=== PATIENT | male | born 1960 | race Caucasian/White ===

== ENCOUNTER 2018-04-03 03:30 | Inpatient (IN) | payer MEDICARE, OTHER ==
[2018-04-03 04:05] LABS: #Eosinphils 0.3 thou/uL (0.0-0.7); #Lymphocytes 1.1 thou/uL (1.20-3.40); #Monocytes 0.5 thou/uL (0.11-0.59); %Basophils 0.4 % (0.0-1.0); %Eosinophils 4.8 % (0.0-10.0); %Monocytes 6.9 % (0.0-10.0); Mean Corpuscular HGB CONC 32.6 g/dL (32.0-36.0); Mean Corpuscular Hemoglobin 30.7 pg (27.0-31.0); Mean Corpuscular Volume 94.4 fl (80.0-94.0); Mean Platelet Volume 7.7 fL (7.4-10.4); Platelet Count 132 thou/uL (130-400); RBC Distribution Width 17.1 % (11.5-14.5); Red Blood Cell (RBC) Count 3.57 mill/uL (4.70-6.10)
[2018-04-03] MEDS ORDERED: Morphine 10 MG/ML VIAL ONE (04:18)
[2018-04-03 04:21] LABS: Bilirubin Negative (Negative); Blood, Urine Large (Negative); Clarity TURBID (Clear); Glucose, Urine (Dipstick) Negative (Negative); Leukocyte Large (Negative); Nitrite Negative (Negative); Protein, Urine (Dipstick) 300 mg/dL (Neg-Trace); Specific Gravity, Urine 1.016 (1.002-1.036)
[2018-04-03 04:23] LABS: ALT (SGPT) 9 U/L (8-55); AST (SGOT) 13 U/L (5-34); Albumin 3.7 g/dL (3.5-5.0); Alkaline Phosphatase 74 U/L (40-150); Anion Gap 15 mmol/L (10-20); BUN (Urea Nitrogen) 40 mg/dL (8.4-25.7); Bilirubin, Total 0.4 mg/dL (0.2-1.2); Calc. Creatinine Clearance 0 mL/min (70-130); Calcium 9.5 mg/dL (7.8-10.44); Carbon Dioxide 27 mmol/L (22-29); Chloride 99 mmol/L (98-107); Estimated GFR-MDRD 14; Globulin 3.7 g/dL (2.4-3.5); Glucose 150 mg/dL (70-105); Potassium 4.3 mmol/L (3.5-5.1); Protein, Total 7.4 g/dL (6.0-8.3); Sodium 137 mmol/L (136-145)
[2018-04-03 04:24] LABS: Bacteria/HPF 4+ HPF (None Seen); Squamous Epithelial 0-3 HPF (0-3)
[2018-04-03 04:37] LABS: Pathc Cast-AUWi Flag 3.55 (0-2.49); Yeast-AUWi Flag 229.6 (0-25.0)
[2018-04-03 04:51] LABS: Amphetamine Not Detected (NotDetected); Barbiturates Screen Not Detected (NotDetected); Benzodiazepine Screen Not Detected (NotDetected); Cocaine Metabolite Screen Not Detected (NotDetected); Medtox Control Line Valid? VALID (VALID); Medtox Reader # READER 1; Methadone Not Detected (NotDetected); Methamphetamine Not Detected (NotDetected); Opiate Screen Not Detected (NotDetected); Oxycodone Screen Not Detected (NotDetected); Phencyclidine (PCP) Not Detected (NotDetected); THC/Cannabinoid Screen Not Detected (NotDetected); Tricyclic Screen Not Detected (NotDetected)
[2018-04-03 04:57] LABS: Hyaline Casts/LPF 0-3 HYALINE CAST LPF (0-3 Hyaline)
[2018-04-03 04:58] LABS: Renal Epithelial None Seen HPF (0-3); Transitional Epithelial NONE SEEN HPF (0-3); Yeast-All Forms None Seen HPF (None Seen)
[2018-04-03] MEDS ORDERED: Lorazepam 2 MG/ML VIAL ONE (05:00)
[2018-04-03 05:23] LABS: INR-International Normal Ratio 1.2; PTT 34.2 SEC (22.9-36.1); Prothrombin Time 15.1 SEC (12.0-14.7)
[2018-04-03] MEDS ORDERED: Diazepam 10 MG/2 ML SYRINGE IVP SCH (07:30)
--- NOTE | 2018-04-03 07:51 | CT ---
PRELIMINARY REPORT/[facility]/EMERGENCY AFTER HOURS PROCEDURE: EXAM: CT Cervical Spine Without Intravenous Contrast CLINICAL HISTORY: 58 years old, male; Injury or trauma; Fall; Initial encounter; Abrasion; Patient HX: level 2 trauma m58 presents to ed for fall. Pt reports fall from standing while in the bathroom and reports hitti ng his head. Pt reports pain in bilateral arms that goes down into his hands. TECHNIQUE: Axial computed tomography images of the cervical spine without intravenous contrast. Coronal and sagi ttal reformatted images were created and reviewed. COMPARISON: No relevant prior studies available. FINDINGS: Vertebrae: Moderate C5-C7 spondylosis with multilevel disc osteophyte complexes. No acute fracture. Discs/spinal canal/neural foramina: No acute findings. Soft tissues: Straightening of the spine may be positional or due to muscle spasm. Lung apices: Unremarkable. IMPRESSION: No acute findings. Thank you for allowing us to participate in the care of your patient. Dictated and Authenticated by: Alan Jacob MD 04/03/2018 4:05 AM Central Time ([place] & [place]) FINAL REPORT CERVICAL SPINE CT SCAN WITHOUT IV CONTRAST: EMERGENCY AFTER HOURS EXAM TIME: 3:50 a.m. DATE: 04/03/18. FINDINGS: Cervical spondylosis, particularly at C5-C6 and c6-C7. No evidence for acute fracture or facet dislo cation. Stable from 06/06/14. POS: OFF
--- NOTE | 2018-04-03 07:53 | CT ---
PRELIMINARY REPORT/[facility]/EMERGENCY AFTER HOURS PROCEDURE: EXAM: CT Head Without Intravenous Contrast CLINICAL HISTORY: 58 years old, male; Injury or trauma; Fall; Initial encounter; Blunt trauma (contusions or hematomas) ; Consciousness not specified; Patient HX: level 2 trauma m58 presents to ed for fall. Pt reports fall from standing while in the bathroom and reports hitting his head. Pt reports pain in bilateral arms that goes down into his hands. TECHNIQUE: Axial computed tomography images of the head/brain without intravenous contrast. Coronal and sagittal reformatted images were created and reviewed. COMPARISON: No relevant prior studies available. FINDINGS: Brain: Mild atrophy and white matter hypodensities compatible with chronic microvascular ischemic diallo nge. Old right thalamic and left caudate body lacunar infarcts. No hemorrhage. Ventricles: Unremarkable. Bones/joints: Unremarkable. No acute fracture. Soft tissues: Unremarkable. Sinuses: Left sphenoid sinus and posterior ethmoid air cell opacification with mild wall thickening. Mastoid air cells: Unremarkable. No mastoid effusion. IMPRESSION: No acute findings. Thank you for allowing us to participate in the care of your patient. Dictated and Authenticated by: Alan Jacob MD 04/03/2018 4:00 AM Central Time ([place] & [place]) FINAL REPORT BRAIN CT WIHTOUT IV CONTRAST: EMERGENCY AFTER HOURS EXAM TIME: 3:48 a.m. DATE: 04/03/18. FINDINGS: Atrophy and chronic white matter ischemic change. Left posterior ethmoid and left sphenoid sinus muc osal disease with essentially complete opacification of the left sphenoid sinus. Small old right luis antonio lamus and left caudate lacunar infarcts. These have developed since 06/06/14 study. IMPRESSION: No mass or bleed or other significant acute process. Extensive left sphenoid and posterior left ethm oid sinus mucosal disease. POS: OFF
--- NOTE | 2018-04-03 08:08 | CT ---
PRELIMINARY REPORT/[facility]/EMERGENCY AFTER HOURS PROCEDURE: EXAM: CT Chest With Intravenous Contrast CLINICAL HISTORY: 58 years old, male; Injury or trauma; Fall; Initial encounter; Abrasion; Patient HX: level 2 trauma m58 presents to ed for fall. Pt reports fall from standing while in the bathroom and reports hitti ng his head. Pt reports pain in bilateral arms that goes down into his hands. TECHNIQUE: Axial computed tomography images of the chest with intravenous contrast. Coronal and sagittal reformatted images were created and reviewed. COMPARISON: No relevant prior studies available. FINDINGS: Lungs: Right greater than left bibasilar linear and dependent densities mostly suggestive of scarring with mild component of atelectasis. No mass or acute airspace disease. Pleural space: Mild bibasilar pleural thickening. Trace left pleural effusion. Heart: Mildly enlarged. Coronary calcifications. Aortic valvular prosthesis. Mediastinum: Small hiatal hernia. Air within the esophagus. Bones/joints: Unremarkable. No acute fracture. Soft tissues: Unremarkable. Vasculature: Unremarkable. Lymph nodes: Unremarkable. No enlarged lymph nodes. IMPRESSION: No acute findings. Thank you for allowing us to participate in the care of your patient. Dictated and Authenticated by: Alan Jacob MD 04/03/2018 4:20 AM Central Time ([place] & [place]) FINAL REPORT EMERGENCY AFTER HOURS STUDY CHEST AND ABDOMEN AND PELVIS CT SCAN WITH IV CONTRAST THORACIC SPINE CT SCAN WITH IV CONTRAST LIMITED LUMBAR SPINE CT SCAN WITH IV CONTRAST LIMITED: Date: 04/03/18 FINDINGS: CHEST, ABDOMEN, AND PELVIC CT SCAN WITH IV CONTRAST: IMPRESSION: No significant acute post-traumatic process in the chest, abdomen, or pelvis. Other nontraumatic find ings include some borderline size right supraclavicular lymph nodes up to 1.2 cm in short axis, as we ll as some borderline size mediastinal lymph nodes. Extensive three vessel coronary artery calcific d isease with postop midline sternotomy. Heterogenous bilateral pleural thickening and pleural based pa renchymal changes bilaterally, having more of a chronic appearance. Small hiatal hernia. Minimal inc reased density in the dependent portion of the gallbladder, possibly artifactual, although this could represent small gallstones, but no evidence for gallbladder wall thickening or pericholecystic fat s tranding. Suprapubic urinary catheter is noted in the bladder. Very prominent vascular calcifications within the abdomen and pelvis. THORACIC SPINE CT SCAN WITH IV CONTRAST LIMITED: IMPRESSION: Multilevel spondylosis without acute fracture or dislocation. LUMBAR SPINE CT SCAN WITH IV CONTRAST LIMITED: IMPRESSION: Generalized spondylosis. Multilevel up to moderate lumbar spinal canal stenosis. No evidence for acut e fracture or dislocation. Report in agreement with preliminary report given on-call by [facility]. POS: OFF
--- NOTE | 2018-04-03 08:09 | HP ---
REQUESTING PHYSICIAN: Dr. Carnes ATTENDING SURGEON: Dr. Calixto CONSULTATIONS: Neurosurgery, Dr. Castellano HISTORY OF PRESENT ILLNESS: The patient is a 58-year-old man who presents to the Emergency [facility] by ground EMS after having a ground level fall at his home who reports hitting something in the bat hroom with his head when he fell. He had immediate numbness and tingling to his entire body. The lo wer extremities recovered almost immediately, but had continued numbness and tingling and weakness to both upper extremities with significant pain shooting down from his neck to both upper extremities. He was able [place] and again was brought to the Emergency Department, e valuated and examined and noted to have this upper extremity weakness consistent with a cord contusio n. After consultations with Dr. Castellano, it was recommended the patient get an emergent MRI in [facility] he did this morning. Currently, the patient's chief complaint is shooting pains from his neck thaddeus n into both thumbs and continued weakness. The patient currently has no new lower extremity complain ts. He has a history of diabetic peripheral neuropathy in both lower extremities. The patient denie d loss of consciousness. ALLERGIES: DEMEROL. CURRENT MEDICATIONS: Calcium, iron, fluticasone, pravastatin and sertraline. PAST MEDICAL HISTORY: Hyperlipidemia, coronary artery disease, cardiomyopathy, congestive heart fail ure, type 2 diabetes, hypertension, end-stage renal disease, CVA, depression. PAST SURGICAL HISTORY: Suprapubic catheter placement x2, cataract surgery, right subclavian dialysis catheter placement, left brachial fistula, CABG x1 and a valve replacement. SOCIAL HISTORY: The patient denies drug, tobacco or alcohol use and lives at home with family. FAMILY MEDICAL HISTORY: Coronary artery disease. REVIEW OF SYSTEMS: Ten-point review of systems negative, unless otherwise stated. PHYSICAL EXAMINATION: GENERAL: The patient is resting in the emergency room bed. He still appears in some discomfort prim arily, according to him it is his neck with the shooting pains into both upper extremities, but he is awake, alert, and his Tiffanie coma scale is 15. HEENT: Head is normocephalic, atraumatic. Eyes: Extraocular motion intact. PERRLA bilaterally. E ars are atraumatic without discharge. Nose is atraumatic without discharge. Oropharynx is clear. NECK: Immobilized in a cervical collar. Trachea is midline. No JVD. CHEST: Clear to auscultation bilaterally with good inspiratory and expiratory effort. HEART: Regular rate and rhythm. ABDOMEN: Soft, flat, nontender with hypoactive bowel sounds. Pelvis is stable. EXTREMITIES: Lower extremities show diffuse hyperpigmentation. Capillary refill is approximately 3- 4 seconds. Pulses are 1-2+ in the lower extremities. The patient is able to move and has 4/5 streng th. Upper extremities; the patient is able to shrug his shoulders, has minimal adduction and very we ak adduction. He is unable to give a thumbs up, but is able to move his other 4 fingers. He has got pins and needle sensations bilaterally. His pulses are 2+ and his capillary refill is less than 3 s econds. BACK: Atraumatic and nontender. LABORATORY DATA: White blood cell count 7.0, hemoglobin 11.0, hematocrit 33.7, platelets 132. Sodiu m 137, potassium 4.3, chloride 99, CO2 27, BUN 40, creatinine 4.36, glucose 150. LFTs are unremarkab le. Urinalysis shows large leukocyte esterase, 300+ protein, trace ketones, 7-10 RBCs, greater than 50 to TNTC white blood cells and 4+ bacteria. Urine drug screen is negative. PTT 34, PT 15, INR 1.2 . IMAGING: Radiographs; CT of the brain without contrast shows no acute findings. CT of the C-spine w ithout contrast shows no acute findings. CT of the chest, abdomen and pelvis with IV contrast shows no acute findings. The patient's cervical spine MRI is pending, but has been completed. ASSESSMENT AND PLAN: 1. Status post ground level fall. 2. Probable cord contusion. 3. History of hypertension. 4. History of coronary artery disease. 5. History of end-stage renal disease. 6. History of depression. 7. Urinary tract infection. PLAN: The plan will be to admit the patient to the surgical floor, await MRI results and final input by Dr. Castellano. The patient will be given Rocephin IV for his urinary tract infection, pain manag ement, pulmonary toilet, gastritis and mechanical thrombosis prophylaxis. The evaluation, examination, laboratory and radiographic findings will be discussed with Dr. Durga baker ter this dictation.
--- NOTE | 2018-04-03 08:13 | MRI ---
PRELIMINARY REPORT/[facility]/EMERGENCY AFTER HOURS PROCEDURE: EXAM: MR Cervical Spine Without Intravenous Contrast CLINICAL HISTORY: 58 years old, male; Injury or trauma; Fall; Initial encounter; Rupture of the cervical disc, traumati c; Injury date: 04/03/2018; Injury details: level 2 trauma m58 presents to ed for fall. Pt report s fall from standing while in the bathroom and reports hitting his head. Pt reports pain in bilateral arms t hat goes down into his hands TECHNIQUE: Magnetic resonance images of the cervical spine without intravenous contrast in multiple planes. COMPARISON: CT Cervical Spine WO Con 2018-04-03 03:49 FINDINGS: Image quality is degraded by motion. Vertebrae: There is mild reversal of the normal cervical lordosis. There is no fracture or listhesis. Normal vertebral body alignment and heights are preserved. Spinal cord: The patient has a congenitally narrowed spinal canal. Cervicomedullary junction and cerv ical cord appear grossly normal, allowing for motion artifact. Soft tissues: Unremarkable. DISCS/SPINAL CANAL/NEURAL FORAMINA: C2-C3: There is a shallow disc osteophyte complex. There is mild facet hypertrophy. There is moderate right and mild left neural foraminal narrowing. C3-C4: There is a broad-based disc osteophyte complex. There is mild facet hypertrophy. There is mild right and moderate left neural foraminal narrowing. There is moderate canal stenosis. C4-C5: There is a broad-based disc osteophyte complex. There is moderate facet hypertrophy. There is moderate right and bdclrocl-ci-hbmsiz left neural foraminal narrowing. There is moderate can al stenosis. C5-C6: There is a broad-based disc osteophyte complex. There is moderate facet hypertrophy. There is severe bilateral neural foraminal narrowing. There is moderate canal stenosis. C6-C7: There is a broad-based disc osteophyte complex. There is moderate facet hypertrophy. There is severe bilateral neural foraminal narrowing. There is mild canal stenosis. C7-T1: There is a shallow disc osteophyte complex there is mild facet hypertrophy. There is moderate bilateral neural foraminal narrowing. IMPRESSION: Examination limited by motion. No evidence of acute traumatic injury. Degenerative disc disease and s pondylosis in a patient with a congenitally narrowed spinal canal contribute to multilevel moderate c anal stenosis and multilevel moderate to severe neural foraminal narrowing. Thank you for allowing us to participate in the care of your patient. Dictated and Authenticated by: Genet Mattson MD 04/03/2018 7:46 AM Central Time ([place] & [place]) FINAL REPORT MRI CERVICAL SPINE WITHOUT CONTRAST; Date: 04/03/18 HISTORY: Level II trauma. Patient fell from standing. Post-traumatic pain. COMPARISON: None. TECHNIQUE: Cervical spine MRI is performed without intravenous Gadolinium administration. Multisequential, multi planar imaging is performed. FINDINGS: This report is in agreement with the preliminary report by Jeanine. Image quality is degraded by motion. There is no evidence of spondylolisthesis or fracture. The overall AP diameter of the central canal may be slightly narrowed due to congenital variants. There are degenerative changes of the cervical s pine as described in the preliminary report. C3-C4: Moderate central canal stenosis. There does appear to be foraminal narrowing. Evaluation is limited d ue to motion. C4-C5: Moderate central canal stenosis. Degenerative changes result in bilateral foraminal narrowing, diffic ult to evaluate due to motion. C5-C6: Severe central canal stenosis. There is bilateral foraminal narrowing. Additional areas of significant foraminal narrowing as noted as have been described in the preliminar y report by Jeanine. POS: [facility]
[2018-04-03] MEDS ORDERED: Thrombin 5000 UNITS/5 ML VIAL ONE (08:24)
[2018-04-03] MEDS ORDERED: Sodium Chloride 0.9% 10 ML ONE (08:24)
[2018-04-03] MEDS ORDERED: Morphine 4 MG/ML VIAL ONE (08:42)
[2018-04-03] MEDS ORDERED: CEFAZOLIN/Water 2 GM/20 ML SYRINGE ONE (08:48)
[2018-04-03] MEDS ORDERED: Midazolam HCl 2 mg/2 ml Vial ONE ×2 (08:49→09:04)
[2018-04-03] MEDS ORDERED: Fentanyl 250 MCG/5 ML VIAL ONE (09:04)
[2018-04-03] MEDS ORDERED: Fentanyl 100 MCG/2 ML VIAL ONE (09:04)
[2018-04-03] MEDS ORDERED: Morphine Sulfate 2 MG/ML SYRINGE SLOW IVP PRN (13:29)
[2018-04-03] MEDS ORDERED: Promethazine HCl 25 MG/ML VIAL SLOW IVP PRN (13:29)
[2018-04-03] MEDS ORDERED: diphenhydrAMINE 25 MG CAP PO PRN (13:49)
[2018-04-03] MEDS ORDERED: Promethazine HCl 25 MG/ML VIAL IM PRN ×3 (13:49→17:36)
[2018-04-03] MEDS ORDERED: Morphine 4 MG/ML VIAL SLOW IVP PRN ×2 (13:49→17:36)
[2018-04-03] MEDS ORDERED: diphenhydrAMINE 50 MG/ML VIAL IVP PRN (13:49)
[2018-04-03] MEDS ORDERED: Ondansetron HCl/PF 4 MG/2 ML Vial IVP PRN ×2 (13:49→17:36)
[2018-04-03] MEDS ORDERED: Promethazine 25 MG TAB PO PRN (13:49)
[2018-04-03] MEDS ORDERED: Promethazine HCl 12.5 MG SUPP PR PRN (13:49)
[2018-04-03] MEDS ORDERED: Acetaminophen/Codeine 30-300mg Tablet PO PRN ×2 (13:49)
[2018-04-03] MEDS ORDERED: tiZANidine HCl 4 MG TAB PO PRN (13:49)
[2018-04-03] MEDS ORDERED: Bisacodyl 10 MG SUPP PR PRN (13:49)
[2018-04-03] MEDS ORDERED: Dexamethasone 20 MG/5 ML VIAL ONE (14:01)
[2018-04-03] MEDS ORDERED: Ondansetron HCl/PF 4 MG/2 ML Vial ONE (14:01)
[2018-04-03] MEDS ORDERED: Glycopyrrolate 0.2 MG/ML 5 ML SYRINGE ONE (14:01)
[2018-04-03] MEDS ORDERED: PHENYLEPHRINE-NS 100 MCG/ML 10 ML SYRINGE ONE (14:01)
[2018-04-03] MEDS ORDERED: PROPOFOL 200 MG/20 ML VIAL ONE (14:01)
[2018-04-03] MEDS ORDERED: Lidocaine 1% PF 5 ML VIAL ONE (14:01)
--- NOTE | 2018-04-03 14:27 | OP ---
DATE OF PROCEDURE: 04/03/2018 SURGEON: Vicente Castellano M.D. JUMPBASTING ARMHOLE BASTER: Xiang Smith PA-C PREOPERATIVE INDICATION: Prevent further neurological deterioration. 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 OPERATIVE PROCEDURE: Anterior cervical diskectomy, intervertebral arthrodesis, placement of interver tebral biomechanical device C3-C4, C4-C5, C5-C6, anterior cervical plating C3-C6, local morselized au tograft, morselized Allograft, and operating microscope. PREOPERATIVE MEDICATION: Ancef 2 grams IV. DRAIN NUMBER: #1. DRAIN TYPE: 10 [place] Walter. OPERATIVE DICTATION: The patient was brought to the operating room. General endotracheal anesthesia was induced. Patient was carefully positioned with his head supported by a donut shaped head rest. A lateral fluoro radiograph was used to plan our incision. The rest of the neck was sterilely prepp ed and draped and we opened with a 10-blade knife. We controlled bleeding with bipolar cautery. We dissected sharply to the platysma and cut this muscle in line with our incision. We continued our di ssection medial to the sternocleidomastoid, lateral to the trachea and esophagus until we arrived at the prevertebral space. We placed a marker at C3-C4 and took a lateral fluoro radiograph to confirm the levels upon which we were operating. We then elevated the longus colli muscles off the anterior surface of C3, C4, C5, and C6. We placed a self-retaining retractor at C4. Distraction pins were pl aced at C3 and C5 and we distracted across both of the intervening interspaces. We incised the inter space with a 15-blade knife and removed disk contents using curettes and rongeurs at C3-C4 and C4-C5. The operative microscope was brought into the field. Under microscopic magnification using microsurgical techniques, we removed the remainder of the inter vertebral disk. We accessed the ventral epidural space with a micro curette and using Kerrison ronge urs, we removed posterior osteophytes all the remaining disk and the posterior longitudinal ligament across the interspace from one nerve root all the way to the other at C3-C4 and C4-C5 until the dura was well decompressed. We then prepared the endplates for grafting. We brought a bone rasp into the field and measured the height of the interspace to 8 mm each. Two separate 8 mm PEEK intervertebral grafts were brought into the field. These were loaded with demineralized bone matrix and morselized autograft. The autograft was obtained from our osteophytectomies and these osteophytes were cleaned off soft tissue attachments, morselized into the demineralized bone matrix and this substance was us ed as our fusion substrate. We then advanced the PEEK interbody graft into the respective interspace s under radiographic guidance to the appropriate depth. We removed our distraction pin from C4 and m solo it to C6. We moved our lateral retractor to C5-C6 and we distracted across this interspace. We incised the interspace with a 15-blade knife and removed disk contents using curettes and rongeurs. As we approached the posterior longitudinal ligament, a micro curette was used to access the ventral epidural space. Using Kerrison rongeurs, we removed posterior osteophytes. The remainder of the di sk and posterior longitudinal ligament across the entire interspace from one nerve root all the way t o the other. There was no further compression of the dura. We prepared the endplates for grafting w ith a curette and measured the height of the interspace to 7 mm. A 7 mm PEEK intervertebral graft wa s brought into the field, loaded with our demineralized bone matrix and morselized autograft and adva nced into the interspace under radiographic guidance to the appropriate depth. We then removed our d istraction pins. We irrigated with bacitracin irrigation. We removed anterior osteophytes from each of the vertebral bodies and brought a 54-mm anterior cervical plate into the field. We drilled matthew t holes through the plate into C3, C4, C5, and C6. We affixed the plate using 14 mm screws. Fixed a ngle screws were used at C6 and variable angle screws used at C3, C4, and C5. We engaged the locking mechanism over each of the 8 screws. AP and lateral fluoro radiographs confirmed adequate positioni ng of our instrumentation. We inspected the entire wound for any bleeding. We controlled bleeding w ith gentle bipolar cautery. We irrigated copiously with bacitracin irrigation. We tunneled the drai n under the platysma through a separate stab incision. We closed the wound in anatomic layers over t he drain. We applied a sterile dressing. This was a clean case and no contamination.
[2018-04-03] MEDS ORDERED: Gabapentin 300 MG CAP PO SCH ×2 (15:00→17:45)
[2018-04-03] MEDS ORDERED: Dextrose 50% Abboject 50 ML SYRINGE SLOW IVP PRN ×2 (17:36→18:11)
[2018-04-03] MEDS ORDERED: Ondansetron ODT 4 MG TAB PO PRN (17:36)
[2018-04-03] MEDS ORDERED: hydrALAZINE 20 MG/ML VIAL SLOW IVP PRN (17:36)
[2018-04-03] MEDS ORDERED: Sodium Chloride 0.9% 1,000 ML IV SCH (17:36)
[2018-04-03] MEDS ORDERED: Dextrose 5% in Water 1,000 ML IV PRN ×2 (17:36→18:11)
[2018-04-03] MEDS ORDERED: Cyclobenzaprine 10 MG TAB PO PRN (17:36)
[2018-04-03] MEDS ORDERED: ISOVUE-370 76%-LOCM 1 ML ONE (18:07)
[2018-04-03] MEDS: Dexamethasone 4 MG TAB PO SCH ×2 (18:11→23:40)
[2018-04-03] MEDS: CEFAZOLIN/Water 2 GM/20 ML SYRINGE SLOW IVP SCH (18:11)
[2018-04-03] MEDS ORDERED: HumaLOG 300 UNITS/3 ML VIAL SC PRN (18:11)
[2018-04-03] MEDS: Acetaminophen 1,000 MG in Premix Bag 1 BAG IVPB SCH ×2 (18:11→23:40)
[2018-04-03 18:37] VITALS: BMI 34.0
[2018-04-03] MEDS: cefTRIAXone\\ROCEPHIN 1 GM in Sodium Chloride 0.9% 100 ML IVPB SCH (18:56)
--- NOTE | 2018-04-03 18:57 | HP ---
NEUROSURGERY ADMISSION HISTORY AND PHYSICAL REASON FOR ADMISSION: Fall with spinal cord injury. HISTORY OF PRESENT ILLNESS: Mr. Abdulkadir Fontana is a 58-year-old gentleman with hypertension, diabete s, end-stage renal disease on dialysis who has had recurrent falls recently. He used to be losing hi s balance progressively overtime and he has noticed some hand weakness in the past. It is with this history that he got up in the early hours of the morning, fell down and hit his face on the bathroom floor. He had immediate onset burning in both arms, especially the hands and loss of control of the fingers. His legs work. He was brought to the emergency department where CT examination was negativ e for fracture or dislocation, but an MRI scan showed multilevel disk disease, T2 signal change in th e cord and compression in the cervical spinal canal. I am seeing him in the preoperative area and hi s arms are still burning from the fall. Light touch also causes dysesthetic pain in both arms. He t ells me his bowel and bladder are working okay and that the legs continue to have normal function. PAST MEDICAL HISTORY: Hypertension, type 2 diabetes, end-stage renal disease, coronary artery diseas e, aortic valve replacement, dyslipidemia, history of depression, history of constipation, and recent falls. PAST SURGICAL HISTORY: Vitrectomy in 2012, coronary artery bypass graft, aortic valve replacement, h emodialysis catheter placement, and suprapubic catheter. MEDICATIONS: Include nifedipine, tramadol, pravastatin, calcium, sertraline, midodrine, Flonase, opal devorah sulfate, aspirin (not taking aspirin), Colace, trazodone, nitroglycerin, lactulose, bisacodyl (d iscontinued), occasional Augmentin, Emetrol, Pravachol, acetaminophen, Glucotrol. ALLERGIES: DEMEROL. FAMILY HISTORY: Father has diabetes as well. Mother is and had a knee replacement and hear t disease. SOCIAL HISTORY: Mr. Fontana lives with his . He is a nonsmoker. Denies alcohol and drug use. REVIEW OF SYSTEMS: Otherwise negative. PHYSICAL EXAMINATION: Mr. Fontana is seen in the preoperative holding area. He is lying on a gurney with a collar in place. He is complaining of burning dysesthesias in the hands. He is awake. He an swers questions appropriately and he has been given some pain medicine and he drifts off to sleep, bu t he does answer in sentence form and he has good receptive and expressive language function. His co gnitive function seems normal for his age. His cranial nerves are intact. He might have some decrea sed vision, decreased hearing, but otherwise there is no focal cranial neuropathy. There is no funct ion in the hands that I can appreciate. The deltoids are working. The biceps and triceps are a claudine le bit weaker. The wrist extensors, finger extensors, and interossei are all quite weak. There is b urning dysesthetic numbness in the hands, climbing up the forearms. In the legs, there is good antig ravity strength and strength against resistance in the iliopsoas, quadriceps, hamstrings, anterior ti chano, EHL, gastroc. His joint position sense is diminished, but he has good touch sensation. Reflexe s are brisk. IMAGING FINDINGS AND TEST RESULTS: We reviewed MR imaging of the cervical spine, there is disk disea se at C3-4, C4-5, and C5-6, all of which cause cord compression. There is T2 signal change at the C5 -6 level within the substance of the cord at C6-7, there is disk disease, but no cord compression. IMPRESSION: 1. Longstanding cervical spondylitic myelopathy. 2. Fall with extension injury and central cord injury. PLAN: I have recommended emergent decompression. I have offered him an ACDF. INFORMED CONSENT: I discussed the indications, risks, benefits, and alternatives to surgery. The ri sks I discussed included, but were not limited to bleeding, infection, CSF leak, damage to the caroti d artery, jugular vein, damage to the trachea, esophagus, damage to the vocal cords, dysphagia or spi nal cord injury including wheelchair dependence, ventilator dependence, cardiopulmonary complications of anesthesia and . He understands all the risks and wants to proceed. We will make arrangements for this to happen soon. We will consult the medicine team to help with re nal dosing of his medications. We will use gabapentin, if it is possible on dialysis to help control the dysesthetic pain in the upper extremities. We make arrangements for his surgery to happen urgently. Operating room staff will decide how soon t hat he can get this on for us.
[2018-04-03] MEDS ORDERED: Famotidine/PF 20 mg/2ml Vial SLOW IVP SCH (21:00)
[2018-04-03] MEDS: Famotidine 20 MG TAB PO SCH (21:07)
[2018-04-04] MEDS: CEFAZOLIN/Water 2 GM/20 ML SYRINGE SLOW IVP SCH ×2 (01:32→13:01)
[2018-04-04] MEDS: Acetaminophen 1,000 MG in Premix Bag 1 BAG IVPB SCH (05:24)
[2018-04-04] MEDS: Dexamethasone 4 MG TAB PO SCH ×3 (05:24→17:33)
[2018-04-04] MEDS ORDERED: traMADol HCl 50 MG TAB PO PRN (07:52)
[2018-04-04] MEDS ORDERED: Acetaminophen 500 MG TAB PO SCH (08:00)
[2018-04-04] MEDS ORDERED: traMADol HCl 50 MG TAB PO SCH (08:00)
[2018-04-04 08:11] LABS: #Lymphocytes 0.5 thou/uL (1.20-3.40); #Monocytes 0.3 thou/uL (0.11-0.59); #Neutrophils 5.4 thou/uL (1.40-6.50); %Eosinophils 0.1 % (0.0-10.0); %Lymphocytes 7.5 % (21.0-51.0); %Monocytes 4.8 % (0.0-10.0); %Neutrophils 87.6 % (42.0-75.0); Mean Corpuscular HGB CONC 31.7 g/dL (32.0-36.0); Mean Corpuscular Hemoglobin 30.2 pg (27.0-31.0); Mean Corpuscular Volume 95.4 fl (80.0-94.0); Platelet Count 127 thou/uL (130-400); RBC Distribution Width 17.5 % (11.5-14.5); Red Blood Cell (RBC) Count 3.32 mill/uL (4.70-6.10); White Blood Cell (WBC) Count 6.1 thou/uL (4.8-10.8)
[2018-04-04 08:23] LABS: Anion Gap 18 mmol/L (10-20); BUN (Urea Nitrogen) 59 mg/dL (8.4-25.7); Calc. Creatinine Clearance 19 mL/min (70-130); Calcium 8.5 mg/dL (7.8-10.44); Carbon Dioxide 24 mmol/L (22-29); Chloride 99 mmol/L (98-107); Estimated GFR-MDRD 9; Glucose 201 mg/dL (70-105); Potassium 5.5 mmol/L (3.5-5.1); Sodium 135 mmol/L (136-145)
[2018-04-04] MEDS ORDERED: Acetaminophen/Codeine 30-300mg Tablet PO PRN ×2 (10:00)
[2018-04-04] MEDS ORDERED: Epoetin (NON-ESRD) 10,000 UNITS/ML VIAL SC SCH ×2 (11:00→16:00)
--- NOTE | 2018-04-04 12:31 | PRG ---
DATE OF SERVICE: 04/04/2018 SUBJECTIVE: This is a 58-year-old male, hospital day 2, status post ground level fall. Postop day # 1 status post cervical spine decompression with Neurosurgery. The patient was seen and evaluated in dialysis this a.m. There were no acute overnight events. Upon my evaluation this morning, he vocali zed a chief complaint of bilateral right greater than left upper extremity discomfort which he states has improved from yesterday. OBJECTIVE: VITAL SIGNS: Temperature 97.2, pulse 84, respiration 18, O2 sat 100% on 3 liters nasal cannula, bloo d pressure 146/83. GENERAL: Resting in bed in no acute distress. HEENT: C-collar is in place. NECK: Supple. Surgical site dressing clean, dry, and intact. CHEST: Normal work of breathing. Symmetric rise. CARDIOVASCULAR: Regular rate and rhythm. GASTROINTESTINAL: Soft, nontender, nondistended. MUSCULOSKELETAL: 3/5 left upper extremity strength, 2-3/5 right upper extremity strength, 5/5 in erika ateral lower extremities strength. Obvious hyperesthesia to the right upper extremity. NEUROLOGIC: GCS of 15. LABORATORY DATA: WBC 6.1, hemoglobin 10.0, hematocrit 31.7, and platelet count 127. Sodium 135, pot assium 5.5, chloride 99, carbon dioxide 24, BUN 15, creatinine 6.13, and glucose 201. ASSESSMENT: 1. Status post ground level fall. 2. Central cord syndrome. 3. Postoperative day #1 status post cervical spine decompression. 4. History of end-stage renal disease, on hemodialysis Friday, , Friday. 5. History of hypertension. 6. History of coronary artery disease. 7. History of diabetes. 8. History of depression. 9. Urinary tract infection, present on admission. 10. History of suprapubic catheter. PLAN: Discontinue IV pain medications and encourage p.o. analgesics. HD per Nephrology. Continue a ntibiotics for presumptive urinary tract infection. Await microbiology. Patient uses 3 liters nasal cannula at home. Therefore, respiratory status appears to be at baseline. Continue to encourage pu lmonary toileting. PT and OT have been ordered as well as inpatient rehabilitation screen. The carlos ent was discussed with trauma attending.
[2018-04-04] MEDS: Acetaminophen 500 MG TAB PO SCH ×2 (13:00→17:33)
[2018-04-04] MEDS: Sevelamer Carbonate 800 MG TAB PO SCH ×2 (13:00→17:33)
[2018-04-04] MEDS: traMADol HCl 50 MG TAB PO SCH ×2 (13:00→17:33)
[2018-04-04] MEDS: Gabapentin 300 MG CAP PO SCH ×2 (13:01→21:03)
--- NOTE | 2018-04-04 15:26 | CON ---
DATE OF CONSULTATION: 04/04/2018 HISTORY OF PRESENT ILLNESS: Mr. Fontana is a 58-year-old white male with ESRD from diabetic nephropat hy, currently on maintenance hemodialysis. He was admitted for a fall. No fracture was noted. Mikala prasad, during the initial evaluation, he was found to have some degree of cervical spondylitic myelopat hy. He underwent an anterior cervical diskectomy, intervertebral arthrodesis with placement of interverte bral biomechanical device at C3 to C6. This morning, he is feeling better. He is currently undergoing dialysis without any heparin. I am a t the bedside supervising the dialysis. REVIEW OF SYSTEMS: Positive for a fall. No chest pain. Positive for weakness of the upper extremit y. No nausea, no vomiting, no chest pain or shortness of breath, no syncopal episode, no headache, n o productive cough, no fever or chills, no abdominal pain, no dysuria, no renal frequency, no hematoc hezia, no melena, no hematemesis. MEDICATIONS: DuoNeb q.4. p.r.n., ceftriaxone 1 gram q.24 hours, Flexeril 10 mg tab t.i.d. p.r.n., De cadron 4 mg p.o. q.6 hours, Pepcid 20 mg IV daily, Neurontin 300 mg p.o. b.i.d., Humalog sliding scal e, hydralazine 10 mg IV q.4 hours, tizanidine 4 mg at bedtime. PAST MEDICAL HISTORY: 1. ESRD from diabetic nephropathy. 2. Coronary artery disease. 3. Type 2 diabetes mellitus. 4. Peripheral vascular disease. 5. Status post right basal ganglia CVA. 6. History of urinary retention secondary to urethral stricture. 7. History of coronary artery disease. 8. History of gout. 9. Hypertension. PAST SURGICAL HISTORY: 1. Status post cystostomy. 2. Status post cuffed hemodialysis catheter placement. 3. Status post cystoscopy. 4. Status post suprapubic catheter placement. 5. Status post cardiac catheterization with coronary artery stent placement. 6. Status post coronary artery bypass graft. ALLERGIES: DEMEROL. TRAUMA: None. IMMUNIZATIONS: Up to date. HOSPITALIZATIONS: Please see past medical history. SOCIAL HISTORY: The patient lives in [place]. 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 He is . He has several children. Denies any alcohol intake, sedentary lifestyle. Education: Master's degr ee. No history of smoking, no alcohol, drug abuse. FAMILY HISTORY: No family history of ESRD. PHYSICAL EXAMINATION: VITAL SIGNS: Blood pressure is 146/83, heart rate 84, respiratory rate 18, temperature 97.2, pulse o x 100%. GENERAL: Noted to be awake, supine, comfortable, not in distress. SKIN: Adequate turgor. HEENT: He has slightly pale conjunctivae, anicteric sclerae. NECK: No neck mass, no carotid bruits. No JVD. He has a cervical collar. LUNGS: Clear breath sounds, no wheezing, no crackles. HEART: Normal sinus rhythm. Grade 2/6 systolic murmur, no gallops, no rubs. ABDOMEN: Globular, soft, nontender. He does have a suprapubic Cervantes catheter. EXTREMITIES: No edema, no deformities. NEUROLOGIC: Awake, oriented to 3 spheres. Decreased motor upper extremity. LABORATORY: On 04/04/2018: White count 6.1, hemoglobin 10. Sodium 135, potassium 5.5, chloride 99, carbon dioxide 24, BUN 59, creatinine 6.13, glucose 201, calcium 8.5. ASSESSMENT AND PLAN: 1. Borderline anemia -- start Epogen 10,000 units subcu every week. 2. End-stage renal disease, stable. Continuing Friday, , and Friday hemodialysis regimen . Fluid removal as tolerated. No heparin use due to the recent surgery. 3. Hyperphosphatemia -- history -- start Renvela 800 mg 1 tab t.i.d. with meals. 4. Status post fall -- cervical cord contusion. The patient is status post cervical cord surgery. Doing better. Neuro Surgery is following.
--- NOTE | 2018-04-04 15:31 | PRG ---
DATE OF SERVICE: 04/04/2018 SUBJECTIVE: I am seeing Mr. Fontana in follow up. He has just completed dialysis. His pain is under reasonable control. He felt significant deficit in his arms. He has been wearing a cervical brace. We will plan to remove his KATE tomorrow if his output allows and I anticipate he will be ready for inp atient rehabilitation from a neurosurgical perspective, early next week. No other specific recommend ations at this time. Discussed with patient and .
[2018-04-04] MEDS: cefTRIAXone\\ROCEPHIN 1 GM in Sodium Chloride 0.9% 100 ML IVPB SCH (18:33)
[2018-04-04] MEDS: Famotidine 20 MG TAB PO SCH (21:02)
[2018-04-04] MEDS: Senokot S 8.6-50 MG TAB PO SCH (21:03)
[2018-04-04] MEDS: HumaLOG 300 UNITS/3 ML VIAL SC PRN (21:05)
[2018-04-05] MEDS: traMADol HCl 50 MG TAB PO SCH ×3 (00:36→17:31)
[2018-04-05] MEDS: Acetaminophen 500 MG TAB PO SCH ×5 (00:36→23:20)
[2018-04-05] MEDS: Dexamethasone 4 MG TAB PO SCH ×5 (00:37→23:21)
[2018-04-05 04:53] LABS: Anion Gap 19 mmol/L (10-20); BUN (Urea Nitrogen) 52 mg/dL (8.4-25.7); Calc. Creatinine Clearance 23 mL/min (70-130); Calcium 8.2 mg/dL (7.8-10.44); Carbon Dioxide 22 mmol/L (22-29); Chloride 96 mmol/L (98-107); Estimated GFR-MDRD 11; Glucose 215 mg/dL (70-105); Sodium 132 mmol/L (136-145)
[2018-04-05 04:59] LABS: #Lymphocytes 0.5 thou/uL (1.20-3.40); #Monocytes 0.2 thou/uL (0.11-0.59); #Neutrophils 6.1 thou/uL (1.40-6.50); %Basophils 0.3 % (0.0-1.0); %Eosinophils 0.4 % (0.0-10.0); %Lymphocytes 6.8 % (21.0-51.0); %Monocytes 3.6 % (0.0-10.0); Hemoglobin 10.3 g/dL (14.0-18.0); Mean Corpuscular HGB CONC 31.4 g/dL (32.0-36.0); Mean Corpuscular Hemoglobin 30.5 pg (27.0-31.0); Mean Corpuscular Volume 97.2 fl (80.0-94.0); Mean Platelet Volume 8.8 fL (7.4-10.4); Platelet Count 118 thou/uL (130-400); RBC Distribution Width 17.9 % (11.5-14.5); Red Blood Cell (RBC) Count 3.38 mill/uL (4.70-6.10); White Blood Cell (WBC) Count 6.8 thou/uL (4.8-10.8)
[2018-04-05] MEDS: HumaLOG 300 UNITS/3 ML VIAL SC PRN ×4 (06:39→22:18)
[2018-04-05] MEDS: Sevelamer Carbonate 800 MG TAB PO SCH ×3 (09:37→17:30)
[2018-04-05] MEDS: Gabapentin 300 MG CAP PO SCH ×2 (09:37→22:02)
[2018-04-05] MEDS: Polyethylene Glycol 3350 17 GM Packet PO SCH (09:37)
[2018-04-05] MEDS: Senokot S 8.6-50 MG TAB PO SCH ×2 (09:37→22:01)
--- NOTE | 2018-04-05 10:55 | PRG ---
DATE OF SERVICE: 04/05/2018 SUBJECTIVE: Mr. Fontana is a 58-year-old white male with ESRD - maintenance hemodialysis and status p ost cervical neck surgery. He underwent dialysis yesterday without any complaints. He is feeling be tter this morning. We are currently, using heparin-free dialysis due to the recent cervical neck surgery. No complaints of chest pain or shortness of breath. PHYSICAL EXAMINATION: VITAL SIGNS: Blood pressure is 134/80, heart rate 73, respiratory rate 16, temperature 97.5, pulse o x 99%. GENERAL EXAM: Noted to be awake, alert, comfortable, sitting, not in distress. SKIN: Adequate turgor. HEENT: Pinkish conjunctivae. Anicteric sclerae. NECK: No neck mass, no carotid bruits, no JVD. CHEST: No deformities. LUNGS: Clear breath sounds. No wheezing, no crackles. HEART: Normal sinus rhythm. No murmur, no gallops, no rubs. ABDOMEN: Globular, soft, nontender, no masses. EXTREMITIES: No edema, no deformities. He does have a suprapubic tube. He also has a cervical neck collar. Medications of 04/05/2018 was reviewed. LABORATORY DATA: Laboratories of 04/05/2018, white count 6.8, hemoglobin 10.3. Sodium 132, potassiu m 5, chloride 96, carbon dioxide 22, BUN 52, creatinine 5.2, glucose 215, calcium 8.2. ASSESSMENT AND PLAN: 1. End-stage renal disease, stable. We will continue current maintenance hemodialysis of Friday, , and Friday. Using no heparin due to the fact that the patient had a recent surgery. 2. Cervical spondylitic myelopathy - the patient is status post conducive cervical diskectomy. Papa moses. Surgery is following. Overall, agree with current management. Recheck basic metabolic panel and CBC in a.m.
[2018-04-05] MEDS ORDERED: traMADol HCl 50 MG TAB PO SCH ×4 (11:15→21:00)
[2018-04-05] MEDS ORDERED: Dextrose 50% Abboject 50 ML SYRINGE SLOW IVP PRN (12:46)
[2018-04-05] MEDS ORDERED: Dextrose 5% in Water 1,000 ML IV PRN (12:46)
--- NOTE | 2018-04-05 13:08 | PRG ---
DATE OF SERVICE: 04/05/2018 SUBJECTIVE: This is a 58-year-old male with a complex medical history, status post ground level fall and cervical spine decompression with Neurosurgery, postop day #2. There were no acute overnight events. The patient states that pain and strength are improving, and he vocalized no complaint. OBJECTIVE: VITAL SIGNS: Temperature 97.5, pulse 73, respirations 16, O2 sat 99% on 3 liters nasal cannula, blood pressure 134/80. GENERAL: Sitting in a chair, out of bed. HEENT: C-collar is in place. KATE drain with serosanguineous drainage. NECK: Supple. Surgical site dressing clean, dry, and intact. PULMONARY: Normal work of breathing. Symmetric rise and incentive spirometry at bedside and practiced. CARDIOVASCULAR: Regular rate and rhythm. GASTROINTESTINAL: Abdomen is soft, nontender, nondistended. NEUROLOGIC: GCS 15. LABORATORY DATA: WBC 6.8, hemoglobin 10.3, hematocrit 32.9, platelet count 118. Sodium 132, potassium 5.0, chloride 96, carbon dioxide 22, BUN 52, creatinine 5.20, glucose 215. ASSESSMENT: 1. Status post ground level fall. 2. Central cord syndrome. 3. Postop day #2 status post cervical spine decompression. 4. End-stage renal disease on hemodialysis Friday, , and Friday. 5. History of hypertension. 6. History of coronary artery disease. 7. History of diabetes, with hyperglycemia. 8. History of depression. 9. Urinary tract infection, present on admission. 10. History of suprapubic catheter. PLAN: Continue pain medications as ordered with adjustment for renal function. The patient's was concerned that he was somewhat sleepy yesterday, but appears more awake and interactive today. PT and OT. The patient has been screened by inpatient rehabilitation. He and his are deciding as they would like to [facility] a [facility] to [facility] Discussion with Neurosurgery, drain to be removed today. We will discuss length of steroid use given patient's hyperglycemia and initiation of a chemical deep thrombosis prophylaxis. Increase SSI and start long acting insulin, 10U HS. The patient and family updated on plan of care at bedside. All questions were answered at the time of this dictation. The patient was discussed with trauma attending. AMAIRANI
[2018-04-05] MEDS ORDERED: Insulin Regular 300 UNITS/3 ML VIAL IVP SCH (16:45)
[2018-04-05] MEDS: cefTRIAXone\\ROCEPHIN 1 GM in Sodium Chloride 0.9% 100 ML IVPB SCH (18:09)
[2018-04-05] MEDS: Atorvastatin Calcium 10 MG TAB PO SCH (22:02)
[2018-04-05] MEDS: Famotidine 20 MG TAB PO SCH (22:02)
[2018-04-05] MEDS: Insulin Glargine 10 UNITS in Pre-Filled Syringe 1 EACH SC SCH (22:17)
[2018-04-06 05:55] LABS: #Lymphocytes 0.5 thou/uL (1.20-3.40); #Monocytes 0.3 thou/uL (0.11-0.59); #Neutrophils 6.1 thou/uL (1.40-6.50); %Eosinophils 0.2 % (0.0-10.0); %Lymphocytes 6.8 % (21.0-51.0); %Monocytes 3.8 % (0.0-10.0); %Neutrophils 89.3 % (42.0-75.0); Hemoglobin 10.3 g/dL (14.0-18.0); Mean Corpuscular HGB CONC 32.9 g/dL (32.0-36.0); Mean Corpuscular Hemoglobin 31.2 pg (27.0-31.0); Mean Platelet Volume 8.1 fL (7.4-10.4); Platelet Count 107 thou/uL (130-400); RBC Distribution Width 17.7 % (11.5-14.5); White Blood Cell (WBC) Count 6.8 thou/uL (4.8-10.8)
[2018-04-06 06:00] LABS: Anion Gap 20 mmol/L (10-20); BUN (Urea Nitrogen) 81 mg/dL (8.4-25.7); Calc. Creatinine Clearance 19 mL/min (70-130); Carbon Dioxide 22 mmol/L (22-29); Chloride 92 mmol/L (98-107); Estimated GFR-MDRD 9; Glucose 184 mg/dL (70-105); Potassium 5.4 mmol/L (3.5-5.1); Sodium 129 mmol/L (136-145)
[2018-04-06] MEDS: Dexamethasone 4 MG TAB PO SCH ×3 (06:44→17:58)
[2018-04-06] MEDS: traMADol HCl 50 MG TAB PO SCH ×2 (06:44→17:58)
[2018-04-06] MEDS: Acetaminophen 500 MG TAB PO SCH ×3 (06:44→17:58)
[2018-04-06] MEDS: HumaLOG 300 UNITS/3 ML VIAL SC PRN ×4 (06:45→21:55)
--- NOTE | 2018-04-06 07:59 | PRG ---
DATE OF SERVICE: 04/06/2018 Mr. Fontana had a relatively good weekend. The burning pain in his arms he had before surgery is bett er, not completely gone and there is some residual especially in the right hand, but it is markedly b vannessa than it was before surgery. His motor function in the fingers and hands are starting to return nicely. I do not see any fevers recorded in the last 24 hours. Other vitals are stable. On examin ation, Mr. Fontana has his collar and dressing in place. 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 I am pleased with his progress. We will make arrangements for Mr. Fontana to have physical therapy. H is would like him to be transferred to the facility in which she works where he can get his phys ical therapy and he can be transferred for dialysis when he needs it. Mr. Fontana will keep his colla r on for the first 2 weeks after surgery. Thereafter, he can have it off at night. He does not need a dressing anymore. He can have his collar off for showers. Once our colleagues in Trauma Service and medical teams caring him feel he is safe for transfer, it w ould be perfectly acceptable.
[2018-04-06] MEDS ORDERED: Calcium Carbonate 500 MG ChewTAB PO PRN (09:00)
[2018-04-06] MEDS: Polyethylene Glycol 3350 17 GM Packet PO SCH (09:36)
[2018-04-06] MEDS: Senokot S 8.6-50 MG TAB PO SCH ×2 (09:37→21:41)
[2018-04-06] MEDS: Sevelamer Carbonate 800 MG TAB PO SCH ×3 (09:37→17:58)
[2018-04-06] MEDS: Gabapentin 300 MG CAP PO SCH ×2 (09:37→21:41)
--- NOTE | 2018-04-06 10:32 | PQF ---
DATE: 04-06-18 ATTN: ERICKSON BROWN Please exercise your independent, professional judgment in responding to the clarification form. Clinical indicators are provided on the bottom of this form for your review Please check appropriate box(s): [X ] UTI please specify if due to or related to (as applicable): [X ] Suprapubic catheter [ ] Unable to determine etiology [ ] Contaminated urine specimen without UTI [ ] Other diagnosis [ ] Unable to determine In addition, please specify: Present on Admission (POA): [ X ] Yes [ ] No [ ] Unable to determine For continuity of documentation, please document condition throughout progress notes and discharge summary. Thank You. CLINICAL INDICATORS - SIGNS / SYMPTOMS / LABS PN ERICKSON COLLIER 04-04-18: UTI, PRESENT ON ADMISSION ER: URINE COLLECTION MALE: URINE COLLECTED FROM SUPRAPUBIC CATHETER RISK FACTORS: ER: URINE COLLECTION MALE: URINE COLLECTED FROM SUPRAPUBIC CATHETER TREATMENT: (MAR) ROCEPHICristina (This form is maintained as a part of the permanent medical record) 2014 [employer] All Rights Reserved SAILAJA [email or web address] Office: [phone] [facility] SYSTEMAime
--- NOTE | 2018-04-06 11:40 | PRG-2 ---
DATE OF SERVICE: 04/06/2018 SUBJECTIVE: This is a 58-year-old male with a complex medical history including end-stage renal disease, CHF, requiring oxygen, status post ground level fall and cervical spine decompression with Neurosurgery postop day #3. There were no acute events overnight. The patient states pain and strength are improving. Vocalizes no other complaint this morning. He does note that he is not in any pain when he is sitting down, but does note some increase in pain when he is ambulating. PHYSICAL EXAMINATION: VITAL SIGNS: Temperature 97.5, pulse 70, respirations 16, oxygen sats was 100% on 2 liters nasal cannula, BP was 148/81. GENERAL: Sitting in chair out of bed. HEAD/NECK: C collar is in place. Neck is supple. Surgical site dressing clean , dry, and intact. PULMONARY: Normal work of breathing. Symmetric rise and incentive spirometry at bedside. NEUROLOGIC: GCS 15. LABORATORY DATA: No new lab values for this morning. Sodium 129, potassium 5.4 , chloride 92, creatinine 6.32, BUN 81, GFR 9. White blood cell count of 6.8, hemoglobin of 10.3, hematocrit 31.4. ASSESSMENT: 1. Status post ground level fall. 2. Central cord syndrome. 3. Postoperative day #3, status post cervical spine decompression. 4. End-stage renal disease on hemodialysis Friday, , and Friday. 5. History of hypertension. 6. History of coronary artery disease. 7. History of diabetes. 8. History of depression. 9. History of suprapubic catheter. PLAN: Continue pain medications adjusted for renal function. The patient has been undergoing PT and OT, recommended inpatient rehab facility for further rehabilitation. Between him and his , they decided that they would like to go to a assisted facility that she works at for further care. Discussed at length with the options and that we would recommend he go to an inpatient rehab facility for further and closer observation. The patient was updated on our plan of care. No family was present during this time. All questions were answered at the time of this dictation. The patient was discussed with trauma attending, Dr. Calixto. AMAIRANI
[2018-04-06] MEDS: Atorvastatin Calcium 10 MG TAB PO SCH (21:41)
[2018-04-06] MEDS: Famotidine 20 MG TAB PO SCH (21:41)
[2018-04-06] MEDS: Insulin Glargine 10 UNITS in Pre-Filled Syringe 1 EACH SC SCH (21:53)
[2018-04-07] MEDS: Dexamethasone 4 MG TAB PO SCH (01:00)
[2018-04-07] MEDS: Acetaminophen 500 MG TAB PO SCH ×4 (01:00→17:24)
[2018-04-07] MEDS: traMADol HCl 50 MG TAB PO SCH ×2 (06:18→17:25)
[2018-04-07] MEDS: Dexamethasone 1 MG TAB PO SCH ×4 (06:18→17:25)
[2018-04-07] MEDS: HumaLOG 300 UNITS/3 ML VIAL SC PRN ×3 (06:19→22:00)
--- NOTE | 2018-04-07 07:04 | PRG ---
DATE OF SERVICE: 04/07/2018 Mr. Fontana is 4 days out from 3-level ACDF for cervical spondylitic myelopathy and central cord injur y. Mr. Fontana is encouraged by his improvement. He still has some pain in the right upper extremity . Recorded vital signs did not reveal any fevers. Blood pressures have been in the 120s-150s. On exam ination Mr. Fontana essentially had useless hands before surgery and now there is a markedly improving net c developer strength and interosseous strength and extensor strength, wrist extensor strength. His incisio n is healing well. The padding on his cervical orthosis is beginning to become soiled. ASSESSMENT: Mr. Fontana had a central spinal cord injury on top of longstanding cervical spondylosis with stenosis. PLAN: Mr. Fontana is going to be transferred to a facility where he can get inpatient physical and oc cupational therapy at any time. Our Neurosurgery Service will make followup arrangements in the [facility] for x-rays and examination. The collar can stay on for the next 10 days or so and then thereafter can be removed for sleeping. If he prefers to have it off for eating even now and showering that wo uld be acceptable. Decadron can be tapered off. I would not use chemical DVT prophylaxis (i.e., blood thinners) until 04/17/2018.
[2018-04-07] MEDS: Sevelamer Carbonate 800 MG TAB PO SCH ×3 (07:56→17:24)
--- NOTE | 2018-04-07 09:00 | PRG ---
DATE OF SERVICE: 04/07/2018 SUBJECTIVE: Mr. Fontana is a 58-year-old white male being followed up for his maintenance hemodialysi s. He is currently dialyzing without heparin. I am at the bedside supervising his dialysis. Please note this patient was admitted due to a central spinal cord injury on top of a longstanding cervical spondylosis with stenosis. He underwent operative procedure for this. He is improving. He is able to move his hands without any difficulty. He denies any chest pain, shortness of breath. OBJECTIVE: VITAL SIGNS: Blood pressure 131/73, heart rate 76, respiratory rate 20, temperature 97.3, pulse ox 9 9%. GENERAL: Noted to be awake, alert, comfortable, not in distress. SKIN: Adequate turgor. HEENT: He has pinkish conjunctivae, anicteric sclerae. NECK: No neck mass, no carotid bruits, no JVD. CHEST: No deformities. LUNGS: Clear breath sounds. No wheezing, no crackles. HEART: Normal sinus rhythm. No murmur, no gallops or rubs. ABDOMEN: Globular, soft, nontender. EXTREMITIES: No edema, no deformities. MEDICATIONS: 04/07/2018 - Reviewed. LABORATORY: 04/06/2018 - White count 6.8, hemoglobin 10.3. Sodium 129, potassium 5.4, chloride 92, carbon dioxide 22, BUN 81, creatinine 6.32, glucose 184, calcium 8.0. ASSESSMENT AND PLAN: 1. End-stage renal disease, stable. Continue current maintenance hemodialysis on Friday, , and Friday using no heparin due to the recent surgery. 2. Acute spinal cord injury on top of his chronic spondylitic myelopathy. Doing well. Neurosurgery is following. 3. Anemia, on weekly Epogen.
[2018-04-07] MEDS: Senokot S 8.6-50 MG TAB PO SCH ×2 (12:53→20:55)
[2018-04-07] MEDS: Polyethylene Glycol 3350 17 GM Packet PO SCH (12:53)
[2018-04-07] MEDS: Gabapentin 300 MG CAP PO SCH ×2 (15:28→20:55)
--- NOTE | 2018-04-07 19:21 | PRG ---
DATE OF SERVICE: 04/07/2018 ATTENDING PHYSICIAN: Dr. Calixto. SUBJECTIVE: Mr. Fontana is a 58-year-old male with a medical history including ESRD, CHF, status post CABG, and currently on hemodialysis. He had a ground level fall with preexisting cervical spondylitic myelopathy and subsequent central cord injury. He underwent a 3-level ACDF. He is also being followed by Dr. Hargrove of Nephrology for management of his dialysis. His pain is well controlled. He reports that his mobility is improving. OBJECTIVE: VITAL SIGNS: Temperature 97.3, pulse 76, respirations 20, O2 sat 99% on room air, blood pressure 131/73. GENERAL: 58-year-old male lying on bed, currently receiving hemodialysis. No acute distress. HEENT: Cervical collar in place. Surgical incision to the anterior neck with Steri-Strips in place. PULMONARY: Bilateral breath sounds clear. No respiratory distress. Symmetrical movement of chest. CARDIOVASCULAR: Regular rate and rhythm. Heart sounds normal. ABDOMEN: Soft, nontender, nondistended. EXTREMITIES: Moves all extremities. Bilateral upper extremity weakness noted. Fine motor weakness. NEUROLOGIC: GCS 15. Alert and oriented x3. LABORATORY DATA: None for today. ASSESSMENT: 1. Status post ground-level fall. 2. Central cord syndrome with preexisting cervical spondylosis. 3. Postoperative day #4, status post cervical spine decompression. 4. History of end-stage renal disease, currently on hemodialysis. 5. History of hypertension, present on admission. 6. History of coronary artery disease. 7. History of diabetes, present on admission. 8. History of depression. 9. History of urethral blockage requiring suprapubic catheter placement. PLAN: 1. Continue dialysis as ordered by Nephrology. 2. Increase long-acting insulin. 3. Continue Decadron taper. 4. Pain, well controlled. 5. Continue PT and OT. 6. Anticipate discharge to detention or rehab facility tomorrow if cleared by all other services. 7. Pepcid for gastritis prophylaxis. 8. Monitor serial labs. The patient was reviewed with Dr. Calixto who agrees with plan. [facility]
[2018-04-07] MEDS: Famotidine 20 MG TAB PO SCH (20:55)
[2018-04-07] MEDS: Atorvastatin Calcium 10 MG TAB PO SCH (20:55)
[2018-04-07] MEDS ORDERED: Insulin Glargine 12 UNITS in Pre-Filled Syringe 1 EACH SC SCH (21:00)
[2018-04-08] MEDS: Acetaminophen 500 MG TAB PO SCH ×3 (01:00→13:20)
[2018-04-08 05:23] VITALS: TEMP 97.5
[2018-04-08] MEDS: Dexamethasone 1 MG TAB PO SCH ×3 (05:44→14:40)
[2018-04-08] MEDS: traMADol HCl 50 MG TAB PO SCH (05:44)
[2018-04-08] MEDS: HumaLOG 300 UNITS/3 ML VIAL SC PRN ×2 (05:46→13:16)
[2018-04-08 05:49] LABS: #Lymphocytes 0.3 thou/uL (1.20-3.40); #Monocytes 0.3 thou/uL (0.11-0.59); #Neutrophils 4.8 thou/uL (1.40-6.50); %Eosinophils 0.3 % (0.0-10.0); %Monocytes 5.5 % (0.0-10.0); %Neutrophils 89.2 % (42.0-75.0); Anion Gap 19 mmol/L (10-20); BUN (Urea Nitrogen) 67 mg/dL (8.4-25.7); Calc. Creatinine Clearance 24 mL/min (70-130); Calcium 7.9 mg/dL (7.8-10.44); Carbon Dioxide 22 mmol/L (22-29); Chloride 95 mmol/L (98-107); Estimated GFR-MDRD 12; Glucose 289 mg/dL (70-105); Hemoglobin 10.2 g/dL (14.0-18.0); Mean Corpuscular HGB CONC 33.2 g/dL (32.0-36.0); Mean Corpuscular Hemoglobin 31.2 pg (27.0-31.0); Mean Corpuscular Volume 93.9 fl (80.0-94.0); Mean Platelet Volume 8.3 fL (7.4-10.4); Platelet Count 98 thou/uL (130-400); Potassium 4.4 mmol/L (3.5-5.1); RBC Distribution Width 18.2 % (11.5-14.5); Red Blood Cell (RBC) Count 3.27 mill/uL (4.70-6.10); Sodium 132 mmol/L (136-145); White Blood Cell (WBC) Count 5.4 thou/uL (4.8-10.8)
[2018-04-08] MEDS ORDERED: Bisacodyl 10 MG SUPP PR SCH (08:15)
[2018-04-08] MEDS: Sevelamer Carbonate 800 MG TAB PO SCH ×2 (08:54→13:20)
[2018-04-08] MEDS: Gabapentin 300 MG CAP PO SCH (08:55)
[2018-04-08] MEDS: Polyethylene Glycol 3350 17 GM Packet PO SCH (08:55)
[2018-04-08] MEDS: Senokot S 8.6-50 MG TAB PO SCH (08:55)
[2018-04-08 12:11] VITALS: BP 157/77
== END 2018-04-08 15:45 | DRG 28 ==
LOC: ERS 03:30 → EEVIPCON 03:30 → ERS 08:55 → SJJU 16:39 → OBSVTOIN 16:39
PROVIDERS: ADMIT Specialist; ATTEND Specialist
PROC: 0RG20A0 Fusion of 2 or more Cervical Vertebral Joints with Interbody Fusion Device, Anterior Approach, Anterior Column, Open Approach (ICD-10-PCS; principal; 2018-04-03)
DX: S14.129A Central cord syndrome at unspecified level of cervical spinal cord, initial encounter (principal); N18.6 End stage renal disease; N39.0 Urinary tract infection, site not specified; T83.518A Infection and inflammatory reaction due to other urinary catheter, initial encounter; I12.0 Hypertensive chronic kidney disease with stage 5 chronic kidney disease or end stage renal disease; M47.12 Other spondylosis with myelopathy, cervical region; I42.9 Cardiomyopathy, unspecified; Z99.2 Dependence on renal dialysis; I25.10 Atherosclerotic heart disease of native coronary artery without angina pectoris; E11.22 Type 2 diabetes mellitus with diabetic chronic kidney disease; F32.9 Major depressive disorder, single episode, unspecified; Z79.4 Long term (current) use of insulin; D64.9 Anemia, unspecified; W19.XXXA Unspecified fall, initial encounter; E11.65 Type 2 diabetes mellitus with hyperglycemia; E11.21 Type 2 diabetes mellitus with diabetic nephropathy; I73.9 Peripheral vascular disease, unspecified; Z86.73 Personal history of transient ischemic attack (TIA), and cerebral infarction without residual deficits; M10.9 Gout, unspecified; Z95.5 Presence of coronary angioplasty implant and graft; Z95.1 Presence of aortocoronary bypass graft; E83.39 Other disorders of phosphorus metabolism; Z95.2 Presence of prosthetic heart valve
CPT/HCPCS: 36415; 36416; 70450; 71260; 72125; 72141; 74177; 76001; 80048; 80053; 80306; 81003; 81015; 85025; 85610; 85730; 90935; 93005; 94640; 96374; 96375; A4216; C1713; C1776; G0257; G0390; G8978-GP-CJ; G8979-GP-CJ; G8987-GO-CL; G8988-GO-CK; G8996-GN-CI; G8997-GN-CH; J0131; J0696; J0885; J1100; J1815; J2001; J2060; J2250; J2270; J2405; J2704; J3010; J3360; J3490; J7050; J7620; J8540

== ENCOUNTER 2018-04-20 12:33 | Emergency (ER) | payer MEDICARE ==
--- NOTE | 2018-04-20 14:31 | CT ---
NONCONTRAST ENHANCED CT IMAGES OF THE LUMBAR SPINE: HISTORY: Abdominal pain. Recent history of fall. FINDINGS: Axial images are obtained with coronal and sagittal reconstructions. CT images lumbar spine demonstrate atherosclerotic calcifications of the abdominal aorta. No evidence of acute lumbar spine fracture is seen. L1-2: Unremarkable. L2-3: There is some mild facet hypertrophy. The central canal and neural foramen are patent. L3-4: There is a broad-based disk bulge with bilateral facet hypertrophy. This results in mild to m oderate central and lateral recess stenosis. L4-5: There is a broad-based disk bulge with bilateral facet hypertrophy. No significant degree of central stenosis is seen. Mild lateral recess stenosis is seen. The neural foramen are patent. L5-S1: There is bilateral facet hypertrophy seen. No significant degree of central or neural forami nal narrowing is seen. IMPRESSION: No significant evidence of acute lumbar spine fractures or lesions seen. POS: [facility]
== END 2018-04-20 15:11 | disposition home or self-care (01) ==
LOC: ERS 12:33
DX: M54.5 Low back pain (principal); K21.9 Gastro-esophageal reflux disease without esophagitis; G47.30 Sleep apnea, unspecified; E78.5 Hyperlipidemia, unspecified; E11.9 Type 2 diabetes mellitus without complications; I13.2 Hypertensive heart and chronic kidney disease with heart failure and with stage 5 chronic kidney disease, or end stage renal disease; N18.6 End stage renal disease; I50.9 Heart failure, unspecified; Z99.2 Dependence on renal dialysis; Z86.73 Personal history of transient ischemic attack (TIA), and cerebral infarction without residual deficits; F32.9 Major depressive disorder, single episode, unspecified; Z79.899 Other long term (current) drug therapy; W19.XXXA Unspecified fall, initial encounter
CPT/HCPCS: 72131; 96374; J2270

== ENCOUNTER 2018-04-24 18:33 | Observation (INO) | payer MEDICARE ==
[2018-04-24 19:09] LABS: Bilirubin Small (Negative); Blood, Urine Large (Negative); Clarity TURBID (Clear); Glucose, Urine (Dipstick) Negative (Negative); Leukocyte Large (Negative); Nitrite Negative (Negative); Protein, Urine (Dipstick) 300 mg/dL (Neg-Trace); Specific Gravity, Urine 1.018 (1.002-1.036); Urobilinogen 0.2 mg/dL (0.2-1.0); pH, Urine 6.5 (5.0-9.0)
[2018-04-24 19:13] LABS: Bacteria/HPF 4+ HPF (None Seen)
[2018-04-24 19:16] LABS: #Eosinphils 0.1 thou/uL (0.0-0.7); #Lymphocytes 0.5 thou/uL (1.20-3.40); #Monocytes 0.4 thou/uL (0.11-0.59); #Neutrophils 7.6 thou/uL (1.40-6.50); %Eosinophils 1.1 % (0.0-10.0); %Lymphocytes 6.1 % (21.0-51.0); %Neutrophils 88.8 % (42.0-75.0); Hemoglobin 11.6 g/dL (14.0-18.0); Mean Corpuscular HGB CONC 31.5 g/dL (32.0-36.0); Mean Corpuscular Hemoglobin 30.8 pg (27.0-31.0); Mean Corpuscular Volume 97.7 fL (78.0-98.0); Mean Platelet Volume 9.1 fL (7.4-10.4); Platelet Count 77 thou/uL (130-400); RBC Distribution Width 16.6 % (11.5-14.5); Red Blood Cell (RBC) Count 3.77 mill/uL (4.70-6.10); White Blood Cell (WBC) Count 8.5 thou/uL (4.8-10.8)
[2018-04-24 19:23] LABS: Pathc Cast-AUWi Flag 9.77 (0-2.49)
[2018-04-24 19:32] LABS: Crystals/HPF None Seen HPF (Negative); Hyaline Casts/LPF 0-3 HYALINE CAST LPF (0-3 Hyaline); Yeast-All Forms 3+ HPF (None Seen)
[2018-04-24 19:39] LABS: ALT (SGPT) 13 U/L (8-55); AST (SGOT) 21 U/L (5-34); Albumin 3.3 g/dL (3.5-5.0); Alkaline Phosphatase 106 U/L (40-150); Anion Gap 22 mmol/L (10-20); BUN (Urea Nitrogen) 75 mg/dL (8.4-25.7); Bilirubin, Total 0.5 mg/dL (0.2-1.2); Calc. Creatinine Clearance 0 mL/min (70-130); Calcium 9.4 mg/dL (7.8-10.44); Carbon Dioxide 22 mmol/L (22-29); Chloride 94 mmol/L (98-107); Estimated GFR-MDRD 10; Globulin 3.8 g/dL (2.4-3.5); Glucose 168 mg/dL (70-105); Potassium 6.2 mmol/L (3.5-5.1); Protein, Total 7.1 g/dL (6.0-8.3); Sodium 132 mmol/L (136-145)
--- NOTE | 2018-04-24 20:27 | RAD ---
RADIOGRAPH CHEST 1 VIEW RADIOGRAPH ABDOMEN 2 VIEWS: Date: 04/24/18 Time: 7:31 p.m. HISTORY: 58-year-old male with generalized abdominal pain. FINDINGS: Cardiomegaly. Sternotomy wires. Prominent interstitial markings, including chronic scarring in the ri ght upper lobe. No definite acute consolidation. Bilateral pleural thickening at the bases. According to the x-ray technologist, this was an upright image, and there is no apical pneumothorax. However, there is a wide region of lucency in the right upper quadrant of the abdomen, which resemble s a deep sulcus sign of a right sided pneumothorax, seen on supine images. However, because this image where it appears is reportedly a left lateral decubitus view rather than a supine view, it is thought that this is not a pneumothorax. There is no evidence of free intraperit viera air. There is a moderate to large volume of colonic stool. Gas is present in nondilated loops o f colon and small intestine, as well as moderately distended stomach. No evidence of organomegaly. Beltre prapubic catheter present. IMPRESSION: 1. Moderate to large volume of stool suggestive of constipation. 2. Region of hyperlucency over right upper quadrant of the abdomen which resembles a deep sulcus sign. Exact etiology for this is uncertain. 3. Cardiomegaly. 4. Chronic pulmonary changes including scarring in the right upper lobe. ARPITA [] POS: VANESSA
[2018-04-24] MEDS ORDERED: Calcium Gluc 4.6 MEQ/10 ML (100 MG/ML) ONE (20:41)
[2018-04-24] MEDS ORDERED: Sodium Bicarb 50 MEQ/50 ML Abboject 8.4% SYRINGE ONE (20:41)
[2018-04-24] MEDS ORDERED: Insulin Regular 300 UNITS/3 ML VIAL ONE (20:41)
[2018-04-24] MEDS ORDERED: Dextrose 50% Abboject 50 ML SYRINGE ONE (20:41)
[2018-04-24] MEDS ORDERED: tiZANidine HCl 4 MG TAB PO PRN (23:05)
[2018-04-24] MEDS ORDERED: Dextrose 5% in Water 1,000 ML IV PRN (23:11)
[2018-04-24] MEDS ORDERED: HumaLOG 300 UNITS/3 ML VIAL SC PRN (23:11)
[2018-04-24] MEDS ORDERED: Dextrose 50% Abboject 50 ML SYRINGE SLOW IVP PRN (23:11)
[2018-04-25] MEDS: Baclofen 10 MG TAB PO SCH ×2 (01:50→04:44)
[2018-04-25 04:53] VITALS: BMI 32.1
[2018-04-25] MEDS ORDERED: Dexamethasone 1 MG TAB PO SCH (06:00)
[2018-04-25] MEDS ORDERED: traMADol HCl 50 MG TAB PO SCH (06:00)
[2018-04-25] MEDS ORDERED: Calcium Acetate 667 MG CAP PO SCH (08:00)
[2018-04-25] MEDS ORDERED: Senokot S 8.6-50 MG TAB PO SCH (09:00)
[2018-04-25] MEDS ORDERED: Gabapentin 300 MG CAP PO SCH (09:00)
[2018-04-25] MEDS ORDERED: Senokot 8.6 MG TAB PO PRN (09:15)
[2018-04-25] MEDS ORDERED: Bisacodyl 10 MG SUPP PR PRN (09:15)
[2018-04-25] MEDS ORDERED: Acetaminophen 500 MG TAB PO PRN (09:15)
[2018-04-25] MEDS ORDERED: Calcium Carbonate 500 MG ChewTAB PO PRN (09:15)
--- NOTE | 2018-04-25 11:11 | PRG ---
DATE OF SERVICE: 04/25/2018 SERVICE: Renal Medicine. SUBJECTIVE: Mr. Fontana is a 58-year-old white male with known history of ESRD, admitted for generali zed malaise and back pain. The patient has had a fall recently. He is currently at a skilled nursin g facility in [place]. We are being consulted for his maintenance hemodialysis. He is currently und ergoing dialysis. I am at the bedside supervising his dialysis. He is tolerating the said treatment . He was also noted to be hyperkalemic with a potassium of 6.2. OBJECTIVE: VITAL SIGNS: Blood pressure is noted at 121/61, heart rate 79, respiratory rate 16, temperature 97.4 , pulse ox 97%. GENERAL: Awake, alert, comfortable, not in overt distress. SKIN: Adequate turgor. HEENT: He has pinkish conjunctivae, anicteric sclerae. NECK: No neck mass, no carotid bruits, no JVD. CHEST: No deformities. LUNGS: Clear breath sounds, no wheezing, no crackles. HEART: Normal sinus rhythm. No murmur, no gallops or rubs. ABDOMEN: Globular, soft, nontender. No masses. EXTREMITIES: No edema. NEUROLOGIC: Positive for neck brace. MEDICATIONS: Of 04/25/2018 was reviewed. LABORATORY DATA AND IMAGING: Of 04/24/2018, sodium 132, potassium 6.2, chloride 94, carbon dioxide 2 2, BUN 75, creatinine 5.69, glucose 160, calcium 9.4, AST 21, ALT 13, albumin 3.3. White count 8.5, hemoglobin 11.6. X-ray of the abdomen, moderate to large volume stool suggestive of constipation. O n 04/20/2018, CT scan of the lumbar spine, no evidence of acute lumbar spine fracture. ASSESSMENT AND PLAN: 1. Back pain - recent CT scan showed no evidence of fracture. Continue supportive care, pain manage ment. 2. End-stage renal disease, stable. We will continue current hemodialysis regimen. He is undergoin g dialysis today and is tolerating said treatment. Due to the hyperkalemia, we are using a 2-0 potas sium bath with this patient. Continue supportive care. We will recheck base met and CBC in a.m.
--- NOTE | 2018-04-25 11:35 | HP ---
PRIMARY CARE PROVIDER: Fili Renee D.O. CHIEF COMPLAINT: Hand spasms. HISTORY OF PRESENT ILLNESS: Mr. Fontana is a pleasant 58-year-old gentleman who was seen at [facility] on 04/25/2018. 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 He underwent anterior cer vical diskectomy, intervertebral arthrodesis, placement of intervertebral biomechanical device C3-C4, C4-C5, C5-C6, anterior cervical plating C3-C6, local morselized autograft and morselized allograft. He had a noncontrast CT scan of the lumbar spine on 04/20/2018, which did not show any significant ev idence of acute lumbar spine fractures or lesions. He reports that he had spasms from prior to surgery. He reports that they are mainly in the left ramos d. The spasms worsen this morning, which is why he came to the emergency room. He also complained o f abdominal pain to the emergency room physician, although he says he does not have any pain at this time. He complains of diarrhea over the last couple of days. He also reports of pain in the back th at radiates to the front. He reports that he had tingling and numbness in his fingers, which has now resolved. REVIEW OF SYSTEMS: All other systems reviewed and found to be negative. PAST MEDICAL HISTORY: End-stage renal disease on hemodialysis, Enterococcus bacteremia secondary to dialysis catheter in 03/2015, hypertension, dyslipidemia, coronary artery disease, gout, peripheral v ascular disease, right basal ganglia cerebrovascular accident, cardiac catheterization with stent ferny cement. PAST SURGICAL HISTORY: Dialysis catheter, suprapubic catheter placement due to urinary retention sec ondary to urethral stricture and C-spine surgery. ALLERGIES: DEMEROL. SOCIAL HISTORY: Patient denies tobacco use, alcohol use or recreational drug use. FAMILY HISTORY: Multiple family members with diabetes mellitus type 2 and coronary artery disease. CURRENT MEDICATIONS: Tylenol p.r.n., Tylenol #3 p.r.n., Lipitor 10 mg at bedtime, Dulcolax p.r.n., P hosLo 2668 mg 3 times a day, Tums 500 mg daily, Plavix 75 mg daily, Pepcid 20 mg in the evening, cathi pentin 300 mg 2 times a day, Humalog by sliding scale, Lantus insulin 15 units at bedtime, polyethyle ne glycol 17 grams daily, Senna 2 tablets daily, Zoloft 50 mg daily, Zanaflex 4 mg every 6 hours as n eeded and tramadol p.r.n. PHYSICAL EXAMINATION: GENERAL: On examination, Mr. Fontana is awake and alert, not in acute distress. VITAL SIGNS: Blood pressure is 121/61, pulse is 79, he is breathing at rate of 16, and saturating 97 % on room air. He is afebrile. EYES: No scleral icterus. No conjunctival pallor. ENT: Moist mucosal membranes, no oropharyngeal erythema or exudates. NECK: Supple, nontender, normal range of movement. Trachea is midline. RESPIRATORY: Accessory muscles of breathing are not active. Chest wall movements are symmetric bila terally. LUNGS: Clear to auscultation without wheeze, rhonchi or crepitations. CARDIOVASCULAR: S1 and S2 are heard, regular. Peripheral pulses palpable. No carotid bruit, no per icardial rub. ABDOMEN: Soft, nontender, bowel sounds heard, no hepatomegaly, no splenomegaly. The patient has a s uprapubic catheter. NEUROLOGIC: Cranial nerves II-XII intact. No focal motor or sensory deficits. Deep tendon reflexes are 2+. Plantar reflexes downgoing bilaterally. MUSCULOSKELETAL: Power is 5/5 in all 4 extremities. LYMPHATIC: No cervical lymphadenopathy. PSYCHIATRIC: Normal mood, normal affect. The patient is oriented to person, place, and time. SKIN: No evidence of infection at surgical site. Patient also has a stage II sacral pressure ulcer and a hematoma over the right inner thigh. IMAGING DATA AND LABORATORY DATA: Mr. Fontana's labs and investigations were reviewed. I reviewed hi s electrocardiogram, which shows normal sinus rhythm, no ST changes to suggest an acute coronary synd justice. I also reviewed his chest x-ray, which does not show any pulmonary infiltrates. He also had a cute abdomen series done, which showed moderate to large volume of stool suggestive of constipation, according to radiologist. He also had region of hyperlucency over right upper quadrant of the abdome n, which resembles a deep sulcus sign, radiologist reports that the exact etiology is uncertain. He has cardiomegaly and chronic pulmonary changes including scarring in the right upper lobe. He has no rmal white count, normocytic anemia with hemoglobin 11.6, thrombocytopenia with platelet count of 77, 000, last known platelet count 98,000 on 04/08/2018, decreased sodium of 132, elevated potassium of 6 .2, elevated blood urea nitrogen of 75, elevated creatinine of 5.69, elevated anion gap of 22, normal carbon dioxide of 22, decreased albumin of 3.3, otherwise unremarkable liver profile and urinalysis that is positive for protein, ketones, bilirubin and large amount of leukocyte esterase. ASSESSMENT AND PLAN: Mr. Fontana is a pleasant 58-year-old gentleman who was seen at [facility] on 04/25/2018. His problem list includes: 1. Hyperkalemia: Mr. Fontana has received Humulin insulin, sodium bicarbonate, calcium gluconate and D50 water in the emergency room. Nephrology Service has been consulted for hemodialysis. We will r echeck his potassium after dialysis. 2. End-stage renal disease on dialysis. Maintenance dialysis per Nephrology Service. 3. Diabetes mellitus type 2: Start Accu-Cheks, insulin sliding scale. 4. Muscle spasms: These have resolved. He is neurologically intact at this time. He will be advis ed to follow up with his surgeon and primary care provider as outpatient. 5. Diarrhea: I will check stool studies to rule out Clostridium difficile infection as well as othe r infections. 6. Coronary artery disease: Appears to be stable. 7. Dyslipidemia: Continue statin. 8. Mr. Fontana's urinalysis is suggestive of an infection. However, this is from chronic indwelling suprapubic catheter, most likely represents colonization. He does not have leukocytosis or fevers. We will not start him on antibiotics at this time. Many thanks for allowing me to participate in your patient's care. Please feel free to contact me wi th any questions or concerns. LEVEL OF RISK: High. LEVEL OF COMPLEXITY: High.
[2018-04-25] MEDS ORDERED: ISOVUE-370 76%-LOCM 1 ML ONE (12:14)
[2018-04-25] MEDS: Acetaminophen/Codeine 30-300mg Tablet PO PRN ×2 (12:49→20:14)
[2018-04-25] MEDS: Sevelamer Carbonate 800 MG TAB PO SCH ×2 (12:51→17:18)
--- NOTE | 2018-04-25 16:57 | PDOC.EVN ---
Event Note - Event Note Event Note: Pt c/o flank pain last two days. Will check CT with contrast, nephrology service aware, will dialyze him again tomorrow. Case management being consulted because pt will need preauth from [employer] before he can go back.
[2018-04-25] MEDS: Polyethylene Glycol 3350 17 GM Packet PO PRN (17:18)
[2018-04-25] MEDS: tiZANidine HCl 4 MG TAB PO PRN (17:19)
[2018-04-25] MEDS: traMADol HCl 50 MG TAB PO SCH (17:19)
[2018-04-25] MEDS: Calcium Acetate 667 MG CAP PO SCH (19:10)
[2018-04-25] MEDS: Famotidine 20 MG TAB PO SCH (20:08)
[2018-04-25] MEDS: Atorvastatin Calcium 10 MG TAB PO SCH (20:08)
[2018-04-25] MEDS: Insulin Glargine 15 UNITS in Pre-Filled Syringe 1 EACH SC SCH (20:11)
[2018-04-25] MEDS ORDERED: Famotidine 20 MG TAB PO SCH (21:00)
[2018-04-25] MEDS ORDERED: Atorvastatin Calcium 10 MG TAB PO SCH ×2 (21:00)
[2018-04-25] MEDS ORDERED: Insulin Glargine 12 UNITS in Pre-Filled Syringe 1 EACH SC SCH (21:00)
--- NOTE | 2018-04-25 21:09 | CT ---
CT ABDOMEN AND PELVIS WITH CONTRAST 04/25/18 COMPARISON: 04/03/18. HISTORY: Back pain on the right radiating to the front for the past few days. TECHNIQUE: Multiple contiguous axial images were obtained in a CT of the abdomen and pelvis with contrast. PO co ntrast was administered. Coronal reformats were performed. FINDINGS: There is a suprapubic catheter in the urinary bladder. Moderate stool is seen throughout the colon. T he small bowel is normal in caliber without significant distention. The appendix is not definitely se en. No free air, free fluid or stranding changes are seen in the abdomen or pelvis. The liver, gallbladder, kidneys, adrenal glands, spleen, and pancreas are unremarkable. No abdominal or pelvic lymphadenopathy are seen. Degenerative changes are seen in the spine. Atherosclerotic calcifications are seen in the aorta. The re is bibasilar dependent atelectasis. The abdominal wall soft tissues are unremarkable. IMPRESSION: 1. No evidence of acute intra-abdominal/pelvic abnormality. 2. Moderate stool retention in the colon. POS: [facility]
[2018-04-26] MEDS: traMADol HCl 50 MG TAB PO SCH ×2 (05:15→17:33)
[2018-04-26 06:45] LABS: Anion Gap 16 mmol/L (10-20); BUN (Urea Nitrogen) 53 mg/dL (8.4-25.7); Calc. Creatinine Clearance 24 mL/min (70-130); Calcium 8.6 mg/dL (7.8-10.44); Carbon Dioxide 27 mmol/L (22-29); Chloride 93 mmol/L (98-107); Estimated GFR-MDRD 13; Glucose 116 mg/dL (70-105); Potassium 5.2 mmol/L (3.5-5.1); Sodium 131 mmol/L (136-145)
[2018-04-26 07:11] LABS: #Eosinphils 0.2 thou/uL (0.0-0.7); #Lymphocytes 0.8 thou/uL (1.20-3.40); #Monocytes 0.6 thou/uL (0.11-0.59); #Neutrophils 5.4 thou/uL (1.40-6.50); %Basophils 0.4 % (0.0-1.0); %Eosinophils 2.5 % (0.0-10.0); %Lymphocytes 10.9 % (21.0-51.0); %Monocytes 8.3 % (0.0-10.0); %Neutrophils 77.9 % (42.0-75.0); Hemoglobin 10.7 g/dL (14.0-18.0); Mean Corpuscular HGB CONC 31.5 g/dL (32.0-36.0); Mean Corpuscular Hemoglobin 30.8 pg (27.0-31.0); Mean Corpuscular Volume 97.7 fL (78.0-98.0); Platelet Count 83 thou/uL (130-400); RBC Distribution Width 16.3 % (11.5-14.5); Red Blood Cell (RBC) Count 3.48 mill/uL (4.70-6.10); White Blood Cell (WBC) Count 6.9 thou/uL (4.8-10.8)
[2018-04-26] MEDS ORDERED: Clopidogrel Bisulfate 75 MG TAB PO SCH (09:00)
[2018-04-26] MEDS ORDERED: Bisacodyl 10 MG SUPP PR SCH (09:00)
[2018-04-26] MEDS: Calcium Acetate 667 MG CAP PO SCH ×3 (09:02→18:26)
[2018-04-26] MEDS: cefTRIAXone\\ROCEPHIN 1 GM in Sodium Chloride 0.9% 100 ML IVPB SCH (09:03)
[2018-04-26] MEDS: Sevelamer Carbonate 800 MG TAB PO SCH ×3 (09:03→18:26)
[2018-04-26] MEDS: tiZANidine HCl 4 MG TAB PO PRN ×2 (09:04→17:33)
[2018-04-26] MEDS: Polyethylene Glycol 3350 17 GM Packet PO SCH ×2 (09:04→20:45)
[2018-04-26] MEDS: Senokot S 8.6-50 MG TAB PO SCH ×2 (09:04→20:46)
--- NOTE | 2018-04-26 12:01 | PRG ---
DATE OF SERVICE: 04/26/2018 SERVICE: Renal Medicine. SUBJECTIVE: Mr. Fontana is a 58-year-old white male followed up for his maintenance hemodialysis. He had some abdominal pain yesterday. A CAT scan was done with and without contrast and showed no acut e intra-abdominal pathology, but showed significant constipation. He did tell me he had a bowel move ment last night. No other complaints today. Denies any chest pain or shortness of breath. He is re ceiving extra dialysis due to the contrast load received yesterday. OBJECTIVE: VITAL SIGNS: Blood pressure is 133/46, heart rate 80, respiratory rate 18, temperature 97.9, pulse o x 93%. GENERAL: Awake, supine, comfortable, not in distress. SKIN: Adequate turgor. HEENT: He has pinkish conjunctivae, anicteric sclerae. NECK: No neck mass, no carotid bruits, no JVD. CHEST: No deformities. LUNGS: Clear breath sounds. No wheezing, no crackles. HEART: Normal sinus rhythm. No murmur, no gallops or rubs. ABDOMEN: Globular, soft, nontender, no masses. EXTREMITIES: No edema. Please note he has a suprapubic catheter. In addition, he has a neck brace. MEDICATIONS: Of 04/26/2018 reviewed. LABORATORY DATA: Of 04/26/2018, white count 6.9, hemoglobin 10.7, hematocrit 34. Sodium 131, potass ium 5.2, chloride 93, carbon dioxide 27, BUN 53, creatinine 4.51, glucose 116, calcium 8.6. ASSESSMENT AND PLAN: 1. End-stage renal disease -- extra hemodialysis due to the contrast load yesterday. He will underg o a 2-hour hemodialysis. Fluid removal will be done only as tolerated by the patient. 2. Abdominal pain, resolved. CT scan showed no acute intra-abdominal abnormality. He does have sig nificant constipation. Overall, agree with current management.
[2018-04-26] MEDS: Acetaminophen/Codeine 30-300mg Tablet PO PRN (14:24)
[2018-04-26] MEDS ORDERED: Heparin 1,000 UNITS/ML VIAL ONE (18:31)
[2018-04-26] MEDS: Famotidine 20 MG TAB PO SCH (20:46)
[2018-04-26] MEDS: Atorvastatin Calcium 10 MG TAB PO SCH (20:47)
[2018-04-26] MEDS: Insulin Glargine 15 UNITS in Pre-Filled Syringe 1 EACH SC SCH (20:47)
--- NOTE | 2018-04-26 20:59 | DIS ---
DATE OF DISCHARGE: 04/26/2018 DISCHARGE DISPOSITION: The patient will go back to the half-way facility. INPATIENT DISEASE AND INSECT CONTROL BOSS: Nephrology, Dr. Hargrove. The patient was seen on the day of discharge. Denies any new complaints. No chest pain, shortness of breath, palpitations. The spasms in the hand has significantly improved. DISCHARGE MEDICATIONS: Same as admission medications with addition of ciprofloxacin 250 mg daily for the next 3 days for urinary tract infection. BRIEF HOSPITAL COURSE: The patient is a 58-year-old male with end- stage renal disease on hemodialysis, hypertension, coronary artery disease, and CVA in the past, presented to the hospital with hand spasm. Please note that patient was recently admitted at this facility for a fall and underwent cervical surgery. Please refer to the discharge summaries for further details. The patient was admitted to this facility with a diagnosis of hyperkalemia. His potassium on admission was 6.2. He underwent hemodialysis per Nephrology. He also received insulin with dextrose, sodium bicarbonate, and calcium. His potassium level is improved to 5.2. The patient has been cleared by Nephrology for discharge back to the facility. He will resume dialysis Friday, and Friday. He was also found to have stool retention on CT that resolved with laxatives FINAL DIAGNOSES: 1. Hyperkalemia, resolved. 2. Hand spasms, probably secondary to electrolyte imbalance versus recent neck surgery, improved. 3. End-stage renal disease, on hemodialysis. 4. Coronary artery disease. 5. Chronic anemia. 6. Chronic thrombocytopenia. 7. Obesity with a BMI of 31.9. 8. Hyponatremia. 9. Mild protein calorie malnutrition. 10. Stool retention. 11. Diarrhea on admission, resolved. 12. Dyslipidemia. 13. Coronary artery disease. 14. Chronic indwelling suprapubic catheter. 15. Diabetes mellitus type 2. Plan of care was discussed with the patient in detail. He stated understanding. AMAIRANI
[2018-04-27] MEDS: traMADol HCl 50 MG TAB PO SCH ×2 (05:31→19:07)
[2018-04-27] MEDS: Polyethylene Glycol 3350 17 GM Packet PO PRN (05:32)
--- NOTE | 2018-04-27 09:22 | PRG ---
DATE OF SERVICE: 04/27/2018 SUBJECTIVE: Mr. Fontana is a 58-year-old white male followed up by the Renal Service for his [facility] hemodialysis. He was initially admitted for nonspecific complaints of diffuse myalgia and has sp asms. Since that time it has been resolved. However, the patient is unable to move his bowels. For that reason, they are waiting for him to get a good bowel movement. No other complaints today, no c hest pain or shortness of breath. No indication for any acute dialytic intervention. PHYSICAL EXAMINATION: VITAL SIGNS: Blood pressure 140/73, heart rate 83, respiratory rate 18, temperature 97.9, pulse oxim etry 95%. GENERAL: Noted to be awake, sitting comfortable, not in overt distress. SKIN: Adequate turgor. HEENT: He has pinkish conjunctivae, anicteric sclerae. NECK: No neck mass, no carotid bruits, no JVD. CHEST: No deformities. LUNGS: Clear breath sounds. No wheezing, no crackles. HEART: Normal sinus rhythm. No murmur, no gallops, no rubs. ABDOMEN: Globular, soft, nontender, no masses. EXTREMITIES: No edema, no deformities. MEDICATIONS: 04/27/2018 - Reviewed. LABORATORY DATA: 04/26/2018 - Sodium 131, potassium 5.2, chloride 93, carbon dioxide 27, BUN 53, cre atinine 4.51, calcium 8.6. 04/27/2018 - Glucose is 117. 04/26/2018 - Hemoglobin 10.7. ASSESSMENT AND PLAN: 1. End-stage renal disease, stable. No acute indication for any dialytic intervention today. Lisa gonzalez note he received dialysis yesterday due to a contrast load given previously for a CAT scan of the a bdomen 2. Mild hyperkalemia - the patient is status post dialysis yesterday. Continue supportive care. 3. Constipation - the on patient several laxatives. 4. End-stage renal disease. The patient is doing well. We will be continuing on his Friday, , and Friday hemodialysis. If the patient is here tomorrow, we will schedule him for his regula r dialysis. Overall I agree with current management.
[2018-04-27] MEDS: Sevelamer Carbonate 800 MG TAB PO SCH ×3 (09:39→19:07)
[2018-04-27] MEDS: Calcium Acetate 667 MG CAP PO SCH ×3 (09:39→19:07)
[2018-04-27] MEDS: Senokot S 8.6-50 MG TAB PO SCH ×2 (09:39→21:27)
[2018-04-27] MEDS: Polyethylene Glycol 3350 17 GM Packet PO SCH ×2 (09:39→21:26)
[2018-04-27] MEDS: Acetaminophen/Codeine 30-300mg Tablet PO PRN (09:40)
[2018-04-27] MEDS: cefTRIAXone\\ROCEPHIN 1 GM in Sodium Chloride 0.9% 100 ML IVPB SCH ×2 (09:42→20:06)
[2018-04-27] MEDS ORDERED: Bisacodyl 10 MG SUPP PR SCH (16:30)
--- NOTE | 2018-04-27 18:39 | RAD ---
KUB: 04/27/2018 HISTORY: Nausea, vomiting, and abdominal pain. COMPARISON: None. FINDINGS: Supine imaging is provided, limiting assessment for free intraperitoneal air and small bowel obstruct ion. A suprapubic catheter is noted. There is residual oral contrast media within the colon. There is vascular calcification within the pelvis, in the upper abdomen. No evidence for bowel obstructio n appreciated. IMPRESSION: No evidence for bowel obstruction. POS: [facility]
--- NOTE | 2018-04-27 18:52 | CT ---
CT LUMBAR SPINE WITHOUT CONTRAST: 04/27/2018 HISTORY: Recent fall with left leg numbness. COMPARISON: None. TECHNIQUE: Serial axial CT imaging is obtained at 2.5 mm intervals, through the lumbar spine, without contrast. Coronal and sagittal reformatted imaging is obtained. FINDINGS: Partially imaged abdomen demonstrates diffuse atherosclerotic calcification of the abdominal aorta an d its imaged branches. Evaluation for central canal and/or neural foraminal stenosis is limited on CT examination. There is no anterolisthesis or retrolisthesis noted within the lumbar spine. There is mild superior and inferior endplate irregularity involving T11 through L3. No vertebral body height loss is noted. T11-T12: Disk space narrowing with no osseous cause of significant central canal or neural foraminal stenosis. T12-L1: Disk space narrowing and anterior osteophyte formation with no osseous cause of significant central canal or neural foraminal stenosis. L1-L2: Mild bilateral facet hypertrophy. Disk space narrowing and anterior osteophyte formation. N o osseous cause of significant central canal or neural foraminal stenosis. L2-L3: Mild bilateral facet hypertrophy and hypertrophy of the ligamentum flavum. No osseous cause of significant central canal or neural foraminal stenosis. L3-L4: There is mild bilateral facet hypertrophy and hypertrophy of the ligamentum flavum. There is mild disk bulge with at least mild central canal stenosis. At least mild bilateral neural foraminal stenosis is suspected. L4-L5: There is mild disk bulge. There is moderate bilateral facet hypertrophy. There is mild/mode rate central canal stenosis and mild to moderate bilateral neural foraminal stenosis. L5-S1: Mild bilateral facet hypertrophy with no significant central canal or neural foraminal stenos is. There is no worrisome lytic or blastic bone lesion. There is no displaced fracture or evidence of di slocation apparent. IMPRESSION: Multilevel lumbar spine degenerative change with no acute fracture or dislocation. If there is clini jia concern for significant underlying central canal and/or neural foraminal stenosis, follow-up lumb ar spine MRI is suggested. POS: [facility]
[2018-04-27] MEDS: Famotidine 20 MG TAB PO SCH (21:26)
[2018-04-27] MEDS: Ondansetron ODT 4 MG TAB PO PRN (21:27)
[2018-04-27] MEDS: Atorvastatin Calcium 10 MG TAB PO SCH (21:27)
--- NOTE | 2018-04-27 22:18 | PDOC.PN ---
- Subjective Encounter Start Date: 04/27/18 Encounter Start Time: 15:00 Patient seen and examined for Hyperkalemia. Nausea with intermittent vomiting/ Abd discomfort. Left LE numbness. No overnight events - Objective MAR Reviewed: Yes Vital Signs & Weight: Vital Signs (12 hours) Temp Pulse Resp BP Pulse Ox 04/27/18 19:24 97.0 F L 82 16 119/45 L 92 L 04/27/18 16:00 97.2 F L 72 16 124/61 99 04/27/18 11:46 97.6 F 78 14 127/59 L 96 Weight Weight 217 lb I&O: 04/26/18 04/27/18 04/28/18 06:59 06:59 06:59 Intake Total 660 2530 600 Output Total 300 50 Balance 360 2480 600 Result Diagrams: 04/26/18 05:49 04/26/18 05:49 Additional Labs: Accuchecks 04/27/18 04/27/18 04/27/18 10:21 05:31 02:37 POC Glucose 158 H 117 H 84 04/26/18 04/26/18 20:45 16:59 POC Glucose 159 H 179 H EKG Reviewed by me: Yes (Tele SR) Phys Exam - Physical Examination Constitutional: NAD Respiratory: no wheezing, no rhonchi Cardiovascular: RRR, no rub Gastrointestinal: soft, non-tender, positive bowel sounds Musculoskeletal: no edema Neurological: non-focal, moves all 4 limbs Psychiatric: A&O x 3 Dx/Plan (1) Hyperkalemia Code(s): E87.5 - HYPERKALEMIA Status: Acute (2) Leg numbness Code(s): R20.0 - ANESTHESIA OF SKIN Status: Acute Comment: with h/o recent fall (3) ESRD (end stage renal disease) on dialysis Code(s): N18.6 - END STAGE RENAL DISEASE; Z99.2 - DEPENDENCE ON RENAL DIALYSIS Status: Chronic (4) CAD (coronary artery disease) Code(s): I25.10 - ATHSCL HEART DISEASE OF [place] CORONARY ARTERY W/O ANG PCTRS Status: Chronic - Plan plan discussed w/ family, PT/OT, DVT proph w/SCDs CT Lumbar spine - per NSG recom -: KUB to r/o stool retention or SBO -: Cont current meds as below -: Dialysis per Nephro -: Awaiting insurance approval to return to Rehab, AM labs Review of Systems - Review of Systems Respiratory: negative: Cough, Dry, Shortness of Breath, Hemoptysis, SOB with Excertion, Pleuritic Pain, Sputum, Wheezing Cardiovascular: negative: chest pain, palpitations, orthopnea, paroxysmal nocturnal dyspnea, edema, light headedness, other - Medications/Allergies Allergies/Adverse Reactions: Allergies Allergy/AdvReac Type Severity Reaction Status Date / Time meperidine HCl [From Demerol] Allergy Verified 04/25/18 01:04 Medications: Current Medications Acetaminophen (Tylenol) 1,000 mg PO Q8H PRN PRN Reason: Pain Acetaminophen/Codeine Phosphate (Tylenol #3) 1 tab PO Q4H PRN PRN Reason: Pain Last Admin: 04/27/18 09:40 Dose: 1 tab Atorvastatin Calcium (Lipitor) 10 mg PO [facility] Last Admin: 04/27/18 21:27 Dose: 10 mg Bisacodyl (Dulcolax) 10 mg [place] Q12H PRN PRN Reason: Constipation Bisacodyl (Dulcolax) 10 mg GA DAILY [facility] Calcium Acetate (Phoslo) 667 mg PO TID-[facility] Last Admin: 04/27/18 19:07 Dose: Not Given Calcium Carbonate (Tums) 500 mg PO DAILYPRN PRN PRN Reason: INDIGESTION Dextrose/Water (Dextrose 50%) 25 gm SLOW IVP PRN PRN PRN Reason: Hypoglycemia Famotidine (Pepcid) 20 mg PO QPM [facility] Last Admin: 04/27/18 21:26 Dose: 20 mg Glucagon (Glucagon) 1 mg IM PRN PRN PRN Reason: Hypoglycemia Dextrose/Water (D5w) 1,000 mls @ 0 mls/hr IV .Q0M PRN; As Directed PRN Reason: Hypoglycemia Insulin Glargine 15 units/ (Miscellaneous Medication) 0.15 mls @ 0 mls/hr SC [facility] Last Admin: 04/26/18 20:47 Dose: 0.15 mls Insulin Human Lispro (Humalog) 0 units SC .MILD SLIDING SCALE PRN PRN Reason: Mild Correctional Scale Ondansetron HCl (Zofran Odt) 4 mg PO Q6H PRN PRN Reason: Nausea/Vomiting Last Admin: 04/27/18 21:27 Dose: 4 mg Polyethylene Glycol (Miralax) 17 gm PO DAILYPRN PRN PRN Reason: Constipation Last Admin: 04/27/18 05:32 Dose: 17 gm Polyethylene Glycol (Miralax) 17 gm PO BID [facility] Last Admin: 04/27/18 21:26 Dose: 17 gm Senna (Senokot) 2 tab PO DAILYPRN PRN PRN Reason: Constipation Last Admin: 04/25/18 17:19 Dose: 2 tab Senna/Docusate Sodium (Senokot S) 2 tab PO BID [facility] Last Admin: 04/27/18 21:27 Dose: 2 tab Sertraline HCl (Zoloft) 50 mg PO DAILY [facility] Last Admin: 04/27/18 09:39 Dose: 50 mg Sevelamer Carbonate (Renvela) 800 mg PO TID-[facility] Last Admin: 04/27/18 19:07 Dose: Not Given Tizanidine HCl (Zanaflex) 4 mg PO Q6H PRN PRN Reason: Muscle Spasm Last Admin: 04/26/18 17:33 Dose: 4 mg Tramadol HCl (Ultram) 50 mg PO 0600,1800 [facility] Last Admin: 04/27/18 19:07 Dose: 50 mg
[2018-04-28] MEDS ORDERED: Cipro 250 MG TAB PO SCH (06:00)
[2018-04-28] MEDS: traMADol HCl 50 MG TAB PO SCH (06:43)
[2018-04-28] MEDS ORDERED: Bisacodyl 10 MG SUPP PR SCH (09:00)
[2018-04-28] MEDS: Insulin Glargine 15 UNITS in Pre-Filled Syringe 1 EACH SC SCH (09:00)
[2018-04-28] MEDS: Acetaminophen/Codeine 30-300mg Tablet PO PRN (13:43)
[2018-04-28] MEDS: Sevelamer Carbonate 800 MG TAB PO SCH ×3 (14:56→16:52)
[2018-04-28] MEDS: Calcium Acetate 667 MG CAP PO SCH ×3 (14:56→16:52)
[2018-04-28] MEDS: Senokot S 8.6-50 MG TAB PO SCH (14:56)
[2018-04-28] MEDS: Polyethylene Glycol 3350 17 GM Packet PO SCH (14:57)
[2018-04-28] MEDS: Ondansetron ODT 4 MG TAB PO PRN (14:57)
--- NOTE | 2018-04-28 14:59 | PDOC.PN ---
- Subjective Encounter Start Date: 04/28/18 Encounter Start Time: 14:57 Mr. Fontana was seen today in follow-up of constipation and right side pain. He does not have any new complaints. - Objective MAR Reviewed: Yes Vital Signs & Weight: Vital Signs (12 hours) Temp Pulse Pulse Pulse Resp BP BP 04/28/18 08:25 78 84 125/56 L 132/62 04/28/18 08:00 98 F 83 16 04/28/18 03:33 97.9 F 83 16 BP Pulse Ox 04/28/18 08:25 04/28/18 08:00 121/60 90 L 04/28/18 03:33 120/56 L 94 L Weight Weight 218 lb 1.6 oz I&O: 04/27/18 04/28/18 04/29/18 06:59 06:59 06:59 Intake Total 2530 600 Output Total 50 150 Balance 2480 450 Result Diagrams: 04/26/18 05:49 04/26/18 05:49 Additional Labs: Accuchecks 04/28/18 04/27/18 04/27/18 06:13 21:03 18:11 POC Glucose 106 119 H 102 Phys Exam - Physical Examination HEENT: PERRLA Respiratory: no wheezing, no rales, no rhonchi, clear to auscultation bilateral Cardiovascular: RRR, no significant murmur, no rub Gastrointestinal: soft, non-tender, positive bowel sounds Musculoskeletal: edema present trace pedal edema Neurological: non-focal, moves all 4 limbs Dx/Plan (1) Constipation Code(s): K59.00 - CONSTIPATION, UNSPECIFIED Status: Acute (2) CAD (coronary artery disease) Code(s): I25.10 - ATHSCL HEART DISEASE OF [place] CORONARY ARTERY W/O ANG PCTRS Status: Chronic (3) ESRD (end stage renal disease) on dialysis Code(s): N18.6 - END STAGE RENAL DISEASE; Z99.2 - DEPENDENCE ON RENAL DIALYSIS Status: Chronic - Plan * Constipation- continue medications as needed * ESRD- stable Lumbar DJD- stable- symptomatic relief * Stable for discharge home..
--- NOTE | 2018-04-28 15:00 | PRG ---
DATE OF SERVICE: 04/28/2018 SUBJECTIVE: Mr. Fontana is a 58-year-old white male with history of ESRD. He underwent a CT scan of the lumbar spine on 12/28/2017. There were multiple lumbar spine degenerative changes with no acute dislocation or fracture. However, this back pain is with this patient. He is currently undergoing hemodialysis. I am at the bedside supervising his dialysis. He has no ot her complaints. We are awaiting [facility] facility placement for this patient. PHYSICAL EXAMINATION: VITAL SIGNS: Blood pressure 132/62, heart rate 83, respiratory rate 16, temperature 98, pulse ox 98% on room air. GENERAL: Awake, alert, comfortable, not in overt distress. SKIN: Adequate turgor. HEENT: He has pinkish conjunctivae, anicteric sclerae. NECK: No neck mass, no carotid bruits, no JVD. CHEST: No deformities. LUNGS: Decreased breath sounds. No wheezing or crackles. HEART: Normal sinus rhythm. No murmur, no gallops, no rubs. ABDOMEN: Globular, soft, nontender. No masses. EXTREMITIES: No edema. Please note he has a suprapubic cath/Cervantes catheter. MEDICATIONS: 04/28/2018 - Reviewed. LABORATORY DATA: 04/26/2018 - White count 6.9, hemoglobin 10.7, , glucose 106. 04/26/2018 - BUN 53, creatinine 4.51, potassium 5.2. ASSESSMENT AND PLAN: 1. End-stage renal disease, stable. Continue current Friday, , and Friday hemodialysis r egimen. We will max out fluid removal as tolerated by the patient. 2. Back pain secondary to degenerative joint disease. Continue supportive care. We are awaiting outpatient placement at a [facility] facility versus rehab with this patient. F or the moment, continue supportive care. We will be rechecking a base met and CBC in a.m.
[2018-04-28 15:47] VITALS: BP 103/65; TEMP 98.8
--- NOTE | 2018-05-02 12:50 | EKG ---
Test Reason : Blood Pressure : / mmHG Vent. Rate : 085 BPM Atrial Rate : 085 BPM P-R Int : 144 ms QRS Dur : 110 ms QT Int : 396 ms P-R-T Axes : 053 -46 133 degrees QTc Int : 471 ms Normal sinus rhythm Left anterior fascicular block Cannot rule out Inferior infarct (masked by fascicular block?) , age undetermined Abnormal ECG Confirmed by PRIYANK NELSON ([id number]), food editor CONRAD HARRIS ([id number]) on 05/02/2018 12:50:15 PM Referred By: Confirmed By:PRIYANK NELSON
== END 2018-04-28 18:54 ==
LOC: ERS 18:33 → 2SE 21:07
PROVIDERS: ADMIT Family Medicine; ATTEND Family Medicine
DX: E87.5 Hyperkalemia (principal); M62.838 Other muscle spasm; E11.22 Type 2 diabetes mellitus with diabetic chronic kidney disease; E11.51 Type 2 diabetes mellitus with diabetic peripheral angiopathy without gangrene; I12.0 Hypertensive chronic kidney disease with stage 5 chronic kidney disease or end stage renal disease; N18.6 End stage renal disease; I25.10 Atherosclerotic heart disease of native coronary artery without angina pectoris; D69.6 Thrombocytopenia, unspecified; E66.9 Obesity, unspecified; E87.1 Hypo-osmolality and hyponatremia; E44.1 Mild protein-calorie malnutrition; E78.5 Hyperlipidemia, unspecified; R20.0 Anesthesia of skin; Z68.31 Body mass index [BMI] 31.0-31.9, adult; Z88.8 Allergy status to other drugs, medicaments and biological substances; Z99.2 Dependence on renal dialysis; Z79.02 Long term (current) use of antithrombotics/antiplatelets; Z79.4 Long term (current) use of insulin; Z79.899 Other long term (current) drug therapy
CPT/HCPCS: 72131; 74018; 74022; 74177; 80048; 80053; 82962 ×4; 85025 ×2; 93005; 96365; 96375; 97116; 97139; 99285; G0378 ×2; G8978; G8979; 36415; 36416; 81003; 81015; 90935; 96374; G0257; J0696; J1644; J1815; J7050; J8540; Q0162

== ENCOUNTER 2018-05-28 13:21 | Outpatient (CLI) | payer MEDICARE ==
--- NOTE | 2018-05-28 15:32 | RAD ---
CERVICAL SPINE AP AND LATERAL STANDARD 05/28/18 HISTORY: S14.109A - unspecified injury, unspecified level. COMPARISON: Cervical spine CT 04/03/18. FINDINGS: There is ACDF hardware from C3-C6 with discectomy changes. No evidence of hardware failure. Cervical collar is in place. Open mouth odontoid views normal. IMPRESSION: Satisfactory postoperative appearance. POS: [facility]
== END 2018-05-28 13:22 | disposition home or self-care (01) ==
LOC: TBSIIMAG 13:21
PROVIDERS: ATTEND Neurological Surgery
DX: S14.109A Unspecified injury at unspecified level of cervical spinal cord, initial encounter (principal); Z98.1 Arthrodesis status
CPT/HCPCS: 72040

== ENCOUNTER 2018-06-16 14:29 | Emergency (ER) | payer MEDICARE ==
[2018-06-16 15:27] LABS: #Eosinphils 0.2 thou/uL (0.0-0.7); #Lymphocytes 0.7 thou/uL (1.20-3.40); #Monocytes 0.4 thou/uL (0.11-0.59); #Neutrophils 6.2 thou/uL (1.40-6.50); %Basophils 0.3 % (0.0-1.0); %Eosinophils 2.4 % (0.0-10.0); %Lymphocytes 8.7 % (21.0-51.0); %Monocytes 5.9 % (0.0-10.0); %Neutrophils 82.8 % (42.0-75.0); Hemoglobin 12.5 g/dL (14.0-18.0); Mean Corpuscular HGB CONC 32.7 g/dL (32.0-36.0); Mean Corpuscular Hemoglobin 31.3 pg (27.0-31.0); Mean Corpuscular Volume 95.9 fL (78.0-98.0); Mean Platelet Volume 9.2 fL (7.4-10.4); Platelet Count 104 thou/uL (130-400); RBC Distribution Width 16.4 % (11.5-14.5); Red Blood Cell (RBC) Count 3.98 mill/uL (4.70-6.10); White Blood Cell (WBC) Count 7.5 thou/uL (4.8-10.8)
[2018-06-16 15:42] LABS: ALT (SGPT) 24 U/L (8-55); AST (SGOT) 17 U/L (5-34); Albumin 3.5 g/dL (3.5-5.0); Alkaline Phosphatase 124 U/L (40-150); Anion Gap 17 mmol/L (10-20); BUN (Urea Nitrogen) 36 mg/dL (8.4-25.7); Calc. Creatinine Clearance 0 mL/min (70-130); Calcium 8.7 mg/dL (7.8-10.44); Carbon Dioxide 27 mmol/L (22-29); Chloride 96 mmol/L (98-107); Estimated GFR-MDRD 14; Globulin 3.4 g/dL (2.4-3.5); Glucose 209 mg/dL (70-105); Protein, Total 6.9 g/dL (6.0-8.3); Sodium 136 mmol/L (136-145)
--- NOTE | 2018-06-16 16:54 | CT ---
CT HEAD NONCONTRAST: HISTORY: Fall. Head injury. COMPARISON: 04/03/2018 FINDINGS: There is no evidence of acute intracranial hemorrhage or infarct. Diffuse cortical atrophy, chronic ischemic small vessel disease, and old lacunar infarct is again demonstrates. No mass effect or shif t of midline structures. Partial opacification of the ethmoid air cells and sphenoid sinus is stable . There is calcification in the arterial structures. IMPRESSION: 1. No acute traumatic injury is demonstrated. 2. Atherosclerosis. Chronic type findings appear stable. POS: [facility]
--- NOTE | 2018-06-16 16:58 | CT ---
CT CERVICAL SPINE NONCONTRAST: HISTORY: Fall. Neck injury. COMPARISON: 04/03/2018 FINDINGS: Anterior operative fixation at the C3-C6 levels is again demonstrated, without perihardware lucency. Scattered osteophytosis and disk space narrowing. No acute fracture or dislocation. Vertebral body height and alignment are maintained. Within the partially visualized upper mediastinum, reactive ri ght paratracheal adenopathy is similar to the CT chest from 04/03/2018. IMPRESSION: Postoperative and degenerative changes, cervical spine. No acute osseous abnormalities are demonstra sánchez. POS: [facility]
--- NOTE | 2018-06-20 10:59 | EKG ---
Test Reason : Blood Pressure : / mmHG Vent. Rate : 095 BPM Atrial Rate : 095 BPM P-R Int : 150 ms QRS Dur : 120 ms QT Int : 426 ms P-R-T Axes : 052 -43 123 degrees QTc Int : 535 ms Normal sinus rhythm with sinus arrhythmia Possible Left atrial enlargement Left axis deviation Incomplete left bundle branch block Nonspecific ST and T wave abnormality Abnormal ECG Confirmed by CEDRIC MENDOZA DO ([id number]), photographic editor CONRAD HARRIS ([id number]) on 06/20/2018 10:58:30 AM Referred By: Confirmed By:CEDRIC MENDOZA DO
== END 2018-06-16 16:47 | disposition home or self-care (01) ==
LOC: ERS 14:29
DX: Z04.3 Encounter for examination and observation following other accident (principal); E78.5 Hyperlipidemia, unspecified; I13.2 Hypertensive heart and chronic kidney disease with heart failure and with stage 5 chronic kidney disease, or end stage renal disease; I50.9 Heart failure, unspecified; N18.6 End stage renal disease; E11.22 Type 2 diabetes mellitus with diabetic chronic kidney disease; Z79.4 Long term (current) use of insulin; Z79.899 Other long term (current) drug therapy
CPT/HCPCS: 70450; 72125; 80053; 85025; 93005

== ENCOUNTER 2018-07-27 10:22 | Day surgery (SDC) | payer MEDICARE ==
[2018-07-27 17:47] VITALS: BP 122/65; TEMP 96.8
== END 2018-07-27 19:54 | disposition home or self-care (01) ==
LOC: SDC/OP 10:22 → 2SW 10:26 → SDC/OP 19:54
PROVIDERS: ATTEND Internal Medicine Nephrology
PROC: 30233N1 Transfusion of Nonautologous Red Blood Cells into Peripheral Vein, Percutaneous Approach (ICD-10-PCS; principal; 2018-07-27)
DX: I12.0 Hypertensive chronic kidney disease with stage 5 chronic kidney disease or end stage renal disease (principal); E11.22 Type 2 diabetes mellitus with diabetic chronic kidney disease; N18.6 End stage renal disease; D63.1 Anemia in chronic kidney disease; Z79.4 Long term (current) use of insulin; Z79.899 Other long term (current) drug therapy; Z88.5 Allergy status to narcotic agent; Z99.2 Dependence on renal dialysis
CPT/HCPCS: 36430; 86850; 86900; 86901; 86920; P9016; 36415

== ENCOUNTER 2018-08-07 15:34 | Inpatient (IN) | payer MEDICARE ==
[2018-08-07 16:28] LABS: #Eosinphils 0.1 thou/uL (0.0-0.7); #Monocytes 0.6 thou/uL (0.11-0.59); #Neutrophils 8.6 thou/uL (1.40-6.50); %Basophils 0.2 % (0.0-1.0); %Eosinophils 1.2 % (0.0-10.0); %Lymphocytes 9.5 % (21.0-51.0); %Monocytes 5.6 % (0.0-10.0); %Neutrophils 83.6 % (42.0-75.0); Hemoglobin 13.6 g/dL (14.0-18.0); Mean Corpuscular HGB CONC 30.2 g/dL (32.0-36.0); Mean Corpuscular Hemoglobin 30.1 pg (27.0-31.0); Mean Corpuscular Volume 99.6 fL (78.0-98.0); Mean Platelet Volume 9.4 fL (7.4-10.4); Platelet Count 84 thou/uL (130-400); RBC Distribution Width 16.4 % (11.5-14.5); Red Blood Cell (RBC) Count 4.51 mill/uL (4.70-6.10); White Blood Cell (WBC) Count 10.3 thou/uL (4.8-10.8)
[2018-08-07 16:40] LABS: ALT (SGPT) 590 U/L (8-55); AST (SGOT) 737 U/L (5-34); Albumin 3.5 g/dL (3.5-5.0); Alkaline Phosphatase 172 U/L (40-150); Anion Gap 26 mmol/L (10-20); BUN (Urea Nitrogen) 72 mg/dL (8.4-25.7); Calc. Creatinine Clearance 0 mL/min (70-130); Calcium 9.2 mg/dL (7.8-10.44); Carbon Dioxide 17 mmol/L (22-29); Chloride 94 mmol/L (98-107); Estimated GFR-MDRD 6; Globulin 3.8 g/dL (2.4-3.5); Glucose 104 mg/dL (70-105); Potassium 5.3 mmol/L (3.5-5.1); Protein, Total 7.3 g/dL (6.0-8.3); Sodium 132 mmol/L (136-145)
[2018-08-07 16:42] LABS: PLT Morphology Comment Appears Decreased; RBC Morphology Normal
--- NOTE | 2018-08-07 16:44 | RAD ---
PA AND LATERAL VIEWS OF CHEST: Date: 08/07/18 HISTORY: Syncope. Patient is on dialysis. FINDINGS: Comparison made with exam dated 04/24/18. Changes of median sternotomy and cardiac valve replacement surgery are again seen. The heart size is enlarged. No lobar consolidation, pneumothoraces, keesha pulmonary edema, or pleural effusions are audelia ntified. Bilateral pleural thickening is again noted. Postop changes in the lower cervical spine are redemonstrated. IMPRESSION: No acute process. POS: [facility]
[2018-08-07 16:45] LABS: CKMB 4.3 ng/mL (0-6.6); Troponin I 0.042 ng/mL (< 0.028)
[2018-08-07 17:48] LABS: Magnesium 2.2 mg/dL (1.6-2.6)
[2018-08-07 17:59] LABS: Phosphorus 11.6 mg/dL (2.3-4.7)
--- NOTE | 2018-08-07 18:55 | CT ---
HEAD CT WITHOUT CONTRAST: 08/07/18 COMPARISON: 06/16/18, 04/03/18. HISTORY: Syncopal episode. Altered mental status. TECHNIQUE: Serial axial CT imaging at 5 mm intervals from vertex through skull base without contrast. FINDINGS: There is opacification of the posterior ethmoid air cells and the sphenoid sinus on the left which is grossly unchanged when compared to studies dating back to 04/03/18. Recommend nonemergent brain MRI for further assessment given the atypical pattern of this paranasal s inus opacification. There is no displaced calvarial fracture. There is atherosclerotic calcification of the cavernous carotid arteries and the distal vertebral arteries. There is a remote stable lacunar infarction within the thalamus on the right. No intracranial hemorrh age, midline shift, mass effect or ventricular enlargement. IMPRESSION: Stable head CT as detailed above. No acute findings are seen. Nonemergent followup brain MRI advised to further assess above described paranasal sinus disease. Code T POS: [facility]
[2018-08-07] MEDS ORDERED: methylPREDNISolone Sod Succ/PF 125 MG/2 ML VIAL ONE (20:16)
[2018-08-07] MEDS ORDERED: Diabetic Tussin 200 MG/10 ML UDCUP PO PRN (20:41)
[2018-08-07] MEDS ORDERED: Acetaminophen 325 MG TAB PO PRN (20:41)
[2018-08-07] MEDS ORDERED: Lorazepam 2 MG/ML VIAL SLOW IVP PRN (20:41)
[2018-08-07] MEDS ORDERED: Bisacodyl 10 MG SUPP PR PRN (20:49)
[2018-08-07] MEDS ORDERED: Dextrose 5% in Water 1,000 ML IV PRN (20:51)
[2018-08-07] MEDS ORDERED: Dextrose 50% Abboject 50 ML SYRINGE SLOW IVP PRN (20:51)
--- NOTE | 2018-08-07 21:56 | HP ---
CHIEF COMPLAINT: Possible seizures. HISTORY OF PRESENT ILLNESS: This is a 58-year-old male with past medical history of diabetes mellitu s type 2, GERD, sleep apnea, coronary artery disease, hyperlipidemia, status post stents x3, cardiomy opathy, CHF, end-stage renal disease on hemodialysis Friday, , and Friday, history of stro ke, hypertension presenting with shaking, eye rolling. Per the patient's , patient had an episod e of shaking with patient being very stiff and fixed and the patient's eyes rolled back into the back of his head. Patient's states that this happened to the patient on Friday prior to the days o f admission, so per the patient on Friday08/04/2018, patient was supposed to get dialysis and while the patient was at the dialysis center, patient became confused, became very stiff and went into res piratory failure. Patient became unresponsive and per the dialysis staff, patient seemed to have bee n having seizure activity. Patient was then sent to [facility] monitored. At [facility], they stated that the patient had respiratory failure due to bronchospasms. Patient was then se nt home on some DuoNeb treatments and Tylenol. Per the , patient was supposed to get dialysis on , but patient's fistula was not working, so patient had to go and see Dr. Salvador who the n fixed patient's fistula and then fistula is working, but patient was not able to receive dialysis t maycol because patient experienced the same episode that he experienced on Friday, which was patient b ecame fixed, stiff and left-sided shakiness and patient's eyes rolled back into the back of the head and per the , there was no tongue biting, foaming of the mouth, urinary or bowel incontinence. O f note, says that the patient had a history of fall in April and since then, patient has been hav ing some tremors bilaterally at the upper extremities. REVIEW OF SYSTEMS: Positive for bilateral leg edema. Brief change in mental status, some shortness of breath, cough, otherwise as documented in the HPI. All other systems were reviewed and are negati ve. FAMILY HISTORY: Reviewed and noncontributory to this visit. PAST MEDICAL HISTORY: Patient has GERD, sleep apnea, angina, coronary artery disease, status post st ents in 2014, cardiomyopathy, congestive heart failure, diabetes mellitus type 2, hypertension, end-s tage renal disease on hemodialysis on Tuesdays, , and Saturdays, CVAs in the past (hemorrhag ic). PAST SURGICAL HISTORY: Patient had neck surgery, cervical surgery. Patient has suprapubic catheter. Patient had eye surgery x3. Patient had a fistula in the left arm. Patient had CABG x1, aortic va lve replacement. PSYCHIATRIC HISTORY: Patient has history of depression. SOCIAL HISTORY: Patient denies smoking history. Denies any illicit drug use and denies alcohol use. Patient lives at home with . ALLERGIES: DEMEROL, MEPERIDINE. CURRENT MEDICATIONS: Patient is on atorvastatin 10 mg, Humalog, sertraline 50 mg, tramadol 50 mg, ga bapentin 300 mg, calcium acetate 667 mg, benzonatate 100 mg, clopidogrel 75 mg. PHYSICAL EXAMINATION: VITAL SIGNS: Blood pressure is 130/70, pulse of 86, respiratory rate of 18, temperature of 97.4, O2 sat of 92% on room air. GENERAL: Patient is awake, oriented x3, not in acute distress. Patient is able to speak in full sen tences. HEENT: Patient has itching around the head region. Normocephalic, atraumatic. Pupils are equal, ro und, and react to light. Extraocular movements are intact. No scleral icterus. NECK: Patient does have a cervical collar on. Limited range of motion. LUNGS: Patient has expiratory wheeze, no rhonchi is noted. CARDIOVASCULAR: Positive S1, S2, regular rate and rhythm. No murmurs, no gallops or rubs appreciate d. ABDOMEN: Obese. Abdomen is soft, nontender, nondistended, positive bowel sounds in all quadrants. No pulsatile masses. No peritoneal signs. EXTREMITIES: Patient has a fistula with palpable thrill and bruits at the left upper extremity. Low er extremity, patient has 2+ bilateral pitting edema and venous stasis. NEUROLOGIC: Cranial nerves II-XII grossly intact. No neurologic deficits noted. SKIN: Refer to the description of the lower extremities and upper extremities. PSYCHIATRIC: Alert, oriented x3, not in acute distress. Normal affect. EKG: Patient had a sinus rhythm at 86 incomplete left bundle-branch block, possible LAE. LABORATORY DATA: WBC is 10.3, hemoglobin is 13.6, hematocrit is 44.9, platelet count is 84. Sodium is 132, potassium is 5.3, chloride is 94, carbon dioxide of 17, anion gap of 26, BUN 72, creatinine i s 8.69, phosphorus is 11.6. AST is 737, ALT is 590, alkaline phosphatase 172. Troponins x1 is 0.042 . ASSESSMENT AND PLAN: This is a 58-year-old male with multiple comorbidities being admitted for possi ble seizures. Per , patient had left-sided shaking and rolling of the eyes into the back of the head, so at this point, we will give the patient Keppra and we will get Neurology consult. We will d o neuro and seizure precautions. Ativan p.r.n. for seizures in the future. We will get EEG and we w ill also plan for dialysis tomorrow since the patient's symptoms can also be due to metabolic encepha lopathy. 1. End-stage renal disease on hemodialysis. Patient has not been able to receive dialysis in a coup le of days and this can be contributing to patient's symptoms of itchiness, shaking and episodic alte rations of awareness. At this point, patient is alert, oriented x3. We will start patient on his ho id medications and we will plan for dialysis tomorrow. Nephrology has been consulted. 2. History of chronic cough and wheezing. Patient is currently having episode of cough with expirat ory wheeze bilaterally. At this point, I have ordered Solu-Medrol 125 mg to be given stat and we kaylee l do maintenance of 40 every 6 hours and will do DuoNeb treatments. We will monitor the patient clos vinay. 3. History of coronary artery disease status post stents with the patient on his home medications. We will monitor the patient. 4. Hyperlipidemia. We will continue patient on home medications. 5. History of hypertension. We will monitor patient's blood pressure closely. We will rule out for hypertension since patient is going to get dialysis tomorrow. Therefore, we will not give any medic ation that will reduce the patient's blood pressure below 140. 6. Deep venous thrombosis and gastrointestinal prophylaxis. We will do heparin for DVT prophylaxis and we will do Pepcid for GI prophylaxis. [facility]
[2018-08-08] MEDS: Atorvastatin Calcium 10 MG TAB PO SCH ×2 (03:19→21:37)
[2018-08-08] MEDS: Heparin 5,000 UNITS/ML VIAL SC SCH ×3 (03:20→22:07)
[2018-08-08] MEDS: Polyethylene Glycol 3350 17 GM Packet PO SCH ×3 (03:20→21:37)
[2018-08-08 06:00] LABS: ALT (SGPT) 442 U/L (8-55); AST (SGOT) 419 U/L (5-34); Albumin 3.3 g/dL (3.5-5.0); Alkaline Phosphatase 148 U/L (40-150); Anion Gap 28 mmol/L (10-20); BUN (Urea Nitrogen) 86 mg/dL (8.4-25.7); Calc. Creatinine Clearance 13 mL/min (70-130); Calcium 8.9 mg/dL (7.8-10.44); Carbon Dioxide 17 mmol/L (22-29); Chloride 93 mmol/L (98-107); Estimated GFR-MDRD 6; Globulin 3.5 g/dL (2.4-3.5); Glucose 201 mg/dL (70-105); Potassium 5.6 mmol/L (3.5-5.1); Protein, Total 6.8 g/dL (6.0-8.3); Sodium 132 mmol/L (136-145)
[2018-08-08 06:25] LABS: #Lymphocytes 0.4 thou/uL (1.20-3.40); #Monocytes 0.1 thou/uL (0.11-0.59); %Eosinophils 0.4 % (0.0-10.0); %Lymphocytes 4.7 % (21.0-51.0); %Monocytes 1.3 % (0.0-10.0); %Neutrophils 93.7 % (42.0-75.0); Mean Corpuscular HGB CONC 31.5 g/dL (32.0-36.0); Mean Corpuscular Hemoglobin 31.4 pg (27.0-31.0); Mean Corpuscular Volume 99.4 fL (78.0-98.0); Mean Platelet Volume 9.4 fL (7.4-10.4); Platelet Count 63 thou/uL (130-400); RBC Distribution Width 16.3 % (11.5-14.5); Red Blood Cell (RBC) Count 4.14 mill/uL (4.70-6.10); White Blood Cell (WBC) Count 7.4 thou/uL (4.8-10.8)
[2018-08-08] MEDS: Calcium Acetate 667 MG CAP PO SCH ×3 (08:57→16:34)
[2018-08-08] MEDS ORDERED: Famotidine/PF 20 mg/2ml Vial SLOW IVP SCH (09:00)
[2018-08-08] MEDS ORDERED: Heparin 1,000 UNITS/ML VIAL ONE (11:11)
--- NOTE | 2018-08-08 11:25 | PDOC.PN ---
- Subjective Encounter Start Date: 08/08/18 Encounter Start Time: 10:00 Subjective: getting HD now -: says he is weak on left UE, is moving left LE -: no trouble swallowing or chest pain or palp - Objective Resuscitation Status: Resuscitation Status FULL:Full Resuscitation MAR Reviewed: Yes Vital Signs & Weight: Vital Signs (12 hours) Temp Pulse Resp BP Pulse Ox 08/08/18 08:54 93 L 08/08/18 07:47 86 16 115/64 93 L 08/08/18 04:00 97.6 F 87 20 126/73 98 08/08/18 01:30 98.0 F 86 20 112/68 98 08/08/18 01:19 98 Weight Weight 224 lb 14.4 oz Result Diagrams: 08/08/18 05:20 08/08/18 05:20 Additional Labs: Accuchecks 08/08/18 05:53 POC Glucose 190 H Phys Exam - Physical Examination HEENT: PERRLA, moist MMs Neck: no JVD, supple Respiratory: no wheezing, no rales Cardiovascular: RRR, no significant murmur Gastrointestinal: soft, non-tender, positive bowel sounds Musculoskeletal: no edema, pulses present Neurological: non-focal is getting dialyzed with fistula in Left UE, will recheck later Psychiatric: normal affect, A&O x 3 Dx/Plan (1) Seizure Code(s): R56.9 - UNSPECIFIED CONVULSIONS Status: Suspected (2) HTN (hypertension) Code(s): I10 - ESSENTIAL (PRIMARY) HYPERTENSION Status: Chronic Qualifiers: Hypertension type: essential hypertension Qualified Code(s): I10 - Essential (primary) hypertension (3) Dyslipidemia Code(s): E78.5 - HYPERLIPIDEMIA, UNSPECIFIED Status: Chronic (4) Volume overload Code(s): E87.70 - FLUID OVERLOAD, UNSPECIFIED Status: Acute Comment: resolving with HD now (5) CAD (coronary artery disease) Code(s): I25.10 - ATHSCL HEART DISEASE OF [place] CORONARY ARTERY W/O ANG PCTRS Status: Chronic Qualifiers: Coronary Disease-Associated Artery/Lesion type: [place] artery [place] vs. transplanted heart: [place] heart Associated angina: without angina Qualified Code(s): I25.10 - Atherosclerotic heart disease of [place] coronary artery without angina pectoris (6) ESRD (end stage renal disease) on dialysis Code(s): N18.6 - END STAGE RENAL DISEASE; Z99.2 - DEPENDENCE ON RENAL DIALYSIS Status: Chronic - Plan eeg, neuro consult -: has has issues with his left side before as well, unclear if its seizure -: on asp, lipitor, gabapentin, lantus -: PT/OT eval -: further imaging per neurology advice * . Review of Systems - Medications/Allergies Allergies/Adverse Reactions: Allergies Allergy/AdvReac Type Severity Reaction Status Date / Time meperidine HCl [From Demerol] Allergy Verified 04/25/18 01:04 Medications: Current Medications Acetaminophen (Tylenol) 650 mg PO Q4H PRN PRN Reason: Headache/Fever/Mild Pain (1-3) Acetaminophen/Codeine Phosphate (Tylenol #3) 1 tab PO Q4H PRN PRN Reason: Pain Albuterol/Ipratropium (Duoneb) 3 ml NEB Q4H PRN PRN Reason: SOB &/or Wheezing Atorvastatin Calcium (Lipitor) 10 mg PO [facility] Last Admin: 08/08/18 03:19 Dose: Not Given Bisacodyl (Dulcolax) 10 mg [place] Q12H PRN PRN Reason: Constipation Calcium Acetate (Phoslo) 2,001 mg PO TID-[facility] Last Admin: 08/08/18 08:57 Dose: Not Given Calcium Carbonate (Tums) 500 mg PO DAILYPRN PRN PRN Reason: INDIGESTION Dextrose/Water (Dextrose 50%) 25 gm SLOW IVP PRN PRN PRN Reason: Hypoglycemia Famotidine (Pepcid) 20 mg SLOW IVP DAILY [facility] Last Admin: 08/08/18 08:57 Dose: Not Given Glucagon (Glucagon) 1 mg IM PRN PRN PRN Reason: Hypoglycemia Guaifenesin (Robitussin Sf) 15 mg PO Q4H PRN PRN Reason: Cough Heparin Sodium (Porcine) (Heparin) 5,000 units SC BID [facility] Last Admin: 08/08/18 03:20 Dose: Not Given Dextrose/Water (D5w) 1,000 mls @ 0 mls/hr IV .Q0M PRN PRN Reason: Hypoglycemia Insulin Glargine 15 units/ (Miscellaneous Medication) 0.15 mls @ 0 mls/hr [facility] Insulin Human Regular (Humulin R) 0 units SC .MILD SLIDING SCALE PRN PRN Reason: Mild Correctional Scale Lorazepam (Ativan) 2 mg SLOW IVP Q15MIN PRN PRN Reason: Seizures Methylprednisolone Sodium Succinate (Solu-Medrol) 40 mg IVP Q6HR [facility] Last Admin: 08/08/18 06:07 Dose: 40 mg Polyethylene Glycol (Miralax) 17 gm PO BID [facility] Last Admin: 08/08/18 08:57 Dose: Not Given Sertraline HCl (Zoloft) 50 mg PO DAILY [facility] Sodium Chloride (Flush - Normal Saline) 10 ml IVF Q12H PRN PRN Reason: Saline Flush Sodium Chloride (Flush - Normal Saline) 10 ml IVF PRN PRN PRN Reason: Saline Flush
--- NOTE | 2018-08-08 11:41 | PRG ---
DATE OF SERVICE: 08/08/2018 SUBJECTIVE: Mr. Fontana is a 58-year-old white male with ESRD - maintenance hemodialysis, type 2 diab etes mellitus, CHF/cardiomyopathy, chronic renal infection, admitted for new onset seizure. We are being consulted for his maintenance hemodialysis. We are currently supervising his dialysis. There was some difficulty accessing the AV fistula, but it is now working. My initial blood flow is 250 mL per minute. We will increase as needed. No other complaints. The patient is mentating [facility] er. No complaints of chest pain or shortness of breath. OBJECTIVE: VITAL SIGNS: Blood pressure is 115/64, heart rate 86, respiratory rate 16, pulse ox 93%, temperature 97.6. GENERAL EXAM: Awake, alert, comfortable, not in distress. SKIN: Adequate turgor. HEENT: He has pinkish conjunctivae, anicteric sclerae. NECK: No neck mass, no carotid bruits, no JVD. CHEST: No deformities. LUNGS: Clear breath sounds. No wheezing, no crackles. HEART: Normal sinus rhythm. No murmur, no gallops, no rubs. ABDOMEN: Globular, soft, nontender, no masses. Positive for a suprapubic Cervantes catheter. EXTREMITIES: No edema, no deformities. Medications of 08/08/2018 were reviewed. LABORATORY DATA: Laboratories of 08/08/2018, white count 7.4, hemoglobin 13, sodium 132, potassium 5 .6, chloride 93, carbon dioxide 17, BUN 86, creatinine 8.88, glucose 201, AST 419, ALT 442. Please note, initial CT scan of the brain on 08/07/2018 showed stable findings with no acute intracra nial abnormality. ASSESSMENT AND PLAN: 1. End-stage renal disease - stable. We will continue current 3 times a week hemodialysis. My plan is to do a 4-hour hemodialysis with this patient. We will be using heparin. There was some difficu lty accessing the AV fistula, but currently an adequate blood flow is noted. 2. New onset seizure - observe. CT scan of the brain showed no acute intracranial abnormality. Con public speaking coach Neurology consult if needed. Agree with current management. Recheck basic metabolic panel and CBC in a.m.
[2018-08-08] MEDS: Acetaminophen/Codeine 30-300mg Tablet PO PRN (12:37)
[2018-08-08] MEDS: traMADol HCl 50 MG TAB PO SCH (16:41)
[2018-08-08] MEDS ORDERED: Nitroglycerin 2% Ointment 1 INCH/1 GM Packet TOP SCH (19:15)
[2018-08-08] MEDS ORDERED: Mag-Al 1200 mg/1200 mg/30 ML UDCUP PO SCH (19:15)
[2018-08-08] MEDS ORDERED: Pantoprazole 40 MG VIAL IVP SCH (19:15)
[2018-08-08 19:39] LABS: CKMB 6.5 ng/mL (0-6.6); Troponin I 0.038 ng/mL (< 0.028)
[2018-08-08] MEDS: Gabapentin 300 MG CAP PO SCH (21:36)
[2018-08-08] MEDS: Famotidine 20 MG TAB PO SCH (21:37)
--- NOTE | 2018-08-08 22:02 | CON ---
DATE OF CONSULTATION: 08/08/2018 CHIEF COMPLAINT: Acute new-onset seizure. HISTORY OF PRESENT ILLNESS: Patient is unable to give any medical history of the event, I reviewed the medical chart and history was obtained from the chart. Patient has history of diabetes and end-stage renal disease and is on hemodialysis. He reports his dialysis nurses did say he has had some seizure- like events in the past. Per 's description, patient had an episode with his eyes rolling back of his head while she was driving and patient had episode of shaking and stiffness and he was supposed to get dialysis on Tuesdays and to even at the dialysis center, he was confused, became stiff and went into respiratory failure became unresponsive per dialysis staff and has seizure- like activity. He was taken to [facility] and they thought he was having bronchospasm and he was given DuoNeb treatments and Tylenol. He had come here for further evaluation. Even during the episode, there was no tongue biting or foaming, or urinary or bowel incontinence. There is a prior history of fall in April, he has had intermittent bilateral upper extremity tremor as well in the history and according to the ER physician's note, patient has had this episode while driving in the car and he was unable to recognize people at the dialysis center, which is unusual for him. He is wearing a C-collar from a prior injury and he seems to be more comfortable with the collar. PAST MEDICAL HISTORY: Gastroesophageal reflux disease, sleep apnea, angina, hyperlipidemia, cardiac problems, stent placement, cardiomyopathy, congestive heart failure, diabetes and hypertension and renal disease with end-stage renal disease, stroke and intracerebral hemorrhage and being on dialysis for the last 3 years. PAST SURGICAL HISTORY: Neck surgery, suprapubic catheter placement, eye surgery , right subclavian dialysis catheter, suprapubic catheter since 2013, cataract surgery 2015, left brachial fistula 2014, coronary artery bypass graft, and cardiac stent placement. PSYCHIATRIC HISTORY: Positive depression. SOCIAL HISTORY: He lives with his and no drug, alcohol use, or smoking. ALLERGIES: He is allergic to DEMEROL and MEPERIDINE. CURRENT MEDICATIONS: At home include atorvastatin, Humalog, sertraline, tramadol, gabapentin, calcium acetate, benzonatate, clopidogrel, Zyvox. His MRI is pending. LABORATORY RESULTS: White count 7.4, hemoglobin 13, hematocrit 41.2, platelets 63 Chemistries: Sodium 132, potassium 5.6, chloride 93, BUN 86, creatinine 8.88 , and prolactin 28.65. TSH 1.1. CT of the head performed on 08/07/2018 shows no acute findings. Nonemergent follow up MRI is advised to assess paranasal sinus disease. REVIEW OF SYSTEMS: Pulmonary: Negative for shortness of breath or cough. Cardiac: No chest pain or palpitations. Gastrointestinal: No history of diarrhea, abdominal pain, or vomiting. Neurological: Positive for seizures. Dermatologic: Positive for some skin bruises. Hematologic: Negative for bleeding diatheses. Endocrine: Positive for diabetes. Genitourinary: Positive for presence of suprapubic catheter and renal dysfunction. Psychiatric : Positive for depression. PHYSICAL EXAMINATION: VITAL SIGNS: Blood pressure 126/63, temperature 97.5, pulse 98, respiratory rate 16. GENERAL APPEARANCE: Well-built, well-nourished gentleman who has a flat affect and he has suprapubic catheter. CHEST: Clear vesicular breathing. CARDIOVASCULAR: S1, S2 heard, no murmurs. Carotids not examined. He has a C- collar on. ABDOMEN: Soft, no organomegaly noted. NEUROLOGIC: Higher intellectual functions, normal orientation to time, place, and person. Follows all commands. Cranial nerves II-XII normal. Extraocular movements normal. No facial asymmetry was noted and normal sensation of face bilaterally. Pupils bilaterally equal, reactive to light and accommodation. MOTOR: Bulk normal, tone normal, strength 5/5 in upper and lower extremities bilaterally in iliopsoas, hamstrings, quadriceps, ankle dorsiflexion, plantar flexion, deltoid, biceps, triceps, wrist extension, and flexion bilaterally. SENSORY: Normal touch, pinprick, proprioception, vibration, and temperature. Deep tendon reflexes were absent. CEREBELLAR: Normal [id number], heel to galarza. IMPRESSION: Patient is a 58-year-old young patient with history of multiple medical issues including prior history of stroke. He has a suprapubic catheter. He is on dialysis. He has been noted to have a few events, which are described as seizure-like events with alteration in mental status. This is likely possible seizures and his examination does not show any specific neurological deficits other than decrease in vibration distally in lower extremities consistent with possible neuropathy due to his medical issues. RECOMMENDATIONS: I would suggest starting him on Keppra. I will also order an MRI of the brain without gadolinium to see whether there is any specific lesions we need to be concerned about. I will follow up patient in the morning , please obtain an EEG as well. AMAIRANI
[2018-08-08] MEDS: Insulin Glargine 15 UNITS in Pre-Filled Syringe 1 EACH SC SCH (22:06)
[2018-08-08] MEDS: Insulin Regular 300 UNITS/3 ML VIAL SC PRN (22:15)
[2018-08-09 04:58] LABS: #Basophils 0.1 thou/uL (0.0-0.2); #Lymphocytes 0.4 thou/uL (1.20-3.40); #Monocytes 0.4 thou/uL (0.11-0.59); #Neutrophils 6.5 thou/uL (1.40-6.50); %Basophils 1.8 % (0.0-1.0); %Eosinophils 0.1 % (0.0-10.0); %Lymphocytes 5.1 % (21.0-51.0); %Monocytes 5.2 % (0.0-10.0); %Neutrophils 87.7 % (42.0-75.0); Hemoglobin 13.3 g/dL (14.0-18.0); Mean Corpuscular HGB CONC 31.1 g/dL (32.0-36.0); Mean Corpuscular Hemoglobin 30.8 pg (27.0-31.0); Mean Platelet Volume 9.2 fL (7.4-10.4); Platelet Count 82 thou/uL (130-400); RBC Distribution Width 16.6 % (11.5-14.5); White Blood Cell (WBC) Count 7.4 thou/uL (4.8-10.8)
[2018-08-09 05:09] LABS: Anion Gap 20 mmol/L (10-20); BUN (Urea Nitrogen) 55 mg/dL (8.4-25.7); Calc. Creatinine Clearance 17 mL/min (70-130); Calcium 9.1 mg/dL (7.8-10.44); Carbon Dioxide 23 mmol/L (22-29); Chloride 92 mmol/L (98-107); Estimated GFR-MDRD 9; Glucose 314 mg/dL (70-105); Potassium 4.3 mmol/L (3.5-5.1); Sodium 131 mmol/L (136-145)
[2018-08-09] MEDS: traMADol HCl 50 MG TAB PO SCH ×2 (05:41→17:12)
[2018-08-09] MEDS: Insulin Regular 300 UNITS/3 ML VIAL SC PRN ×3 (06:24→17:39)
[2018-08-09] MEDS: Calcium Acetate 667 MG CAP PO SCH ×3 (08:45→17:12)
[2018-08-09] MEDS: levETIRAcetam 500 mg/5 ml Oral Solution PO SCH ×2 (08:45→20:40)
[2018-08-09] MEDS: Gabapentin 300 MG CAP PO SCH ×2 (08:46→20:39)
[2018-08-09] MEDS: Heparin 5,000 UNITS/ML VIAL SC SCH (08:47)
[2018-08-09] MEDS: Polyethylene Glycol 3350 17 GM Packet PO SCH ×2 (08:48→20:41)
--- NOTE | 2018-08-09 10:16 | PDOC.PN ---
- Subjective Encounter Start Date: 08/09/18 Encounter Start Time: 09:00 Subjective: no further seizure like episodes in hospital -: oriented and moving all extremities -: at bedside - Objective Resuscitation Status: Resuscitation Status FULL:Full Resuscitation MAR Reviewed: Yes Vital Signs & Weight: Vital Signs (12 hours) Temp Pulse Resp BP Pulse Ox 08/09/18 08:00 97.8 F 79 20 107/72 92 L 08/09/18 04:00 97.5 F L 80 20 103/57 L 80 L 08/09/18 00:58 97.5 F L 88 20 102/59 L 95 Weight Weight 224 lb 14.4 oz Result Diagrams: 08/09/18 04:33 08/09/18 04:33 Additional Labs: Accuchecks 08/09/18 08/08/18 05:40 22:03 POC Glucose 285 H 333 H Phys Exam - Physical Examination HEENT: PERRLA, moist MMs Neck: no JVD, supple Respiratory: no wheezing, no rales Cardiovascular: RRR, no significant murmur Gastrointestinal: soft, non-tender, positive bowel sounds Musculoskeletal: no edema, pulses present Neurological: non-focal, moves all 4 limbs Psychiatric: normal affect, A&O x 3 Dx/Plan (1) Seizure Code(s): R56.9 - UNSPECIFIED CONVULSIONS Status: Suspected (2) HTN (hypertension) Code(s): I10 - ESSENTIAL (PRIMARY) HYPERTENSION Status: Chronic Qualifiers: Hypertension type: essential hypertension Qualified Code(s): I10 - Essential (primary) hypertension (3) Dyslipidemia Code(s): E78.5 - HYPERLIPIDEMIA, UNSPECIFIED Status: Chronic (4) Volume overload Code(s): E87.70 - FLUID OVERLOAD, UNSPECIFIED Status: Acute (5) CAD (coronary artery disease) Code(s): I25.10 - ATHSCL HEART DISEASE OF [place] CORONARY ARTERY W/O ANG PCTRS Status: Chronic Qualifiers: Coronary Disease-Associated Artery/Lesion type: [place] artery [place] vs. 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 on asp, lipitor. PT/OT to ambulate as tolerated. Review of Systems - Medications/Allergies Allergies/Adverse Reactions: Allergies Allergy/AdvReac Type Severity Reaction Status Date / Time meperidine HCl [From Demerol] Allergy Verified 04/25/18 01:04 Medications: Current Medications Acetaminophen (Tylenol) 650 mg PO Q4H PRN PRN Reason: Headache/Fever/Mild Pain (1-3) Acetaminophen/Codeine Phosphate (Tylenol #3) 1 tab PO Q4H PRN PRN Reason: Pain Last Admin: 08/08/18 12:37 Dose: 1 tab Albuterol/Ipratropium (Duoneb) 3 ml NEB Q4H PRN PRN Reason: SOB &/or Wheezing Aspirin (Aspirin Chewable) 81 mg PO DAILY [facility] Last Admin: 08/09/18 08:46 Dose: 81 mg Atorvastatin Calcium (Lipitor) 10 mg PO HS [facility] Last Admin: 08/08/18 21:37 Dose: 10 mg Bisacodyl (Dulcolax) 10 mg [place] Q12H PRN PRN Reason: Constipation Calcium Acetate (Phoslo) 2,001 mg PO TID-WM [facility] Last Admin: 08/09/18 08:45 Dose: 2,001 mg Calcium Carbonate (Tums) 500 mg PO DAILYPRN PRN PRN Reason: INDIGESTION Dextrose/Water (Dextrose 50%) 25 gm SLOW IVP PRN PRN PRN Reason: Hypoglycemia Famotidine (Pepcid) 20 mg PO QPM [facility] Last Admin: 08/08/18 21:37 Dose: 20 mg Gabapentin (Neurontin) 300 mg PO BID [facility] Last Admin: 08/09/18 08:46 Dose: 300 mg Glucagon (Glucagon) 1 mg IM PRN PRN PRN Reason: Hypoglycemia Guaifenesin (Robitussin Sf) 15 mg PO Q4H PRN PRN Reason: Cough Heparin Sodium (Porcine) (Heparin) 5,000 units SC BID [facility] Last Admin: 08/09/18 08:47 Dose: 5,000 units Dextrose/Water (D5w) 1,000 mls @ 0 mls/hr IV .Q0M PRN PRN Reason: Hypoglycemia Insulin Glargine 15 units/ (Miscellaneous Medication) 0.15 mls @ 0 mls/hr [facility] Last Admin: 08/08/18 22:06 Dose: 0.15 mls Insulin Human Regular (Humulin R) 0 units SC .MILD SLIDING SCALE PRN PRN Reason: Mild Correctional Scale Last Admin: 08/09/18 06:24 Dose: 4 unit Levetiracetam (Keppra Oral Solution) 250 mg PO BID [facility] Last Admin: 08/09/18 08:45 Dose: 250 mg Lorazepam (Ativan) 2 mg SLOW IVP Q15MIN PRN PRN Reason: Seizures Polyethylene Glycol (Miralax) 17 gm PO BID [facility] Last Admin: 08/09/18 08:48 Dose: 17 gm Sertraline HCl (Zoloft) 50 mg PO DAILY [facility] Last Admin: 08/09/18 08:46 Dose: 50 mg Sodium Chloride (Flush - Normal Saline) 10 ml IVF Q12H PRN PRN Reason: Saline Flush Sodium Chloride (Flush - Normal Saline) 10 ml IVF PRN PRN PRN Reason: Saline Flush Tramadol HCl (Ultram) 50 mg PO 0600,1800 [facility] Last Admin: 08/09/18 05:41 Dose: 50 mg
--- NOTE | 2018-08-09 11:18 | PRG ---
DATE OF SERVICE: 08/09/2018 SERVICE: Renal Medicine. SUBJECTIVE: Mr. Fontana is a 58-year-old white male with end-stage renal disease - currently on maint enance hemodialysis and admitted for new onset seizure. Neurology has evaluated this patient and rec ommendation to starting Keppra and to schedule for an EEG. This morning, he is feeling better. He h as had no recurrence of the said seizure disorder. No complaints of chest pain or shortness of breath. Please note, he underwent dialysis without any d ifficulty yesterday. OBJECTIVE: VITAL SIGNS: Blood pressure is 107/72, heart rate 79, respiratory rate 20, temperature 97.8, pulse o x 92%. GENERAL: Noted to be awake, alert, comfortable, not in distress. SKIN: Adequate turgor. HEENT: He has pinkish conjunctivae, anicteric sclerae. NECK: No neck mass, no carotid bruits. No JVD. He has a cervical collar on. LUNGS: Clear breath sounds. No wheezing, no crackles. HEART: Normal sinus rhythm. No murmur, no gallops or rubs. ABDOMEN: Globular, soft, nontender, no masses. EXTREMITIES: No edema, no deformities. MEDICATIONS: Of 08/09/2018 was reviewed. LABORATORY DATA: Of 08/09/2018, white count 7.4, hemoglobin 13.3, sodium 131, potassium 4.3, chlorid e 92, carbon dioxide 23, BUN is 55, creatinine 6.58, glucose 314, calcium 9.1. Troponin I 0.038. ASSESSMENT AND PLAN: 1. New onset seizure. Currently on oral Keppra and Neurology is following. 2. End-stage renal disease, stable. Tolerating hemodialysis regimen. There is no indication for an y dialytic intervention. He underwent hemodialysis yesterday without any difficulty. Fluid removal was said to have been tolerated. 3. Hyperphosphatemia - continuing PhosLo with meals. Overall, agree with current management. We will be rechecking a base met and CBC in a.m.
--- NOTE | 2018-08-09 13:46 | PRG ---
DATE OF SERVICE: 08/09/2018 CHIEF COMPLAINT: Seizures. INTERVAL HISTORY: No further seizures are reported at this time and patient has had his MRI of the b rain and we are waiting for the reports. He reports he does not feel well and tired and somewhat kelsey seous. LABORATORY RESULTS: White count 7.4, hemoglobin 13.3, hematocrit 42.6, platelets 82. Chemistry: So dium 131, potassium 4.3, chloride 92, bicarbonate 23, BUN 55, creatinine 6.58, glucose 314, and MRI r eport is pending. PHYSICAL EXAMINATION: VITAL SIGNS: His blood pressure is 93/66, temperature 97.8, pulse 80, respiratory rate 20, and O2 sa ts 95. GENERAL APPEARANCE: He looks tired, somewhat unwell and higher intellectual functions are normal. CRANIAL NERVES: Normal extraocular movements. No facial asymmetry. Motor exam: Bulk normal, tone normal, strength is 5/5 in upper and lower extremities. IMPRESSION: The patient is a 58-year-old man with end-stage renal disease and diabetes and multiple medical issues. He had a few witnessed, one witnessed seizure by his and also episodes of confu brenna and possible seizures. Even in dialysis yesterday, I saw him and started him on IV Keppra. MRI scan was completed, his MRI report is pending. I also think he has medical issues that are causing him to have hypotension, hyponatremia, and generally he remains unwell, although no seizures are note d since last night. RECOMMENDATIONS: Please continue Keppra. Please obtain EEG and request Dr. Méndez for any addition al recommendations since I will be off from tomorrow.
--- NOTE | 2018-08-09 15:57 | MRI ---
BRAIN MRI WITHOUT CONTRAST: DATE: 08/09/2018. COMPARISON: 06/08/2014. HISTORY: Evaluate sphenoid sinus disease seen on recent head CT, syncopal episode, and altered mental status. TECHNIQUE: Multiplanar multisequence MR imaging of the brain obtained without contrast. FINDINGS: The axial diffusion weighted imaging demonstrates no evidence for acute infarction. Motion artifact limits axial T2 and FLAIR imaging. Arterial flow voids at axial level of skull base appear grossly unremarkable on T2 weighted imaging. Regional bone marrow signal intensity unremarka ble. Scattered areas of periventricular deep white matter T2 and FLAIR hyperintensities suggests mild smal l-vessel disease. Coronal T1 weighted imaging is grossly unremarkable but limited secondary to motion. There is opacification of the sphenoid sinus on the left with increased T2 and FLAIR signal and decre ased T1 signal. This sinus disease is incompletely assessed without contrast. IMPRESSION: 1. Small-vessel disease with no evidence for acute infarction. 2. Isolated sphenoid sinus disease on the left. Postcontrast imaging is advised as this could repre sent mucosal disease or an underlying mass lesion. CODE T POS: VANESSA
[2018-08-09] MEDS: Atorvastatin Calcium 10 MG TAB PO SCH (20:39)
[2018-08-09] MEDS: Famotidine 20 MG TAB PO SCH (20:39)
[2018-08-09] MEDS: Insulin Glargine 15 UNITS in Pre-Filled Syringe 1 EACH SC SCH (20:41)
[2018-08-10 05:28] LABS: #Lymphocytes 0.6 thou/uL (1.20-3.40); #Monocytes 0.5 thou/uL (0.11-0.59); %Eosinophils 0.2 % (0.0-10.0); %Lymphocytes 5.7 % (21.0-51.0); %Monocytes 4.6 % (0.0-10.0); %Neutrophils 89.6 % (42.0-75.0); Hemoglobin 12.8 g/dL (14.0-18.0); Mean Corpuscular HGB CONC 31.2 g/dL (32.0-36.0); Mean Corpuscular Hemoglobin 31.1 pg (27.0-31.0); Mean Corpuscular Volume 99.8 fL (78.0-98.0); Mean Platelet Volume 9.8 fL (7.4-10.4); Platelet Count 64 thou/uL (130-400); RBC Distribution Width 16.7 % (11.5-14.5); Red Blood Cell (RBC) Count 4.11 mill/uL (4.70-6.10); White Blood Cell (WBC) Count 10.1 thou/uL (4.8-10.8)
[2018-08-10 05:31] LABS: Anion Gap 24 mmol/L (10-20); BUN (Urea Nitrogen) 75 mg/dL (8.4-25.7); Calc. Creatinine Clearance 15 mL/min (70-130); Carbon Dioxide 20 mmol/L (22-29); Chloride 93 mmol/L (98-107); Estimated GFR-MDRD 7; Glucose 189 mg/dL (70-105); Potassium 5.6 mmol/L (3.5-5.1); Sodium 131 mmol/L (136-145)
[2018-08-10 05:52] LABS: HBSAg Index 0.17 S/CO (0-0.99); Hep B Surf Ag Non-Reactive S/CO (NonReactive)
[2018-08-10] MEDS: traMADol HCl 50 MG TAB PO SCH ×2 (06:42→19:36)
[2018-08-10] MEDS: Heparin 5,000 UNITS/ML VIAL SC SCH ×3 (06:43→22:58)
[2018-08-10] MEDS: Insulin Regular 300 UNITS/3 ML VIAL SC PRN ×3 (07:36→19:37)
--- NOTE | 2018-08-10 09:10 | PRG ---
DATE OF SERVICE: 08/10/2018 SUBJECTIVE: Mr. Fontana is a 58-year-old white male with ESRD, who was admitted for new onset seizure . He has been evaluated by Neurology. He is currently undergoing an EEG. He voices no new complain ts today. Denies any chest pain, shortness of breath. OBJECTIVE: VITAL SIGNS: Blood pressure is 99/72, heart rate 83, respiratory rate 18, temperature 97.8, pulse ox 97%. GENERAL: Awake, alert, comfortable, not in distress. SKIN: Adequate turgor. HEENT: He has pinkish conjunctivae, anicteric sclerae. NECK: No neck mass, no carotid bruits, no JVD. CHEST: No deformities. LUNGS: Clear breath sounds. No wheezing, no crackles. HEART: Normal sinus rhythm. No murmur, no gallops, no rubs. ABDOMEN: Globular, soft, nontender, no masses. EXTREMITIES: No edema, no deformities. MEDICATIONS: Medications of 08/10/2018 reviewed. LABORATORY DATA: Laboratories of 08/10/2018, white count 10.1, hemoglobin 12.8. Sodium 131, potass[place] um 5.6, chloride 93, carbon dioxide 20, BUN 75, creatinine 7.82, glucose 189, calcium 9. Cortisol le angi 3.0. ASSESSMENT AND PLAN: 1. New onset seizure - Neurology following, currently on oral Keppra. No recurrence of seizure. Aw aiting EEG results 2. End-stage renal disease, stable. There is no indication for any emergent hemodialysis, continue supportive care. Agree with current management.
[2018-08-10] MEDS: Gabapentin 300 MG CAP PO SCH ×2 (09:30→22:58)
[2018-08-10] MEDS: Calcium Acetate 667 MG CAP PO SCH ×3 (09:32→19:36)
[2018-08-10] MEDS: levETIRAcetam 500 mg/5 ml Oral Solution PO SCH ×2 (09:32→22:59)
[2018-08-10] MEDS: Polyethylene Glycol 3350 17 GM Packet PO SCH ×2 (09:33→22:59)
--- NOTE | 2018-08-10 11:39 | PDOC.PN ---
- Subjective Encounter Start Date: 08/10/18 Encounter Start Time: 10:00 Subjective: feels better, no further seizures -: has not ambulated yet - Objective Resuscitation Status: Resuscitation Status FULL:Full Resuscitation MAR Reviewed: Yes Vital Signs & Weight: Vital Signs (12 hours) Temp Pulse Resp BP Pulse Ox 08/10/18 07:46 97.8 F 83 18 99/72 97 08/10/18 04:00 98.2 F 85 16 100/66 94 L 08/10/18 00:00 98 F 89 16 107/64 93 L Weight Weight 224 lb 14.4 oz I&O: 08/09/18 08/10/18 08/11/18 06:59 06:59 06:59 Intake Total 1080 240 Balance 1080 240 Result Diagrams: 08/10/18 04:31 08/10/18 04:31 Additional Labs: Accuchecks 08/10/18 08/10/18 08/09/18 10:44 06:34 20:37 POC Glucose 192 H 193 H 226 H 08/09/18 08/09/18 16:56 11:44 POC Glucose 243 H 251 H Phys Exam - Physical Examination HEENT: PERRLA, moist MMs Neck: no JVD, supple Respiratory: no wheezing, no rales Cardiovascular: RRR, no significant murmur Gastrointestinal: soft, non-tender, positive bowel sounds Musculoskeletal: no edema, pulses present Neurological: non-focal, moves all 4 limbs Psychiatric: A&O x 3 Dx/Plan (1) Seizure Code(s): R56.9 - UNSPECIFIED CONVULSIONS Status: Acute (2) HTN (hypertension) Code(s): I10 - ESSENTIAL (PRIMARY) HYPERTENSION Status: Chronic Qualifiers: Hypertension type: essential hypertension Qualified Code(s): I10 - Essential (primary) hypertension (3) Dyslipidemia Code(s): E78.5 - HYPERLIPIDEMIA, UNSPECIFIED Status: Chronic (4) Volume overload Code(s): E87.70 - FLUID OVERLOAD, UNSPECIFIED Status: Acute (5) CAD (coronary artery disease) Code(s): I25.10 - ATHSCL HEART DISEASE OF [place] CORONARY ARTERY W/O ANG PCTRS Status: Chronic Qualifiers: Coronary Disease-Associated Artery/Lesion type: [place] artery [place] vs. transplanted heart: [place] heart Associated angina: without angina Qualified Code(s): I25.10 - Atherosclerotic heart disease of [place] coronary artery without angina pectoris (6) ESRD (end stage renal disease) on dialysis Code(s): N18.6 - END STAGE RENAL DISEASE; Z99.2 - DEPENDENCE ON RENAL DIALYSIS Status: Chronic - Plan on keppra and stable -: PT/OT eval -: may dc home if he amb well if not will need placement -: is stable for discharge -: mri results noted, no ac infarct/mass in brain * . Review of Systems - Medications/Allergies Allergies/Adverse Reactions: Allergies Allergy/AdvReac Type Severity Reaction Status Date / Time meperidine HCl [From Demerol] Allergy Verified 04/25/18 01:04 Medications: Current Medications Acetaminophen (Tylenol) 650 mg PO Q4H PRN PRN Reason: Headache/Fever/Mild Pain (1-3) Acetaminophen/Codeine Phosphate (Tylenol #3) 1 tab PO Q4H PRN PRN Reason: Pain Last Admin: 08/08/18 12:37 Dose: 1 tab Albuterol/Ipratropium (Duoneb) 3 ml NEB Q4H PRN PRN Reason: SOB &/or Wheezing Aspirin (Aspirin Chewable) 81 mg PO DAILY [facility] Last Admin: 08/10/18 09:30 Dose: 81 mg Atorvastatin Calcium (Lipitor) 10 mg PO HS [facility] Last Admin: 08/09/18 20:39 Dose: 10 mg Bisacodyl (Dulcolax) 10 mg IN Q12H PRN PRN Reason: Constipation Calcium Acetate (Phoslo) 2,001 mg PO TID-WM [facility] Last Admin: 08/10/18 09:32 Dose: 2,001 mg Calcium Carbonate (Tums) 500 mg PO DAILYPRN PRN PRN Reason: INDIGESTION Dextrose/Water (Dextrose 50%) 25 gm SLOW IVP PRN PRN PRN Reason: Hypoglycemia Famotidine (Pepcid) 20 mg PO QPM [facility] Last Admin: 08/09/18 20:39 Dose: 20 mg Gabapentin (Neurontin) 300 mg PO BID [facility] Last Admin: 08/10/18 09:30 Dose: 300 mg Glucagon (Glucagon) 1 mg IM PRN PRN PRN Reason: Hypoglycemia Guaifenesin (Robitussin Sf) 15 mg PO Q4H PRN PRN Reason: Cough Heparin Sodium (Porcine) (Heparin) 5,000 units SC BID [facility] Last Admin: 08/10/18 09:35 Dose: 5,000 units Dextrose/Water (D5w) 1,000 mls @ 0 mls/hr IV .Q0M PRN PRN Reason: Hypoglycemia Insulin Glargine 15 units/ (Miscellaneous Medication) 0.15 mls @ 0 mls/hr SC HS [facility] Last Admin: 08/09/18 20:41 Dose: 0.15 mls Insulin Human Regular (Humulin R) 0 units SC .MILD SLIDING SCALE PRN PRN Reason: Mild Correctional Scale Last Admin: 08/10/18 07:36 Dose: 2 unit Levetiracetam (Keppra Oral Solution) 250 mg PO BID [facility] Last Admin: 08/10/18 09:32 Dose: 250 mg Lorazepam (Ativan) 2 mg SLOW IVP Q15MIN PRN PRN Reason: Seizures Polyethylene Glycol (Miralax) 17 gm PO BID [facility] Last Admin: 08/10/18 09:33 Dose: 17 gm Sertraline HCl (Zoloft) 50 mg PO DAILY [facility] Last Admin: 08/10/18 09:31 Dose: 50 mg Sodium Chloride (Flush - Normal Saline) 10 ml IVF Q12H PRN PRN Reason: Saline Flush Last Admin: 08/09/18 20:43 Dose: 10 ml Sodium Chloride (Flush - Normal Saline) 10 ml IVF PRN PRN PRN Reason: Saline Flush Tramadol HCl (Ultram) 50 mg PO 0600,1800 [facility] Last Admin: 08/10/18 06:42 Dose: 50 mg
[2018-08-10] MEDS: Insulin Glargine 15 UNITS in Pre-Filled Syringe 1 EACH SC SCH (22:58)
[2018-08-10] MEDS: Atorvastatin Calcium 10 MG TAB PO SCH (22:58)
[2018-08-10] MEDS: Famotidine 20 MG TAB PO SCH (22:58)
[2018-08-11] MEDS: traMADol HCl 50 MG TAB PO SCH ×2 (06:12→17:06)
[2018-08-11] MEDS: Ondansetron HCl/PF 4 MG/2 ML Vial SLOW IVP SCH ×4 (06:14→17:05)
[2018-08-11] MEDS: Polyethylene Glycol 3350 17 GM Packet PO SCH ×2 (08:17→20:35)
[2018-08-11] MEDS: Heparin 5,000 UNITS/ML VIAL SC SCH (08:17)
[2018-08-11] MEDS: Gabapentin 300 MG CAP PO SCH ×2 (08:17→20:33)
[2018-08-11] MEDS: Calcium Acetate 667 MG CAP PO SCH ×3 (08:17→17:05)
[2018-08-11] MEDS: levETIRAcetam 500 mg/5 ml Oral Solution PO SCH ×2 (08:52→20:32)
--- NOTE | 2018-08-11 09:21 | EEG ---
Referring Physician: Rajan BRADLEY EEG # [id number] TEST TYPE: ROUTINE PORTABLE INPATIENT REPORT: AN EEG USING THE [employer]NATIONAL TEN-TWENTY SYSTEM OF ELECTRODE PLACEMENT WAS PERFORMED. The waking background is an 8-9 hertz alpha frequency, The patient became drowsy. Photic stimulation was unremarkable. No epileptiform features were seen. IMPRESSION: NORMAL AWAKE AND DROWSY EEG. Speech And Language Tutor: NORMA Air Crew Officer: EEG.CALISTA BALES
--- NOTE | 2018-08-11 09:26 | PRG ---
DATE OF SERVICE: 08/11/2018 SUBJECTIVE: Mr. Fontana is a 58-year-old white male with known history of ESRD, admitted for new onse t seizure. We are following this patient for his maintenance hemodialysis. I have scheduled him for his regular dialysis today. He voices no new complaints. He denies any chest pain or shortness of breath. Please note, he has had no recurrence of his seizure disorder, of a seizure episode. OBJECTIVE: VITAL SIGNS: Blood pressure is 116/59, heart rate 88, respiratory rate 20, temperature 97.5, pulse o x 96%. GENERAL: Awake, alert, supine, comfortable, not in distress SKIN: Adequate turgor. HEENT: Pinkish conjunctivae, anicteric sclerae. NECK: No neck mass, no carotid bruits, no JVD. CHEST: No deformities. LUNGS: Clear breath sounds. No wheezing, no crackles. HEART: Normal sinus rhythm. No murmur, no gallops, no rubs. ABDOMEN: Globular, soft, nontender. EXTREMITIES: No edema. Positive for suprapubic tube. MEDICATIONS: Medications of 08/11/2018 was reviewed. LABORATORY DATA: Laboratories of 08/10/2018, white count 10.1, hemoglobin 12.8. On 08/11/2018, gluc ose 129. On 08/10/2018, potassium 5.6. ASSESSMENT AND PLAN: 1. End-stage renal disease, stable. Continuing Friday, , and Friday hemodialysis. I hav e scheduled this patient for a 4-hour hemodialysis treatment with fluid removal only as tolerated. 2. Mild hyperkalemia - dialysis today. 3. New onset seizure - on Keppra 250 mg p.o. b.i.d. Recheck base met and CBC in a.m.
--- NOTE | 2018-08-11 14:04 | PDOC.PN ---
- Subjective Encounter Start Date: 08/11/18 Encounter Start Time: 14:03 Subjective: seen In HD. feels Ok but somnolent. -: deneis any Cp/SOB. no N/V/D. no abd pain - Objective Resuscitation Status: Resuscitation Status FULL:Full Resuscitation MAR Reviewed: Yes Vital Signs & Weight: Vital Signs (12 hours) Temp Pulse Resp BP Pulse Ox 08/11/18 07:42 97.5 F L 88 20 116/59 L 96 08/11/18 04:00 98.2 F 91 18 104/55 L 95 Weight Admit Weight 224 lb 14.4 oz Weight 224 lb 14.4 oz I&O: 08/10/18 08/11/18 08/12/18 06:59 06:59 06:59 Intake Total 1080 1500 Output Total 25 Balance 1080 1475 Result Diagrams: 08/10/18 04:31 08/10/18 04:31 Additional Labs: Accuchecks 08/11/18 08/10/18 08/10/18 05:37 21:17 16:57 POC Glucose 129 H 158 H 172 H Laboratory Tests 04/04/18 04/05/18 04/24/18 08:04 04:02 19:08 Plt Count 127 L 118 L 77 L 08/09/18 08/10/18 04:33 04:31 Plt Count 82 L 64 L Phys Exam - Physical Examination Constitutional: NAD somnolent HEENT: PERRLA, moist MMs, sclera anicteric, oral pharynx no lesions Neck: no nodes, no JVD, supple, full ROM Respiratory: no wheezing, no rales, no rhonchi Cardiovascular: RRR, no significant murmur Gastrointestinal: soft, non-tender, no distention, positive bowel sounds Musculoskeletal: no edema, pulses present Neurological: non-focal, normal sensation, moves all 4 limbs Psychiatric: normal affect, A&O x 3 Skin: no rash Dx/Plan (1) Seizure Code(s): R56.9 - UNSPECIFIED CONVULSIONS Status: Acute (2) Volume overload Code(s): E87.70 - FLUID OVERLOAD, UNSPECIFIED Status: Acute (3) Thrombocytopenia Code(s): D69.6 - THROMBOCYTOPENIA, UNSPECIFIED Status: Acute (4) Dyslipidemia Code(s): E78.5 - HYPERLIPIDEMIA, UNSPECIFIED Status: Chronic (5) HTN (hypertension) Code(s): I10 - ESSENTIAL (PRIMARY) HYPERTENSION Status: Chronic Qualifiers: Hypertension type: essential hypertension Qualified Code(s): I10 - Essential (primary) hypertension (6) CAD (coronary artery disease) Code(s): I25.10 - ATHSCL HEART DISEASE OF [place] CORONARY ARTERY W/O ANG PCTRS Status: Chronic Qualifiers: Coronary Disease-Associated Artery/Lesion type: [place] artery [place] vs. transplanted heart: [place] heart Associated angina: without angina Qualified Code(s): I25.10 - Atherosclerotic heart disease of [place] coronary artery without angina pectoris (7) ESRD (end stage renal disease) on dialysis Code(s): N18.6 - END STAGE RENAL DISEASE; Z99.2 - DEPENDENCE ON RENAL DIALYSIS Status: Chronic - Plan incentive spirometry, out of bed/ambulate, DVT proph w/SCDs Hd stable. cont hemodialysis .nephrology following. -: am labs -: seizure stable on keppra.EEG negative -: likley DC to [facility] tomorrow if more awake and alert -: Platelet count low. Stop heparin and recheck.no overt bleeding * . Review of Systems - Review of Systems Constitutional: weakness, malaise. negative: fever, chills, sweats, other ENT: negative: Ear Pain, Ear Discharge, Nose Pain, Nose Discharge, Nose Congestion, Mouth Pain, Mouth Swelling, Throat Pain, Throat Swelling, Other Respiratory: negative: Cough, Dry, Shortness of Breath, Hemoptysis, SOB with Excertion, Pleuritic Pain, Sputum, Wheezing Cardiovascular: negative: chest pain, palpitations, orthopnea, paroxysmal nocturnal dyspnea, edema, light headedness, other Gastrointestinal: negative: Nausea, Vomiting, Abdominal Pain, Diarrhea, Constipation, Melena, Hematochezia, Other Genitourinary: negative: Dysuria, Frequency, Incontinence, Hematuria, Retention , Other Musculoskeletal: negative: Neck Pain, Shoulder Pain, Arm Pain, Back Pain, Hand Pain, Leg Pain, Foot Pain, Other Neurological: negative: Weakness, Numbness, Incoordination, Change in Speech, Confusion, Seizures, Other - Medications/Allergies Allergies/Adverse Reactions: Allergies Allergy/AdvReac Type Severity Reaction Status Date / Time meperidine HCl [From Demerol] Allergy Verified 04/25/18 01:04 Medications: Current Medications Acetaminophen (Tylenol) 650 mg PO Q4H PRN PRN Reason: Headache/Fever/Mild Pain (1-3) Acetaminophen/Codeine Phosphate (Tylenol #3) 1 tab PO Q4H PRN PRN Reason: Pain Last Admin: 08/08/18 12:37 Dose: 1 tab Albuterol/Ipratropium (Duoneb) 3 ml NEB Q4H PRN PRN Reason: SOB &/or Wheezing Aspirin (Aspirin Chewable) 81 mg PO DAILY [facility] Last Admin: 08/11/18 08:18 Dose: 81 mg Atorvastatin Calcium (Lipitor) 10 mg PO [facility] Last Admin: 08/10/18 22:58 Dose: 10 mg Bisacodyl (Dulcolax) 10 mg MO Q12H PRN PRN Reason: Constipation Calcium Acetate (Phoslo) 2,001 mg PO TID[facility] Last Admin: 08/11/18 11:02 Dose: Not Given Calcium Carbonate (Tums) 500 mg PO DAILYPRN PRN PRN Reason: INDIGESTION Dextrose/Water (Dextrose 50%) 25 gm SLOW IVP PRN PRN PRN Reason: Hypoglycemia Famotidine (Pepcid) 20 mg PO QPM [facility] Last Admin: 08/10/18 22:58 Dose: 20 mg Gabapentin (Neurontin) 300 mg PO BID [facility] Last Admin: 08/11/18 08:17 Dose: 300 mg Glucagon (Glucagon) 1 mg IM PRN PRN PRN Reason: Hypoglycemia Guaifenesin (Robitussin Sf) 15 mg PO Q4H PRN PRN Reason: Cough Dextrose/Water (D5w) 1,000 mls @ 0 mls/hr IV .Q0M PRN PRN Reason: Hypoglycemia Insulin Glargine 15 units/ (Miscellaneous Medication) 0.15 mls @ 0 mls/hr SC [facility] Last Admin: 08/10/18 22:58 Dose: 0.15 mls Insulin Human Regular (Humulin R) 0 units SC .MILD SLIDING SCALE PRN PRN Reason: Mild Correctional Scale Last Admin: 08/10/18 19:37 Dose: 2 unit Levetiracetam (Keppra Oral Solution) 250 mg PO BID [facility] Last Admin: 08/11/18 08:52 Dose: 250 mg Lorazepam (Ativan) 2 mg SLOW IVP Q15MIN PRN PRN Reason: Seizures Ondansetron HCl (Zofran) 4 mg SLOW IVP Q6HR [facility] Last Admin: 08/11/18 11:02 Dose: Not Given Polyethylene Glycol (Miralax) 17 gm PO BID [facility] Last Admin: 08/11/18 08:17 Dose: 17 gm Sertraline HCl (Zoloft) 50 mg PO DAILY [facility] Last Admin: 08/11/18 08:17 Dose: 50 mg Sodium Chloride (Flush - Normal Saline) 10 ml IVF Q12H PRN PRN Reason: Saline Flush Last Admin: 08/09/18 20:43 Dose: 10 ml Sodium Chloride (Flush - Normal Saline) 10 ml IVF PRN PRN PRN Reason: Saline Flush Tramadol HCl (Ultram) 50 mg PO 0600,1800 [facility] Last Admin: 08/11/18 06:12 Dose: 50 mg
[2018-08-11] MEDS: Acetaminophen/Codeine 30-300mg Tablet PO PRN (14:07)
--- NOTE | 2018-08-11 17:13 | SPC ---
LEFT UPPER EXTREMITY FISTULOGRAM: 08/11/18 HISTORY: Patient with high venous pressures involving the left upper extremity arterial venous dialysis fistul a. No thrill or bruit was detected within the main venous outflow. FLUOROSCOPY: Total fluoroscopy time 3.4 minutes. Total dose: 1855 mGy*cm2. TECHNIQUE: After informed consent was obtained, the patient was placed on the angiography table in the supine po sition. Left upper extremity was meticulously prepped and draped in the usual sterile fashion. The fi stula was accessed at the level of the distal arm and utilizing micropuncture technique, a 5 Wolof i ntroducer sheath was placed. A venogram was obtained which demonstrated flow only within a venous col lateral and there was thrombus inclusion of the main venous outflow and there is evidence of a coil w hich appeared to be within the region of the venous outflow of the left upper extremity arterial veno us dialysis fistula. As the result, limited ultrasound examination was performed. Ultrasound demonstr ated a coil originating in a collateral vein near the skin surface and extending into the venous outf low of the left upper extremity arterial venous dialysis fistula with resultant thrombus surrounding the coil. Patient was unable to tolerate lying flat due to severe back pain. As the result, procedure was terminated at this point. The catheter was removed, hemostasis was achieved with direct pressure . Patient tolerated the procedure well without complication. IMPRESSION: A coil is identified within a collateral vein in the left upper extremity at the level of the distal arm with the coil extending from this collateral vein and into the main venous outflow of the left up per extremity arterial venous dialysis fistula with thrombus and subsequent occlusion of the fistula at the level of the embolization coil. Findings were discussed with Dr. Hargrove at this time. IMPRESSION: Occlusion left upper extremity arterial venous dialysis fistula secondary to a coil which has migrate d into the fistula. The above findings discussed with Dr. Hargrove at this time. There is collateral flow within collateral vein within the left upper extremity. POS: [facility]
[2018-08-11] MEDS: Famotidine 20 MG TAB PO SCH (20:34)
[2018-08-11] MEDS: Atorvastatin Calcium 10 MG TAB PO SCH (20:35)
[2018-08-12] MEDS: Insulin Glargine 15 UNITS in Pre-Filled Syringe 1 EACH SC SCH ×2 (01:58→21:33)
[2018-08-12 04:42] LABS: #Eosinphils 0.1 thou/uL (0.0-0.7); #Lymphocytes 0.9 thou/uL (1.20-3.40); #Monocytes 0.6 thou/uL (0.11-0.59); #Neutrophils 9.8 thou/uL (1.40-6.50); %Basophils 0.1 % (0.0-1.0); %Eosinophils 0.5 % (0.0-10.0); %Lymphocytes 7.6 % (21.0-51.0); %Monocytes 5.6 % (0.0-10.0); %Neutrophils 86.3 % (42.0-75.0); Hemoglobin 14.4 g/dL (14.0-18.0); Mean Corpuscular HGB CONC 31.1 g/dL (32.0-36.0); Mean Corpuscular Hemoglobin 31.2 pg (27.0-31.0); Mean Platelet Volume 10.5 fL (7.4-10.4); Platelet Count 51 thou/uL (130-400); RBC Distribution Width 17.5 % (11.5-14.5); White Blood Cell (WBC) Count 11.4 thou/uL (4.8-10.8)
[2018-08-12 04:51] LABS: Anion Gap 23 mmol/L (10-20); BUN (Urea Nitrogen) 99 mg/dL (8.4-25.7); Calc. Creatinine Clearance 13 mL/min (70-130); Calcium 8.9 mg/dL (7.8-10.44); Carbon Dioxide 19 mmol/L (22-29); Chloride 96 mmol/L (98-107); Estimated GFR-MDRD 6; Glucose 91 mg/dL (70-105); Sodium 132 mmol/L (136-145)
[2018-08-12] MEDS: traMADol HCl 50 MG TAB PO SCH ×2 (05:49→18:50)
[2018-08-12] MEDS: Ondansetron HCl/PF 4 MG/2 ML Vial SLOW IVP SCH ×3 (07:26→19:45)
[2018-08-12] MEDS: Calcium Acetate 667 MG CAP PO SCH ×3 (08:55→18:51)
[2018-08-12] MEDS: Polyethylene Glycol 3350 17 GM Packet PO SCH ×2 (08:57→21:34)
[2018-08-12] MEDS: Gabapentin 300 MG CAP PO SCH ×2 (08:57→21:31)
[2018-08-12] MEDS: levETIRAcetam 500 mg/5 ml Oral Solution PO SCH ×2 (08:57→21:32)
--- NOTE | 2018-08-12 09:11 | PRG ---
DATE OF SERVICE: 08/12/2018. SUBJECTIVE: Mr. Fontana is a 58-year-old white male with end-stage renal disease - on maintenance hem odialysis. Yesterday, we had difficulty on dialyzing the patient due to a nonfunctioning AV fistula. AV fistulogram was done, but this was not successful and the thrombose was not successfully removed . This morning, he was noted to be mildly hyperkalemic. Our plan is to consult Surgery for possible surgical thrombectomy, plus or minus placement of a dialysis catheter. No other complaints today. Please note that this patient was initially admitted for new onset seizure. EEG was said to be negat ethel. He voices no complaints of chest pain or shortness of breath. PHYSICAL EXAMINATION: VITAL SIGNS: Blood pressure is 122/62, heart rate 87, respiratory rate 20, temperature 97.8, pulse o x 92%. GENERAL: Noted to be awake, alert, comfortable, not in overt distress. SKIN: Adequate turgor. HEENT: He has pinkish conjunctivae, anicteric sclerae. NECK: No neck mass, no carotid bruits, no JVD. CHEST: No deformities. LUNGS: Clear breath sounds. No wheezing, no crackles. HEART: Normal sinus rhythm. No murmur, no gallops, no rubs. ABDOMEN: Globular, soft, nontender, no masses. EXTREMITIES: No edema, no deformities. MEDICATIONS: Of 08/12/2018 was reviewed. LABORATORY DATA: Of 08/12/2018, white count 11.4, hemoglobin 14.4, sodium 132, potassium 6, chloride 96, carbon dioxide 19, BUN 99, creatinine 8.58, glucose 91, calcium 8.9. ASSESSMENT AND PLAN: 1. End-stage renal disease - nonfunctioning AV fistula. Surgical consult will be done with Dr. Junior ricks/Dr. Crocker for possible surgical thrombectomy and/or placement of a hemodialysis catheter. After the access is placed or corrected, we will initiate again another dialysis with this patient. 2. Mild hyperkalemia, hemodialysis today. 3. New onset seizure, stable, no recurrence. Currently on oral Keppra. Agree with current management. Recheck base met and CBC in a.m.
[2018-08-12] MEDS ORDERED: guaiFENesin ER 600 MG TAB PO SCH (11:15)
[2018-08-12] MEDS: Acetaminophen/Codeine 30-300mg Tablet PO PRN ×2 (12:56→21:31)
--- NOTE | 2018-08-12 13:25 | CON ---
DATE OF CONSULTATION: 08/12/2018 HISTORY: Abdulkadir Fontana is a 58-year-old male with a left arm fistula that I placed in March 22, inflow proximal radial artery, outflow primary cephalic vein. There was some communication of [facility] basilic vein, retrograde antecubital vein was preserved. The patient dialyzes at [facility] on [address]. He is followed by Dr. Hargrove. The patient was admitted this hospitalization 08/07/2018 . It was felt he had possible seizures. The patient denies having past history of seizures. He mendez s have a history of stroke. He underwent a CT scan of the head that was unremarkable except for old infarcts. The patient initially was sent to [facility], had respiratory failure second ashleigh to bronchospasms, eventually sent home on DuoNeb treatments and Tylenol. Apparently he was to di alyze on last week, but his fistula reportedly was not working well and he visited Dr. Nell[facility] who performed an intervention, apparently introduced a coil in a branch. I was told in fact, the fistula was working and this was more of a surveillance problem. [facility] patient then reports the patient had another episode of apparent seizure and he was brought into [facility] hospital. The patient was started on anticonvulsants and Neurology consult ordered. Dr. Danay gaitan saw him and he felt that with these events were likely possible seizures and as he did not have any neurological findings he suggested he can maintain him on Keppra anticonvulsant. Brain MRI subs equently obtained revealed small vessel disease without acute infarction and sphenoid sinus disease. The patient yesterday underwent a fistulogram, left upper arm fistula and the recently placed coil a t the [facility] had migrated into the main fistula tract and the fistula was thrombosed. This was performed at 1400. The patient was fed breakfast this morning. I was consulted for dialysi s access. His potassium is 6. He is fluid overloaded. Today is Friday, and I am out of town [facility] and Friday. Recommendation is to place a right femoral vein dialysis catheter. They can dialy ze him today, resolve his hyperkalemia and plan would be to return to the operating room Friday to pl galdino a cuffed tunnel hemodialysis catheter pending ability to salvage his upper left arm fistula. Unfortunately, in this end-stage renal disease known patient, on admission, he had placed a right del topectoral groove IV, a right upper arm IV cephalic vein and a proximal forearm IV right. These wer e immediately removed on my visit to the patient and instructions given to never place IVs above the wrist in a dialysis patient. ALLERGIES: MEPERIDINE. MEDICATIONS: Tramadol, gabapentin, famotidine, insulin, atorvastatin, calcium, sertraline, MiraLax. PAST MEDICAL HISTORY: Suprapubic bladder catheter, PAD, history of strokes, history recently diagnos ed seizures, GERD, sleep apnea, coronary artery disease, coronary stents 2014, cardiomyopathy, histor y of congestive heart failure, diabetes mellitus type 2, hypertension, end-stage renal disease on [facility] dialysis Friday, , and Friday at [facility], [place]. PAST SURGICAL HISTORY: Neck surgery. Suprapubic catheter, eye surgery, left arm fistula, coronary a rtery bypass grafting x1, aortic valve replacement. 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 T he patient has been noted to have distal small vessel disease, not amenable to any intervention from catheterization in 2014. Eye Surgery, Dr. Hartmann. ALCOHOL: None. TOBACCO: None. PHYSICAL EXAMINATION: VITAL SIGNS: Weight 224 pounds, 5 feet 9, 33 BMI. LUNGS: Clear to auscultation. CARDIAC: Regular rate and rhythm without murmur or gallop. ABDOMEN: Soft, obese. Suprapubic catheter in place. I cannot palpate femoral pulses. EXTREMITIES: Left arm fistula without thrill or bruit. Bandaged from recent intervention. ASSESSMENT AND PLAN: End-stage renal disease with [facility] a collateral coil migrating to occlude the fistula causing thrombosis. The patient i s hyperkalemic, fluid overloaded and has eaten breakfast this morning. The plan is to place a bedsid e femoral vein dialysis catheter and allow dialysis the next few days and then early next week I will plan to take him to the operating room to try to salvage his left upper arm fistula, removed the coi l to prevent migration. He will dialyze in the interim. Avoid IV access right arm, ultrasound vein mapping right arm to make future plans if I cannot salvage left arm fistula.
--- NOTE | 2018-08-12 13:32 | OP ---
DATE OF PROCEDURE: 08/12/2018 PREOPERATIVE DIAGNOSES: Thrombosed fistula left arm secondary to a coil. insertion in collaterals at [facility] with thrombosis of the fistula. ER placement of right deltopectoral cep halic vein IV. Placement of right upper arm IV. Hyperkalemia. Lack of dialysis access. POSTOPERATIVE DIAGNOSES: Thrombosed fistula left arm secondary to a coil. insertion in collaterals a t [facility] with thrombosis of the fistula. ER placement of right deltopectoral ce phalic vein IV. Placement of right upper arm IV. Hyperkalemia. Lack of dialysis access. PROCEDURE: Right femoral vein Trialysis catheter. SURGEON: Dr. Willie Ding. ANESTHESIA: 1% Xylocaine. PROCEDURE: At the patient's bedside, his right groin was prepared with ChloraPrep, draped in routine fashion. I could not palpate a femoral pulse, but could palpate what I felt to be arterial scleroti c femoral artery. Local anesthetic with 1% Xylocaine infiltrated into skin and subcutaneous tissue a nd trocar catheter cannulated the femoral vein. J-wire threaded. Trocar catheter removed. Skin inc ised and enlarged sharply. Smaller and larger size dilators placed and removed and distal port of th e Trialysis catheter placed over the J-wire in the femoral vein. J-wire removed. Catheter secured w ith 2 interrupted sutures of 3-0 nylon. Sterile dressing applied. Each port aspirated blood and flu shed with heparin flush solution.
--- NOTE | 2018-08-12 14:18 | PDOC.PN ---
- Subjective Encounter Start Date: 08/12/18 Encounter Start Time: 14:16 Subjective: feels weak and tired and poor appetite -: c/o some SOB - Objective Resuscitation Status: Resuscitation Status FULL:Full Resuscitation MAR Reviewed: Yes Vital Signs & Weight: Vital Signs (12 hours) Temp Pulse Pulse Pulse Resp BP BP 08/12/18 11:59 97.3 F L 85 20 08/12/18 11:28 84 84 116/64 122/62 08/12/18 08:48 08/12/18 07:56 97.8 F 87 20 08/12/18 04:00 97.6 F 84 20 BP Pulse Ox Pulse Ox Pulse Ox 08/12/18 11:59 116/64 99 08/12/18 11:28 99 95 08/12/18 08:48 92 L 08/12/18 07:56 122/62 92 L 08/12/18 04:00 113/75 98 Weight Admit Weight 224 lb 14.4 oz Weight 224 lb 14.4 oz I&O: 08/11/18 08/12/18 08/13/18 06:59 06:59 06:59 Intake Total 1500 240 Output Total 25 30 Balance 1475 210 Result Diagrams: 08/12/18 04:18 08/12/18 04:18 Additional Labs: Accuchecks 08/12/18 08/12/18 08/11/18 11:33 05:45 20:31 POC Glucose 82 91 109 08/11/18 17:25 POC Glucose 106 Radiology Reviewed by me: Yes Phys Exam - Physical Examination Constitutional: NAD weak and sick looking HEENT: PERRLA, moist MMs, sclera anicteric, oral pharynx no lesions Neck: no nodes, no JVD, supple, full ROM Respiratory: no wheezing, no rales, no rhonchi, clear to auscultation bilateral Cardiovascular: RRR, no significant murmur Gastrointestinal: soft, non-tender, no distention, positive bowel sounds Musculoskeletal: no edema, pulses present Neurological: non-focal, normal sensation, moves all 4 limbs Psychiatric: normal affect, A&O x 3 Skin: no rash Dx/Plan (1) AV fistula thrombosis Code(s): T82.868A - THROMBOSIS DUE TO VASCULAR PROSTH DEV/GRFT, INIT Status: Acute (2) Seizure Code(s): R56.9 - UNSPECIFIED CONVULSIONS Status: Acute (3) Volume overload Code(s): E87.70 - FLUID OVERLOAD, UNSPECIFIED Status: Acute (4) Thrombocytopenia Code(s): D69.6 - THROMBOCYTOPENIA, UNSPECIFIED Status: Acute (5) Dyslipidemia Code(s): E78.5 - HYPERLIPIDEMIA, UNSPECIFIED Status: Chronic (6) HTN (hypertension) Code(s): I10 - ESSENTIAL (PRIMARY) HYPERTENSION Status: Chronic Qualifiers: Hypertension type: essential hypertension Qualified Code(s): I10 - Essential (primary) hypertension (7) CAD (coronary artery disease) Code(s): I25.10 - ATHSCL HEART DISEASE OF [place] CORONARY ARTERY W/O ANG PCTRS Status: Chronic Qualifiers: Coronary Disease-Associated Artery/Lesion type: [place] artery [place] vs. transplanted heart: [place] heart Associated angina: without angina Qualified Code(s): I25.10 - Atherosclerotic heart disease of [place] coronary artery without angina pectoris (8) ESRD (end stage renal disease) on dialysis Code(s): N18.6 - END STAGE RENAL DISEASE; Z99.2 - DEPENDENCE ON RENAL DIALYSIS Status: Chronic - Plan DVT proph w/SCDs Fistula thrombosed. Femoral catheter today for HD access. -: HD for Hyperkalemia as soon as HD cathter in place today.roni GS -: cont ASA,statin,keppra. -: BS controlled. cont lantus.SSI. -: am labs.Accpeted at rehab. DC when Ok w nephrology * . Review of Systems - Review of Systems Constitutional: weakness, malaise. negative: fever, chills, sweats, other Respiratory: negative: Cough, Dry, Shortness of Breath, Hemoptysis, SOB with Excertion, Pleuritic Pain, Sputum, Wheezing Cardiovascular: negative: chest pain, palpitations, orthopnea, paroxysmal nocturnal dyspnea, edema, light headedness, other Gastrointestinal: Nausea Genitourinary: negative: Dysuria, Frequency, Incontinence, Hematuria, Retention , Other Musculoskeletal: negative: Neck Pain, Shoulder Pain, Arm Pain, Back Pain, Hand Pain, Leg Pain, Foot Pain, Other Skin: negative: Rash, Lesions, Samuel, Bruising, Other Neurological: negative: Weakness, Numbness, Incoordination, Change in Speech, Confusion, Seizures, Other - Medications/Allergies Allergies/Adverse Reactions: Allergies Allergy/AdvReac Type Severity Reaction Status Date / Time meperidine HCl [From Demerol] Allergy Verified 04/25/18 01:04 Medications: Current Medications Acetaminophen (Tylenol) 650 mg PO Q4H PRN PRN Reason: Headache/Fever/Mild Pain (1-3) Acetaminophen/Codeine Phosphate (Tylenol #3) 1 tab PO Q4H PRN PRN Reason: Pain Last Admin: 08/12/18 12:56 Dose: 1 tab Albuterol/Ipratropium (Duoneb) 3 ml NEB Q4H PRN PRN Reason: SOB &/or Wheezing Aspirin (Aspirin Chewable) 81 mg PO DAILY [facility] Last Admin: 08/12/18 08:56 Dose: 81 mg Atorvastatin Calcium (Lipitor) 10 mg PO HS [facility] Last Admin: 08/11/18 20:35 Dose: 10 mg Bisacodyl (Dulcolax) 10 mg NE Q12H PRN PRN Reason: Constipation Calcium Acetate (Phoslo) 2,001 mg PO TID-[facility] Last Admin: 08/12/18 12:43 Dose: Not Given Calcium Carbonate (Tums) 500 mg PO DAILYPRN PRN PRN Reason: INDIGESTION Dextrose/Water (Dextrose 50%) 25 gm SLOW IVP PRN PRN PRN Reason: Hypoglycemia Famotidine (Pepcid) 20 mg PO QPM [facility] Last Admin: 08/11/18 20:34 Dose: 20 mg Gabapentin (Neurontin) 300 mg PO BID [facility] Last Admin: 08/12/18 08:57 Dose: 300 mg Glucagon (Glucagon) 1 mg IM PRN PRN PRN Reason: Hypoglycemia Guaifenesin (Robitussin Sf) 15 mg PO Q4H PRN PRN Reason: Cough Guaifenesin (Mucinex) 600 mg PO Q12HR [facility] Dextrose/Water (D5w) 1,000 mls @ 0 mls/hr IV .Q0M PRN PRN Reason: Hypoglycemia Insulin Glargine 15 units/ (Miscellaneous Medication) 0.15 mls @ 0 mls/hr [facility] Last Admin: 08/12/18 01:58 Dose: Not Given Insulin Human Regular (Humulin R) 0 units SC .MILD SLIDING SCALE PRN PRN Reason: Mild Correctional Scale Last Admin: 08/10/18 19:37 Dose: 2 unit Levetiracetam (Keppra Oral Solution) 250 mg PO BID [facility] Last Admin: 08/12/18 08:57 Dose: 250 mg Lorazepam (Ativan) 2 mg SLOW IVP Q15MIN PRN PRN Reason: Seizures Ondansetron HCl (Zofran) 4 mg SLOW IVP Q6HR [facility] Last Admin: 08/12/18 11:52 Dose: Not Given Polyethylene Glycol (Miralax) 17 gm PO BID [facility] Last Admin: 08/12/18 08:57 Dose: 17 gm Sertraline HCl (Zoloft) 50 mg PO DAILY [facility] Last Admin: 08/12/18 08:56 Dose: 50 mg Sodium Chloride (Flush - Normal Saline) 10 ml IVF Q12H PRN PRN Reason: Saline Flush Last Admin: 08/09/18 20:43 Dose: 10 ml Sodium Chloride (Flush - Normal Saline) 10 ml IVF PRN PRN PRN Reason: Saline Flush Tramadol HCl (Ultram) 50 mg PO 0600,1800 [facility] Last Admin: 08/12/18 05:49 Dose: 50 mg
[2018-08-12] MEDS: Atorvastatin Calcium 10 MG TAB PO SCH (21:31)
[2018-08-12] MEDS: Famotidine 20 MG TAB PO SCH (21:32)
[2018-08-12] MEDS: guaiFENesin ER 600 MG TAB PO SCH (21:32)
[2018-08-13] MEDS: Ondansetron HCl/PF 4 MG/2 ML Vial SLOW IVP SCH ×3 (00:19→12:40)
[2018-08-13 04:35] LABS: #Eosinphils 0.2 thou/uL (0.0-0.7); #Lymphocytes 0.5 thou/uL (1.20-3.40); #Monocytes 0.6 thou/uL (0.11-0.59); #Neutrophils 9.7 thou/uL (1.40-6.50); %Basophils 0.1 % (0.0-1.0); %Eosinophils 1.9 % (0.0-10.0); %Lymphocytes 4.6 % (21.0-51.0); %Monocytes 5.1 % (0.0-10.0); %Neutrophils 88.4 % (42.0-75.0); Hemoglobin 13.1 g/dL (14.0-18.0); Mean Corpuscular HGB CONC 30.2 g/dL (32.0-36.0); Mean Corpuscular Hemoglobin 30.5 pg (27.0-31.0); Platelet Count 63 thou/uL (130-400); RBC Distribution Width 17.3 % (11.5-14.5)
[2018-08-13 05:16] LABS: Anion Gap 19 mmol/L (10-20); BUN (Urea Nitrogen) 49 mg/dL (8.4-25.7); Calc. Creatinine Clearance 21 mL/min (70-130); Calcium 8.5 mg/dL (7.8-10.44); Carbon Dioxide 24 mmol/L (22-29); Chloride 98 mmol/L (98-107); Estimated GFR-MDRD 11; Glucose 163 mg/dL (70-105); Potassium 4.9 mmol/L (3.5-5.1); Sodium 136 mmol/L (136-145)
[2018-08-13] MEDS: traMADol HCl 50 MG TAB PO SCH ×2 (05:59→18:33)
[2018-08-13] MEDS: Insulin Regular 300 UNITS/3 ML VIAL SC PRN (06:00)
[2018-08-13] MEDS ORDERED: Heparin 10,000 UNITS/ 10 ML VIAL ONE (08:21)
[2018-08-13] MEDS: levETIRAcetam 500 mg/5 ml Oral Solution PO SCH ×2 (08:49→21:20)
[2018-08-13] MEDS: Gabapentin 300 MG CAP PO SCH ×2 (08:49→21:18)
[2018-08-13] MEDS: guaiFENesin ER 600 MG TAB PO SCH ×2 (08:49→21:19)
[2018-08-13] MEDS: Calcium Acetate 667 MG CAP PO SCH ×3 (08:50→18:33)
--- NOTE | 2018-08-13 10:03 | PRG ---
DATE OF SERVICE: 08/13/2018 SUBJECTIVE: Mr. Fontana is a 58-year-old white male being followed by the [facility] for his ESRD on maintenance hemodialysis. He had a nonfunctioning AV fistula. Surgery has evaluated the patient. Their plan is to eventually create a new fistula. He has a temporary right femoral dialysis cathet er. He underwent dialysis yesterday without difficulty. This was done due to the hyperkalemia. Thi s morning, no new complaints. PHYSICAL EXAMINATION: VITAL SIGNS: Blood pressure is 125/89, heart rate 88, respiratory rate 16, temperature 97.9, pulse o ximetry 95%. GENERAL: Awake, confused, not in overt distress. SKIN: Adequate turgor. HEENT: He has pinkish conjunctivae, anicteric sclerae. NECK: No neck mass, no carotid bruits, no JVD. CHEST: No deformities. LUNGS: Clear breath sounds. HEART: Normal sinus rhythm. No murmurs, no gallops, no rubs. ABDOMEN: Globular, soft, nontender, no masses. EXTREMITIES: No edema, no deformities. MEDICATIONS: Medications of 08/13/2018. LABORATORY DATA: White count 11, hemoglobin 13.1. Sodium 136, potassium 4.9, chloride 98, carbon di oxide 24, BUN 49, creatinine 5.42, glucose 163 and calcium 8.5. ASSESSMENT AND PLAN: 1. End-stage renal disease, stable. The patient will be scheduled for his regular hemodialysis toda y. Fluid removal only as tolerated. 2. Nonfunctioning AV fistula status post temporary dialysis catheter placement. Eventual new AV fis awais creation is being entertained by surgery. 4. Status post seizure disorder - stable. No recurrence of seizures. Continue supportive care.
[2018-08-13] MEDS: Polyethylene Glycol 3350 17 GM Packet PO SCH ×2 (11:15→21:20)
--- NOTE | 2018-08-13 12:17 | ULT ---
VENOUS DUPLEX SONOGRAM BILATERAL UPPER EXTREMITY FOR VEIN MAPPING: Date: 08/13/18 HISTORY: Renal disease. Need for long-term dialysis access. FINDINGS: Good color and spectral Doppler flow within each internal jugular and subclavian vein, and each axill ashleigh and brachial vein. Measurements are as follows: RIGHT UPPER EXTREMITY BRACHIAL ARTERY: 5 mm RADIAL ARTERY: 2 mm ULNAR ARTERY: 2 mm CEPHALIC VEIN Proximal Humerus: Noncompressible Mid Humerus: Noncompressible Distal Humerus: Noncompressible Antecubital Fossa: 2 mm Proximal Forearm: 2 mm Mid Forearm: 1 mm Distal Forearm: 1 mm BASILIC VEIN Proximal Humerus: 6 mm Mid Humerus: 4 mm Distal Humerus: 4 mm Antecubital Fossa: 1 mm Proximal Forearm: 1 mm Mid Forearm: 1 mm Distal Forearm: 1 mm LEFT UPPER EXTREMITY BRACHIAL ARTERY: 6 mm RADIAL ARTERY: Not visualized ULNAR ARTERY: Not visualized CEPHALIC VEIN Proximal Humerus: 3 mm Mid Humerus: Noncompressible Distal Humerus: Noncompressible Antecubital Fossa: Noncompressible Proximal Forearm: Noncompressible Mid Forearm: Noncompressible Distal Forearm: Noncompressible BASILIC VEIN Proximal Humerus: 11 mm Mid Humerus: 4 mm Distal Humerus: 4 mm Antecubital Fossa: 2 mm Proximal Forearm: Not visualized Mid Forearm: Not visualized Distal Forearm: Not visualized IMPRESSION: Patent deep venous system of each upper extremity. Superficial veins are not all patent, as detailed above. Measurements are as above. POS: [facility]
--- NOTE | 2018-08-13 13:05 | PDOC.PN ---
- Subjective Encounter Start Date: 08/13/18 Encounter Start Time: 13:03 Subjective: seen in Hemodialysis. feels Ok but weak - Objective Resuscitation Status: Resuscitation Status FULL:Full Resuscitation MAR Reviewed: Yes Vital Signs & Weight: Vital Signs (12 hours) Temp Pulse Pulse Resp BP BP Pulse Ox 08/13/18 09:34 81 129/83 08/13/18 08:49 95 08/13/18 07:40 88 16 125/89 95 08/13/18 04:00 97.9 F 88 20 93/65 96 Pulse Ox 08/13/18 09:34 95 08/13/18 08:49 08/13/18 07:40 08/13/18 04:00 Weight Admit Weight 224 lb 14.4 oz Weight 224 lb 14.4 oz I&O: 08/12/18 08/13/18 08/14/18 06:59 06:59 06:59 Intake Total 240 Output Total 30 50 Balance 210 -50 Result Diagrams: 08/13/18 04:05 08/13/18 04:05 Additional Labs: Accuchecks 08/13/18 08/12/18 08/12/18 05:49 20:04 17:56 POC Glucose 165 H 108 98 08/12/18 17:12 POC Glucose 67 L Phys Exam - Physical Examination Constitutional: NAD sleepy HEENT: PERRLA, moist MMs, sclera anicteric, oral pharynx no lesions Neck: no nodes, no JVD, supple, full ROM Respiratory: no wheezing, no rales, no rhonchi, clear to auscultation bilateral Cardiovascular: RRR, no significant murmur, no rub Gastrointestinal: soft, non-tender, no distention, positive bowel sounds Musculoskeletal: no edema, pulses present Neurological: non-focal, normal sensation, moves all 4 limbs Psychiatric: normal affect, A&O x 3 Skin: no rash Dx/Plan (1) NSVT (nonsustained ventricular tachycardia) Code(s): I47.2 - VENTRICULAR TACHYCARDIA Status: Acute Comment: asymptomatic (2) AV fistula thrombosis Code(s): T82.868A - THROMBOSIS DUE TO VASCULAR PROSTH DEV/GRFT, INIT Status: Acute (3) Seizure Code(s): R56.9 - UNSPECIFIED CONVULSIONS Status: Acute (4) Volume overload Code(s): E87.70 - FLUID OVERLOAD, UNSPECIFIED Status: Resolved (5) Thrombocytopenia Code(s): D69.6 - THROMBOCYTOPENIA, UNSPECIFIED Status: Acute (6) Dyslipidemia Code(s): E78.5 - HYPERLIPIDEMIA, UNSPECIFIED Status: Chronic (7) HTN (hypertension) Code(s): I10 - ESSENTIAL (PRIMARY) HYPERTENSION Status: Chronic Qualifiers: Hypertension type: essential hypertension Qualified Code(s): I10 - Essential (primary) hypertension (8) CAD (coronary artery disease) Code(s): I25.10 - ATHSCL HEART DISEASE OF [place] CORONARY ARTERY W/O ANG PCTRS Status: Chronic Qualifiers: Coronary Disease-Associated Artery/Lesion type: [place] artery [place] vs. transplanted heart: [place] heart Associated angina: without angina Qualified Code(s): I25.10 - Atherosclerotic heart disease of [place] coronary artery without angina pectoris (9) ESRD (end stage renal disease) on dialysis Code(s): N18.6 - END STAGE RENAL DISEASE; Z99.2 - DEPENDENCE ON RENAL DIALYSIS Status: Chronic - Plan PT/OT, respiratory therapy, incentive spirometry, DVT proph w/SCDs check ECHO.Lytes Ok .h/o CAD.tele monitoring -: AV fistula thrombus-likley need new fistula -: hemodialysis per nephrology.monitor renal Fx -: Femoral HD cathter placed yesterday. -: not ready for DC yet * . Review of Systems - Review of Systems Constitutional: weakness, malaise. negative: fever, chills, sweats, other Respiratory: negative: Cough, Dry, Shortness of Breath, Hemoptysis, SOB with Excertion, Pleuritic Pain, Sputum, Wheezing Cardiovascular: negative: chest pain, palpitations, orthopnea, paroxysmal nocturnal dyspnea, edema, light headedness, other Gastrointestinal: negative: Nausea, Vomiting, Abdominal Pain, Diarrhea, Constipation, Melena, Hematochezia, Other Genitourinary: negative: Dysuria, Frequency, Incontinence, Hematuria, Retention , Other Musculoskeletal: negative: Neck Pain, Shoulder Pain, Arm Pain, Back Pain, Hand Pain, Leg Pain, Foot Pain, Other Neurological: negative: Weakness, Numbness, Incoordination, Change in Speech, Confusion, Seizures, Other - Medications/Allergies Allergies/Adverse Reactions: Allergies Allergy/AdvReac Type Severity Reaction Status Date / Time meperidine HCl [From Demerol] Allergy Verified 04/25/18 01:04 Medications: Current Medications Acetaminophen (Tylenol) 650 mg PO Q4H PRN PRN Reason: Headache/Fever/Mild Pain (1-3) Acetaminophen/Codeine Phosphate (Tylenol #3) 1 tab PO Q4H PRN PRN Reason: Pain Last Admin: 08/12/18 21:31 Dose: 1 tab Albuterol/Ipratropium (Duoneb) 3 ml NEB Q4H PRN PRN Reason: SOB &/or Wheezing Aspirin (Aspirin Chewable) 81 mg PO DAILY [facility] Last Admin: 08/13/18 08:49 Dose: 81 mg Atorvastatin Calcium (Lipitor) [address] [facility] Last Admin: 08/12/18 21:31 Dose: 10 mg Bisacodyl (Dulcolax) 10 mg MT Q12H PRN PRN Reason: Constipation Calcium Acetate (Phoslo) 2,001 mg PO TID-[facility] Last Admin: 08/13/18 12:40 Dose: Not Given Calcium Carbonate (Tums) 500 mg PO DAILYPRN PRN PRN Reason: INDIGESTION Dextrose/Water (Dextrose 50%) 25 gm SLOW IVP PRN PRN PRN Reason: Hypoglycemia Famotidine (Pepcid) 20 mg PO QPM [facility] Last Admin: 08/12/18 21:32 Dose: 20 mg Gabapentin (Neurontin) 300 mg PO BID [facility] Last Admin: 08/13/18 08:49 Dose: 300 mg Glucagon (Glucagon) 1 mg IM PRN PRN PRN Reason: Hypoglycemia Guaifenesin (Robitussin Sf) 15 mg PO Q4H PRN PRN Reason: Cough Guaifenesin (Mucinex) 600 mg PO Q12HR [facility] Last Admin: 08/13/18 08:49 Dose: 600 mg Dextrose/Water (D5w) 1,000 mls @ 0 mls/hr IV .Q0M PRN PRN Reason: Hypoglycemia Insulin Glargine 15 units/ (Miscellaneous Medication) 0.15 mls @ 0 mls/hr SC [facility] Last Admin: 08/12/18 21:33 Dose: Not Given Insulin Human Regular (Humulin R) 0 units SC .MILD SLIDING SCALE PRN PRN Reason: Mild Correctional Scale Last Admin: 08/13/18 06:00 Dose: 2 unit Levetiracetam (Keppra Oral Solution) 250 mg PO BID [facility] Last Admin: 08/13/18 08:49 Dose: 250 mg Lorazepam (Ativan) 2 mg SLOW IVP Q15MIN PRN PRN Reason: Seizures Ondansetron HCl (Zofran) 4 mg SLOW IVP Q6H PRN PRN Reason: Nausea/Vomiting Polyethylene Glycol (Miralax) 17 gm PO BID [facility] Last Admin: 08/13/18 11:15 Dose: Not Given Sertraline HCl (Zoloft) 50 mg PO DAILY [facility] Last Admin: 08/13/18 08:49 Dose: 50 mg Sodium Chloride (Flush - Normal Saline) 10 ml IVF Q12H PRN PRN Reason: Saline Flush Last Admin: 08/09/18 20:43 Dose: 10 ml Sodium Chloride (Flush - Normal Saline) 10 ml IVF PRN PRN PRN Reason: Saline Flush Tramadol HCl (Ultram) 50 mg PO 0600,1800 [facility] Last Admin: 08/13/18 05:59 Dose: 50 mg
--- NOTE | 2018-08-13 14:25 | PDOC.EVN ---
Event Note - Event Note Event Note: RN called as pt had another 11 beats of NSVT Vs Non sustained SVT in dialysis. w H/O CAD and low BP,will consult cardiology.ECHO pending
--- NOTE | 2018-08-13 18:57 | CON ---
DATE OF CONSULTATION: 08/13/2018 REASON FOR CONSULTATION: Tachycardia. HISTORY OF PRESENT ILLNESS: Mr. Fontana is a very pleasant 58-year-old white gentleman who comes to [facility] for new onset seizures. He has a history of end-stage renal disease and coronary artery disease. He is followed by Dr. Blanco. He has been admitted for a few days now and recently he star sánchez having small runs of tachycardia. Heart rate in the 140s to 150s. Concern for VT or SVT, so Car diology is being consulted. On my evaluation, Mr. Fontana has not had any palpitations, no syncope, p resyncope, lightheadedness, dizziness, or any problems. Looking at the telemetry monitoring, it look s like he has runs of nonsustained supraventricular tachycardia. This is not ventricular tachycardia . PAST MEDICAL HISTORY: 1. Gastroesophageal reflux disease. 2. Sleep apnea. 3. Coronary artery disease. 4. Cardiomyopathy. 5. Type 2 diabetes. 6. Hypertension. 7. End-stage renal disease on hemodialysis Friday, , and Friday. 8. History of hemorrhagic CVAs. PAST SURGICAL HISTORY: 1. Cervical neck surgery. 2. Suprapubic catheter placement. 3. Eye surgery. 4. Fistula in left arm. 5. History of aortic valve replacement and CABG x1. SOCIAL HISTORY: No alcohol, tobacco or drugs. OUTPATIENT MEDICATIONS: 1. Atorvastatin 10 mg at bedtime. 2. Humalog. 3. Sertraline. 4. Tramadol. 5. Gabapentin. 6. Calcium acetate. 7. Benzonatate. 8. Plavix 75 mg a day. ALLERGIES: DEMEROL and MEPERIDINE. FAMILY HISTORY: Noncontributory. REVIEW OF SYSTEMS: Twelve point review of systems was done and is all negative unless stated in the history of present illness. PHYSICAL EXAMINATION: VITAL SIGNS: Temperature 97.9, pulse 88, respiration rate 20, satting 96% on 2 liters, blood pressur e 93/65. GENERAL: Awake, alert, oriented x3. HEENT: Normocephalic, atraumatic. NECK: Supple. LUNGS: Lungs are mild crackles. CARDIOVASCULAR: S1, S2. There is a grade 2/6 systolic murmur in the right upper sternal border. ABDOMEN: Soft, positive good bowel sounds. EXTREMITIES: 1+ edema. SKIN: Warm and dry. LABORATORY WORK: Reviewed. CBC, chemistries, and serologies were reviewed. Telemetry monitoring was reviewed. He is having several runs of nonsustained supraventricular tachyc ardia, not ventricular tachycardia. ASSESSMENT AND PLAN: 1. Nonsustained supraventricular tachycardia: Only indication for a low dose beta mark as long a s blood pressure allows. If blood pressure is too low to add a low dose beta-mark, I would stay a way as he is completely asymptomatic from this nonsustained supraventricular tachycardia and it is br ief and self-limited. 2. We will get an echocardiogram to evaluate LV function and valvular structures. 3. This is not ventricular tachycardia. 4. We will follow.
[2018-08-13] MEDS ORDERED: VANCOMYCIN/ZOSYN IVPB PRN (19:26)
[2018-08-13] MEDS ORDERED: Vancomycin HCl 1.25 GM in Sodium Chloride 0.9% 250 ML 250 ML IVPB SCH (19:30)
[2018-08-13] MEDS ORDERED: Vancomycin HCl 750 MG in Sodium Chloride 0.9% 250 ML 250 ML IVPB SCH (19:30)
[2018-08-13] MEDS ORDERED: Vancomycin HCl 1.5 GM in Sodium Chloride 0.9% 250 ML 300 ML IVPB SCH (19:30)
[2018-08-13] MEDS ORDERED: Vancomycin HCl 1 GM in Premix Bag 1 BAG IVPB SCH (19:30)
[2018-08-13] MEDS ORDERED: HOLD VANCOMYCIN FOR LEVEL >20 FS SCH (19:30)
[2018-08-13] MEDS: Famotidine 20 MG TAB PO SCH (21:19)
[2018-08-13] MEDS: Atorvastatin Calcium 10 MG TAB PO SCH (21:19)
[2018-08-13] MEDS: Insulin Glargine 15 UNITS in Pre-Filled Syringe 1 EACH SC SCH (21:19)
[2018-08-13] MEDS ORDERED: Piperacillin/Tazobactam 2.25 GM in Sodium Chloride 0.9% 100 ML IVPB SCH (22:00)
[2018-08-14] MEDS ORDERED: Vancomycin HCl 1 GM in Premix Bag 1 BAG IVPB SCH (09:00)
[2018-08-14] MEDS: diphenhydrAMINE 2% CREAM 28.4 GM TUBE TOP PRN (11:57)
[2018-08-14] MEDS ORDERED: Heparin 10,000 UNITS/ 10 ML VIAL ONE (12:00)
[2018-08-14] MEDS: Piperacillin/Tazobactam 2.25 GM in Sodium Chloride 0.9% 100 ML IVPB SCH (12:00)
--- NOTE | 2018-08-14 14:43 | PDOC.PN ---
- Subjective Encounter Start Date: 08/14/18 Encounter Start Time: 14:42 Subjective: Rn reports that pt says he is choking after eating.coughing -: he feels Ok when im evaluating now -: leg swollen and red since yesterday - Objective Resuscitation Status: Resuscitation Status FULL:Full Resuscitation MAR Reviewed: Yes Vital Signs & Weight: Vital Signs (12 hours) Temp Pulse Resp BP Pulse Ox 08/14/18 11:50 97.9 F 94 16 115/89 96 08/14/18 08:00 97.9 F 91 16 111/76 95 Weight Admit Weight 224 lb 14.4 oz Weight 224 lb 14.4 oz I&O: 08/13/18 08/14/18 08/15/18 06:59 06:59 06:59 Output Total 50 Balance -50 Result Diagrams: 08/13/18 04:05 08/13/18 04:05 Additional Labs: Accuchecks 08/13/18 08/13/18 19:58 16:43 POC Glucose 74 87 Phys Exam - Physical Examination Constitutional: NAD HEENT: PERRLA, moist MMs, sclera anicteric, oral pharynx no lesions Neck: no nodes, no JVD, supple, full ROM Respiratory: no wheezing, no rales, no rhonchi, clear to auscultation bilateral Cardiovascular: RRR, no significant murmur, no rub Gastrointestinal: soft, non-tender, no distention, positive bowel sounds Musculoskeletal: no edema, pulses present Neurological: non-focal, normal sensation, moves all 4 limbs Psychiatric: normal affect, A&O x 3 Skin: no rash Dx/Plan (1) DVT femoral (deep venous thrombosis) with thrombophlebitis Code(s): I82.419 - ACUTE EMBOLISM AND THROMBOSIS OF UNSPECIFIED FEMORAL VEIN Status: Acute Qualifiers: Laterality: bilateral Qualified Code(s): I82.413 - Acute embolism and thrombosis of femoral vein, bilateral (2) Volume overload Code(s): E87.70 - FLUID OVERLOAD, UNSPECIFIED Status: Resolved Comment: CXR with pulmonary edema (3) AV fistula thrombosis Code(s): T82.868A - THROMBOSIS DUE TO VASCULAR PROSTH DEV/GRFT, INIT Status: Acute (4) NSVT (nonsustained ventricular tachycardia) Code(s): I47.2 - VENTRICULAR TACHYCARDIA Status: Acute Comment: asymptomatic.SVT by cardiology eval.ECHO pending (5) Seizure Code(s): R56.9 - UNSPECIFIED CONVULSIONS Status: Acute (6) Thrombocytopenia Code(s): D69.6 - THROMBOCYTOPENIA, UNSPECIFIED Status: Acute (7) Dyslipidemia Code(s): E78.5 - HYPERLIPIDEMIA, UNSPECIFIED Status: Chronic (8) HTN (hypertension) Code(s): I10 - ESSENTIAL (PRIMARY) HYPERTENSION Status: Chronic Qualifiers: Hypertension type: essential hypertension Qualified Code(s): I10 - Essential (primary) hypertension (9) CAD (coronary artery disease) Code(s): I25.10 - ATHSCL HEART DISEASE OF [place] CORONARY ARTERY W/O ANG PCTRS Status: Chronic Qualifiers: Coronary Disease-Associated Artery/Lesion type: [place] artery [place] vs. transplanted heart: [place] heart Associated angina: without angina Qualified Code(s): I25.10 - Atherosclerotic heart disease of [place] coronary artery without angina pectoris (10) ESRD (end stage renal disease) on dialysis Code(s): N18.6 - END STAGE RENAL DISEASE; Z99.2 - DEPENDENCE ON RENAL DIALYSIS Status: Chronic (11) Cellulitis, leg Code(s): L03.119 - CELLULITIS OF UNSPECIFIED PART OF LIMB Status: Suspected - Plan andre catheter, PT/OT, social media analyst, speech therapy, DVT proph w/SCDs discussed wDr Delvin. will start Eliquis and monitor platelet counts closely. -: Emeregent HD again today given CXR finding and high BNP. -: Cont IV ABx empiriciaclly as cellulitis can not be ruled out either -: am labs.Add low dose BB if BP tolerates. ECHO pending -: AV fistula decison per GS. * . Review of Systems - Medications/Allergies Allergies/Adverse Reactions: Allergies Allergy/AdvReac Type Severity Reaction Status Date / Time meperidine HCl [From Demerol] Allergy Verified 04/25/18 01:04 Medications: Current Medications Acetaminophen (Tylenol) 650 mg PO Q4H PRN PRN Reason: Headache/Fever/Mild Pain (1-3) Acetaminophen/Codeine Phosphate (Tylenol #3) 1 tab PO Q4H PRN PRN Reason: Pain Last Admin: 08/12/18 21:31 Dose: 1 tab Albuterol/Ipratropium (Duoneb) 3 ml NEB Q4H PRN PRN Reason: SOB &/or Wheezing Aspirin (Aspirin Chewable) 81 mg PO DAILY [facility] Last Admin: 08/13/18 08:49 Dose: 81 mg Atorvastatin Calcium (Lipitor) 10 mg PO HS [facility] Last Admin: 08/13/18 21:19 Dose: 10 mg Bisacodyl (Dulcolax) 10 mg ID Q12H PRN PRN Reason: Constipation Calcium Acetate (Phoslo) 2,001 mg PO TID[facility] Last Admin: 08/13/18 18:33 Dose: 2,001 mg Calcium Carbonate (Tums) 500 mg PO DAILYPRN PRN PRN Reason: INDIGESTION Dextrose/Water (Dextrose 50%) 25 gm SLOW IVP PRN PRN PRN Reason: Hypoglycemia Famotidine (Pepcid) 20 mg PO QPM [facility] Last Admin: 08/13/18 21:19 Dose: 20 mg Gabapentin (Neurontin) 300 mg PO BID [facility] Last Admin: 08/13/18 21:18 Dose: 300 mg Glucagon (Glucagon) 1 mg IM PRN PRN PRN Reason: Hypoglycemia Guaifenesin (Robitussin Sf) 15 mg PO Q4H PRN PRN Reason: Cough Guaifenesin (Mucinex) 600 mg PO Q12HR [facility] Last Admin: 08/13/18 21:19 Dose: 600 mg Dextrose/Water (D5w) 1,000 mls @ 0 mls/hr IV .Q0M PRN PRN Reason: Hypoglycemia Insulin Glargine 15 units/ (Miscellaneous Medication) 0.15 mls @ 0 mls/hr SC [facility] Last Admin: 08/13/18 21:19 Dose: Not Given Vancomycin HCl 1.5 gm/ Sodium (Chloride) 300 mls @ 200 mls/hr IVPB WILLCALL [facility] Vancomycin HCl 1.25 gm/ Sodium (Chloride) 250 mls @ 166.667 mls/hr [facility] Vancomycin HCl 1 gm/ Device 200 mls @ 200 mls/hr IVPB WILLCALL [facility] Vancomycin HCl 750 mg/ Sodium (Chloride) 250 mls @ 250 mls/hr IVPB [facility] Piperacillin Sod/Tazobactam (Sod 2.25 gm/ Sodium Chloride) 100 mls @ 200 mls/ hr IVPB 0100,1300 [facility] Last Admin: 08/14/18 12:00 Dose: 100 mls Insulin Human Regular (Humulin R) 0 units SC .MILD SLIDING SCALE PRN PRN Reason: Mild Correctional Scale Last Admin: 08/13/18 06:00 Dose: 2 unit Levetiracetam (Keppra Oral Solution) 250 mg PO BID [facility] Last Admin: 08/13/18 21:20 Dose: 250 mg Lorazepam (Ativan) 2 mg SLOW IVP Q15MIN PRN PRN Reason: Seizures Miscellaneous Medication (Pharmacy To Dose) 1 each IVPB PRN PRN PRN Reason: Pharmacy to dose Hold Vancomycin For (Level >20) 0 each FS .AT DIALYSIS [facility] Ondansetron HCl (Zofran) 4 mg SLOW IVP Q6H PRN PRN Reason: Nausea/Vomiting Polyethylene Glycol (Miralax) 17 gm PO BID [facility] Last Admin: 08/13/18 21:20 Dose: 17 gm Sertraline HCl (Zoloft) 50 mg PO DAILY [facility] Last Admin: 08/13/18 08:49 Dose: 50 mg Sodium Chloride (Flush - Normal Saline) 10 ml IVF Q12H PRN PRN Reason: Saline Flush Last Admin: 08/09/18 20:43 Dose: 10 ml Sodium Chloride (Flush - Normal Saline) 10 ml IVF PRN PRN PRN Reason: Saline Flush Tramadol HCl (Ultram) 50 mg PO 0600,1800 [facility] Last Admin: 08/13/18 18:33 Dose: 50 mg Zinc Acetate/Diphenhydramine (Benadryl 2% Cream) 0 gm TOP BIDPRN PRN PRN Reason: SKIN Last Admin: 08/14/18 11:57 Dose: 1 applic
--- NOTE | 2018-08-14 14:57 | ULT ---
BILATERAL LOWER EXTREMITY VENOUS DUPLEX STUDY: INDICATIONS: Bilateral lower extremity edema and redness. TECHNIQUE: An ultrasound Doppler study is performed of the deep veins of both lower extremities. Color Doppler with spectral analysis and compression studies are performed. FINDINGS: The right common femoral, greater saphenous, and proximal femoral veins are not visualized due to david in catheter and bandages. There is partially occlusive thrombus seen in the mid to distal femoral veins bilaterally. The popliteal veins show normal flow and compression bilaterally. IMPRESSION: 1. There is deep venous thrombus seen in the mid and distal femoral veins bilaterally. These are on ly partially occlusive, as some flow is demonstrated. 2. The patient's nurse, Dlay, was notified of this report, by the technologist, at the time of the examination. CODE CR POS: [facility]
--- NOTE | 2018-08-14 15:22 | PDOC.CTH ---
Cardiology Progress Note - Subjective No new issues. - Objective Vital Signs Temp Pulse Resp BP Pulse Ox 08/14/18 11:50 97.9 F 94 16 115/89 96 08/14/18 08:00 97.9 F 91 16 111/76 95 Admit Weight 224 lb 14.4 oz Weight 224 lb 14.4 oz 08/13/18 08/14/18 08/15/18 06:59 06:59 06:59 Output Total 50 Balance -50 - Physical Examination General/Neuro: alert & oriented x3, NAD Neck: no JVD present Lungs: unlabored respirations Heart: RRR Abdomen: NT/ND Extremities: + edema B (2+) - Telemetry Telemetry Rhythm: NSR - Labs Result Diagrams: 08/13/18 04:05 08/13/18 04:05 Troponin/CKMB CK-MB (CK-2) 6.5 ng/mL (0-6.6) 08/08/18 19:09 Troponin I 0.038 ng/mL (< 0.028) H 08/08/18 19:09 - Assessment/Plan 1. Non sustained SVT PLAN: - Add very low dose BB if BP and HR allows. Otherwise he is minimally symptomatic and would not start unless hemodynamics permit. - No VT. - Will sign off. Please call with any questions.
--- NOTE | 2018-08-14 15:23 | RAD ---
FRONTAL VIEW CHEST: Date: 08/14/18 COMPARISON: 08/07/18. CLINICAL INDICATION: Coughing, associated with eating. FINDINGS: There is marked enlargement of the cardiac silhouette again demonstrated. There is patchy left basila r density. Mild right pleural fluid is present. There is evidence of edema. Chest otherwise similar. IMPRESSION: Evidence to indicate decompensated CHF with bilateral pleural fluid and pulmonary edema. POS: [facility]
[2018-08-14] MEDS ORDERED: Furosemide 40 MG/4 ML VIAL SLOW IVP SCH (15:45)
--- NOTE | 2018-08-14 18:30 | PRG ---
DATE OF SERVICE: 08/14/2018 SUBJECTIVE: Mr. Fontana is a 58-year-old white male currently undergoing hemodialysis. Extra dialysi s was done due to increased fluid in the lungs. BNP also gave elevated 7000. I am currently at the bedside supervising his dialysis. I am doing just pure ultrafiltration and attempting 4 liters remov al as tolerated. He was also found to have a DVT. Eliquis have been started by PCP. No other compl aints. OBJECTIVE: VITAL SIGNS: Blood pressure 103/70, heart rate 88, respiratory rate 18, temperature 98.4, pulse ox 9 8%. GENERAL: Noted to be awake, supine, comfortable, not in overt distress. SKIN: Adequate turgor. HEENT: Pinkish conjunctivae, anicteric sclerae. NECK: No neck mass, no carotid bruits, no JVD. CHEST: No deformities. LUNGS: Decreased breath sounds. HEART: Normal sinus rhythm. No murmur. No gallops. No rubs. ABDOMEN: Globular, soft, nontender, no masses. EXTREMITIES: Trace edema, no deformities. LABORATORY DATA: Of 08/13/2018, white count 11, hemoglobin 13.1. On 08/14/2018, glucose 109. On , BUN 49, creatinine 5.42, potassium 4.9. BNP 7901. ASSESSMENT AND PLAN: 1. Congestive heart failure - extra dialysis today, doing a 2-hour ultrafiltration with attempt to r emove 4 liters as tolerated. 2. End-stage renal disease. We will continue current 3 times a week hemodialysis. I have scheduled him back for his regular dialysis tomorrow. 3. DVT to be started on Eliquis 2.5 mg tab b.i.d. 4. Agree with current management.
[2018-08-14] MEDS: traMADol HCl 50 MG TAB PO SCH (18:53)
[2018-08-14] MEDS: Calcium Acetate 667 MG CAP PO SCH (18:53)
[2018-08-14] MEDS: Polyethylene Glycol 3350 17 GM Packet PO SCH ×2 (18:54→21:09)
[2018-08-14] MEDS: levETIRAcetam 500 mg/5 ml Oral Solution PO SCH ×2 (18:54→21:08)
[2018-08-14] MEDS: guaiFENesin ER 600 MG TAB PO SCH ×2 (18:54→21:08)
[2018-08-14] MEDS: Gabapentin 300 MG CAP PO SCH ×2 (18:54→21:08)
[2018-08-14] MEDS: Insulin Glargine 15 UNITS in Pre-Filled Syringe 1 EACH SC SCH (21:03)
[2018-08-14] MEDS: Atorvastatin Calcium 10 MG TAB PO SCH (21:07)
[2018-08-14] MEDS: Apixaban 2.5 MG TAB PO SCH (21:07)
[2018-08-14] MEDS: Famotidine 20 MG TAB PO SCH (21:08)
[2018-08-15] MEDS: Piperacillin/Tazobactam 2.25 GM in Sodium Chloride 0.9% 100 ML IVPB SCH ×2 (00:13→15:31)
[2018-08-15] MEDS: traMADol HCl 50 MG TAB PO SCH ×2 (05:15→17:24)
--- NOTE | 2018-08-15 07:50 | PRG ---
DATE OF SERVICE: 08/15/2018 SERVICE: Renal Medicine. SUBJECTIVE: Mr. Fontana is a 58-year-old white male with ESRD and currently on maintenance hemodialys is. He did receive the extra dialysis yesterday due to volume overload. Chest x-ray shows CHF and h e has elevated BNP of 7000+. In addition, a cardiac echo was done, which showed a decreased EF of ab out 25%. Cardiology has been consulted. The plan today is to start him back on his regular [facility] hemod[facility] of 4 hours. His breathing is a little better. Denies any chest pain. OBJECTIVE: VITAL SIGNS: Blood pressure 103/71, heart rate 89, respiratory rate 19, temperature 97.7, pulse ox 9 7%. GENERAL: Awake, alert, comfortable, not in overt distress. SKIN: Adequate turgor. HEENT: He has pinkish conjunctivae, anicteric sclerae. NECK: No neck mass, no carotid bruits, no JVD. CHEST: No deformities. LUNGS: Decreased breath sounds. HEART: Normal sinus rhythm. No murmur, no gallops, no rubs. ABDOMEN: Globular, soft, nontender, no masses. EXTREMITIES: Positive for edema. No deformities. MEDICATIONS: Medications of 08/15/2018 reviewed. LABORATORY DATA: Laboratories of 08/13/2018, hemoglobin 13.1, white count 11. On 08/15/2018, glucos e 128. On 08/13/2018, BUN 49, creatinine 5.42, potassium 4.9. BNP 7901. ASSESSMENT AND PLAN: 1. Congestive heart failure. Extra ultrafiltration was done yesterday with several liters of fluid removed. Plan is to max out fluid removal with dialysis. 2. End-stage renal disease. The patient is scheduled for his regular 4-hour hemodialysis today. Ag ain, as previously mentioned, max out fluid removal. No changes will be made with the current dialys is bath. 3. Deep venous thrombosis, on Eliquis. 4. Thrombophlebitis - the patient started on IV antibiotics. Recheck base met and CBC in a.m.
--- NOTE | 2018-08-15 09:28 | PDOC.CTH ---
Cardiology Progress Note - Subjective No complaints this am. Pt seen on dialysis - Objective Vital Signs Temp Pulse Resp BP Pulse Ox 08/15/18 08:00 98.2 F 88 16 111/79 94 L 08/15/18 04:00 97.7 F 89 19 103/71 97 08/15/18 00:00 97.8 F 93 19 107/80 96 Admit Weight 224 lb 14.4 oz Weight 224 lb 14.4 oz 08/14/18 08/15/18 08/16/18 06:59 06:59 06:59 Intake Total 700 Output Total 60 Balance 640 - Physical Examination General/Neuro: NAD Neck: carotid US brisk, no JVD present Lungs: CTA, unlabored respirations Heart: PMI normal, RRR Abdomen: NT/ND, soft Extremities: + femoral B - Labs Result Diagrams: 08/13/18 04:05 08/13/18 04:05 Troponin/CKMB CK-MB (CK-2) 6.5 ng/mL (0-6.6) 08/08/18 19:09 Troponin I 0.038 ng/mL (< 0.028) H 08/08/18 19:09 - Assessment/Plan NSVT Seizures ESRD CAD S/P CABG Pt with markedly diminished EF noted on echo recently. Pt denies ever being told EF was abnormal. ?Seizures from arrhythmia. Pt with need a lifevest and likely angio to re-assess coronary anatomy. May also consider stress test.
[2018-08-15] MEDS ORDERED: Heparin 10,000 UNITS/ 10 ML VIAL ONE (10:00)
--- NOTE | 2018-08-15 12:57 | PDOC.PN ---
- Subjective Encounter Start Date: 08/15/18 Encounter Start Time: 12:56 Subjective: seen and examined in Hemodialysis.feels OK but just weak -: denies any N/V/abd pain.does have pain in both ankles - Objective Resuscitation Status: Resuscitation Status FULL:Full Resuscitation MAR Reviewed: Yes Vital Signs & Weight: Vital Signs (12 hours) Temp Pulse Resp BP Pulse Ox 08/15/18 12:19 95 16 110/74 93 L 08/15/18 08:00 98.2 F 88 16 111/79 94 L 08/15/18 04:00 97.7 F 89 19 103/71 97 Weight Admit Weight 224 lb 14.4 oz Weight 224 lb 14.4 oz I&O: 08/14/18 08/15/18 08/16/18 06:59 06:59 06:59 Intake Total 700 Output Total 60 Balance 640 Result Diagrams: 08/13/18 04:05 08/13/18 04:05 Additional Labs: Accuchecks 08/15/18 08/14/18 08/14/18 06:03 20:06 10:49 POC Glucose 128 H 116 H 109 08/14/18 06:02 POC Glucose 87 Radiology Reviewed by me: Yes (ECHO -EF 25-30%) Phys Exam - Physical Examination Constitutional: NAD HEENT: PERRLA, moist MMs, sclera anicteric, oral pharynx no lesions Neck: no nodes, no JVD, supple, full ROM Respiratory: no wheezing, no rales, no rhonchi, clear to auscultation bilateral Cardiovascular: RRR, no significant murmur, no rub Gastrointestinal: soft, non-tender, no distention, positive bowel sounds Musculoskeletal: no edema, pulses present ankle erythema & warmth slightly better.chr venostasis Neurological: non-focal, normal sensation, moves all 4 limbs Psychiatric: normal affect, A&O x 3 Skin: no rash Dx/Plan (1) Acute systolic CHF (congestive heart failure), NYHA class 3 Code(s): I50.21 - ACUTE SYSTOLIC (CONGESTIVE) HEART FAILURE Status: Acute Comment: Based on ECHO results (2) DVT femoral (deep venous thrombosis) with thrombophlebitis Code(s): I82.419 - ACUTE EMBOLISM AND THROMBOSIS OF UNSPECIFIED FEMORAL VEIN Status: Acute Qualifiers: Laterality: bilateral Qualified Code(s): I82.413 - Acute embolism and thrombosis of femoral vein, bilateral (3) Volume overload Code(s): E87.70 - FLUID OVERLOAD, UNSPECIFIED Status: Resolved Comment: CXR with pulmonary edema (4) AV fistula thrombosis Code(s): T82.868A - THROMBOSIS DUE TO VASCULAR PROSTH DEV/GRFT, INIT Status: Acute (5) NSVT (nonsustained ventricular tachycardia) Code(s): I47.2 - VENTRICULAR TACHYCARDIA Status: Acute Comment: asymptomatic.SVT by cardiology eval.ECHO shows Low EF (6) Seizure Code(s): R56.9 - UNSPECIFIED CONVULSIONS Status: Acute Comment: stable On keppra (7) Thrombocytopenia Code(s): D69.6 - THROMBOCYTOPENIA, UNSPECIFIED Status: Acute (8) Dyslipidemia Code(s): E78.5 - HYPERLIPIDEMIA, UNSPECIFIED Status: Chronic (9) HTN (hypertension) Code(s): I10 - ESSENTIAL (PRIMARY) HYPERTENSION Status: Chronic Qualifiers: Hypertension type: essential hypertension Qualified Code(s): I10 - Essential (primary) hypertension (10) CAD (coronary artery disease) Code(s): I25.10 - ATHSCL HEART DISEASE OF [place] CORONARY ARTERY W/O ANG PCTRS Status: Chronic Qualifiers: Coronary Disease-Associated Artery/Lesion type: [place] artery [place] vs. transplanted heart: [place] heart Associated angina: without angina Qualified Code(s): I25.10 - Atherosclerotic heart disease of [place] coronary artery without angina pectoris Comment: CABG in past (11) ESRD (end stage renal disease) on dialysis Code(s): N18.6 - END STAGE RENAL DISEASE; Z99.2 - DEPENDENCE ON RENAL DIALYSIS Status: Chronic (12) Cellulitis, leg Code(s): L03.119 - CELLULITIS OF UNSPECIFIED PART OF LIMB Status: Suspected Comment: Aniyah deshpande thrombophelbitis. No evidence of sepsis - Plan continue antibiotics, PT/OT, respiratory therapy, incentive spirometry, out of bed/ambulate, DVT proph w/SCDs On eliquis as started yesterday for B/L DVT-non occulsive.Monitor platelet -: no labs this am. -: hemodialysis today for fluid removal.nephrology following -: Cardiomyopathy w h/o CAD.may need repeat Cath.need lifevest -: BP too low to tolerate BB or SHABBIR-I/ARB.no ASA d/t low platelet * .empiric ABx. ? cellulitis * * cont keppra. * am labs Review of Systems - Review of Systems Constitutional: weakness, malaise Eyes: negative: Pain, Vision Change, Conjunctivae Inflammation, Eyelid Inflammation, Redness, Other ENT: negative: Ear Pain, Ear Discharge, Nose Pain, Nose Discharge, Nose Congestion, Mouth Pain, Mouth Swelling, Throat Pain, Throat Swelling, Other Respiratory: negative: Cough, Dry, Shortness of Breath, Hemoptysis, SOB with Excertion, Pleuritic Pain, Sputum, Wheezing Cardiovascular: negative: chest pain, palpitations, orthopnea, paroxysmal nocturnal dyspnea, edema, light headedness, other Gastrointestinal: negative: Nausea, Vomiting, Abdominal Pain, Diarrhea, Constipation, Melena, Hematochezia, Other Genitourinary: negative: Dysuria, Frequency, Incontinence, Hematuria, Retention , Other Musculoskeletal: Leg Pain. negative: Neck Pain, Shoulder Pain, Arm Pain, Back Pain, Hand Pain, Foot Pain, Other Skin: negative: Rash, Lesions, Samuel, Bruising, Other Neurological: negative: Weakness, Numbness, Incoordination, Change in Speech, Confusion, Seizures, Other - Medications/Allergies Allergies/Adverse Reactions: Allergies Allergy/AdvReac Type Severity Reaction Status Date / Time meperidine HCl [From Demerol] Allergy Verified 04/25/18 01:04 Medications: Current Medications Acetaminophen (Tylenol) 650 mg PO Q4H PRN PRN Reason: Headache/Fever/Mild Pain (1-3) Acetaminophen/Codeine Phosphate (Tylenol #3) 1 tab PO Q4H PRN PRN Reason: Pain Last Admin: 08/12/18 21:31 Dose: 1 tab Albuterol/Ipratropium (Duoneb) 3 ml NEB Q4H PRN PRN Reason: SOB &/or Wheezing Apixaban (Eliquis) 2.5 mg PO BID [facility] Last Admin: 08/14/18 21:07 Dose: 2.5 mg Aspirin (Aspirin Chewable) 81 mg PO DAILY [facility] Last Admin: 08/14/18 18:54 Dose: Not Given Atorvastatin Calcium (Lipitor) 10 mg PO HS [facility] Last Admin: 08/14/18 21:07 Dose: 10 mg Bisacodyl (Dulcolax) 10 mg IA Q12H PRN PRN Reason: Constipation Calcium Acetate (Phoslo) 2,001 mg PO TID-WM [facility] Last Admin: 08/14/18 18:53 Dose: Not Given Calcium Carbonate (Tums) 500 mg PO DAILYPRN PRN PRN Reason: INDIGESTION Dextrose/Water (Dextrose 50%) 25 gm SLOW IVP PRN PRN PRN Reason: Hypoglycemia Famotidine (Pepcid) 20 mg PO QPM [facility] Last Admin: 08/14/18 21:08 Dose: 20 mg Gabapentin (Neurontin) 300 mg PO BID [facility] Last Admin: 08/14/18 21:08 Dose: 300 mg Glucagon (Glucagon) 1 mg IM PRN PRN PRN Reason: Hypoglycemia Guaifenesin (Robitussin Sf) 15 mg PO Q4H PRN PRN Reason: Cough Guaifenesin (Mucinex) 600 mg PO Q12HR [facility] Last Admin: 08/14/18 21:08 Dose: 600 mg Heparin Sodium (Porcine) (Heparin Lock Flush 100 Units/Ml) 500 units IVF Q12HR [facility] Heparin Sodium (Porcine) (Heparin Lock Flush 100 Units/Ml) 500 units IVF PRN PRN PRN Reason: Heparin Flush Last Admin: 08/15/18 00:21 Dose: 500 unit Dextrose/Water (D5w) 1,000 mls @ 0 mls/hr IV .Q0M PRN PRN Reason: Hypoglycemia Insulin Glargine 15 units/ (Miscellaneous Medication) 0.15 mls @ 0 mls/hr SC [facility] Last Admin: 08/14/18 21:03 Dose: Not Given Vancomycin HCl 1.5 gm/ Sodium (Chloride) 300 mls @ 200 mls/hr IVPB WILLCALL [facility] Vancomycin HCl 1.25 gm/ Sodium (Chloride) 250 mls @ 166.667 mls/hr IVPB WILLCALL [facility] Vancomycin HCl 1 gm/ Device 200 mls @ 200 mls/hr IVPB WILLCALL [facility] Vancomycin HCl 750 mg/ Sodium (Chloride) 250 mls @ 250 mls/hr IVPB WILLCALL [facility] Piperacillin Sod/Tazobactam (Sod 2.25 gm/ Sodium Chloride) 100 mls @ 200 mls/ hr IVPB 0100,1300 [facility] Last Admin: 08/15/18 00:13 Dose: 100 mls Insulin Human Regular (Humulin R) 0 units SC .MILD SLIDING SCALE PRN PRN Reason: Mild Correctional Scale Last Admin: 08/13/18 06:00 Dose: 2 unit Levetiracetam (Keppra Oral Solution) 250 mg PO BID [facility] Last Admin: 08/14/18 21:08 Dose: 250 mg Lorazepam (Ativan) 2 mg SLOW IVP Q15MIN PRN PRN Reason: Seizures Miscellaneous Medication (Pharmacy To Dose) 1 each IVPB PRN PRN PRN Reason: Pharmacy to dose Hold Vancomycin For (Level >20) 0 each FS .AT DIALYSIS [facility] Ondansetron HCl (Zofran) 4 mg SLOW IVP Q6H PRN PRN Reason: Nausea/Vomiting Polyethylene Glycol (Miralax) 17 gm PO BID [facility] Last Admin: 08/14/18 21:09 Dose: 17 gm Sertraline HCl (Zoloft) 50 mg PO DAILY [facility] Last Admin: 08/14/18 18:54 Dose: Not Given Sodium Chloride (Flush - Normal Saline) 10 ml IVF Q12H PRN PRN Reason: Saline Flush Last Admin: 08/09/18 20:43 Dose: 10 ml Sodium Chloride (Flush - Normal Saline) 10 ml IVF PRN PRN PRN Reason: Saline Flush Tramadol HCl (Ultram) 50 mg PO 0600,1800 [facility] Last Admin: 08/15/18 05:15 Dose: 50 mg Zinc Acetate/Diphenhydramine (Benadryl 2% Cream) 0 gm TOP BIDPRN PRN PRN Reason: SKIN Last Admin: 08/14/18 11:57 Dose: 1 applic
[2018-08-15] MEDS: Calcium Acetate 667 MG CAP PO SCH ×3 (13:09→17:24)
[2018-08-15] MEDS: levETIRAcetam 500 mg/5 ml Oral Solution PO SCH ×2 (13:17→20:59)
[2018-08-15] MEDS: guaiFENesin ER 600 MG TAB PO SCH ×2 (13:17→20:59)
[2018-08-15] MEDS: Gabapentin 300 MG CAP PO SCH ×2 (13:18→20:59)
[2018-08-15] MEDS: Polyethylene Glycol 3350 17 GM Packet PO SCH ×2 (13:18→20:59)
[2018-08-15] MEDS: Apixaban 2.5 MG TAB PO SCH ×2 (13:18→20:59)
[2018-08-15 13:59] LABS: #Eosinphils 0.2 thou/uL (0.0-0.7); #Lymphocytes 0.8 thou/uL (1.20-3.40); #Monocytes 0.7 thou/uL (0.11-0.59); #Neutrophils 8.1 thou/uL (1.40-6.50); %Basophils 0.1 % (0.0-1.0); %Eosinophils 2.5 % (0.0-10.0); %Lymphocytes 7.9 % (21.0-51.0); %Monocytes 7.3 % (0.0-10.0); %Neutrophils 82.1 % (42.0-75.0); Hemoglobin 13.3 g/dL (14.0-18.0); Mean Corpuscular HGB CONC 29.9 g/dL (32.0-36.0); Mean Corpuscular Hemoglobin 30.8 pg (27.0-31.0); Mean Platelet Volume 9.7 fL (7.4-10.4); Platelet Count 65 thou/uL (130-400); RBC Distribution Width 17.5 % (11.5-14.5); Red Blood Cell (RBC) Count 4.32 mill/uL (4.70-6.10); White Blood Cell (WBC) Count 9.8 thou/uL (4.8-10.8)
[2018-08-15 14:07] LABS: Vancomycin, Random 24.3 ug/mL (See Comment)
[2018-08-15 14:09] LABS: Anion Gap 21 mmol/L (10-20); BUN (Urea Nitrogen) 51 mg/dL (8.4-25.7); Calc. Creatinine Clearance 20 mL/min (70-130); Calcium 8.5 mg/dL (7.8-10.44); Carbon Dioxide 23 mmol/L (22-29); Chloride 97 mmol/L (98-107); Estimated GFR-MDRD 10; Glucose 122 mg/dL (70-105); Potassium 4.9 mmol/L (3.5-5.1); Sodium 136 mmol/L (136-145)
[2018-08-15] MEDS: Insulin Regular 300 UNITS/3 ML VIAL SC PRN (17:24)
[2018-08-15] MEDS: Atorvastatin Calcium 10 MG TAB PO SCH (20:59)
[2018-08-15] MEDS: Famotidine 20 MG TAB PO SCH (20:59)
[2018-08-15] MEDS: Insulin Glargine 15 UNITS in Pre-Filled Syringe 1 EACH SC SCH (23:16)
[2018-08-16] MEDS: Piperacillin/Tazobactam 2.25 GM in Sodium Chloride 0.9% 100 ML IVPB SCH ×2 (01:31→12:00)
[2018-08-16] MEDS: traMADol HCl 50 MG TAB PO SCH ×2 (05:21→17:37)
[2018-08-16 05:54] LABS: Anion Gap 12 mmol/L (10-20); BUN (Urea Nitrogen) 32 mg/dL (8.4-25.7); Calc. Creatinine Clearance 23 mL/min (70-130); Calcium 8.6 mg/dL (7.8-10.44); Carbon Dioxide 30 mmol/L (22-29); Chloride 98 mmol/L (98-107); Estimated GFR-MDRD 14; Glucose 127 mg/dL (70-105); Sodium 136 mmol/L (136-145)
[2018-08-16 05:55] LABS: #Basophils 0.1 thou/uL (0.0-0.2); #Eosinphils 0.3 thou/uL (0.0-0.7); #Lymphocytes 0.7 thou/uL (1.20-3.40); #Monocytes 0.8 thou/uL (0.11-0.59); #Neutrophils 5.8 thou/uL (1.40-6.50); %Basophils 1.1 % (0.0-1.0); %Eosinophils 3.6 % (0.0-10.0); %Lymphocytes 8.9 % (21.0-51.0); %Monocytes 10.3 % (0.0-10.0); %Neutrophils 76.2 % (42.0-75.0); Hemoglobin 12.7 g/dL (14.0-18.0); Mean Corpuscular HGB CONC 30.6 g/dL (32.0-36.0); Mean Corpuscular Hemoglobin 31.3 pg (27.0-31.0); Mean Platelet Volume 9.7 fL (7.4-10.4); Platelet Count 68 thou/uL (130-400); RBC Distribution Width 17.2 % (11.5-14.5); Red Blood Cell (RBC) Count 4.07 mill/uL (4.70-6.10); White Blood Cell (WBC) Count 7.6 thou/uL (4.8-10.8)
[2018-08-16] MEDS: Calcium Acetate 667 MG CAP PO SCH ×3 (08:25→17:37)
[2018-08-16] MEDS: Gabapentin 300 MG CAP PO SCH ×2 (10:25→20:54)
[2018-08-16] MEDS: guaiFENesin ER 600 MG TAB PO SCH ×2 (10:26→20:54)
[2018-08-16] MEDS: levETIRAcetam 500 mg/5 ml Oral Solution PO SCH ×2 (10:27→20:54)
[2018-08-16] MEDS: Polyethylene Glycol 3350 17 GM Packet PO SCH ×2 (10:27→20:58)
--- NOTE | 2018-08-16 10:41 | PDOC.PN ---
- Subjective Encounter Start Date: 08/16/18 Encounter Start Time: 10:40 Subjective: feels a little better but still very weak -: no CP/SOB.c/o b/l ankle pain and swelling - Objective Resuscitation Status: Resuscitation Status FULL:Full Resuscitation MAR Reviewed: Yes Vital Signs & Weight: Vital Signs (12 hours) Temp Pulse Resp BP Pulse Ox 08/16/18 08:25 97.7 F 104 H 20 120/85 93 L 08/16/18 03:52 98.5 F 86 18 101/72 98 08/15/18 23:41 98.4 F 92 16 96/72 98 Weight Admit Weight 224 lb 14.4 oz Weight 198 lb 10.184 oz I&O: 08/15/18 08/16/18 08/17/18 06:59 06:59 06:59 Intake Total 700 200 Output Total 60 15 Balance 640 185 Result Diagrams: 08/16/18 04:35 08/16/18 04:35 Additional Labs: Accuchecks 08/16/18 08/16/18 08/15/18 05:41 04:37 21:54 POC Glucose 137 H 124 H 183 H 08/15/18 17:04 POC Glucose 169 H Phys Exam - Physical Examination Constitutional: NAD sitting up in chair.looks weak but better than yesterday HEENT: PERRLA, moist MMs, sclera anicteric, oral pharynx no lesions Neck: no nodes, no JVD, supple, full ROM Respiratory: no wheezing, no rales, no rhonchi, clear to auscultation bilateral Cardiovascular: RRR, no significant murmur Gastrointestinal: soft, non-tender, no distention, positive bowel sounds Musculoskeletal: pulses present, edema present b/l ankle erythema better Neurological: non-focal, normal sensation, moves all 4 limbs Psychiatric: normal affect, A&O x 3 Skin: no rash Dx/Plan (1) Acute systolic CHF (congestive heart failure), NYHA class 3 Code(s): I50.21 - ACUTE SYSTOLIC (CONGESTIVE) HEART FAILURE Status: Acute Comment: Based on ECHO results.HD w fluid removal as tolerated (2) DVT femoral (deep venous thrombosis) with thrombophlebitis Code(s): I82.419 - ACUTE EMBOLISM AND THROMBOSIS OF UNSPECIFIED FEMORAL VEIN Status: Acute Qualifiers: Laterality: bilateral Qualified Code(s): I82.413 - Acute embolism and thrombosis of femoral vein, bilateral Comment: Eliquis On hold for AV fistula procedure on Friday (3) Volume overload Code(s): E87.70 - FLUID OVERLOAD, UNSPECIFIED Status: Resolved Comment: CXR with pulmonary edema.Fluid removal by HD (4) AV fistula thrombosis Code(s): T82.868A - THROMBOSIS DUE TO VASCULAR PROSTH DEV/GRFT, INIT Status: Acute (5) NSVT (nonsustained ventricular tachycardia) Code(s): I47.2 - VENTRICULAR TACHYCARDIA Status: Acute Comment: asymptomatic.SVT by cardiology eval.ECHO shows Low EF (6) Seizure Code(s): R56.9 - UNSPECIFIED CONVULSIONS Status: Acute Comment: stable On keppra (7) Thrombocytopenia Code(s): D69.6 - THROMBOCYTOPENIA, UNSPECIFIED Status: Acute (8) Dyslipidemia Code(s): E78.5 - HYPERLIPIDEMIA, UNSPECIFIED Status: Chronic (9) HTN (hypertension) Code(s): I10 - ESSENTIAL (PRIMARY) HYPERTENSION Status: Chronic Qualifiers: Hypertension type: essential hypertension Qualified Code(s): I10 - Essential (primary) hypertension (10) CAD (coronary artery disease) Code(s): I25.10 - ATHSCL HEART DISEASE OF [place] RESERVATION CORONARY ARTERY W/O ANG PCTRS Status: Chronic Qualifiers: Coronary Disease-Associated Artery/Lesion type: [place] artery [place] vs. transplanted heart: [place] heart Associated angina: without angina Qualified Code(s): I25.10 - Atherosclerotic heart disease of [place] coronary artery without angina pectoris Comment: CABG in past (11) ESRD (end stage renal disease) on dialysis Code(s): N18.6 - END STAGE RENAL DISEASE; Z99.2 - DEPENDENCE ON RENAL DIALYSIS Status: Chronic (12) Cellulitis, leg Code(s): L03.119 - CELLULITIS OF UNSPECIFIED PART OF LIMB Status: Suspected Comment: More anuragley thrombophelbitis. No evidence of sepsis.On empiric ABx - Plan continue antibiotics, PT/OT, respiratory therapy, incentive spirometry, DVT proph w/SCDs AV fistula procedure tomorrow.Hold eliquis -: Lifevest to be fittted for Cardiomyopathy-jeramy ischemic, -: Coreg.ASA,statin. BP low to start SHABBIR-I/ARB -: no more seizures.cont kepra. -: empiric Abx for celliultis but likley more Thrombophlebitis * .Tele monitoring. No more SVt * am labs * hemodialysis in pt Review of Systems - Review of Systems Constitutional: weakness, malaise. negative: fever, chills, sweats, other ENT: negative: Ear Pain, Ear Discharge, Nose Pain, Nose Discharge, Nose Congestion, Mouth Pain, Mouth Swelling, Throat Pain, Throat Swelling, Other Respiratory: SOB with Excertion. negative: Cough, Dry, Shortness of Breath, Hemoptysis, Pleuritic Pain, Sputum, Wheezing Cardiovascular: negative: chest pain, palpitations, orthopnea, paroxysmal nocturnal dyspnea, edema, light headedness, other Gastrointestinal: negative: Nausea, Vomiting, Abdominal Pain, Diarrhea, Constipation, Melena, Hematochezia, Other Genitourinary: negative: Dysuria, Frequency, Incontinence, Hematuria, Retention , Other Musculoskeletal: Foot Pain. negative: Neck Pain, Shoulder Pain, Arm Pain, Back Pain, Hand Pain, Leg Pain, Other Skin: negative: Rash, Lesions, Samuel, Bruising, Other Neurological: negative: Weakness, Numbness, Incoordination, Change in Speech, Confusion, Seizures, Other - Medications/Allergies Allergies/Adverse Reactions: Allergies Allergy/AdvReac Type Severity Reaction Status Date / Time meperidine HCl [From Demerol] Allergy Verified 04/25/18 01:04 Medications: Current Medications Acetaminophen (Tylenol) 650 mg PO Q4H PRN PRN Reason: Headache/Fever/Mild Pain (1-3) Acetaminophen/Codeine Phosphate (Tylenol #3) 1 tab PO Q4H PRN PRN Reason: Pain Last Admin: 08/12/18 21:31 Dose: 1 tab Albuterol/Ipratropium (Duoneb) 3 ml NEB Q4H PRN PRN Reason: SOB &/or Wheezing Aspirin (Aspirin Chewable) 81 mg PO DAILY [facility] Last Admin: 08/16/18 10:26 Dose: 81 mg Atorvastatin Calcium (Lipitor) 10 mg PO HS [facility] Last Admin: 08/15/18 20:59 Dose: 10 mg Bisacodyl (Dulcolax) 10 mg MS Q12H PRN PRN Reason: Constipation Calcium Acetate (Phoslo) 2,001 mg PO TID-[facility] Last Admin: 10/14/18 08:25 Dose: 2,001 mg Calcium Carbonate (Tums) 500 mg PO DAILYPRN PRN PRN Reason: INDIGESTION Dextrose/Water (Dextrose 50%) 25 gm SLOW IVP PRN PRN PRN Reason: Hypoglycemia Famotidine (Pepcid) 20 mg PO QPM [facility] Last Admin: 08/15/18 20:59 Dose: 20 mg Gabapentin (Neurontin) 300 mg PO BID [facility] Last Admin: 08/16/18 10:25 Dose: 300 mg Glucagon (Glucagon) 1 mg IM PRN PRN PRN Reason: Hypoglycemia Guaifenesin (Robitussin Sf) 15 mg PO Q4H PRN PRN Reason: Cough Guaifenesin (Mucinex) 600 mg PO Q12HR [facility] Last Admin: 08/16/18 10:26 Dose: 600 mg Heparin Sodium (Porcine) (Heparin Lock Flush 100 Units/Ml) 500 units IVF Q12HR [facility] Last Admin: 08/16/18 10:37 Dose: 500 unit Heparin Sodium (Porcine) (Heparin Lock Flush 100 Units/Ml) 500 units IVF PRN PRN PRN Reason: Heparin Flush Last Admin: 08/16/18 04:33 Dose: 500 unit Dextrose/Water (D5w) 1,000 mls @ 0 mls/hr IV .Q0M PRN PRN Reason: Hypoglycemia Insulin Glargine 15 units/ (Miscellaneous Medication) 0.15 mls @ 0 mls/hr SC HS [facility] Last Admin: 08/15/18 23:16 Dose: 0.15 mls Vancomycin HCl 1.5 gm/ Sodium (Chloride) 300 mls @ 200 mls/hr IVPB WILLCALL [facility] Vancomycin HCl 1.25 gm/ Sodium (Chloride) 250 mls @ 166.667 mls/hr IVPB [facility]CALL [facility] Vancomycin HCl 1 gm/ Device 200 mls @ 200 mls/hr IVPB WILLCALL [facility] Vancomycin HCl 750 mg/ Sodium (Chloride) 250 mls @ 250 mls/hr IVPB WILLCALL [facility] Piperacillin Sod/Tazobactam (Sod 2.25 gm/ Sodium Chloride) 100 mls @ 200 mls/ hr IVPB 0100,1300 [facility] Last Admin: 08/16/18 01:31 Dose: 100 mls Insulin Human Regular (Humulin R) 0 units SC .MILD SLIDING SCALE PRN PRN Reason: Mild Correctional Scale Last Admin: 08/15/18 17:24 Dose: 2 unit Levetiracetam (Keppra Oral Solution) 250 mg PO BID [facility] Last Admin: 08/16/18 10:27 Dose: 250 mg Lorazepam (Ativan) 2 mg SLOW IVP Q15MIN PRN PRN Reason: Seizures Miscellaneous Medication (Pharmacy To Dose) 1 each IVPB PRN PRN PRN Reason: Pharmacy to dose Hold Vancomycin For (Level >20) 0 each FS .AT DIALYSIS [facility] Ondansetron HCl (Zofran) 4 mg SLOW IVP Q6H PRN PRN Reason: Nausea/Vomiting Polyethylene Glycol (Miralax) 17 gm PO BID [facility] Last Admin: 08/16/18 10:27 Dose: Not Given Sertraline HCl (Zoloft) 50 mg PO DAILY [facility] Last Admin: 08/16/18 10:26 Dose: 50 mg Sodium Chloride (Flush - Normal Saline) 10 ml IVF Q12H PRN PRN Reason: Saline Flush Last Admin: 08/16/18 01:30 Dose: 10 ml Sodium Chloride (Flush - Normal Saline) 10 ml IVF PRN PRN PRN Reason: Saline Flush Last Admin: 08/15/18 21:00 Dose: 10 ml Tramadol HCl (Ultram) 50 mg PO 0600,1800 [facility] Last Admin: 08/16/18 05:21 Dose: 50 mg Zinc Acetate/Diphenhydramine (Benadryl 2% Cream) 0 gm TOP BIDPRN PRN PRN Reason: SKIN Last Admin: 08/14/18 11:57 Dose: 1 applic
[2018-08-16] MEDS: Insulin Regular 300 UNITS/3 ML VIAL SC PRN (12:00)
--- NOTE | 2018-08-16 12:52 | PRG ---
DATE OF SERVICE: 08/16/2018 Mr. Fontana is a 58-year-old white male with ESRD and followed by the [facility]al Service for his maintenanc e hemodialysis. He underwent hemodialysis yesterday without any difficulty. We are currently using a temporary femoral dialysis catheter. He has a nonfunctioning left upper AV fistula. A planned cre ation of a new AV fistula is scheduled for tomorrow. No other complaints today. Please note this bladimir reyes was admitted for new onset seizure. Currently on Keppra. PHYSICAL EXAMINATION: VITAL SIGNS: Blood pressure 120/85, heart rate 104, respiratory rate 20, temperature 97.7, pulse ox 93%. GENERAL: Noted to be awake, alert, comfortable, not in distress. SKIN: Adequate turgor. HEENT: Pinkish conjunctivae, anicteric sclerae. NECK: No neck mass, no carotid bruits, no JVD. CHEST: No deformities. LUNGS: Decreased breath sounds. HEART: Normal sinus rhythm. No murmur, no gallops, no rubs. ABDOMEN: Globular, soft, nontender, no masses. EXTREMITIES: No edema. MEDICATIONS: 08/16/2018 was reviewed. LABORATORY DATA: Laboratories of 08/16/2018, white count 7.6, hemoglobin 12.7. Sodium 136, pot[place] m 4, chloride 98, carbon dioxide 30, BUN 32, creatinine 4.33, glucose 127, calcium 8.6. ASSESSMENT AND PLAN: 1. End-stage renal disease -- stable, continuing 3 times a week hemodialysis. Awaiting placement of an AV fistula and a possible cuffed hemodialysis catheter. 2. Cardiomyopathy -- cardiac echo showed decreased ejection fraction. The patient is currently on C oreg 3.125 mg p.o. b.i.d. Cardiology is following. Overall, agree with current management.
--- NOTE | 2018-08-16 13:05 | PDOC.CTH ---
<Sera Corral - Last Filed: 08/16/18 13:02> Cardiology Progress Note - Subjective No complaints. No overnight events. - Objective Vital Signs Temp Pulse Pulse Pulse Resp BP BP 08/16/18 12:00 98.1 F 86 18 08/16/18 09:23 91 90 121/81 112/75 08/16/18 08:25 97.7 F 104 H 20 08/16/18 03:52 98.5 F 86 18 BP Pulse Ox 08/16/18 12:00 103/79 98 08/16/18 09:23 08/16/18 08:25 120/85 93 L 08/16/18 03:52 101/72 98 Admit Weight 224 lb 14.4 oz Weight 198 lb 10.184 oz 08/15/18 08/16/18 08/17/18 06:59 06:59 06:59 Intake Total 700 200 Output Total 60 15 Balance 640 185 - Physical Examination General/Neuro: alert & oriented x3 Neck: no JVD present Lungs: CTA Heart: RRR Abdomen: NT/ND - Telemetry Telemetry Rhythm: SR - Labs Result Diagrams: 08/16/18 04:35 08/16/18 04:35 Troponin/CKMB CK-MB (CK-2) 6.5 ng/mL (0-6.6) 08/08/18 19:09 Troponin I 0.038 ng/mL (< 0.028) H 08/08/18 19:09 - Assessment/Plan 1. SVT 2. Possible Seizures 3. ESRD 4. 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 Keep NPO for possible cath vs stress tomorrow? 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 <Miles Dasilva - Last Filed: 08/16/18 14:17> Cardiology Progress Note - Objective Vital Signs Temp Pulse Pulse Pulse Resp BP BP 08/16/18 12:00 98.1 F 86 18 08/16/18 09:23 91 90 121/81 112/75 08/16/18 08:25 97.7 F 104 H 20 08/16/18 03:52 98.5 F 86 18 BP Pulse Ox 08/16/18 12:00 103/79 98 08/16/18 09:23 08/16/18 08:25 120/85 93 L 08/16/18 03:52 101/72 98 Admit Weight 224 lb 14.4 oz Weight 198 lb 10.184 oz 08/15/18 08/16/18 08/17/18 06:59 06:59 06:59 Intake Total 700 200 Output Total 60 15 Balance 640 185 - Labs Result Diagrams: 08/16/18 04:35 08/16/18 04:35 Troponin/CKMB CK-MB (CK-2) 6.5 ng/mL (0-6.6) 08/08/18 19:09 Troponin I 0.038 ng/mL (< 0.028) H 08/08/18 19:09 - Assessment/Plan Pt seen and examined. Agree with the above assessment. Pt recent presentation with ?seizure and increase RF for CAD and low EF, recommend angio. R/B disucssed with pt. Pt is agreeable.
[2018-08-16] MEDS ORDERED: Communication Order-Pharmacy FS SCH (14:30)
[2018-08-16] MEDS: Carvedilol 3.125 MG TAB PO SCH (17:37)
[2018-08-16] MEDS: Nystatin Powder 15 GM BOT TOP PRN (17:38)
[2018-08-16] MEDS: Atorvastatin Calcium 10 MG TAB PO SCH (20:54)
[2018-08-16] MEDS: Famotidine 20 MG TAB PO SCH (20:54)
[2018-08-17] MEDS: Piperacillin/Tazobactam 2.25 GM in Sodium Chloride 0.9% 100 ML IVPB SCH (00:37)
[2018-08-17] MEDS: Insulin Glargine 15 UNITS in Pre-Filled Syringe 1 EACH SC SCH (00:38)
[2018-08-17 06:25] LABS: Anion Gap 19 mmol/L (10-20); BUN (Urea Nitrogen) 48 mg/dL (8.4-25.7); Calc. Creatinine Clearance 17 mL/min (70-130); Calcium 8.8 mg/dL (7.8-10.44); Carbon Dioxide 24 mmol/L (22-29); Chloride 95 mmol/L (98-107); Estimated GFR-MDRD 10; Glucose 118 mg/dL (70-105); Potassium 4.5 mmol/L (3.5-5.1); Sodium 133 mmol/L (136-145)
[2018-08-17 06:31] LABS: #Eosinphils 0.3 thou/uL (0.0-0.7); #Lymphocytes 0.8 thou/uL (1.20-3.40); #Monocytes 0.9 thou/uL (0.11-0.59); %Eosinophils 3.6 % (0.0-10.0); %Lymphocytes 8.6 % (21.0-51.0); %Monocytes 9.8 % (0.0-10.0); Hemoglobin 12.7 g/dL (14.0-18.0); Mean Corpuscular Hemoglobin 30.3 pg (27.0-31.0); Mean Platelet Volume 9.3 fL (7.4-10.4); Platelet Count 70 thou/uL (130-400); RBC Distribution Width 16.8 % (11.5-14.5); Red Blood Cell (RBC) Count 4.19 mill/uL (4.70-6.10)
[2018-08-17] MEDS: traMADol HCl 50 MG TAB PO SCH ×2 (08:19→09:23)
--- NOTE | 2018-08-17 08:46 | PRG ---
DATE OF SERVICE: 08/17/2018 SUBJECTIVE: Mr. Fontana is a 58-year-old white male with ESRD and being managed by the Renal Service for his maintenance hemodialysis. He has currently a nonfunctioning AV fistula and will have another AV fistula creation this afternoon. In the interim, he will also have a cardiac catheterization wit h a possible coronary stent placed. We will schedule him for a short 2 hour hemodialysis after the s aid procedures. Currently, no complaints, no chest pain or shortness of breath. PHYSICAL EXAMINATION: VITAL SIGNS: Blood pressure is 104/75, heart rate 88, respiratory rate 20, temperature 98.2, pulse o x 98%. GENERAL: Noted to be awake, alert, supine, comfortable, not in distress. SKIN: Adequate turgor. HEENT: He has pinkish conjunctivae, anicteric sclerae. NECK: No neck mass, no carotid bruits, no JVD. CHEST: No deformities. LUNGS: Clear breath sounds. No wheezing, no crackles. HEART: Normal sinus rhythm. No murmur, no gallops or rubs. ABDOMEN: Globular, soft, nontender, no masses. EXTREMITIES: No edema, no deformities. MEDICATIONS: 08/17/2018 - Reviewed. LABORATORY DATA: 08/17/2018 - White count 9, hemoglobin 12.7, sodium 133, potassium 4.5, chloride 95 , carbon dioxide 24, BUN 48, creatinine 5.97, glucose 118, calcium 8.8. ASSESSMENT AND PLAN: 1. End-stage renal disease - due to the planned procedure OF cardiac catheterization with contrast l oad we will do a short 2 hour hemodialysis today, then resume back to his regular hemodialysis tomorr ow - Friday, and Friday. 2. Nonfunctioning AV fistula - Surgery is following. The patient will have a new creation of an AV fistula and he may have another cuffed dialysis catheter placed. He currently has a temporary right femoral dialysis catheter. 3. Decreased ejection fraction/congestive heart failure - Cardiology is following for a cardiac cath eterization with possible coronary stent placement.
[2018-08-17] MEDS: Nystatin Powder 15 GM BOT TOP PRN (09:21)
[2018-08-17] MEDS: guaiFENesin ER 600 MG TAB PO SCH (09:25)
[2018-08-17] MEDS: Gabapentin 300 MG CAP PO SCH (09:25)
[2018-08-17] MEDS: levETIRAcetam 500 mg/5 ml Oral Solution PO SCH (09:26)
--- NOTE | 2018-08-17 10:23 | PRG ---
DATE OF SERVICE: 08/17/2018 SUBJECTIVE: Mr. Fontana is doing well. No current complaints. No significant dysrhythmias noted eli bourgeois. His was present today. I have not visited with her in the past. She states the episode was maxi cribed as shaking. There may have been syncope, but it is unsure. There was no true seizure-like ac tivity and no true syncope. PHYSICAL EXAMINATION: GENERAL: Patient is a pleasant male who is in no acute distress. The patient appears his stated age . VITAL SIGNS: Blood pressure 104/75, pulse 88, temperature 98.2. NEUROLOGIC: The patient is alert and oriented times 3 with no focal neurologic deficits. HEENT: Sclerae without icterus. Mouth has moist mucous membranes with normal pallor. NECK: No JVD. Carotid upstroke brisk. No bruits bilaterally. LUNGS: Clear to auscultation with unlabored respirations. BACK: No scoliosis or kyphosis. CARDIAC: Regular rate and rhythm with normal S1 and S2. No S3 or S4 noted. No significant rubs, mu rmurs, thrills, or gallops noted throughout the precordium. PMI is not displaced. There is no sedrick ternal heave. ABDOMEN: Soft, nontender, nondistended. No peritoneal signs present. No hepatosplenomegaly. No ab normal striae. EXTREMITIES: 2+ femoral and 2+ dorsalis pedis pulses. No cyanosis, clubbing, or edema. SKIN: No gross abnormalities. PERTINENT LABS: Hemoglobin 12.7, white blood cell count 9.0, platelet count 70,000. Creatinine 5.97 , sodium 133. IMPRESSION: 1. New onset cardiomyopathy. 2. Coronary artery disease, status post bypass surgery x1. 3. Status post aortic valve replacement. 4. ? syncope versus seizure. RECOMMENDATIONS: I had a long discussion with the family today about how to proceed. I also discuss ed the case with Dr. Miguel Blanco. It appears his LVEF has been mildly diminished, estimated at 40- 45. It appeared worse. He did have revascularization done within the last 3-4 months. At this poin t, etiology to worsening LVEF is unknown. He has no current complaints of angina. I am unsure wheth er his syncope versus seizure was true seizure versus a cardiac dysrhythmia. First and foremost, we will order a LifeVest for the patient as an outpatient. We would also proceed with a noninvasive str ess study to assess for any areas of ischemia in addition to reassess his LVEF. He also has low risk surgery to be performed by Dr. Willie Ding due to thrombus in his fistula. Okay to proceed.
[2018-08-17] MEDS: Carvedilol 3.125 MG TAB PO SCH (11:33)
[2018-08-17] MEDS: Polyethylene Glycol 3350 17 GM Packet PO SCH (11:33)
[2018-08-17] MEDS: Calcium Acetate 667 MG CAP PO SCH ×2 (11:33→13:32)
--- NOTE | 2018-08-17 11:56 | PDOC.PN ---
- Subjective Encounter Start Date: 08/17/18 Encounter Start Time: 11:54 Subjective: seen and examined /care discussed w at bedside -: no new complaints. still feels very weak but making jokes -: ankle pain better today - Objective Resuscitation Status: Resuscitation Status FULL:Full Resuscitation MAR Reviewed: Yes Vital Signs & Weight: Vital Signs (12 hours) Temp Pulse Resp BP Pulse Ox 08/17/18 11:28 97.5 F L 84 20 110/72 99 08/17/18 08:00 98.2 F 88 20 104/75 93 L 08/17/18 04:00 98.1 F 91 16 104/79 97 08/17/18 00:10 97.6 F 89 16 118/78 99 Weight Admit Weight 224 lb 14.4 oz Weight 207 lb 2 oz I&O: 08/16/18 08/17/18 08/18/18 06:59 06:59 06:59 Intake Total 200 750 Output Total 15 60 Balance 185 690 Result Diagrams: 08/17/18 05:30 08/17/18 05:30 Additional Labs: Accuchecks 08/17/18 08/17/18 08/16/18 10:35 05:50 19:46 POC Glucose 133 H 115 H 102 08/16/18 17:36 POC Glucose 80 Laboratory Tests 08/07/18 08/10/18 08/12/18 16:07 04:31 04:18 Plt Count 84 L 64 L 51 L 08/15/18 08/16/18 07:55 04:35 Plt Count 65 L 68 L Phys Exam - Physical Examination Constitutional: NAD HEENT: PERRLA, moist MMs, sclera anicteric, oral pharynx no lesions Neck: no nodes, no JVD, supple, full ROM Respiratory: no wheezing, no rales, no rhonchi, clear to auscultation bilateral Cardiovascular: RRR, no significant murmur, no rub Gastrointestinal: soft, non-tender, no distention, positive bowel sounds Musculoskeletal: no edema, pulses present b/l LE chr venostasis changes ,ankle swelling & erythema better Neurological: non-focal, normal sensation, moves all 4 limbs Psychiatric: normal affect, A&O x 3 Skin: no rash Dx/Plan (1) Acute systolic CHF (congestive heart failure), NYHA class 3 Code(s): I50.21 - ACUTE SYSTOLIC (CONGESTIVE) HEART FAILURE Status: Acute Comment: Based on ECHO results. worsening Cardiac Function than few months ago. HD w fluid removal as tolerated (2) DVT femoral (deep venous thrombosis) with thrombophlebitis Code(s): I82.419 - ACUTE EMBOLISM AND THROMBOSIS OF UNSPECIFIED FEMORAL VEIN Status: Acute Qualifiers: Laterality: bilateral Qualified Code(s): I82.413 - Acute embolism and thrombosis of femoral vein, bilateral Comment: Eliquis On hold for AV fistula procedure today (3) Volume overload Code(s): E87.70 - FLUID OVERLOAD, UNSPECIFIED Status: Resolved Comment: CXR with pulmonary edema.Fluid removal by HD (4) AV fistula thrombosis Code(s): T82.868A - THROMBOSIS DUE TO VASCULAR PROSTH DEV/GRFT, INIT Status: Acute (5) NSVT (nonsustained ventricular tachycardia) Code(s): I47.2 - VENTRICULAR TACHYCARDIA Status: Acute Comment: asymptomatic.SVT by cardiology eval.ECHO shows Low EF (6) Seizure Code(s): R56.9 - UNSPECIFIED CONVULSIONS Status: Acute Comment: stable On keppra (7) Thrombocytopenia Code(s): D69.6 - THROMBOCYTOPENIA, UNSPECIFIED Status: Acute (8) Dyslipidemia Code(s): E78.5 - HYPERLIPIDEMIA, UNSPECIFIED Status: Chronic (9) HTN (hypertension) Code(s): I10 - ESSENTIAL (PRIMARY) HYPERTENSION Status: Chronic Qualifiers: Hypertension type: essential hypertension Qualified Code(s): I10 - Essential (primary) hypertension (10) CAD (coronary artery disease) Code(s): I25.10 - ATHSCL HEART DISEASE OF [place] CORONARY ARTERY W/O ANG PCTRS Status: Chronic Qualifiers: Coronary Disease-Associated Artery/Lesion type: [place] artery [place] vs. transplanted heart: [place] heart Associated angina: without angina Qualified Code(s): I25.10 - Atherosclerotic heart disease of [place] coronary artery without angina pectoris Comment: CABG in past (11) ESRD (end stage renal disease) on dialysis Code(s): N18.6 - END STAGE RENAL DISEASE; Z99.2 - DEPENDENCE ON RENAL DIALYSIS Status: Chronic (12) Cellulitis, leg Code(s): L03.119 - CELLULITIS OF UNSPECIFIED PART OF LIMB Status: Suspected Comment: Aniyah deshpande thrombophelbitis. No evidence of sepsis.On empiric ABx - Plan plan discussed w/ family, continue antibiotics, PT/OT, out of bed/ambulate, DVT proph w/SCDs empiric Abx for LE cellulitis Vs thrombophlebitis.Eliquis on hold -: Platelet counts stable-no active bleed. monitor -: New AV fistula & cuffed HD cathter placement today. -: HD per nephrology.monitor labs -: [facility] to be arranged.Stress test tomorrow for new low EF * .cont ASA, statin,BB> BP too low for SHABBIR-I/ARB * am labs * rehab eval Review of Systems - Review of Systems Constitutional: weakness, malaise. negative: fever, chills, sweats, other ENT: negative: Ear Pain, Ear Discharge, Nose Pain, Nose Discharge, Nose Congestion, Mouth Pain, Mouth Swelling, Throat Pain, Throat Swelling, Other Respiratory: negative: Cough, Dry, Shortness of Breath, Hemoptysis, SOB with Excertion, Pleuritic Pain, Sputum, Wheezing Cardiovascular: negative: chest pain, palpitations, orthopnea, paroxysmal nocturnal dyspnea, edema, light headedness, other Gastrointestinal: negative: Nausea, Vomiting, Abdominal Pain, Diarrhea, Constipation, Melena, Hematochezia, Other Genitourinary: negative: Dysuria, Frequency, Incontinence, Hematuria, Retention , Other Musculoskeletal: negative: Neck Pain, Shoulder Pain, Arm Pain, Back Pain, Hand Pain, Leg Pain, Foot Pain, Other Skin: negative: Rash, Lesions, Samuel, Bruising, Other Neurological: negative: Weakness, Numbness, Incoordination, Change in Speech, Confusion, Seizures, Other - Medications/Allergies Allergies/Adverse Reactions: Allergies Allergy/AdvReac Type Severity Reaction Status Date / Time meperidine HCl [From Demerol] Allergy Verified 04/25/18 01:04 Medications: Current Medications Acetaminophen (Tylenol) 650 mg PO Q4H PRN PRN Reason: Headache/Fever/Mild Pain (1-3) Acetaminophen/Codeine Phosphate (Tylenol #3) 1 tab PO Q4H PRN PRN Reason: Pain Last Admin: 08/12/18 21:31 Dose: 1 tab Albuterol/Ipratropium (Duoneb) 3 ml NEB Q4H PRN PRN Reason: SOB &/or Wheezing Aspirin (Aspirin Chewable) 81 mg PO DAILY [facility] Last Admin: 08/17/18 09:24 Dose: 81 mg Atorvastatin Calcium (Lipitor) 10 mg PO [facility] Last Admin: 08/16/18 20:54 Dose: 10 mg Bisacodyl (Dulcolax) 10 mg [place] Q12H PRN PRN Reason: Constipation Calcium Acetate (Phoslo) 2,001 mg PO TID-[facility] Last Admin: 08/17/18 11:33 Dose: Not Given Calcium Carbonate (Tums) 500 mg PO DAILYPRN PRN PRN Reason: INDIGESTION Carvedilol (Coreg) 3.125 mg PO BID-[facility] Last Admin: 08/17/18 11:33 Dose: Not Given Dextrose/Water (Dextrose 50%) 25 gm SLOW IVP PRN PRN PRN Reason: Hypoglycemia Famotidine (Pepcid) 20 mg PO QPM [facility] Last Admin: 08/16/18 20:54 Dose: 20 mg Gabapentin (Neurontin) 300 mg PO BID [facility] Last Admin: 08/17/18 09:25 Dose: 300 mg Glucagon (Glucagon) 1 mg IM PRN PRN PRN Reason: Hypoglycemia Guaifenesin (Robitussin Sf) 15 mg PO Q4H PRN PRN Reason: Cough Guaifenesin (Mucinex) 600 mg PO Q12HR [facility] Last Admin: 08/17/18 09:25 Dose: 600 mg Heparin Sodium (Porcine) (Heparin Lock Flush 100 Units/Ml) 500 units IVF Q12HR [facility] Last Admin: 08/17/18 09:27 Dose: 500 unit Heparin Sodium (Porcine) (Heparin Lock Flush 100 Units/Ml) 500 units IVF PRN PRN PRN Reason: Heparin Flush Last Admin: 08/16/18 04:33 Dose: 500 unit Dextrose/Water (D5w) 1,000 mls @ 0 mls/hr IV .Q0M PRN PRN Reason: Hypoglycemia Insulin Glargine 15 units/ (Miscellaneous Medication) 0.15 mls @ 0 mls/hr SC [facility] Last Admin: 08/17/18 00:38 Dose: Not Given Vancomycin HCl 1.5 gm/ Sodium (Chloride) 300 mls @ 200 mls/hr IVPB WILLCALL [facility] Vancomycin HCl 1.25 gm/ Sodium (Chloride) 250 mls @ 166.667 mls/hr IVPB [facility]CALL [facility] Vancomycin HCl 1 gm/ Device 200 mls @ 200 mls/hr IVPB [facility]CALL [facility] Vancomycin HCl 750 mg/ Sodium (Chloride) 250 mls @ 250 mls/hr IVPB [facility]CALL [facility] Piperacillin Sod/Tazobactam (Sod 2.25 gm/ Sodium Chloride) 100 mls @ 200 mls/ hr IVPB 0100,1300 [facility] Last Admin: 08/17/18 00:37 Dose: 100 mls Insulin Human Regular (Humulin R) 0 units SC .MILD SLIDING SCALE PRN PRN Reason: Mild Correctional Scale Last Admin: 08/16/18 12:00 Dose: 2 unit Levetiracetam (Keppra Oral Solution) 250 mg PO BID [facility] Last Admin: 08/17/18 09:26 Dose: 250 mg Lorazepam (Ativan) 2 mg SLOW IVP Q15MIN PRN PRN Reason: Seizures Miscellaneous Information (Communication Order-Pharmacy) 0 each FS ASDIR [facility] Miscellaneous Medication (Pharmacy To Dose) 1 each IVPB PRN PRN PRN Reason: Pharmacy to dose Hold Vancomycin For (Level >20) 0 each FS .AT DIALYSIS [facility] Nystatin (Mycostatin Powder) 0 gm TOP QID PRN PRN Reason: Topical Irritations Last Admin: 08/17/18 09:21 Dose: 1 applic Ondansetron HCl (Zofran) 4 mg SLOW IVP Q6H PRN PRN Reason: Nausea/Vomiting Polyethylene Glycol (Miralax) 17 gm PO BID [facility] Last Admin: 08/17/18 11:33 Dose: Not Given Sertraline HCl (Zoloft) 50 mg PO DAILY [facility] Last Admin: 08/17/18 09:25 Dose: 50 mg Sodium Chloride (Flush - Normal Saline) 10 ml IVF Q12H PRN PRN Reason: Saline Flush Last Admin: 08/16/18 01:30 Dose: 10 ml Sodium Chloride (Flush - Normal Saline) 10 ml IVF PRN PRN PRN Reason: Saline Flush Last Admin: 08/15/18 21:00 Dose: 10 ml Tramadol HCl (Ultram) 50 mg PO 0600,1800 [facility] Last Admin: 08/17/18 09:23 Dose: 50 mg Zinc Acetate/Diphenhydramine (Benadryl 2% Cream) 0 gm TOP BIDPRN PRN PRN Reason: SKIN Last Admin: 08/14/18 11:57 Dose: 1 applic
[2018-08-17] MEDS ORDERED: Sodium Chloride 0.9% 0 ML ONE (12:04)
[2018-08-17] MEDS ORDERED: Heparin 10,000 UNITS/1 ML VIAL ONE ×2 (12:04→15:35)
[2018-08-17] MEDS ORDERED: Heparin 5,000 UNITS/ML VIAL ONE (12:04)
[2018-08-17] MEDS ORDERED: Lidocaine 2% PF Inj 2 ML VIAL ONE (12:04)
[2018-08-17] MEDS ORDERED: Protamine Sulfate 50 MG/5 ML VIAL ONE (12:04)
[2018-08-17] MEDS ORDERED: Bupivacaine HCl 0.5%/Epinephrine 1:200,000/PF 30 ml Vial ONE ×2 (12:04→16:22)
[2018-08-17] MEDS ORDERED: Ioversol 68 % 50 ML VIAL ONE ×2 (14:13→15:54)
[2018-08-17] MEDS ORDERED: Fentanyl 100 MCG/2 ML VIAL ONE (14:18)
[2018-08-17] MEDS ORDERED: Propofol 500 MG/50 ML VIAL ONE (14:18)
[2018-08-17] MEDS ORDERED: Ketamine 50 MG/ML VIAL ONE (14:20)
[2018-08-17] MEDS ORDERED: Sodium Chloride 0.9% 10 ML ONE (15:35)
[2018-08-17] MEDS ORDERED: Bupivacaine/Epinephrine 0.25% 30 ML VIAL ONE (15:58)
[2018-08-17] MEDS ORDERED: Glycopyrrolate 0.2 MG/ML 5 ML SYRINGE ONE (17:00)
[2018-08-17] MEDS ORDERED: PROPOFOL 200 MG/20 ML VIAL ONE (17:00)
[2018-08-17] MEDS ORDERED: Heparin 10,000 UNITS/ 10 ML VIAL ONE (17:00)
[2018-08-17] MEDS ORDERED: Ondansetron HCl/PF 4 MG/2 ML Vial ONE (17:00)
[2018-08-17] MEDS ORDERED: Promethazine HCl 25 MG/ML VIAL IM PRN (17:15)
[2018-08-17] MEDS ORDERED: Promethazine HCl 25 MG/ML VIAL SLOW IVP PRN (17:15)
[2018-08-17] MEDS ORDERED: traMADol HCl 50 MG TAB PO PRN (17:48)
--- NOTE | 2018-08-17 19:30 | RAD ---
CHEST ONE VIEW: HISTORY: Dyspnea. COMPARISON: 08/14/2018 FINDINGS: The cardiac silhouette is magnified and enlarged. The pulmonary vasculature is more engorged than on the prior study. The mediastinum is midline with postoperative changes. Large caliber right international account manager al jugular dialysis type catheter is in place, with tips overlying the superior vena cava and the rig ht atrium. No evidence of pneumothorax. IMPRESSION: 1. Large caliber right internal jugular catheter is in good radiographic position. 2. Cardiomegaly with pulmonary vascular congestion. POS: VANESSA
--- NOTE | 2018-08-17 23:56 | OP ---
DATE OF PROCEDURE: 08/17/2018 PREOPERATIVE DIAGNOSIS: Thrombosed left upper arm cephalic vein fistula with angiographically placed coil, migrating to the arteriovenous fistula causing thrombosis. Left arm cephalic vein fistula, th rombectomy, and angiography revision with a basilic vein transposition fistula and retrieval angiogra phic coil. Right IJ cuffed tunnel hemodialysis catheter placement. Ultrasound fluoroscopy used. SURGEON: Dr. Willie Ding. ANESTHESIA: Regional anesthesia, TIVA. Local 0.5% Marcaine with epinephrine, 30 mL, mixed with 0.25 % Marcaine with epinephrine, 30 mL, mixed with 2% Xylocaine, 10 mL. PROCEDURE: Patient was taken to the operating room where, under regional anesthesia and intravenous sedation, left upper extremity was prepared with ChloraPrep and draped in routine fashion. The patie nt had a patent fistula up to the mid arm. It was thrombosed at that point. This is where the coil had migrated in from a collateral. This coil had been placed by [facility]. I exposed th e distal fistula above the antecubital fossa and dissected free and fluoroscopically localized the me tallic coil. I then made a venotomy and thrombectomy performed with a 4 and 5 thrombectomy catheter. It had excellent arterial inflow from the proximal radial artery, but occluded distally. Angiogram s obtained using fluoroscopy revealed that I could not get the cephalic vein fistula to feel beyond t he shoulder. It was felt that I could not salvage this at this point. Thus, it was revised. Incisi on was made in the left axilla, carried down through skin and subcutaneous tissue in the medial arm f or basilic vein transposition. The basilic vein was of excellent caliber. There was an area of bran ch point where the more superior vein was identified and other branch ligated for a single conduit. Amanda-Wick tunneler was then placed to create a tunnel between the axilla and the good portion of the vein in the distal third upper arm. The patient had been previously given 5000 units heparin intrav enously and he was supplemented with another 3000 units heparin intravenously. The thrombosed proxim al cephalic vein fistula was ligated with a 2-0 silk tie and 3-0 Monocryl used for hemostasis and end -to-end-vein anastomosis spatulating both ends of the cephalic vein to basilic vein with a continuous suture of 6-0 Prolene used for the anastomosis. Once this was complete, vascular clamps were releas ed and excellent flow in the fistula. Hemostasis gained with cautery and clips. This was the vein w e mobilized between 4-0 silk ties, 3-0 silk ties, and clips. Good hemostasis noted. Surgicel placed in the areas of dissection. Patient given 50 mg of protamine intravenously and subcutaneous tissues approximated with 3-0 Monocryl, skin with inna. Sterile dressing applied. It should be mentioned that during the revision, I was able to move the angiographic coil that had pr ecipitated this thrombosis. At this point, I then placed a right IJ hemodialysis catheter. The neck and chest prepared with Chlo raPrep, draped in routine fashion. Local anesthetic infiltrated into skin and subcutaneous tissue ab out the operative site. Ultrasound guidance used to cannulate the right internal jugular vein. J-wi re threaded. Trocar catheter removed. Skin incised and enlarged sharply. A stab incision made over the chest and angiodynamics precurved hemodialysis catheter tunneled between the two incisions, plac ing the fiber cuff beneath the skin exit site. Catheter secured to the sutures of 3-0 Prolene. [facility] sterile dressing had been applied. Smaller medium-sized dilators placed over the J-wire into th e internal jugular vein removed under forceps visualization, dilator and pull-away sheath placed over the J-wire into the superior vena cava and dilator and J-wire removed. Catheter placed with pull-aw ay sheath. Pull-away sheath removed. Fluoroscopically, catheter noted to be in good position as the platysma was approximated with 4-0 Monocryl, skin with subdermal 4-0 Monocryl, and DermaGlue applied . Each port aspirated blood and flushed with saline solution and heparinized saline solution, 1000 u nits heparin per mL indicated volume of the port. Patient tolerated the procedure well,
[2018-08-18] MEDS: Piperacillin/Tazobactam 2.25 GM in Sodium Chloride 0.9% 100 ML IVPB SCH ×3 (02:58→12:01)
[2018-08-18] MEDS: Nystatin Powder 15 GM BOT TOP PRN ×2 (04:46→22:17)
[2018-08-18] MEDS: diphenhydrAMINE 2% CREAM 28.4 GM TUBE TOP PRN (04:46)
[2018-08-18 05:14] LABS: Anion Gap 17 mmol/L (10-20); BUN (Urea Nitrogen) 63 mg/dL (8.4-25.7); Calc. Creatinine Clearance 15 mL/min (70-130); Calcium 8.1 mg/dL (7.8-10.44); Carbon Dioxide 23 mmol/L (22-29); Chloride 96 mmol/L (98-107); Estimated GFR-MDRD 8; Glucose 81 mg/dL (70-105); Potassium 5.3 mmol/L (3.5-5.1); Sodium 131 mmol/L (136-145)
[2018-08-18 05:24] LABS: #Eosinphils 0.2 thou/uL (0.0-0.7); #Lymphocytes 0.9 thou/uL (1.20-3.40); #Monocytes 0.9 thou/uL (0.11-0.59); #Neutrophils 8.6 thou/uL (1.40-6.50); %Basophils 0.2 % (0.0-1.0); %Eosinophils 1.8 % (0.0-10.0); %Lymphocytes 8.7 % (21.0-51.0); %Monocytes 8.7 % (0.0-10.0); %Neutrophils 80.6 % (42.0-75.0); Mean Corpuscular HGB CONC 31.2 g/dL (32.0-36.0); Mean Corpuscular Hemoglobin 31.1 pg (27.0-31.0); Mean Corpuscular Volume 99.8 fL (78.0-98.0); Mean Platelet Volume 8.9 fL (7.4-10.4); Platelet Count 95 thou/uL (130-400); RBC Distribution Width 16.7 % (11.5-14.5); Red Blood Cell (RBC) Count 3.21 mill/uL (4.70-6.10); White Blood Cell (WBC) Count 10.6 thou/uL (4.8-10.8)
[2018-08-18] MEDS ORDERED: Epoetin (ESRD) 20,000 UNITS/ML SC SCH (08:15)
[2018-08-18] MEDS: Calcium Acetate 667 MG CAP PO SCH ×5 (08:16→18:27)
[2018-08-18] MEDS: Carvedilol 3.125 MG TAB PO SCH ×3 (08:17→18:27)
[2018-08-18] MEDS: Atorvastatin Calcium 10 MG TAB PO SCH ×2 (08:17→21:58)
[2018-08-18] MEDS: traMADol HCl 50 MG TAB PO SCH ×3 (08:17→19:50)
[2018-08-18] MEDS: Famotidine 20 MG TAB PO SCH ×2 (08:18→21:57)
[2018-08-18] MEDS: Gabapentin 300 MG CAP PO SCH ×3 (08:20→21:58)
[2018-08-18] MEDS: guaiFENesin ER 600 MG TAB PO SCH ×3 (08:21→21:57)
[2018-08-18] MEDS: Insulin Glargine 15 UNITS in Pre-Filled Syringe 1 EACH SC SCH ×2 (08:22→21:58)
[2018-08-18] MEDS: levETIRAcetam 500 mg/5 ml Oral Solution PO SCH ×3 (08:23→21:56)
[2018-08-18] MEDS: Polyethylene Glycol 3350 17 GM Packet PO SCH ×3 (08:23→21:58)
--- NOTE | 2018-08-18 08:36 | PRG ---
DATE OF SERVICE: 08/18/2018 Mr. Fontana is a 58-year-old white male with known history of ESRD and followed by the [facility] or his maintenance hemodialysis. He also had a thrombosed left upper arm cephalic fistula. In the i nteri, a right IJ cuffed hemodialysis catheter has been placed. In addition, Dr. Ding has revised his left AV fistula. This morning, voices no new complaints. He is also scheduled for cardiac stress test. He was recent ly diagnosed with a decreased EF on cardiac echo. The patient is complaining of some pain around the left upper extremity postoperative site. No chest pain or shortness of breath. PHYSICAL EXAMINATION: VITAL SIGNS: Blood pressure 120/71, heart rate 96, respiratory rate 16, temperature 97.9, pulse ox 9 7%. GENERAL EXAM: Noted to be awake, alert, comfortable, not in overt distress SKIN: Adequate turgor. HEENT: He has slightly pale conjunctivae, anicteric sclerae. NECK: No neck mass, no carotid bruits, no JVD. CHEST: No deformities. LUNGS: Clear breath sounds. No wheezing, no crackles. HEART: Normal sinus rhythm. No murmur, no gallops, no rubs. ABDOMEN: Globular, soft, nontender, no masses. Positive for a suprapubic catheter. EXTREMITIES: No edema, no deformities. Left upper extremity dressing noted. Medications of 08/18/2018 was reviewed. LABORATORY DATA: Laboratories of 08/18/2018, white count 10.6, hemoglobin 10. Sodium 131, potassium 5.3, chloride 96, carbon dioxide 23, BUN 63, creatinine 6.92, glucose 81, calcium 8.1. ASSESSMENT AND PLAN: 1. Anemia. Resume Epogen 10,000 units subcutaneously every week. 2. End-stage renal disease, stable. We will continue current hemodialysis regimen of 3 times a week . Again, fluid removal only as tolerated by the patient. 3. Nonfunctioning left upper extremity arteriovenous fistula - status post surgical revision by Dr. Ding. In addition, a cuffed hemodialysis catheter has been placed by Dr. Ding. 4. Decreased ejection fraction - Cardiology is following for a planned cardiac stress test. Recheck base met and CBC in a.m.
[2018-08-18] MEDS: traMADol HCl 50 MG TAB PO PRN (09:26)
[2018-08-18 10:16] LABS: Vancomycin, Random 15.1 ug/mL (See Comment)
--- NOTE | 2018-08-18 10:54 | PRG ---
DATE OF SERVICE: 08/18/2018 Abdulkadir Fontana is doing well today, 99.2 degrees, 105/75. His hemoglobin this morning is 10. The bladimir reyes underwent complicated revision of his left arm. Thrombosed fistula with retrieval of Inter[facility] ional Radiology placed coil that migrating to his main fistula. This was retrieved. Thrombectomy pe rformed. Intraoperative angiograms performed. Revision with basilic vein transposition interpositio n, formation of a new fistula. This will take 3-4 weeks to heal. He should see me in the office in 2-3 weeks to remove his inna. He has an ice wrap dressing Op-Site 4 x 4 Xeroform over his wound. Left arm and he can remove his dressing . Begin daily washing the wound with soap and water and patting it dry and leaving it open or rewrapping it. He should see me in my office in 2-3 weeks for removal of inna. This morning, has a good thrill and bruit over his new left arm fistula. Em gonzalez will utilize his right IJ hemodialysis catheter for hemodialysis until his left arm fistula is read y to be used. At this point, I will see him as needed this hospitalization. He should follow up in my office in 2-3 weeks.
[2018-08-18] MEDS ORDERED: Heparin 10,000 UNITS/ 10 ML VIAL ONE (12:00)
[2018-08-18] MEDS: Ondansetron HCl/PF 4 MG/2 ML Vial SLOW IVP PRN (12:02)
--- NOTE | 2018-08-18 16:16 | PDOC.PN ---
- Subjective Encounter Start Date: 08/18/18 Encounter Start Time: 16:15 Subjective: seen and examined in HD.No new complaints -: feels poorly and weak. - Objective Resuscitation Status: Resuscitation Status FULL:Full Resuscitation MAR Reviewed: Yes Vital Signs & Weight: Vital Signs (12 hours) Temp Pulse Resp BP Pulse Ox 08/18/18 12:00 98.9 F 92 16 96/66 98 08/18/18 08:00 99.2 F 93 20 105/75 98 08/18/18 07:50 95 Weight Admit Weight 224 lb 14.4 oz Weight 207 lb 9 oz I&O: 08/17/18 08/18/18 08/19/18 06:59 06:59 06:59 Intake Total 750 Output Total 60 Balance 690 Result Diagrams: 08/18/18 04:38 08/18/18 04:38 Additional Labs: Accuchecks 08/18/18 08/18/18 08/17/18 12:03 05:43 20:50 POC Glucose 96 77 112 H Phys Exam - Physical Examination Constitutional: NAD HEENT: PERRLA, moist MMs, sclera anicteric, oral pharynx no lesions Neck: no nodes, no JVD, supple, full ROM Respiratory: no wheezing, no rales, no rhonchi, clear to auscultation bilateral Cardiovascular: RRR, no significant murmur, no rub Gastrointestinal: soft, non-tender, no distention, positive bowel sounds Musculoskeletal: no edema, pulses present Neurological: non-focal, normal sensation, moves all 4 limbs Psychiatric: normal affect, A&O x 3 Skin: no rash Dx/Plan (1) Acute systolic CHF (congestive heart failure), NYHA class 3 Code(s): I50.21 - ACUTE SYSTOLIC (CONGESTIVE) HEART FAILURE Status: Acute Comment: Based on ECHO results. worsening Cardiac Function than few months ago. HD w fluid removal as tolerated. On Coreg.BP too low for SHABBIR-I/ARB (2) DVT femoral (deep venous thrombosis) with thrombophlebitis Code(s): I82.419 - ACUTE EMBOLISM AND THROMBOSIS OF UNSPECIFIED FEMORAL VEIN Status: Acute Qualifiers: Laterality: bilateral Qualified Code(s): I82.413 - Acute embolism and thrombosis of femoral vein, bilateral Comment: ? restart Eliquis. (3) Volume overload Code(s): E87.70 - FLUID OVERLOAD, UNSPECIFIED Status: Resolved Comment: CXR with pulmonary edema.Fluid removal by HD (4) AV fistula thrombosis Code(s): T82.868A - THROMBOSIS DUE TO VASCULAR PROSTH DEV/GRFT, INIT Status: Acute Comment: S/P Fistula revision 08/17 (5) NSVT (nonsustained ventricular tachycardia) Code(s): I47.2 - VENTRICULAR TACHYCARDIA Status: Acute Comment: asymptomatic.SVT by cardiology eval.ECHO shows Low EF.Stress test today and rest tomorrow (6) Seizure Code(s): R56.9 - UNSPECIFIED CONVULSIONS Status: Acute Comment: stable On keppra (7) Thrombocytopenia Code(s): D69.6 - THROMBOCYTOPENIA, UNSPECIFIED Status: Acute Comment: Imrpoving.no active bleed (8) Dyslipidemia Code(s): E78.5 - HYPERLIPIDEMIA, UNSPECIFIED Status: Chronic (9) HTN (hypertension) Code(s): I10 - ESSENTIAL (PRIMARY) HYPERTENSION Status: Chronic Qualifiers: Hypertension type: essential hypertension Qualified Code(s): I10 - Essential (primary) hypertension (10) CAD (coronary artery disease) Code(s): I25.10 - ATHSCL HEART DISEASE OF [place] CORONARY ARTERY W/O ANG PCTRS Status: Chronic Qualifiers: Coronary Disease-Associated Artery/Lesion type: [place] artery [place] vs. transplanted heart: [place] heart Associated angina: without angina Qualified Code(s): I25.10 - Atherosclerotic heart disease of [place] coronary artery without angina pectoris Comment: CABG in past (11) ESRD (end stage renal disease) on dialysis Code(s): N18.6 - END STAGE RENAL DISEASE; Z99.2 - DEPENDENCE ON RENAL DIALYSIS Status: Chronic (12) Cellulitis, leg Code(s): L03.119 - CELLULITIS OF UNSPECIFIED PART OF LIMB Status: Suspected Comment: Aniyah deshpande thrombophelbitis. No evidence of sepsis.On empiric ABx (13) Cardiomyopathy Code(s): I42.9 - CARDIOMYOPATHY, UNSPECIFIED Status: Chronic Qualifiers: Cardiomyopathy type: unspecified Qualified Code(s): I42.9 - Cardiomyopathy , unspecified Comment: [facility] as an Outpatient - Plan continue antibiotics, PT/OT, respiratory therapy, incentive spirometry, out of bed/ambulate, DVT proph w/SCDs Second part of stress test tomorrow.Further cardiac Rx after results availa -: cont ASA,statin,BB. add SHABBIR-I if BP better -: HD .new Cathter done w fistula revision yesterday -: cont empiric ABx.clinically better -: restart eliquis when Ok w GS.am labs * . Review of Systems - Review of Systems Constitutional: weakness, malaise, other (poor appetite). negative: fever, chills, sweats Respiratory: negative: Cough, Dry, Shortness of Breath, Hemoptysis, SOB with Excertion, Pleuritic Pain, Sputum, Wheezing Cardiovascular: negative: chest pain, palpitations, orthopnea, paroxysmal nocturnal dyspnea, edema, light headedness, other Gastrointestinal: negative: Nausea, Vomiting, Abdominal Pain, Diarrhea, Constipation, Melena, Hematochezia, Other Genitourinary: negative: Dysuria, Frequency, Incontinence, Hematuria, Retention , Other Musculoskeletal: negative: Neck Pain, Shoulder Pain, Arm Pain, Back Pain, Hand Pain, Leg Pain, Foot Pain, Other Neurological: negative: Weakness, Numbness, Incoordination, Change in Speech, Confusion, Seizures, Other - Medications/Allergies Allergies/Adverse Reactions: Allergies Allergy/AdvReac Type Severity Reaction Status Date / Time meperidine HCl [From Demerol] Allergy Verified 04/25/18 01:04 Medications: Current Medications Acetaminophen (Tylenol) 650 mg PO Q4H PRN PRN Reason: Headache/Fever/Mild Pain (1-3) Last Admin: 08/18/18 12:01 Dose: 650 mg Albuterol/Ipratropium (Duoneb) 3 ml NEB Q4H PRN PRN Reason: SOB &/or Wheezing Aspirin (Aspirin Chewable) 81 mg PO DAILY [facility] Last Admin: 08/18/18 09:24 Dose: 81 mg Atorvastatin Calcium (Lipitor) 10 mg PO [facility] Last Admin: 08/18/18 08:17 Dose: Not Given Bisacodyl (Dulcolax) 10 mg NV Q12H PRN PRN Reason: Constipation Calcium Acetate (Phoslo) 2,001 mg PO TID-[facility] Last Admin: 08/18/18 11:56 Dose: Not Given Calcium Carbonate (Tums) 500 mg PO DAILYPRN PRN PRN Reason: INDIGESTION Carvedilol (Coreg) 3.125 mg PO BID-[facility] Last Admin: 08/18/18 11:00 Dose: Not Given Dextrose/Water (Dextrose 50%) 25 gm SLOW IVP PRN PRN PRN Reason: Hypoglycemia Epoetin Shamir (Procrit) 7,500 units SC Q7D [facility] Last Admin: 08/18/18 12:01 Dose: 7,500 units Famotidine (Pepcid) 20 mg PO QPM [facility] Last Admin: 08/18/18 08:18 Dose: Not Given Gabapentin (Neurontin) 300 mg PO BID [facility] Last Admin: 08/18/18 09:24 Dose: 300 mg Glucagon (Glucagon) 1 mg IM PRN PRN PRN Reason: Hypoglycemia Guaifenesin (Robitussin Sf) 15 mg PO Q4H PRN PRN Reason: Cough Guaifenesin (Mucinex) 600 mg PO Q12HR [facility] Last Admin: 08/18/18 09:24 Dose: 600 mg Heparin Sodium (Porcine) (Heparin Lock Flush 100 Units/Ml) 500 units IVF Q12HR [facility] Last Admin: 08/18/18 09:28 Dose: Not Given Heparin Sodium (Porcine) (Heparin Lock Flush 100 Units/Ml) 500 units IVF PRN PRN PRN Reason: Heparin Flush Last Admin: 08/16/18 04:33 Dose: 500 unit Dextrose/Water (D5w) 1,000 mls @ 0 mls/hr IV .Q0M PRN PRN Reason: Hypoglycemia Insulin Glargine 15 units/ (Miscellaneous Medication) 0.15 mls @ 0 mls/hr SC [facility] Last Admin: 08/18/18 08:22 Dose: Not Given Vancomycin HCl 1.5 gm/ Sodium (Chloride) 300 mls @ 200 mls/hr IVPB WILLCALL [facility] Vancomycin HCl 1.25 gm/ Sodium (Chloride) 250 mls @ 166.667 mls/hr IVPB WILLCALL [facility] Vancomycin HCl 1 gm/ Device 200 mls @ 200 mls/hr IVPB WILLCALL [facility] Vancomycin HCl 750 mg/ Sodium (Chloride) 250 mls @ 250 mls/hr IVPB WILLCALL [facility] Last Admin: 08/18/18 12:49 Dose: 250 mls Piperacillin Sod/Tazobactam (Sod 2.25 gm/ Sodium Chloride) 100 mls @ 200 mls/ hr IVPB 0100,1300 [facility] Last Admin: 08/18/18 12:01 Dose: 100 mls Insulin Human Regular (Humulin R) 0 units SC .MILD SLIDING SCALE PRN PRN Reason: Mild Correctional Scale Last Admin: 08/16/18 12:00 Dose: 2 unit Levetiracetam (Keppra Oral Solution) 250 mg PO BID [facility] Last Admin: 08/18/18 09:25 Dose: 250 mg Miscellaneous Information (Communication Order-Pharmacy) 0 each FS ASDIR [facility] Miscellaneous Medication (Pharmacy To Dose) 1 each IVPB PRN PRN PRN Reason: Pharmacy to dose Hold Vancomycin For (Level >20) 0 each FS .AT DIALYSIS [facility] Nystatin (Mycostatin Powder) 0 gm TOP QID PRN PRN Reason: Topical Irritations Last Admin: 08/18/18 04:46 Dose: 1 applic Ondansetron HCl (Zofran) 4 mg SLOW IVP Q6H PRN PRN Reason: Nausea/Vomiting Last Admin: 08/18/18 12:02 Dose: 4 mg Polyethylene Glycol (Miralax) 17 gm PO BID [facility] Last Admin: 08/18/18 09:26 Dose: Not Given Sertraline HCl (Zoloft) 50 mg PO DAILY [facility] Last Admin: 08/18/18 09:24 Dose: 50 mg Sodium Chloride (Flush - Normal Saline) 10 ml IVF Q12H PRN PRN Reason: Saline Flush Last Admin: 08/16/18 01:30 Dose: 10 ml Sodium Chloride (Flush - Normal Saline) 10 ml IVF PRN PRN PRN Reason: Saline Flush Last Admin: 08/15/18 21:00 Dose: 10 ml Tramadol HCl (Ultram) 50 mg PO 0600,1800 [facility] Last Admin: 08/18/18 08:20 Dose: Not Given Tramadol HCl (Ultram) 50 mg PO Q6H PRN PRN Reason: Pain 4-6 Last Admin: 08/18/18 09:26 Dose: 50 mg Zinc Acetate/Diphenhydramine (Benadryl 2% Cream) 0 gm TOP BIDPRN PRN PRN Reason: SKIN Last Admin: 08/18/18 04:46 Dose: 1 applic
[2018-08-19] MEDS ORDERED: Sodium Chloride 0.9% 500 ML IVPB SCH (01:30)
[2018-08-19] MEDS ORDERED: Sodium Chloride 0.9% 500 ML IV SCH (03:00)
[2018-08-19] MEDS: Piperacillin/Tazobactam 2.25 GM in Sodium Chloride 0.9% 100 ML IVPB SCH ×2 (04:26→13:06)
[2018-08-19 05:18] LABS: #Eosinphils 0.1 thou/uL (0.0-0.7); #Lymphocytes 0.7 thou/uL (1.20-3.40); #Neutrophils 7.5 thou/uL (1.40-6.50); %Eosinophils 1.2 % (0.0-10.0); %Lymphocytes 7.1 % (21.0-51.0); %Monocytes 10.5 % (0.0-10.0); %Neutrophils 81.1 % (42.0-75.0); Hemoglobin 9.2 g/dL (14.0-18.0); Mean Corpuscular Hemoglobin 29.6 pg (27.0-31.0); Mean Corpuscular Volume 98.6 fL (78.0-98.0); Platelet Count 92 thou/uL (130-400); RBC Distribution Width 16.8 % (11.5-14.5); Red Blood Cell (RBC) Count 3.11 mill/uL (4.70-6.10); White Blood Cell (WBC) Count 9.3 thou/uL (4.8-10.8)
[2018-08-19 05:23] LABS: Anion Gap 17 mmol/L (10-20); BUN (Urea Nitrogen) 27 mg/dL (8.4-25.7); Calc. Creatinine Clearance 26 mL/min (70-130); Calcium 8.2 mg/dL (7.8-10.44); Carbon Dioxide 23 mmol/L (22-29); Chloride 99 mmol/L (98-107); Estimated GFR-MDRD 15; Glucose 136 mg/dL (70-105); Potassium 4.1 mmol/L (3.5-5.1); Sodium 135 mmol/L (136-145)
--- NOTE | 2018-08-19 07:14 | PDOC.EVN ---
Event Note - Event Note Event Note: I was paged to evaluate patient due to hypotension and tachycardia. Patient has been admitted to the hospital for overloaded state due to heart failure, ESRD on HD, DVT with thrombophlebitis. Per EMR, patient received dialysis day prior and 3L of fluids was taken. Since then patient has been hypotensive in the low 80's systolic. Upon speaking to nursing staff, patient BP is trending in the low 70's systolic. Upon examination patient appears lethargic and weak but responsive to verbal commands. Ordered 2 500 boluses of IV NS. Instructed for Nephro to be called if it is okay to start patient on Central line if BP continues to be in the 80's systolic. Nephro instructed that patient be started on boluses on Albumin and if BP doesn't respond then central line is warranted. After status post Albumin and fluids boluses patient didn't respond therefore decision was made to transfer patient to the ICU and to have a Central line placed so that levophed can be started. In the interim, Dopamine will be started until a central line is placed and a patient is put on levophed. NOte by Dr. Robe Farias
[2018-08-19] MEDS ORDERED: DOPamine 400 MG/D5W 250 ML 250 ML IVPB SCH (07:15)
[2018-08-19] MEDS ORDERED: Norepinephrine 8 MG/0.9% NS 250 ML IVPB PRN (07:15)
[2018-08-19 08:34] LABS: Lactic Acid 1.4 mmol/L (0.5-2.2)
[2018-08-19] MEDS: guaiFENesin ER 600 MG TAB PO SCH ×2 (09:48→22:16)
[2018-08-19] MEDS: Gabapentin 300 MG CAP PO SCH ×2 (09:48→22:16)
[2018-08-19] MEDS: levETIRAcetam 500 mg/5 ml Oral Solution PO SCH ×2 (09:49→22:15)
[2018-08-19] MEDS: Calcium Acetate 667 MG CAP PO SCH ×3 (09:55→18:12)
[2018-08-19 09:56] LABS: Troponin I 6.552 ng/mL (< 0.028)
[2018-08-19] MEDS: Carvedilol 3.125 MG TAB PO SCH (10:15)
[2018-08-19] MEDS: Polyethylene Glycol 3350 17 GM Packet PO SCH ×3 (10:27→22:57)
[2018-08-19] MEDS: Heparin 5,000 UNITS/ML VIAL SC SCH ×3 (11:11→22:15)
[2018-08-19] MEDS: Albumin 25% 25 GM/100 ML BOT IVPB SCH ×2 (11:16→18:13)
--- NOTE | 2018-08-19 11:48 | PRG ---
DATE OF SERVICE: 08/19/2018 SERVICE: Renal Medicine. SUBJECTIVE: Mr. 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 Last night, he was noted to be hypotensive. One liter of fluid w as given as well as an albumin infusion. He was subsequently transferred to ICU for further monitori ng. This morning, blood pressure was noted at 88/65. He feels lethargic. He denies any chest pain or shortness of breath. PHYSICAL EXAMINATION: VITAL SIGNS: Blood pressure is 88/65 and heart rate is 101, respiratory rate 20, temperature 98.8, p ulse ox 95%. GENERAL EXAM: Awake, supine, lethargic, not in distress SKIN: Adequate turgor. HEENT: Pinkish conjunctivae, anicteric sclerae. NECK: No neck mass, no carotid bruits, no JVD. CHEST: No deformities. LUNGS: Clear breath sounds. No wheezing. No crackles. HEART: Normal sinus rhythm. No murmur, no gallops, no rubs. ABDOMEN: Globular, soft, nontender. Positive for suprapubic tube. EXTREMITIES: No edema, no deformities. Medications of 08/19/2018 were reviewed. LABORATORY DATA: Laboratories of 08/19/2018, white count 9.2, hemoglobin 9.2. Sodium 135, potassium 4.1, chloride 99, carbon dioxide 23, BUN 27, creatinine 4.01, glucose 136, calcium 8.2. ASSESSMENT AND PLAN: 1. Hypotension - this patient may simply be volume depleted. He received dialysis yesterday and 3 l iters of fluid was said to have been removed. He is currently being volume depleted with - alb umin 25 grams IV q.6. I have also discontinued the Coreg. Cardiology has been reconsulted. We will rule out also for an myocardial infarction. 3. End-stage renal disease, stable. No indication for any emergent dialysis. Continue Friday, Fri, and Friday dialysis regimen. He has a new cuffed hemodialysis catheter and his arteriovenou s fistula has been revised by Dr. Ding. 4. Anemia, continuing weekly Epogen. Overall, prognosis remains guarded.
--- NOTE | 2018-08-19 16:22 | PDOC.CTH ---
Cardiology Progress Note - Subjective He was hypotensive overnight and had to be transferred to the ICU for possible pressor support. He had albumin and his BP responded well to volume. - Objective Vital Signs Temp BP Pulse Ox 08/19/18 10:00 97.7 F 08/19/18 08:36 99 08/19/18 08:00 100 08/19/18 06:08 88/65 L 08/19/18 05:42 90/69 08/19/18 05:10 82/64 L 08/19/18 04:41 91/70 Admit Weight 224 lb 14.4 oz Weight 202 lb 4.8 oz 08/18/18 08/19/18 08/20/18 06:59 06:59 06:59 Intake Total 680 Balance 680 - Physical Examination General/Neuro: alert & oriented x3, NAD Neck: no JVD present Lungs: unlabored respirations Heart: RRR Abdomen: NT/ND Extremities: + edema B (1+) - Telemetry Telemetry Rhythm: NSR - Labs Result Diagrams: 08/19/18 04:48 08/19/18 04:48 Troponin/CKMB CK-MB (CK-2) 6.5 ng/mL (0-6.6) 08/08/18 19:09 Troponin I 6.552 ng/mL (< 0.028) H* 08/19/18 09:07 - Assessment/Plan 1. New onset seizures. 2. Worsening LV dysfunction. EF at 25% 3. Hx of AVR and CABG x 1 4. Non sustained SVT. 5. ESRD 6. Hypotension 7. Ischemic CM PLAN: - No ACEI or ARB and BB on hold due to hypotension. - May need innotropes if no improvement. - Stress portion of nuclear test on hold due to hypotenson.
--- NOTE | 2018-08-19 17:19 | NM ---
NUCLEAR MEDICINE SCAN REST ONLY 08/19/18 HISTORY: Cardiomyopathy. TECHNIQUE: Patient was administered 9.5 millicuries of technetium 99m Sestamibi for rest imaging. Only rest imag ing was performed. Stress portion was cancelled by dairy technologist. FINDINGS: Rest images demonstrate decreased radiotracer localization in the apex, anterior wall and lateral wal l of the left ventricle. The left ventricle appears to be dilated. IMPRESSION: As above. POS: VANESSA
--- NOTE | 2018-08-19 19:10 | PDOC.PN ---
- Subjective Encounter Start Date: 08/19/18 Encounter Start Time: 11:00 Patient seen and examined for Hypotension/Seizures. No new complaints. Overnight events noted - Objective Resuscitation Status: Resuscitation Status FULL:Full Resuscitation MAR Reviewed: Yes Vital Signs & Weight: Vital Signs (12 hours) Temp Pulse Ox 08/19/18 10:00 97.7 F 08/19/18 08:36 99 08/19/18 08:00 100 Weight Admit Weight 224 lb 14.4 oz Weight 202 lb 4.8 oz Most Recent Monitor Data Heart Rate from ECG 91 NIBP 110/67 NIBP BP-Mean 81 Respiration from ECG 21 SpO2 99 I&O: 08/18/18 08/19/18 08/20/18 06:59 06:59 06:59 Intake Total 964 Output Total 100 Balance 864 Result Diagrams: 08/20/18 04:35 08/20/18 04:35 Additional Labs: Accuchecks 08/19/18 08/19/18 08/19/18 16:49 12:33 09:24 POC Glucose 142 H 129 H 127 H 08/19/18 08/18/18 06:02 20:08 POC Glucose 115 H 78 Phys Exam - Physical Examination Constitutional: NAD Respiratory: no wheezing, no rhonchi Cardiovascular: RRR, no rub Gastrointestinal: soft, non-tender, positive bowel sounds Musculoskeletal: no edema Dx/Plan - Plan DVT proph w/SCDs IMPRESSION: 1. New onset seizures - started on Keppra 2. Chronic systolic/diastolic HF - EF at 25% 3. Elevated troponins due to demand ischemia/Hypotension 4. CAD s/p CABG x 1 / Ischemic CM/ s/p AVR /Non sustained SVT 5. B/L LE DVT - Resume anticoag on 08/20 due to recent dialysis access 6. ESRD on dialsysis 7. Hypotension - improved with IVF and Albumin 8. Thrombocytopenia PLAN: No ACEI/ARB/BB due to hypotension. Cont Keppra Cont Albumin AM labs Monitor Platelets AM labs Review of Systems - Review of Systems Respiratory: negative: Cough, Dry, Shortness of Breath, Hemoptysis, SOB with Excertion, Pleuritic Pain, Sputum, Wheezing Cardiovascular: negative: chest pain, palpitations, orthopnea, paroxysmal nocturnal dyspnea, edema, light headedness, other - Medications/Allergies Allergies/Adverse Reactions: Allergies Allergy/AdvReac Type Severity Reaction Status Date / Time meperidine HCl [From Demerol] Allergy Verified 04/25/18 01:04 Medications: Current Medications Acetaminophen (Tylenol) 650 mg PO Q4H PRN PRN Reason: Headache/Fever/Mild Pain (1-3) Last Admin: 08/18/18 12:01 Dose: 650 mg Albumin Human (Albumin 25%) 25 gm IVPB Q6HR [facility] Stop: 08/22/18 06:01 Last Admin: 08/19/18 18:13 Dose: 25 gm Albuterol/Ipratropium (Duoneb) 3 ml NEB Q4H PRN PRN Reason: SOB &/or Wheezing Aspirin (Aspirin Chewable) 81 mg PO DAILY [facility] Last Admin: 08/19/18 09:48 Dose: 81 mg Atorvastatin Calcium (Lipitor) 10 mg PO HS [facility] Last Admin: 08/18/18 21:58 Dose: 10 mg Bisacodyl (Dulcolax) 10 mg MO Q12H PRN PRN Reason: Constipation Calcium Acetate (Phoslo) 2,001 mg PO TID-[facility] Last Admin: 08/19/18 18:12 Dose: 2,001 mg Calcium Carbonate (Tums) 500 mg PO DAILYPRN PRN PRN Reason: INDIGESTION Dextrose/Water (Dextrose 50%) 25 gm SLOW IVP PRN PRN PRN Reason: Hypoglycemia Epoetin Shamir (Procrit) 7,500 units SC Q7D [facility] Last Admin: 08/18/18 12:01 Dose: 7,500 units Famotidine (Pepcid) 20 mg PO QPM [facility] Last Admin: 08/18/18 21:57 Dose: 20 mg Gabapentin (Neurontin) 300 mg PO BID [facility] Last Admin: 08/19/18 09:48 Dose: 300 mg Glucagon (Glucagon) 1 mg IM PRN PRN PRN Reason: Hypoglycemia Guaifenesin (Robitussin Sf) 15 mg PO Q4H PRN PRN Reason: Cough Guaifenesin (Mucinex) 600 mg PO Q12HR [facility] Last Admin: 08/19/18 09:48 Dose: 600 mg Heparin Sodium (Porcine) (Heparin Lock Flush 100 Units/Ml) 500 units IVF Q12HR [facility] Last Admin: 08/19/18 09:55 Dose: Not Given Heparin Sodium (Porcine) (Heparin Lock Flush 100 Units/Ml) 500 units IVF PRN PRN PRN Reason: Heparin Flush Last Admin: 08/16/18 04:33 Dose: 500 unit Heparin Sodium (Porcine) (Heparin) 5,000 units SC TID [facility] Last Admin: 08/19/18 18:09 Dose: Not Given Dextrose/Water (D5w) 1,000 mls @ 0 mls/hr IV .Q0M PRN PRN Reason: Hypoglycemia Insulin Glargine 15 units/ (Miscellaneous Medication) 0.15 mls @ 0 mls/hr SC HS [facility] Last Admin: 08/18/18 21:58 Dose: Not Given Vancomycin HCl 1.5 gm/ Sodium (Chloride) 300 mls @ 200 mls/hr IVPB WILLCALL [facility] Vancomycin HCl 1.25 gm/ Sodium (Chloride) 250 mls @ 166.667 mls/hr IVPB WILLCALL [facility] Vancomycin HCl 1 gm/ Device 200 mls @ 200 mls/hr IVPB WILLCALL [facility] Vancomycin HCl 750 mg/ Sodium (Chloride) 250 mls @ 250 mls/hr IVPB WILLCALL [facility] Last Admin: 08/18/18 12:49 Dose: 250 mls Piperacillin Sod/Tazobactam (Sod 2.25 gm/ Sodium Chloride) 100 mls @ 200 mls/ hr IVPB 0100,1300 [facility] Last Admin: 08/19/18 13:06 Dose: 100 mls Dopamine HCl/Dextrose (Dopamine/D5w) 250 mls @ 17.205 mls/hr IVPB INF [facility]; Protocol Norepinephrine Bitartrate (Levophed) 250 mls @ 0 mls/hr IVPB PRN PRN; Protocol PRN Reason: To maintain MAP > 65 Insulin Human Regular (Humulin R) 0 units SC .MILD SLIDING SCALE PRN PRN Reason: Mild Correctional Scale Last Admin: 08/16/18 12:00 Dose: 2 unit Levetiracetam (Keppra Oral Solution) 250 mg PO BID [facility] Last Admin: 08/19/18 09:49 Dose: 250 mg Miscellaneous Information (Communication Order-Pharmacy) 0 each FS ASDIR [facility] Miscellaneous Medication (Pharmacy To Dose) 1 each IVPB PRN PRN PRN Reason: Pharmacy to dose Hold Vancomycin For (Level >20) 0 each FS .AT DIALYSIS [facility] Nystatin (Mycostatin Powder) 0 gm TOP QID PRN PRN Reason: Topical Irritations Last Admin: 08/18/18 22:17 Dose: 1 applic Ondansetron HCl (Zofran) 4 mg SLOW IVP Q6H PRN PRN Reason: Nausea/Vomiting Last Admin: 08/18/18 12:02 Dose: 4 mg Polyethylene Glycol (Miralax) 17 gm PO BID [facility] Last Admin: 08/19/18 10:27 Dose: Not Given Sertraline HCl (Zoloft) 50 mg PO DAILY [facility] Last Admin: 08/19/18 09:49 Dose: 50 mg Sodium Chloride (Flush - Normal Saline) 10 ml IVF Q12H PRN PRN Reason: Saline Flush Last Admin: 08/19/18 04:28 Dose: 10 ml Sodium Chloride (Flush - Normal Saline) 10 ml IVF PRN PRN PRN Reason: Saline Flush Last Admin: 08/15/18 21:00 Dose: 10 ml Tramadol HCl (Ultram) 50 mg PO Q6H PRN PRN Reason: Pain 4-6 Last Admin: 08/18/18 09:26 Dose: 50 mg Zinc Acetate/Diphenhydramine (Benadryl 2% Cream) 0 gm TOP BIDPRN PRN PRN Reason: SKIN Last Admin: 08/18/18 04:46 Dose: 1 applic
[2018-08-19 20:57] LABS: Bilirubin Small (Negative); Blood, Urine Large (Negative); Clarity Cloudy (Clear); Glucose, Urine (Dipstick) Negative (Negative); Leukocyte Moderate (Negative); Nitrite Positive (Negative); Protein, Urine (Dipstick) 100 mg/dL (Neg-Trace); Urobilinogen 0.2 mg/dL (0.2-1.0)
[2018-08-19 20:59] LABS: RBC/HPF 21-50 HPF (0-3); Squamous Epithelial None Seen HPF (0-3)
[2018-08-19 21:00] LABS: Bacteria/HPF 3+ HPF (None Seen); Hyaline Casts/LPF NONE SEEN LPF (0-3 Hyaline); Other Microscopic Description Less than 2 mL rec'd; Yeast-All Forms 3+ HPF (None Seen)
[2018-08-19] MEDS: Insulin Glargine 15 UNITS in Pre-Filled Syringe 1 EACH SC SCH (22:15)
[2018-08-19] MEDS: Atorvastatin Calcium 10 MG TAB PO SCH (22:16)
[2018-08-19] MEDS: Famotidine 20 MG TAB PO SCH (22:16)
--- NOTE | 2018-08-20 00:31 | CON ---
DATE OF CONSULTATION: 08/19/2018 HISTORY OF PRESENT ILLNESS: bAdulkadir Fontana is a 58-year-old gentleman with multiorgan failure who was transferred last night to the ICU after he became . He responded to IV infusion of IV albumin. He is requiring no pressors this morning. In the ICU, he is awake, alert, responsive. He is here since 08/07/2018. He apparently had a syncopal episode, it is unclear whether he was seizing at the same time. He was apparently driving on the way to dialysis when this event happened. He has known history of end-stage renal disease. Patient has a recent surgery on his left upper extremity arm fistula. It is still not functioning. A temporary right dialysis catheter has been inserted. This morning in the ICU, he still complaining of left arm pain. Denies any shortness of breath, ches t pain, chills or sweats. Because of his history of hypertension, congestive heart failure, recent stents, patient was undergoi ng a chemical stress test. PAST MEDICAL HISTORY: Extensively outlined including carotid disease, 3 stents in 2014, history of a ortic valve surgery done about a year ago at [facility], history of diabetes, end-stage renal failure, h ypertension, CVA, stroke, and bleed. PAST SURGICAL HISTORY: Multiple including a suprapubic catheter be maintained by urologist at [facility], neck surgery, multiple eye surgeries access, bypass surgery one done at [place], multiple s tents pig valve. ALCOHOL: None. TOBACCO: None, apparently. 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 MEDICATIONS: From home includes gabapentin 300 twice a day, tramadol 50, Pepcid 20, insulin, calcium , Zoloft 50. He is now on vancomycin and Zosyn. PHYSICAL EXAMINATION: GENERAL: In the ICU, he is awake, alert, responsive. EXTREMITIES: Revealed chronic stasis but no edema. VITAL SIGNS: Sats 99 on 2 liters. Blood pressure 88/65, respiration 20, pulse 80. CHEST: Decreased breath sounds, no wheezing. CARDIAC: Normal S1, S2, no gallops. ABDOMEN: Soft, no masses. NEUROLOGICAL: He is awake, alert, responsive. LABORATORY DATA: White count 9000, H and H 9 and 30, platelet count is 92,000. Thrombocytopenia. C reatinine is 4. Glucose 115. IMPRESSION: 1. Hypotension, multifactorial, probably volume depletion. 2. Congestive heart failure, ejection fraction is 25%. 3. Status post aortic valve surgery. 4. Status post multiple stents. 5. Renal failure. 6. Diabetes. 7. . 8. Seizure disorders. PLAN: I have ordered a cortisol level. We will try to maintain systolic of 90. Empiric antibiotics for presumed sepsis. Deescalate once we have cultures back. This is a 45-minute critical care time.
[2018-08-20] MEDS: Albumin 25% 25 GM/100 ML BOT IVPB SCH ×4 (00:44→17:43)
[2018-08-20] MEDS: traMADol HCl 50 MG TAB PO PRN ×2 (00:50→11:18)
[2018-08-20] MEDS: Piperacillin/Tazobactam 2.25 GM in Sodium Chloride 0.9% 100 ML IVPB SCH ×2 (02:20→15:37)
[2018-08-20 05:08] LABS: #Eosinphils 0.2 thou/uL (0.0-0.7); #Lymphocytes 0.9 thou/uL (1.20-3.40); #Monocytes 0.8 thou/uL (0.11-0.59); #Neutrophils 6.4 thou/uL (1.40-6.50); %Basophils 0.1 % (0.0-1.0); %Eosinophils 2.2 % (0.0-10.0); %Lymphocytes 10.3 % (21.0-51.0); %Neutrophils 77.4 % (42.0-75.0); Hemoglobin 8.9 g/dL (14.0-18.0); Mean Corpuscular HGB CONC 30.8 g/dL (32.0-36.0); Mean Platelet Volume 9.4 fL (7.4-10.4); Platelet Count 91 thou/uL (130-400); RBC Distribution Width 16.8 % (11.5-14.5); Red Blood Cell (RBC) Count 2.88 mill/uL (4.70-6.10); White Blood Cell (WBC) Count 8.2 thou/uL (4.8-10.8)
[2018-08-20 05:25] LABS: Anion Gap 20 mmol/L (10-20); BUN (Urea Nitrogen) 48 mg/dL (8.4-25.7); Calc. Creatinine Clearance 20 mL/min (70-130); Calcium 8.9 mg/dL (7.8-10.44); Carbon Dioxide 22 mmol/L (22-29); Chloride 97 mmol/L (98-107); Estimated GFR-MDRD 11; Glucose 148 mg/dL (70-105); Magnesium 2.4 mg/dL (1.6-2.6); Potassium 4.5 mmol/L (3.5-5.1); Sodium 134 mmol/L (136-145)
[2018-08-20] MEDS: Calcium Acetate 667 MG CAP PO SCH ×3 (09:16→17:08)
--- NOTE | 2018-08-20 09:20 | PRG ---
DATE OF SERVICE: 08/20/2018 RENAL MEDICINE SUBJECTIVE: Mr. Fontana is a 58-year-old white male with known history of ESRD and followed by the Re nal Service for his maintenance hemodialysis. He recently had a hypotensive episode and was placed i n the unit. He was given albumin and crystalloids. His blood pressure is much improved. Currently, stress portion of nuclear stress is on hold due to hypotension. He has no other complaints today ex cept for his chronic catheter. PHYSICAL EXAMINATION: VITAL SIGNS: Blood pressure 139/99, heart rate 93, respiratory rate 16, temperature 97.6, pulse oxim etry 100%. GENERAL: Noted to be awake, alert, comfortable, not in distress. SKIN: Adequate turgor. HEENT: He has slightly pale conjunctivae, anicteric sclerae. NECK: No neck mass, no carotid bruits, no JVD. CHEST: No deformities. LUNGS: Clear breath sounds. No wheezing, no crackles. HEART: Normal sinus rhythm. No murmur, no gallops, no rubs. ABDOMEN: Globular, soft, nontender, no masses. EXTREMITIES: No edema. MEDICATIONS: Medications of 08/20/2018 was reviewed. LABORATORY DATA: Laboratories of 08/20/2018; hemoglobin 8.9. Sodium 134, potassium 4.5, chloride 97 , carbon dioxide 22, BUN 48, creatinine 5.24, glucose 148, calcium 8.9, magnesium 2.4. ASSESSMENT AND PLAN: 1. Hypertension - resolved. The patient is status post crystalloid and colloid infusion. Much impr solo. 2. End-stage renal disease - I am currently at the bedside supervising his dialysis. We will do a 4 -hour dialysis with minimal fluid removal. 3. Coronary artery disease. Cardiology is following. Continue supportive care. 4. Anemia, continuing weekly Epogen.
[2018-08-20 11:05] LABS: Vancomycin, Random 9.4 ug/mL (See Comment)
--- NOTE | 2018-08-20 12:33 | PDOC.CTH ---
Cardiology Progress Note - Subjective Doing well. No more hypotension. - Objective Vital Signs Temp Pulse Resp BP Pulse Ox 08/20/18 08:40 100 08/20/18 08:00 97.6 F 93 16 139/99 H 100 08/20/18 04:00 97.7 F 88 19 99/63 100 Admit Weight 224 lb 14.4 oz Weight 204 lb 4.8 oz 08/19/18 08/20/18 08/21/18 06:59 06:59 06:59 Intake Total 964 300 Output Total 100 Balance 864 300 - Physical Examination General/Neuro: alert & oriented x3, NAD Neck: no JVD present Lungs: unlabored respirations Heart: RRR Abdomen: NT/ND Extremities: + edema B (2+) - Telemetry Telemetry Rhythm: NSR - Labs Result Diagrams: 08/20/18 04:35 08/20/18 04:35 Troponin/CKMB CK-MB (CK-2) 6.5 ng/mL (0-6.6) 08/08/18 19:09 Troponin I 6.552 ng/mL (< 0.028) H* 08/19/18 09:07 - Assessment/Plan 1. New onset seizures. 2. Worsening LV dysfunction. EF at 25% 3. Hx of AVR and CABG x 1 4. Non sustained SVT. 5. ESRD 6. Hypotension 7. Ischemic CM PLAN: - No ACEI or ARB and BB on hold due to hypotension. - Hypotension resolved with albumin infusion. - May proceed with stress portion of MPI. - Will follow.
[2018-08-20] MEDS ORDERED: traMADol HCl 50 MG TAB PO SCH (14:15)
[2018-08-20] MEDS: Heparin 5,000 UNITS/ML VIAL SC SCH ×2 (14:44→14:46)
[2018-08-20] MEDS: Polyethylene Glycol 3350 17 GM Packet PO SCH ×2 (15:02→21:50)
[2018-08-20] MEDS: Gabapentin 300 MG CAP PO SCH ×2 (15:04→21:51)
[2018-08-20] MEDS: guaiFENesin ER 600 MG TAB PO SCH ×2 (15:04→21:50)
[2018-08-20] MEDS: levETIRAcetam 500 mg/5 ml Oral Solution PO SCH ×2 (15:04→21:50)
[2018-08-20] MEDS: Calcium Carbonate 500 MG ChewTAB PO PRN (15:06)
[2018-08-20] MEDS: Acetaminophen 325 MG TAB PO SCH ×2 (15:06→21:50)
--- NOTE | 2018-08-20 15:39 | PDOC.PN ---
- Subjective Encounter Start Date: 08/20/18 Encounter Start Time: 09:30 Patient seen and examined for seizure/CHF/DVT. No new complaints except for some nausea earlier. No overnight events - Objective Resuscitation Status: Resuscitation Status FULL:Full Resuscitation MAR Reviewed: Yes Vital Signs & Weight: Vital Signs (12 hours) Temp Pulse Resp BP Pulse Ox 08/20/18 15:35 95 99/69 08/20/18 14:16 97.8 F 96 20 78/53 L 100 08/20/18 08:40 100 08/20/18 08:00 97.6 F 93 16 139/99 H 100 08/20/18 04:00 97.7 F 88 19 99/63 100 Weight Admit Weight 224 lb 14.4 oz Weight 204 lb 4.8 oz Most Recent Monitor Data Heart Rate from ECG 91 NIBP 110/67 NIBP BP-Mean 81 Respiration from ECG 21 SpO2 99 I&O: 08/19/18 08/20/18 08/21/18 06:59 06:59 06:59 Intake Total 964 300 Output Total 100 Balance 864 300 Result Diagrams: 08/20/18 04:35 08/20/18 04:35 Additional Labs: Accuchecks 08/20/18 08/20/18 08/19/18 14:12 06:14 19:48 POC Glucose 105 114 H 190 H 08/19/18 16:49 POC Glucose 142 H EKG Reviewed by me: Yes (Tele SR) Phys Exam - Physical Examination Constitutional: NAD Respiratory: no wheezing, no rhonchi Cardiovascular: RRR, no rub Gastrointestinal: soft, non-tender, positive bowel sounds Musculoskeletal: no edema Neurological: moves all 4 limbs Dx/Plan - Plan DVT proph w/SCDs IMPRESSION: 1. New onset seizures - started on Keppra 2. Chronic systolic/diastolic HF - EF at 25% 3. Elevated troponins due to demand ischemia/Hypotension 4. CAD s/p CABG x 1 / Ischemic CM/ s/p AVR /Non sustained SVT 5. B/L LE DVT 6. ESRD on dialsysis 7. Hypotension - improved with IVF and Albumin 8. Thrombocytopenia PLAN: Start Eliquis 2.5 mg BID - confirmed with Nephro/Surg/Cardio No ACEI/ARB/BB due to hypotension. Cont Albumin Cont Keppra AM labs DC [facility] Review of Systems - Review of Systems Respiratory: negative: Cough, Dry, Shortness of Breath, Hemoptysis, SOB with Excertion, Pleuritic Pain, Sputum, Wheezing Cardiovascular: negative: chest pain, palpitations, orthopnea, paroxysmal nocturnal dyspnea, edema, light headedness, other - Medications/Allergies Allergies/Adverse Reactions: Allergies Allergy/AdvReac Type Severity Reaction Status Date / Time meperidine HCl [From Demerol] Allergy Verified 04/25/18 01:04 Medications: Current Medications Acetaminophen (Tylenol) 650 mg PO Q4H PRN PRN Reason: Headache/Fever/Mild Pain (1-3) Last Admin: 08/18/18 12:01 Dose: 650 mg Acetaminophen (Tylenol) 650 mg PO TID [facility] Last Admin: 08/20/18 15:06 Dose: 650 mg Albumin Human (Albumin 25%) 25 gm IVPB Q6HR [facility] Stop: 08/22/18 06:01 Last Admin: 08/20/18 14:11 Dose: 25 gm Albuterol/Ipratropium (Duoneb) 3 ml NEB Q4H PRN PRN Reason: SOB &/or Wheezing Aspirin (Aspirin Chewable) 81 mg PO DAILY [facility] Last Admin: 08/20/18 15:04 Dose: 81 mg Atorvastatin Calcium (Lipitor) 10 mg PO HS [facility] Last Admin: 08/19/18 22:16 Dose: 10 mg Bisacodyl (Dulcolax) 10 mg VA Q12H PRN PRN Reason: Constipation Calcium Acetate (Phoslo) 2,001 mg PO TID-[facility] Last Admin: 08/20/18 15:06 Dose: 2,001 mg Calcium Carbonate (Tums) 500 mg PO DAILYPRN PRN PRN Reason: INDIGESTION Last Admin: 08/20/18 15:06 Dose: 500 mg Dextrose/Water (Dextrose 50%) 25 gm SLOW IVP PRN PRN PRN Reason: Hypoglycemia Epoetin Shamir (Procrit) 7,500 units SC Q7D [facility] Last Admin: 08/18/18 12:01 Dose: 7,500 units Famotidine (Pepcid) 20 mg PO QPM [facility] Last Admin: 08/19/18 22:16 Dose: 20 mg Gabapentin (Neurontin) 300 mg PO BID [facility] Last Admin: 08/20/18 15:04 Dose: 300 mg Glucagon (Glucagon) 1 mg IM PRN PRN PRN Reason: Hypoglycemia Guaifenesin (Robitussin Sf) 15 mg PO Q4H PRN PRN Reason: Cough Guaifenesin (Mucinex) 600 mg PO Q12HR [facility] Last Admin: 08/20/18 15:04 Dose: 600 mg Heparin Sodium (Porcine) (Heparin Lock Flush 100 Units/Ml) 500 units IVF Q12HR [facility] Last Admin: 08/20/18 14:45 Dose: Not Given Heparin Sodium (Porcine) (Heparin Lock Flush 100 Units/Ml) 500 units IVF PRN PRN PRN Reason: Heparin Flush Last Admin: 08/16/18 04:33 Dose: 500 unit Heparin Sodium (Porcine) (Heparin) 5,000 units SC TID [facility] Last Admin: 08/20/18 14:46 Dose: 5,000 units Dextrose/Water (D5w) 1,000 mls @ 0 mls/hr IV .Q0M PRN PRN Reason: Hypoglycemia Insulin Glargine 15 units/ (Miscellaneous Medication) 0.15 mls @ 0 mls/hr SC HS [facility] Last Admin: 08/19/18 22:15 Dose: 0.15 mls Vancomycin HCl 1.5 gm/ Sodium (Chloride) 300 mls @ 200 mls/hr IVPB WILLCALL [facility] Vancomycin HCl 1.25 gm/ Sodium (Chloride) 250 mls @ 166.667 mls/hr IVPB WILLCALL [facility] Last Admin: 08/20/18 11:41 Dose: 250 mls Vancomycin HCl 1 gm/ Device 200 mls @ 200 mls[facility] Vancomycin HCl 750 mg/ Sodium (Chloride) 250 mls @ 250 mls/hr IVPB WILLCALL [facility] Last Admin: 08/18/18 12:49 Dose: 250 mls Piperacillin Sod/Tazobactam (Sod 2.25 gm/ Sodium Chloride) 100 mls @ 200 mls/ hr IVPB 0100,1300 [facility] Last Admin: 08/20/18 15:37 Dose: 100 mls Insulin Human Regular (Humulin R) 0 units SC .MILD SLIDING SCALE PRN PRN Reason: Mild Correctional Scale Last Admin: 08/16/18 12:00 Dose: 2 unit Levetiracetam (Keppra Oral Solution) 250 mg PO BID [facility] Last Admin: 08/20/18 15:04 Dose: 250 mg Miscellaneous Information (Communication Order-Pharmacy) 0 each FS ASDIR [facility] Miscellaneous Medication (Pharmacy To Dose) 1 each IVPB PRN PRN PRN Reason: Pharmacy to dose Hold Vancomycin For (Level >20) 0 each FS .AT DIALYSIS [facility] Nystatin (Mycostatin Powder) 0 gm TOP QID PRN PRN Reason: Topical Irritations Last Admin: 08/18/18 22:17 Dose: 1 applic Ondansetron HCl (Zofran) 4 mg SLOW IVP Q6H PRN PRN Reason: Nausea/Vomiting Last Admin: 08/18/18 12:02 Dose: 4 mg Polyethylene Glycol (Miralax) 17 gm PO BID [facility] Last Admin: 08/20/18 15:02 Dose: Not Given Sertraline HCl (Zoloft) 50 mg PO DAILY [facility] Last Admin: 08/20/18 15:05 Dose: 50 mg Sodium Chloride (Flush - Normal Saline) 10 ml IVF Q12H PRN PRN Reason: Saline Flush Last Admin: 08/19/18 04:28 Dose: 10 ml Sodium Chloride (Flush - Normal Saline) 10 ml IVF PRN PRN PRN Reason: Saline Flush Last Admin: 08/15/18 21:00 Dose: 10 ml Tramadol HCl (Ultram) 50 mg PO Q6H PRN PRN Reason: Pain 4-6 Last Admin: 08/20/18 11:18 Dose: 50 mg Zinc Acetate/Diphenhydramine (Benadryl 2% Cream) 0 gm TOP BIDPRN PRN PRN Reason: SKIN Last Admin: 08/18/18 04:46 Dose: 1 applic
[2018-08-20] MEDS: Insulin Glargine 15 UNITS in Pre-Filled Syringe 1 EACH SC SCH (21:51)
[2018-08-20] MEDS: Famotidine 20 MG TAB PO SCH (21:51)
[2018-08-20] MEDS: Atorvastatin Calcium 10 MG TAB PO SCH (21:51)
[2018-08-20] MEDS: Apixaban 2.5 MG TAB PO SCH (22:18)
[2018-08-21] MEDS: Albumin 25% 25 GM/100 ML BOT IVPB SCH ×5 (01:27→21:53)
[2018-08-21 05:32] LABS: #Eosinphils 0.2 thou/uL (0.0-0.7); #Monocytes 0.6 thou/uL (0.11-0.59); #Neutrophils 6.3 thou/uL (1.40-6.50); %Basophils 0.4 % (0.0-1.0); %Eosinophils 2.4 % (0.0-10.0); %Lymphocytes 11.7 % (21.0-51.0); %Monocytes 7.3 % (0.0-10.0); %Neutrophils 78.3 % (42.0-75.0); Hemoglobin 8.2 g/dL (14.0-18.0); Mean Corpuscular HGB CONC 30.4 g/dL (32.0-36.0); Mean Corpuscular Hemoglobin 30.6 pg (27.0-31.0); Mean Platelet Volume 9.5 fL (7.4-10.4); Platelet Count 99 thou/uL (130-400); RBC Distribution Width 16.8 % (11.5-14.5); Red Blood Cell (RBC) Count 2.66 mill/uL (4.70-6.10); White Blood Cell (WBC) Count 8.1 thou/uL (4.8-10.8)
[2018-08-21 05:41] LABS: Anion Gap 17 mmol/L (10-20); BUN (Urea Nitrogen) 19 mg/dL (8.4-25.7); Calc. Creatinine Clearance 30 mL/min (70-130); Calcium 9.2 mg/dL (7.8-10.44); Carbon Dioxide 25 mmol/L (22-29); Chloride 97 mmol/L (98-107); Estimated GFR-MDRD 18; Glucose 110 mg/dL (70-105); Potassium 3.7 mmol/L (3.5-5.1); Sodium 135 mmol/L (136-145)
[2018-08-21] MEDS: levETIRAcetam 500 mg/5 ml Oral Solution PO SCH ×2 (10:03→22:09)
[2018-08-21] MEDS: Apixaban 2.5 MG TAB PO SCH ×2 (10:04→22:09)
[2018-08-21] MEDS: Acetaminophen 325 MG TAB PO SCH ×3 (10:05→21:54)
[2018-08-21] MEDS: guaiFENesin ER 600 MG TAB PO SCH ×2 (10:05→21:55)
[2018-08-21] MEDS: Calcium Acetate 667 MG CAP PO SCH ×3 (10:06→19:10)
[2018-08-21] MEDS: Gabapentin 300 MG CAP PO SCH ×2 (10:06→21:55)
[2018-08-21] MEDS: Polyethylene Glycol 3350 17 GM Packet PO SCH ×2 (10:07→21:56)
--- NOTE | 2018-08-21 14:04 | PDOC.CTH ---
<Kaleigh Velazquez - Last Filed: 08/21/18 14:04> Cardiology Progress Note - Subjective The pt seen and examined. No overnight events. No cardiac complaints. - Objective Vital Signs Temp Pulse Pulse Pulse Pulse Resp BP 08/21/18 08:57 95 97 93 100/60 08/21/18 07:56 97.5 F L 90 16 08/21/18 04:00 97.5 F L 89 20 BP BP BP Pulse Ox 08/21/18 08:57 114/86 92/58 L 08/21/18 07:56 94/67 91 L 08/21/18 04:00 88/57 L 97 Admit Weight 224 lb 14.4 oz Weight 205 lb 4.8 oz 08/20/18 08/21/18 08/22/18 06:59 06:59 06:59 Intake Total 964 600 Output Total 100 Balance 864 600 - Physical Examination General/Neuro: alert & oriented x3 Neck: no JVD present Lungs: CTA Heart: RRR Abdomen: soft Extremities: other: (BLE discoloration; huge hematoma to LUE with SHABBIR wrap) - Telemetry Telemetry Rhythm: SR - Labs Result Diagrams: 08/21/18 04:52 08/21/18 04:52 Troponin/CKMB CK-MB (CK-2) 6.5 ng/mL (0-6.6) 08/08/18 19:09 Troponin I 6.552 ng/mL (< 0.028) H* 08/19/18 09:07 - Assessment/Plan 1. New onset seizures - stable with Keppra; managed by PCP 2. Acute on Chronic combined HF with worsening LV dysfunction (EF at 25%) - On LifeVest; 3. Hx of AVR and CABG x 1 - stable; On ASA and statin; but not on BBlocker or SHABBIR/ARB due to hyptensive; cont. to monitor 4. Non sustained SVTs - stable 5. ESRD with HD on , Fri - managed by Dr Hargrove 6. Hypotension - stable after ablumin was given 7. BLE DVTs - on Eliquis 2.5mg BID; * From Cardiac standpoint, the pt is stable to tx to NH with LifeVest. The pt will f/u with Dr Kirkland's office within 2-4 wks. Review of Systems - Review of Systems Constitutional: reports: no symptoms reported EENTM: reports: no symptoms reported Respiratory: reports: no symptoms reported Cardiac (ROS): reports: no symptoms reported ABD/GI: reports: no symptoms reported : reports: no symptoms reported Musculoskeletal: reports: no symptoms reported <Chyna Marie - Last Filed: 08/21/18 20:04> Cardiology Progress Note - Objective Vital Signs Temp Pulse Pulse Pulse Pulse Resp BP 08/21/18 15:54 97.7 F 92 16 08/21/18 10:39 98 97 95 109/81 08/21/18 08:57 95 97 93 100/60 BP BP BP Pulse Ox 08/21/18 15:54 95/68 96 08/21/18 10:39 104/72 84/60 L 08/21/18 08:57 114/86 92/58 L Admit Weight 224 lb 14.4 oz Weight 205 lb 4.8 oz 08/20/18 08/21/18 08/22/18 06:59 06:59 06:59 Intake Total 964 600 Output Total 100 Balance 864 600 - Labs Result Diagrams: 08/21/18 04:52 08/21/18 04:52 Troponin/CKMB CK-MB (CK-2) 6.5 ng/mL (0-6.6) 08/08/18 19:09 Troponin I 6.552 ng/mL (< 0.028) H* 08/19/18 09:07 - Assessment/Plan pt. seen and eval. by me.I agree with the A/P by the STRATEGIC PLANNING DIRECTOR. Multiple medical problems. Chest clear. RRR.
[2018-08-21] MEDS ORDERED: Albumin 25% 25 GM/100 ML BOT IVPB ONE (15:00)
--- NOTE | 2018-08-21 16:45 | PRG ---
DATE OF SERVICE: 08/21/2018 SUBJECTIVE: Mr. Fontana is a 58-year-old white male with ESRD and followed up by the Renal Service fo r his maintenance hemodialysis. In the interim, he had a revision of his AV fistula. Furthermore, chichi gonzalez has been started on anticoagulation. He voices no other complaints today. He is in the last few d ays developed hypotension, but he was given volume resuscitation. We still will be giving him salt p oor albumin. No complaints of chest pain, shortness of breath. OBJECTIVE: VITAL SIGNS: Blood pressure 95/68, heart rate 92, respiratory rate 16, temperature 97.7, pulse ox 96 %. GENERAL: Awake, alert, comfortable, not in distress. SKIN: Adequate turgor. HEENT: Pinkish conjunctivae, anicteric sclerae. NECK: No neck mass, no carotid bruits, no JVD. CHEST: No deformities. LUNGS: Clear breath sounds, no wheezing, no crackles. HEART: Normal sinus rhythm. No murmur, no gallops, no rubs. ABDOMEN: Globular, soft, nontender, no masses. EXTREMITIES: No edema, no deformities. MEDICATIONS: Of 08/21/2018 reviewed. LABORATORY: Of 08/21/2008: White count 8.1, hemoglobin 8.2. Sodium 135, potassium 3.7, chloride 97 , carbon dioxide 25, BUN 19, creatinine 3.47, glucose 110, calcium 9.2. ASSESSMENT AND PLAN: 1. End-stage renal disease, stable. Continue current hemodialysis regimen. The patient is schedule d for 3 times a week dialysis. We will continue the dialysis in a.m. No new complaints today. 2. Deep venous thrombosis: The patient to be started with anticoagulation, consider Eliquis 2.5 mg b.i.d. 3. Nonfunctional AV fistula -- surgical revision has been done by Dr. Ding. He has a temporary di alysis catheter. 3. Seizure disorder, on Keppra 250 mg p.o. b.i.d. 4. Anemia, on weekly Epogen.
[2018-08-21] MEDS: Atorvastatin Calcium 10 MG TAB PO SCH (21:54)
[2018-08-21] MEDS: Insulin Glargine 15 UNITS in Pre-Filled Syringe 1 EACH SC SCH (21:55)
[2018-08-21] MEDS: Famotidine 20 MG TAB PO SCH (21:55)
[2018-08-21] MEDS: Insulin Regular 300 UNITS/3 ML VIAL SC PRN (22:15)
--- NOTE | 2018-08-21 22:37 | PDOC.PN ---
- Subjective Encounter Start Date: 08/21/18 Encounter Start Time: 11:00 Patient seen and examined for Seizure/DVT and other issues. Feels weak. No new complaints. No overnight events - Objective Resuscitation Status: Resuscitation Status FULL:Full Resuscitation MAR Reviewed: Yes Vital Signs & Weight: Vital Signs (12 hours) Temp Pulse Pulse Pulse Pulse Resp BP 08/21/18 15:54 97.7 F 92 16 08/21/18 10:39 98 97 95 109/81 BP BP BP Pulse Ox 08/21/18 15:54 95/68 96 08/21/18 10:39 104/72 84/60 L Weight Admit Weight 224 lb 14.4 oz Weight 205 lb 4.8 oz Most Recent Monitor Data Heart Rate from ECG 91 NIBP 110/67 NIBP BP-Mean 81 Respiration from ECG 21 SpO2 99 I&O: 08/20/18 08/21/18 08/22/18 06:59 06:59 06:59 Intake Total 964 600 Output Total 100 Balance 864 600 Result Diagrams: 08/22/18 05:09 08/22/18 05:09 Additional Labs: Accuchecks 08/21/18 08/21/18 08/21/18 20:36 16:46 10:40 POC Glucose 313 H 171 H 184 H 08/21/18 06:52 POC Glucose 120 H EKG Reviewed by me: Yes (Tele SR) Phys Exam - Physical Examination Constitutional: NAD Respiratory: no wheezing, no rhonchi Cardiovascular: RRR, no rub Gastrointestinal: soft, non-tender, positive bowel sounds Musculoskeletal: no edema Neurological: moves all 4 limbs Dx/Plan - Plan DVT proph w/SCDs IMPRESSION: 1. New onset seizures - started on Keppra 2. Chronic systolic/diastolic HF - EF at 25% 3. Elevated troponins due to demand ischemia/Hypotension 4. CAD s/p CABG x 1 / Ischemic CM/ s/p AVR /Non sustained SVT 5. B/L LE DVT - on Eliquis 6. ESRD on dialsysis 7. Hypotension - improved with IVF and Albumin 8. Thrombocytopenia PLAN: No ACEI/ARB/BB due to hypotension. Cont current meds as below Dialysis per [facility] arranged Await placement Review of Systems - Review of Systems Respiratory: negative: Cough, Dry, Shortness of Breath, Hemoptysis, SOB with Excertion, Pleuritic Pain, Sputum, Wheezing Cardiovascular: negative: chest pain, palpitations, orthopnea, paroxysmal nocturnal dyspnea, edema, light headedness, other - Medications/Allergies Allergies/Adverse Reactions: Allergies Allergy/AdvReac Type Severity Reaction Status Date / Time meperidine HCl [From Demerol] Allergy Verified 04/25/18 01:04 Medications: Current Medications Acetaminophen (Tylenol) 650 mg PO Q4H PRN PRN Reason: Headache/Fever/Mild Pain (1-3) Last Admin: 08/18/18 12:01 Dose: 650 mg Acetaminophen (Tylenol) 650 mg PO TID [facility] Last Admin: 08/21/18 21:54 Dose: 650 mg Albumin Human (Albumin 25%) 25 gm IVPB Q6HR [facility] Stop: 08/22/18 06:01 Last Admin: 08/21/18 21:53 Dose: Not Given Albuterol/Ipratropium (Duoneb) 3 ml NEB Q4H PRN PRN Reason: SOB &/or Wheezing Apixaban (Eliquis) 2.5 mg PO BID [facility] Last Admin: 08/21/18 22:09 Dose: 2.5 mg Aspirin (Aspirin Chewable) 81 mg PO DAILY [facility] Last Admin: 08/21/18 10:05 Dose: 81 mg Atorvastatin Calcium (Lipitor) 10 mg PO HS [facility] Last Admin: 08/21/18 21:54 Dose: 10 mg Bisacodyl (Dulcolax) 10 mg VA Q12H PRN PRN Reason: Constipation Calcium Acetate (Phoslo) 2,001 mg PO TID-[facility] Last Admin: 08/21/18 19:10 Dose: 2,001 mg Calcium Carbonate (Tums) 500 mg PO DAILYPRN PRN PRN Reason: INDIGESTION Last Admin: 08/20/18 15:06 Dose: 500 mg Dextrose/Water (Dextrose 50%) 25 gm SLOW IVP PRN PRN PRN Reason: Hypoglycemia Epoetin Shamir (Procrit) 7,500 units SC Q7D [facility] Last Admin: 08/18/18 12:01 Dose: 7,500 units Famotidine (Pepcid) 20 mg PO QPM [facility] Last Admin: 08/21/18 21:55 Dose: 20 mg Gabapentin (Neurontin) 300 mg PO BID [facility] Last Admin: 08/21/18 21:55 Dose: 300 mg Glucagon (Glucagon) 1 mg IM PRN PRN PRN Reason: Hypoglycemia Guaifenesin (Robitussin Sf) 15 mg PO Q4H PRN PRN Reason: Cough Guaifenesin (Mucinex) 600 mg PO Q12HR [facility] Last Admin: 08/21/18 21:55 Dose: 600 mg Heparin Sodium (Porcine) (Heparin Lock Flush 100 Units/Ml) 500 units IVF Q12HR [facility] Last Admin: 08/21/18 21:55 Dose: Not Given Heparin Sodium (Porcine) (Heparin Lock Flush 100 Units/Ml) 500 units IVF PRN PRN PRN Reason: Heparin Flush Last Admin: 08/16/18 04:33 Dose: 500 unit Dextrose/Water (D5w) 1,000 mls @ 0 mls/hr IV .Q0M PRN PRN Reason: Hypoglycemia Insulin Glargine 15 units/ (Miscellaneous Medication) 0.15 mls @ 0 mls/hr SC [facility] Last Admin: 08/21/18 21:55 Dose: 0.15 mls Insulin Human Regular (Humulin R) 0 units SC .MILD SLIDING SCALE PRN PRN Reason: Mild Correctional Scale Last Admin: 08/21/18 22:15 Dose: 5 unit Levetiracetam (Keppra Oral Solution) 250 mg PO BID [facility] Last Admin: 08/21/18 22:09 Dose: 250 mg Miscellaneous Information (Communication Order-Pharmacy) 0 each FS ASDIR [facility] Nystatin (Mycostatin Powder) 0 gm TOP QID PRN PRN Reason: Topical Irritations Last Admin: 08/18/18 22:17 Dose: 1 applic Ondansetron HCl (Zofran) 4 mg SLOW IVP Q6H PRN PRN Reason: Nausea/Vomiting Last Admin: 08/18/18 12:02 Dose: 4 mg Polyethylene Glycol (Miralax) 17 gm PO BID [facility] Last Admin: 08/21/18 21:56 Dose: Not Given Sertraline HCl (Zoloft) 50 mg PO DAILY [facility] Last Admin: 08/21/18 10:06 Dose: 50 mg Sodium Chloride (Flush - Normal Saline) 10 ml IVF Q12H PRN PRN Reason: Saline Flush Last Admin: 08/19/18 04:28 Dose: 10 ml Sodium Chloride (Flush - Normal Saline) 10 ml IVF PRN PRN PRN Reason: Saline Flush Last Admin: 08/15/18 21:00 Dose: 10 ml Tramadol HCl (Ultram) 50 mg PO Q6H PRN PRN Reason: Pain 4-6 Last Admin: 08/20/18 11:18 Dose: 50 mg Zinc Acetate/Diphenhydramine (Benadryl 2% Cream) 0 gm TOP BIDPRN PRN PRN Reason: SKIN Last Admin: 08/18/18 04:46 Dose: 1 applic
[2018-08-22] MEDS: Albumin 25% 25 GM/100 ML BOT IVPB SCH ×2 (00:11→06:04)
[2018-08-22 05:36] LABS: Anion Gap 17 mmol/L (10-20); BUN (Urea Nitrogen) 29 mg/dL (8.4-25.7); Calc. Creatinine Clearance 22 mL/min (70-130); Calcium 9.4 mg/dL (7.8-10.44); Carbon Dioxide 22 mmol/L (22-29); Chloride 96 mmol/L (98-107); Estimated GFR-MDRD 12; Glucose 117 mg/dL (70-105); Potassium 3.9 mmol/L (3.5-5.1); Sodium 131 mmol/L (136-145)
[2018-08-22 05:38] LABS: #Eosinphils 0.2 thou/uL (0.0-0.7); #Lymphocytes 1.2 thou/uL (1.20-3.40); #Monocytes 0.9 thou/uL (0.11-0.59); #Neutrophils 8.9 thou/uL (1.40-6.50); %Basophils 0.1 % (0.0-1.0); %Lymphocytes 10.6 % (21.0-51.0); %Monocytes 8.1 % (0.0-10.0); %Neutrophils 79.2 % (42.0-75.0); Hemoglobin 8.9 g/dL (14.0-18.0); Mean Corpuscular HGB CONC 30.9 g/dL (32.0-36.0); Mean Corpuscular Hemoglobin 31.8 pg (27.0-31.0); Mean Platelet Volume 9.6 fL (7.4-10.4); Platelet Count 111 thou/uL (130-400); RBC Distribution Width 17.1 % (11.5-14.5); Red Blood Cell (RBC) Count 2.81 mill/uL (4.70-6.10); White Blood Cell (WBC) Count 11.2 thou/uL (4.8-10.8)
[2018-08-22] MEDS: Calcium Acetate 667 MG CAP PO SCH ×3 (10:54→17:03)
[2018-08-22] MEDS: Acetaminophen 325 MG TAB PO SCH ×3 (10:54→22:12)
[2018-08-22] MEDS: Polyethylene Glycol 3350 17 GM Packet PO SCH ×2 (10:55→23:09)
--- NOTE | 2018-08-22 11:55 | PRG ---
DATE OF SERVICE: 08/22/2018 SERVICE: Renal Medicine. SUBJECTIVE: Mr. Fontana is a 58-year-old white male with ESRD and being followed by the Renal Service for his maintenance hemodialysis. He is currently being dialyzed today. He has no new complaints. No chest pain or shortness of breath. OBJECTIVE: VITAL SIGNS: Blood pressure is 119/70, heart rate 91, respiratory rate 17, temperature 97.7, pulse o x 100%. GENERAL EXAM: Noted to be awake, alert, comfortable, not in distress SKIN: Adequate turgor. HEENT: He has slightly pale conjunctivae, anicteric sclerae. NECK: No neck mass, no carotid bruits, no JVD. CHEST: No deformities. LUNGS: Clear breath sounds. No wheezing, no crackles. HEART: Normal sinus rhythm. No murmur, no gallops, no rubs. ABDOMEN: Globular, soft, nontender, no masses. EXTREMITIES: No edema, no deformities. Medications of 08/22/2018 reviewed. LABORATORY DATA: Laboratories of 08/22/2018, white count 11.2, hemoglobin 8.9. Sodium 131, potassiu m 3.9, chloride 96, carbon dioxide 22, BUN 29, creatinine 4.82, glucose 117, calcium 9.4. ASSESSMENT AND PLAN: 1. End-stage renal disease, stable. Fluid removal only as tolerated. Continue current hemodialysis regimen of Friday, , and Friday. No changes will be made with the current dialysis regim en. 2. Anemia, continuing weekly Epogen. 3. Nonfunctioning arteriovenous fistula - recently had a surgical revision. Currently, with a cuffe d dialysis catheter. Agree with current management.
--- NOTE | 2018-08-22 13:07 | PDOC.CTH ---
<Kaleigh Velazquez - Last Filed: 08/22/18 13:08> Cardiology Progress Note - Subjective The pt seen and examined. No overnight events. No cardiac complaints. He is under HD at this moment. - Objective Vital Signs Temp Pulse Resp BP Pulse Ox 08/22/18 08:50 97.7 F 91 17 119/70 97 08/22/18 03:49 97.6 F 90 16 109/60 93 L Admit Weight 224 lb 14.4 oz Weight 209 lb 11.2 oz 08/21/18 08/22/18 08/23/18 06:59 06:59 06:59 Intake Total 600 Balance 600 - Physical Examination General/Neuro: alert & oriented x3 Neck: no JVD present Lungs: other: (diminished at bases) Heart: RRR Abdomen: soft Extremities: other: (No edema) - Telemetry Telemetry Rhythm: SR 90s - Labs Result Diagrams: 08/22/18 05:09 08/22/18 05:09 Troponin/CKMB CK-MB (CK-2) 6.5 ng/mL (0-6.6) 08/08/18 19:09 Troponin I 6.552 ng/mL (< 0.028) H* 08/19/18 09:07 - Assessment/Plan 1. New onset seizures - stable with Keppra; managed by PCP 2. Acute on Chronic combined HF with worsening LV dysfunction (EF at 25%) - On LifeVest; 3. Hx of AVR and CABG x 1 - stable; On ASA and statin; but not on BBlocker or SHABBIR/ARB due to hypotensive; cont. to monitor 4. Non sustained SVTs - stable 5. ESRD with HD on , Fri - managed by Dr Hargrove 6. Hypotension - stable after ablumin was given 7. BLE DVTs - on Eliquis 2.5mg BID; * From Cardiac standpoint, the pt is stable to tx to NH with LifeVest. The pt will f/u with Dr Kirkland's office within 2-4 wks. Review of Systems - Review of Systems Constitutional: reports: no symptoms reported EENTM: reports: no symptoms reported Respiratory: reports: no symptoms reported Cardiac (ROS): reports: no symptoms reported ABD/GI: reports: no symptoms reported : reports: no symptoms reported Musculoskeletal: reports: no symptoms reported <Chyna Marie - Last Filed: 08/23/18 00:00> Cardiology Progress Note - Objective Vital Signs Temp Pulse Resp BP Pulse Ox 08/22/18 20:40 98.2 F 99 20 102/60 98 08/22/18 17:00 98.4 F 91 19 119/72 95 08/22/18 14:18 94 17 123/66 98 08/22/18 13:41 98.2 F 94 19 123/66 98 Admit Weight 224 lb 14.4 oz Weight 209 lb 11.2 oz 08/21/18 08/22/18 08/23/18 06:59 06:59 06:59 Intake Total 600 Balance 600 - Labs Result Diagrams: 08/22/18 05:09 08/22/18 05:09 Troponin/CKMB CK-MB (CK-2) 6.5 ng/mL (0-6.6) 08/08/18 19:09 Troponin I 6.552 ng/mL (< 0.028) H* 08/19/18 09:07 - Assessment/Plan Pt. seen and evaluated by me. I agree with the A/P by the IT OPERATIONS MANAGER. We have discussed the pt. and the plan.Chest clear RRR.
[2018-08-22] MEDS: Apixaban 2.5 MG TAB PO SCH ×2 (13:43→22:10)
[2018-08-22] MEDS: Gabapentin 300 MG CAP PO SCH ×2 (13:43→22:12)
[2018-08-22] MEDS: guaiFENesin ER 600 MG TAB PO SCH ×2 (13:43→22:12)
[2018-08-22] MEDS: levETIRAcetam 500 mg/5 ml Oral Solution PO SCH ×2 (13:44→22:13)
--- NOTE | 2018-08-22 19:44 | PDOC.PN ---
- Subjective Encounter Start Date: 08/22/18 Encounter Start Time: 11:00 Patient seen and examined during dialysis. No new complaints. No overnight events - Objective Resuscitation Status: Resuscitation Status FULL:Full Resuscitation MAR Reviewed: Yes Vital Signs & Weight: Vital Signs (12 hours) Temp Pulse Resp BP Pulse Ox 08/22/18 17:00 98.4 F 91 19 119/72 95 08/22/18 14:18 94 17 123/66 98 08/22/18 13:41 98.2 F 94 19 123/66 98 08/22/18 08:50 97.7 F 91 17 119/70 97 Weight Admit Weight 224 lb 14.4 oz Weight 209 lb 11.2 oz Most Recent Monitor Data Heart Rate from ECG 91 NIBP 110/67 NIBP BP-Mean 81 Respiration from ECG 21 SpO2 99 I&O: 08/21/18 08/22/18 08/23/18 06:59 06:59 06:59 Intake Total 600 Balance 600 Result Diagrams: 08/22/18 05:09 08/22/18 05:09 Additional Labs: Accuchecks 08/22/18 08/22/18 08/22/18 16:44 12:07 05:15 POC Glucose 127 H 102 113 H 08/21/18 20:36 POC Glucose 313 H EKG Reviewed by me: Yes (Tele SR) Phys Exam - Physical Examination Constitutional: NAD Respiratory: no wheezing, no rhonchi Cardiovascular: RRR, no rub Gastrointestinal: soft, positive bowel sounds Musculoskeletal: no edema Dx/Plan - Plan IMPRESSION: 1. New onset seizures - started on Keppra 2. Chronic systolic/diastolic HF - EF at 25% - Lifevest arranged 3. Elevated troponins due to demand ischemia 4. CAD s/p CABG x 1 / Ischemic CM / s/p AVR /Non sustained SVT 5. B/L LE DVT - on Eliquis 6. ESRD on dialsysis TTS 7. Hypotension - improved with IVF and Albumin 8. Thrombocytopenia PLAN: Cont current meds as below No ACEI/ARB/BB due to hypotension. Dialysis per Nephro Await placement Stable for dc Review of Systems - Review of Systems Respiratory: negative: Cough, Dry, Shortness of Breath, Hemoptysis, SOB with Excertion, Pleuritic Pain, Sputum, Wheezing Cardiovascular: negative: chest pain, palpitations, orthopnea, paroxysmal nocturnal dyspnea, edema, light headedness, other - Medications/Allergies Allergies/Adverse Reactions: Allergies Allergy/AdvReac Type Severity Reaction Status Date / Time meperidine HCl [From Demerol] Allergy Verified 04/25/18 01:04 Medications: Current Medications Acetaminophen (Tylenol) 650 mg PO Q4H PRN PRN Reason: Headache/Fever/Mild Pain (1-3) Last Admin: 08/18/18 12:01 Dose: 650 mg Acetaminophen (Tylenol) 650 mg PO TID [facility] Last Admin: 08/22/18 15:00 Dose: 650 mg Albuterol/Ipratropium (Duoneb) 3 ml NEB Q4H PRN PRN Reason: SOB &/or Wheezing Apixaban (Eliquis) 2.5 mg PO BID [facility] Last Admin: 08/22/18 13:43 Dose: 2.5 mg Aspirin (Aspirin Chewable) 81 mg PO DAILY [facility] Last Admin: 08/22/18 13:43 Dose: 81 mg Atorvastatin Calcium (Lipitor) 10 mg PO HS [facility] Last Admin: 08/21/18 21:54 Dose: 10 mg Bisacodyl (Dulcolax) 10 mg DC Q12H PRN PRN Reason: Constipation Calcium Acetate (Phoslo) 2,001 mg PO TID-[facility] Last Admin: 08/22/18 17:03 Dose: 2,001 mg Calcium Carbonate (Tums) 500 mg PO DAILYPRN PRN PRN Reason: INDIGESTION Last Admin: 08/20/18 15:06 Dose: 500 mg Dextrose/Water (Dextrose 50%) 25 gm SLOW IVP PRN PRN PRN Reason: Hypoglycemia Epoetin Shamir (Procrit) 7,500 units SC Q7D [facility] Last Admin: 08/18/18 12:01 Dose: 7,500 units Famotidine (Pepcid) 20 mg PO QPM [facility] Last Admin: 08/21/18 21:55 Dose: 20 mg Gabapentin (Neurontin) 300 mg PO BID [facility] Last Admin: 08/22/18 13:43 Dose: Not Given Glucagon (Glucagon) 1 mg IM PRN PRN PRN Reason: Hypoglycemia Guaifenesin (Robitussin Sf) 15 mg PO Q4H PRN PRN Reason: Cough Guaifenesin (Mucinex) 600 mg PO Q12HR [facility] Last Admin: 08/22/18 13:43 Dose: Not Given Heparin Sodium (Porcine) (Heparin Lock Flush 100 Units/Ml) 500 units IVF Q12HR [facility] Last Admin: 08/22/18 10:55 Dose: Not Given Heparin Sodium (Porcine) (Heparin Lock Flush 100 Units/Ml) 500 units IVF PRN PRN PRN Reason: Heparin Flush Last Admin: 08/16/18 04:33 Dose: 500 unit Dextrose/Water (D5w) 1,000 mls @ 0 mls/hr IV .Q0M PRN PRN Reason: Hypoglycemia Insulin Glargine 15 units/ (Miscellaneous Medication) 0.15 mls @ 0 mls/hr SC HS [facility] Last Admin: 08/21/18 21:55 Dose: 0.15 mls Insulin Human Regular (Humulin R) 0 units SC .MILD SLIDING SCALE PRN PRN Reason: Mild Correctional Scale Last Admin: 08/21/18 22:15 Dose: 5 unit Levetiracetam (Keppra Oral Solution) 250 mg PO BID [facility] Last Admin: 08/22/18 13:44 Dose: 250 mg Miscellaneous Information (Communication Order-Pharmacy) 0 each FS ASDIR [facility] Nystatin (Mycostatin Powder) 0 gm TOP QID PRN PRN Reason: Topical Irritations Last Admin: 08/18/18 22:17 Dose: 1 applic Ondansetron HCl (Zofran) 4 mg SLOW IVP Q6H PRN PRN Reason: Nausea/Vomiting Last Admin: 08/18/18 12:02 Dose: 4 mg Polyethylene Glycol (Miralax) 17 gm PO BID [facility] Last Admin: 08/22/18 10:55 Dose: Not Given Sertraline HCl (Zoloft) 50 mg PO DAILY [facility] Last Admin: 08/22/18 13:45 Dose: 50 mg Sodium Chloride (Flush - Normal Saline) 10 ml IVF Q12H PRN PRN Reason: Saline Flush Last Admin: 08/19/18 04:28 Dose: 10 ml Sodium Chloride (Flush - Normal Saline) 10 ml IVF PRN PRN PRN Reason: Saline Flush Last Admin: 08/22/18 00:16 Dose: 10 ml Tramadol HCl (Ultram) 50 mg PO Q6H PRN PRN Reason: Pain 4-6 Last Admin: 08/20/18 11:18 Dose: 50 mg Zinc Acetate/Diphenhydramine (Benadryl 2% Cream) 0 gm TOP BIDPRN PRN PRN Reason: SKIN Last Admin: 08/18/18 04:46 Dose: 1 applic
[2018-08-22] MEDS: Atorvastatin Calcium 10 MG TAB PO SCH (22:12)
[2018-08-22] MEDS: Famotidine 20 MG TAB PO SCH (22:12)
[2018-08-22] MEDS: traMADol HCl 50 MG TAB PO PRN (22:20)
[2018-08-22] MEDS: Insulin Glargine 15 UNITS in Pre-Filled Syringe 1 EACH SC SCH (22:27)
[2018-08-23 06:25] LABS: #Eosinphils 0.2 thou/uL (0.0-0.7); #Lymphocytes 1.1 thou/uL (1.20-3.40); #Monocytes 0.8 thou/uL (0.11-0.59); #Neutrophils 9.5 thou/uL (1.40-6.50); %Eosinophils 1.5 % (0.0-10.0); %Lymphocytes 9.2 % (21.0-51.0); %Monocytes 7.1 % (0.0-10.0); %Neutrophils 82.2 % (42.0-75.0); Hemoglobin 8.9 g/dL (14.0-18.0); Mean Corpuscular HGB CONC 31.2 g/dL (32.0-36.0); Mean Corpuscular Hemoglobin 31.6 pg (27.0-31.0); Mean Platelet Volume 9.4 fL (7.4-10.4); Platelet Count 140 thou/uL (130-400); RBC Distribution Width 17.8 % (11.5-14.5); Red Blood Cell (RBC) Count 2.82 mill/uL (4.70-6.10); White Blood Cell (WBC) Count 11.6 thou/uL (4.8-10.8)
[2018-08-23 06:38] LABS: Anion Gap 19 mmol/L (10-20); BUN (Urea Nitrogen) 21 mg/dL (8.4-25.7); Calc. Creatinine Clearance 27 mL/min (70-130); Calcium 10.1 mg/dL (7.8-10.44); Carbon Dioxide 25 mmol/L (22-29); Chloride 97 mmol/L (98-107); Estimated GFR-MDRD 16; Glucose 80 mg/dL (70-105); Potassium 3.9 mmol/L (3.5-5.1); Sodium 137 mmol/L (136-145)
[2018-08-23] MEDS: Calcium Acetate 667 MG CAP PO SCH ×3 (09:34→17:46)
[2018-08-23] MEDS: Acetaminophen 325 MG TAB PO SCH ×3 (09:34→20:55)
[2018-08-23] MEDS: Apixaban 2.5 MG TAB PO SCH ×2 (09:34→20:55)
[2018-08-23] MEDS: Gabapentin 300 MG CAP PO SCH ×2 (09:35→20:55)
[2018-08-23] MEDS: Polyethylene Glycol 3350 17 GM Packet PO SCH ×2 (09:35→21:37)
[2018-08-23] MEDS: guaiFENesin ER 600 MG TAB PO SCH ×2 (09:35→20:55)
[2018-08-23] MEDS: levETIRAcetam 500 mg/5 ml Oral Solution PO SCH ×2 (09:35→20:54)
--- NOTE | 2018-08-23 10:10 | PRG ---
DATE OF SERVICE: 08/23/2018 SERVICE: Renal Medicine. SUBJECTIVE: Mr. Fontana is a 58-year-old white male with known history of end-stage renal disease fol lowed up by the Renal Service for his maintenance hemodialysis. He has undergone dialysis yesterday without any difficulty. He voices no new complaints today. In addition, he has had revision of his AV fistula in the interim. Furthermore, fisher pound net or trap evaluated him. A LifeVest is now applied to th e patient. He has been cleared from a cardiac point of view to move to the [facility]dc. He has als o been started on Eliquis for his DVT. He has also been started on Keppra for his new onset seizure. His hypertension has actually improved over time with albumin infusion. OBJECTIVE: VITAL SIGNS: Blood pressure 111/66, heart rate 101, respiratory rate 14, temperature 99.7, pulse ox 97%. GENERAL: Awake, alert, comfortable, obese, not in distress. SKIN: Adequate turgor. HEENT: He has slightly pale conjunctivae, anicteric sclerae. NECK: No neck mass, no carotid bruits, no JVD. CHEST: No deformities. LUNGS: Clear breath sounds, no wheezing, no crackles. HEART: Normal sinus rhythm. No murmur, no gallops or rubs. ABDOMEN: Globular, soft, nontender. No masses. EXTREMITIES: No edema. Left upper extremity is positive for hematoma, positive for bruit. MEDICATIONS: Of 08/23/2018 was reviewed. LABORATORY DATA: Of 08/23/2018, white count 11.6, hemoglobin 8.9. Sodium 137, potassium 3.9, chlori de 97, carbon dioxide 25, BUN 19, creatinine 3.92, glucose 80, calcium 10.1. ASSESSMENT AND PLAN: 1. End-stage renal disease, stable. Continuing current Friday, , and Friday hemodialysis regimen. No heparin use for the moment. Fluid removal only as tolerated. 2. Hypertension, resolved. 2. New onset seizure - on Keppra. 3. Anemia, currently on weekly Epogen. My plan is to increase Epogen to 10,000 units subcutaneously every week. Overall, prognosis remains guarded. Recheck base met and CBC in a.m.
[2018-08-23] MEDS ORDERED: Epoetin (ESRD) 10,000 UNITS/ML VIAL IVP SCH (11:00)
--- NOTE | 2018-08-23 13:29 | PDOC.CTH ---
<Kaleigh Velazquez - Last Filed: 08/23/18 13:29> Cardiology Progress Note - Subjective The pt seen and examined. No overnight events. No cardiac complaints. Waiting for placement. - Objective Vital Signs Temp Pulse Pulse Resp BP BP BP 08/23/18 11:46 97.1 F L 97 16 93/54 L 08/23/18 10:00 92 101/64 08/23/18 09:25 98.7 F 99 18 96/62 08/23/18 05:24 08/23/18 04:01 99.7 F H 101 H 14 111/66 Pulse Ox 08/23/18 11:46 98 08/23/18 10:00 08/23/18 09:25 98 08/23/18 05:24 97 08/23/18 04:01 97 Admit Weight 224 lb 14.4 oz Weight 205 lb 9.6 oz - Physical Examination General/Neuro: other: (intermittent confused) Lungs: CTA Heart: RRR Abdomen: soft Extremities: other: (2+ pitting BLE edema) - Telemetry Telemetry Rhythm: SR 90-100s - Labs Result Diagrams: 08/23/18 05:34 08/23/18 05:34 Troponin/CKMB CK-MB (CK-2) 6.5 ng/mL (0-6.6) 08/08/18 19:09 Troponin I 6.552 ng/mL (< 0.028) H* 08/19/18 09:07 - Assessment/Plan 1. New onset seizures - stable with Keppra; managed by PCP 2. Acute on Chronic combined HF with worsening LV dysfunction (EF at 25%) - On LifeVest; stable with Lasix; salt and fluid intake education given to the pt today. 3. Hx of AVR and CABG x 1 - stable; On ASA and statin; but not on BBlocker or SHABBIR/ARB due to hypotensive; cont. to monitor 4. Non sustained SVTs - stable 5. ESRD with HD on , Fri - managed by Dr Hargrove 6. Hypotension - stable after ablumin was given 7. BLE DVTs - on Eliquis 2.5mg BID; 8. Anemia - On Epogen, which may be increased to 1000mg by Dr Hargrove. * From Cardiac standpoint, the pt is stable to tx to [facility] with LifeVest. The pt will f/u with Dr Kirkland's office within 2-4 wks. Review of Systems - Review of Systems Constitutional: reports: no symptoms reported EENTM: reports: no symptoms reported Respiratory: reports: no symptoms reported Cardiac (ROS): reports: no symptoms reported ABD/GI: reports: no symptoms reported : reports: no symptoms reported Musculoskeletal: reports: no symptoms reported Skin: reports: no symptoms reported <Chyna Marie - Last Filed: 08/23/18 22:28> Cardiology Progress Note - Objective Vital Signs Temp Pulse Resp BP Pulse Ox 08/23/18 20:05 97.7 F 94 18 97/57 L 96 08/23/18 15:35 97.3 F L 91 19 110/68 98 08/23/18 11:46 97.1 F L 97 16 93/54 L 98 Admit Weight 224 lb 14.4 oz Weight 205 lb 9.6 oz 08/22/18 08/23/18 08/24/18 06:59 06:59 06:59 Intake Total 720 Balance 720 - Labs Result Diagrams: 08/23/18 05:34 08/23/18 05:34 Troponin/CKMB CK-MB (CK-2) 6.5 ng/mL (0-6.6) 08/08/18 19:09 Troponin I 6.552 ng/mL (< 0.028) H* 08/19/18 09:07 - Assessment/Plan Pt. seen and evaluated by me. I agree with the A/P by the MISSILE MECHANIC. We have discussed the pt. and the plan.Chest clear RRR.
--- NOTE | 2018-08-23 19:29 | PDOC.PN ---
- Subjective Encounter Start Date: 08/23/18 Encounter Start Time: 12:00 Patient seen and examined for new onset seizure. Some discomfort over the surgical site. No other complaints. No overnight events - Objective Resuscitation Status: Resuscitation Status FULL:Full Resuscitation MAR Reviewed: Yes Vital Signs & Weight: Vital Signs (12 hours) Temp Pulse Pulse Resp BP BP BP 08/23/18 15:35 97.3 F L 91 19 110/68 08/23/18 11:46 97.1 F L 97 16 93/54 L 08/23/18 10:00 92 101/64 08/23/18 09:25 98.7 F 99 18 96/62 Pulse Ox 08/23/18 15:35 98 08/23/18 11:46 98 08/23/18 10:00 08/23/18 09:25 98 Weight Admit Weight 224 lb 14.4 oz Weight 205 lb 9.6 oz Most Recent Monitor Data Heart Rate from ECG 91 NIBP 110/67 NIBP BP-Mean 81 Respiration from ECG 21 SpO2 99 I&O: 08/22/18 08/23/18 08/24/18 06:59 06:59 06:59 Intake Total 720 Balance 720 Result Diagrams: 08/23/18 05:34 08/23/18 05:34 Additional Labs: Accuchecks 08/23/18 08/23/18 08/23/18 16:52 10:35 05:34 POC Glucose 135 H 143 H 99 08/22/18 21:17 POC Glucose 165 H EKG Reviewed by me: Yes (Tele SR) Phys Exam - Physical Examination Constitutional: NAD Respiratory: no wheezing, no rhonchi Cardiovascular: RRR, no rub Gastrointestinal: soft, non-tender, positive bowel sounds Musculoskeletal: no edema Neurological: moves all 4 limbs Dx/Plan - Plan IMPRESSION: 1. New onset seizures - started on Keppra 2. Chronic systolic/diastolic HF - EF at 25% - Lifevest arranged 3. Elevated troponins due to demand ischemia 4. CAD s/p CABG x 1 / Ischemic CM / s/p AVR /Non sustained SVT 5. B/L LE DVT - on Eliquis 6. ESRD on dialsysis TTS 7. Hypotension due to BB - improved with IVF and Albumin 8. Thrombocytopenia 9. Malfunction dialysis access s/p surgery PLAN: No ACEI/ARB/BB due to hypotension. Dialysis per Nephro Cont current meds as below Await placement Stable for dc Review of Systems - Review of Systems Respiratory: negative: Cough, Dry, Shortness of Breath, Hemoptysis, SOB with Excertion, Pleuritic Pain, Sputum, Wheezing Cardiovascular: negative: chest pain, palpitations, orthopnea, paroxysmal nocturnal dyspnea, edema, light headedness, other - Medications/Allergies Allergies/Adverse Reactions: Allergies Allergy/AdvReac Type Severity Reaction Status Date / Time meperidine HCl [From Demerol] Allergy Verified 04/25/18 01:04 Medications: Current Medications Acetaminophen (Tylenol) 650 mg PO Q4H PRN PRN Reason: Headache/Fever/Mild Pain (1-3) Last Admin: 08/18/18 12:01 Dose: 650 mg Acetaminophen (Tylenol) 650 mg PO TID [facility] Last Admin: 08/23/18 15:42 Dose: 650 mg Albuterol/Ipratropium (Duoneb) 3 ml NEB Q4H PRN PRN Reason: SOB &/or Wheezing Apixaban (Eliquis) 2.5 mg PO BID [facility] Last Admin: 08/23/18 09:34 Dose: 2.5 mg Aspirin (Aspirin Chewable) 81 mg PO DAILY [facility] Last Admin: 08/23/18 09:34 Dose: 81 mg Atorvastatin Calcium (Lipitor) 10 mg PO HS [facility] Last Admin: 08/22/18 22:12 Dose: 10 mg Bisacodyl (Dulcolax) 10 mg IA Q12H PRN PRN Reason: Constipation Calcium Acetate (Phoslo) 2,001 mg PO TID-[facility] Last Admin: 08/23/18 17:46 Dose: 2,001 mg Calcium Carbonate (Tums) 500 mg PO DAILYPRN PRN PRN Reason: INDIGESTION Last Admin: 08/20/18 15:06 Dose: 500 mg Dextrose/Water (Dextrose 50%) 25 gm SLOW IVP PRN PRN PRN Reason: Hypoglycemia Epoetin Shamir (Procrit) 10,000 units IVP Q7D [facility] Last Admin: 08/23/18 13:58 Dose: 10,000 units Famotidine (Pepcid) 20 mg PO QPM [facility] Last Admin: 08/22/18 22:12 Dose: 20 mg Gabapentin (Neurontin) 300 mg PO BID [facility] Last Admin: 08/23/18 09:35 Dose: 300 mg Glucagon (Glucagon) 1 mg IM PRN PRN PRN Reason: Hypoglycemia Guaifenesin (Robitussin Sf) 15 mg PO Q4H PRN PRN Reason: Cough Guaifenesin (Mucinex) 600 mg PO Q12HR [facility] Last Admin: 08/23/18 09:35 Dose: 600 mg Heparin Sodium (Porcine) (Heparin Lock Flush 100 Units/Ml) 500 units IVF Q12HR [facility] Last Admin: 08/23/18 09:35 Dose: Not Given Heparin Sodium (Porcine) (Heparin Lock Flush 100 Units/Ml) 500 units IVF PRN PRN PRN Reason: Heparin Flush Last Admin: 08/16/18 04:33 Dose: 500 unit Dextrose/Water (D5w) 1,000 mls @ 0 mls/hr IV .Q0M PRN PRN Reason: Hypoglycemia Insulin Glargine 15 units/ (Miscellaneous Medication) 0.15 mls @ 0 mls/hr SC [facility] Last Admin: 08/22/18 22:27 Dose: 0.15 mls Insulin Human Regular (Humulin R) 0 units SC .MILD SLIDING SCALE PRN PRN Reason: Mild Correctional Scale Last Admin: 08/21/18 22:15 Dose: 5 unit Levetiracetam (Keppra Oral Solution) 250 mg PO BID [facility] Last Admin: 08/23/18 09:35 Dose: 250 mg Miscellaneous Information (Communication Order-Pharmacy) 0 each FS ASDIR [facility] Nystatin (Mycostatin Powder) 0 gm TOP BID [facility] Ondansetron HCl (Zofran) 4 mg SLOW IVP Q6H PRN PRN Reason: Nausea/Vomiting Last Admin: 08/18/18 12:02 Dose: 4 mg Polyethylene Glycol (Miralax) 17 gm PO BID [facility] Last Admin: 08/23/18 09:35 Dose: Not Given Sertraline HCl (Zoloft) 50 mg PO DAILY [facility] Last Admin: 08/23/18 09:35 Dose: 50 mg Sodium Chloride (Flush - Normal Saline) 10 ml IVF Q12H PRN PRN Reason: Saline Flush Last Admin: 08/22/18 22:13 Dose: 10 ml Sodium Chloride (Flush - Normal Saline) 10 ml IVF PRN PRN PRN Reason: Saline Flush Last Admin: 08/22/18 00:16 Dose: 10 ml Tramadol HCl (Ultram) 50 mg PO Q6H PRN PRN Reason: Pain 4-6 Last Admin: 08/22/18 22:20 Dose: 50 mg Zinc Acetate/Diphenhydramine (Benadryl 2% Cream) 0 gm TOP BIDPRN PRN PRN Reason: SKIN Last Admin: 08/18/18 04:46 Dose: 1 applic
[2018-08-23] MEDS: Atorvastatin Calcium 10 MG TAB PO SCH (20:55)
[2018-08-23] MEDS: Famotidine 20 MG TAB PO SCH (20:55)
[2018-08-23] MEDS: Insulin Glargine 15 UNITS in Pre-Filled Syringe 1 EACH SC SCH (21:03)
[2018-08-23] MEDS: Nystatin Powder 15 GM BOT TOP SCH (21:43)
[2018-08-24] MEDS: Calcium Acetate 667 MG CAP PO SCH ×3 (08:49→16:26)
[2018-08-24] MEDS: Gabapentin 300 MG CAP PO SCH ×2 (08:50→20:59)
[2018-08-24] MEDS: Acetaminophen 325 MG TAB PO SCH ×3 (08:50→20:59)
[2018-08-24] MEDS: Apixaban 2.5 MG TAB PO SCH ×2 (08:51→21:00)
[2018-08-24] MEDS: guaiFENesin ER 600 MG TAB PO SCH ×2 (08:51→20:59)
[2018-08-24] MEDS: Nystatin Powder 15 GM BOT TOP SCH ×2 (08:52→21:01)
[2018-08-24] MEDS: Polyethylene Glycol 3350 17 GM Packet PO SCH ×2 (08:56→21:01)
[2018-08-24] MEDS: levETIRAcetam 500 mg/5 ml Oral Solution PO SCH ×2 (08:59→20:58)
--- NOTE | 2018-08-24 10:50 | PRG ---
DATE OF SERVICE: 08/24/2018 SERVICE: Renal medicine. SUBJECTIVE: Mr. Fontana is a 58-year-old white male with known history of ESRD and [facility]. He underwent dialysis last Friday. He did well. This morning, I evaluated him. He has no new complaints. Still feeling tired. He was admitted for new-onset seizure. In [facility], he has been evaluated by Cardiology and is currently on LifeVest. In addition, there was revision of his AV fistula. Currently, we are not choosing it. He has a cuffed hemodialysis catheter. He v oices no new complaints today. He denies any chest pain or shortness of breath. OBJECTIVE: VITAL SIGNS: Blood pressure 104/66, heart rate , respiratory rate 18, temperature 98, pulse ox 99%. GENERAL: Noted to be awake, alert, comfortable, not in overt distress. SKIN: Adequate Turgor. HEENT: He has slightly pale conjunctivae, anicteric sclerae. NECK: No neck mass, no carotid bruits, no JVD. CHEST: No deformities. Lungs: Clear breath sounds. No wheezing, no crackles. HEART: Normal sinus rhythm. No murmur, no gallops or rubs. ABDOMEN: Globular, soft, nontender, no masses. EXTREMITIES: No edema. He has a left AV fistula with some hematoma - improving. NEUROLOGIC: Awake, oriented to three spheres. Moving all extremities. MEDICATIONS: On 08/24/2018, reviewed. LABORATORY DATA: On 08/23/2018, white count 11.6, hemoglobin 8.9. Sodium , potassium 3.9, chlo ride 97, carbon dioxide 25, BUN 21, creatinine 3.92, calcium 10.1. ASSESSMENT AND PLAN: 1. End-stage renal disease, stable. No indication for any emergent hemodialysis. Continue Friday, , and Friday dialysis regimen. 2. Seizure disorder on [facility]. 3. Anemia. We are continuing current Epogen regimen. I adjusted it upwards to 10,000 units subcuta neously every week. 4. Coronary artery disease - Cardiology following. He will have a follow up appointment with his ca rdiologist. 5. Nonfunctioning AV fistula - Revision was done by Dr. Ding. Hopefully, we can use this in a few weeks' time. Overall, agree with current management.
--- NOTE | 2018-08-24 12:35 | PDOC.CTH ---
Cardiology Progress Note - Subjective No new issues. - Objective Vital Signs Temp Pulse Resp BP Pulse Ox 08/24/18 12:16 97.8 F 87 19 107/66 98 08/24/18 08:44 98.9 F 89 18 104/65 100 08/24/18 05:30 98.0 F 90 18 104/66 99 08/24/18 05:00 96 Admit Weight 224 lb 14.4 oz Weight 217 lb 3.2 oz 08/23/18 08/24/18 08/25/18 06:59 06:59 06:59 Intake Total 930 Output Total 50 Balance 880 - Physical Examination General/Neuro: NAD Neck: no JVD present Lungs: CTA, unlabored respirations Heart: RRR Abdomen: NT/ND Extremities: + edema B (1+) - Telemetry Telemetry Rhythm: NSR - Labs Result Diagrams: 08/23/18 05:34 08/23/18 05:34 Troponin/CKMB CK-MB (CK-2) 6.5 ng/mL (0-6.6) 08/08/18 19:09 Troponin I 6.552 ng/mL (< 0.028) H* 08/19/18 09:07 - Assessment/Plan 1. New onset seizures. 2. Worsening LV dysfunction. EF at 25% 3. Hx of AVR and CABG x 1, likely a HYMAN to LAD as no veins harvested. 4. Non sustained SVT. 5. ESRD 6. Bilateral DVT's on Eliquis. 7. Ischemic CM PLAN: - BP still borderline low to add ACEI or BB. - Continue other medications for now. - Stable for discharge. - Seizures may have been related to a VT/VF episode given his LV dysfunction. - Lifevest in place. - He will need an ischemic evaluation as an outpatient. - He will follow up with Dr. Blanco his primary [facility]er in 1 month.
--- NOTE | 2018-08-24 14:09 | PDOC.PN ---
- Subjective Encounter Start Date: 08/24/18 Encounter Start Time: 14:08 Subjective: c/o weakness . -: RN report crud and debris in suprapubic.Pt missed appt as an OP - Objective Resuscitation Status: Resuscitation Status FULL:Full Resuscitation MAR Reviewed: Yes Vital Signs & Weight: Vital Signs (12 hours) Temp Pulse Resp BP Pulse Ox 08/24/18 12:16 97.8 F 87 19 107/66 98 08/24/18 08:44 98.9 F 89 18 104/65 100 08/24/18 05:30 98.0 F 90 18 104/66 99 08/24/18 05:00 96 Weight Admit Weight 224 lb 14.4 oz Weight 217 lb 3.2 oz Most Recent Monitor Data Heart Rate from ECG 91 NIBP 110/67 NIBP BP-Mean 81 Respiration from ECG 21 SpO2 99 I&O: 08/23/18 08/24/18 08/25/18 06:59 06:59 06:59 Intake Total 930 Output Total 50 Balance 880 Result Diagrams: 08/23/18 05:34 08/23/18 05:34 Additional Labs: Accuchecks 08/24/18 08/24/18 08/23/18 10:52 06:22 20:55 POC Glucose 136 H 97 151 H 08/23/18 16:52 POC Glucose 135 H Microbiology 08/19/18 19:57 Urine Suprapubic catheter Urine Culture - Final Achromobacter denitrificans Yeast species 08/19/18 08:07 Venous blood - Right Hand Blood Culture - Preliminary NO GROWTH AT 48 HOURS 08/19/18 07:57 Dialysis - Right Subclavian Vein Blood Culture - Preliminary NO GROWTH AT 48 HOURS Phys Exam - Physical Examination Constitutional: NAD (ill looking) HEENT: PERRLA, moist MMs, sclera anicteric, oral pharynx no lesions Neck: no nodes, no JVD, supple, full ROM Respiratory: no wheezing, no rales, no rhonchi, clear to auscultation bilateral Cardiovascular: RRR, no significant murmur Gastrointestinal: soft, non-tender, no distention, positive bowel sounds Musculoskeletal: no edema, pulses present Neurological: non-focal, normal sensation, moves all 4 limbs Psychiatric: normal affect, A&O x 3 Skin: no rash Dx/Plan (1) Acute systolic CHF (congestive heart failure), NYHA class 3 Code(s): I50.21 - ACUTE SYSTOLIC (CONGESTIVE) HEART FAILURE Status: Acute Comment: Based on ECHO results. worsening Cardiac Function than few months ago. HD w fluid removal as tolerated.Off of Coreg due to low BP..BP too low for SHABBIR-I /ARB (2) DVT femoral (deep venous thrombosis) with thrombophlebitis Code(s): I82.419 - ACUTE EMBOLISM AND THROMBOSIS OF UNSPECIFIED FEMORAL VEIN Status: Acute Qualifiers: Laterality: bilateral Qualified Code(s): I82.413 - Acute embolism and thrombosis of femoral vein, bilateral Comment: ? restart Eliquis. (3) AV fistula thrombosis Code(s): T82.868A - THROMBOSIS DUE TO VASCULAR PROSTH DEV/GRFT, INIT Status: Acute Comment: S/P Fistula revision 08/17 (4) Volume overload Code(s): E87.70 - FLUID OVERLOAD, UNSPECIFIED Status: Resolved (5) NSVT (nonsustained ventricular tachycardia) Code(s): I47.2 - VENTRICULAR TACHYCARDIA Status: Acute Comment: asymptomatic.SVT by cardiology eval.ECHO shows Low EF.Stress test done (6) Seizure Code(s): R56.9 - UNSPECIFIED CONVULSIONS Status: Acute Comment: stable On keppra (7) Thrombocytopenia Code(s): D69.6 - THROMBOCYTOPENIA, UNSPECIFIED Status: Acute Comment: Imrpoving.no active bleed (8) Dyslipidemia Code(s): E78.5 - HYPERLIPIDEMIA, UNSPECIFIED Status: Chronic (9) HTN (hypertension) Code(s): I10 - ESSENTIAL (PRIMARY) HYPERTENSION Status: Chronic Qualifiers: Hypertension type: essential hypertension Qualified Code(s): I10 - Essential (primary) hypertension (10) CAD (coronary artery disease) Code(s): I25.10 - ATHSCL HEART DISEASE OF [place] CORONARY ARTERY W/O ANG PCTRS Status: Chronic Qualifiers: Coronary Disease-Associated Artery/Lesion type: [place] artery [place] vs. transplanted heart: [place] heart Associated angina: without angina Qualified Code(s): I25.10 - Atherosclerotic heart disease of [place] coronary artery without angina pectoris Comment: CABG in past (11) Demand ischemia Code(s): I24.8 - OTHER FORMS OF ACUTE ISCHEMIC HEART DISEASE Status: Acute (12) ESRD (end stage renal disease) on dialysis Code(s): N18.6 - END STAGE RENAL DISEASE; Z99.2 - DEPENDENCE ON RENAL DIALYSIS Status: Chronic (13) Cellulitis, leg Code(s): L03.119 - CELLULITIS OF UNSPECIFIED PART OF LIMB Status: Suspected Comment: Aniyah jeramy thrombophelbitis. No evidence of sepsis.On empiric ABx (14) Cardiomyopathy Code(s): I42.9 - CARDIOMYOPATHY, UNSPECIFIED Status: Chronic Qualifiers: Cardiomyopathy type: unspecified Qualified Code(s): I42.9 - Cardiomyopathy , unspecified Comment: Lifevest Fitted. - Plan PT/OT, incentive spirometry, out of bed/ambulate, DVT proph w/heparin, DVT proph w/SCDs Consult urology given +ve urone Cx and need for chnage of Suprapubic -: coreg stopped d/t low BP.on Lifevest.OP cardiology f/u -: Rehab when accpeted. -: HD inpt TTS .Moniotor renal Fx -: cont eliquis for B/L DVT.rest as below * . Review of Systems - Review of Systems Constitutional: weakness, malaise. negative: fever, chills, sweats, other ENT: negative: Ear Pain, Ear Discharge, Nose Pain, Nose Discharge, Nose Congestion, Mouth Pain, Mouth Swelling, Throat Pain, Throat Swelling, Other Respiratory: negative: Cough, Dry, Shortness of Breath, Hemoptysis, SOB with Excertion, Pleuritic Pain, Sputum, Wheezing Cardiovascular: negative: chest pain, palpitations, orthopnea, paroxysmal nocturnal dyspnea, edema, light headedness, other Gastrointestinal: negative: Nausea, Vomiting, Abdominal Pain, Diarrhea, Constipation, Melena, Hematochezia, Other Genitourinary: negative: Dysuria, Frequency, Incontinence, Hematuria, Retention , Other Musculoskeletal: negative: Neck Pain, Shoulder Pain, Arm Pain, Back Pain, Hand Pain, Leg Pain, Foot Pain, Other Neurological: negative: Weakness, Numbness, Incoordination, Change in Speech, Confusion, Seizures, Other - Medications/Allergies Allergies/Adverse Reactions: Allergies Allergy/AdvReac Type Severity Reaction Status Date / Time meperidine HCl [From Demerol] Allergy Verified 04/25/18 01:04 Medications: Current Medications Acetaminophen (Tylenol) 650 mg PO Q4H PRN PRN Reason: Headache/Fever/Mild Pain (1-3) Last Admin: 08/18/18 12:01 Dose: 650 mg Acetaminophen (Tylenol) 650 mg PO TID [facility] Last Admin: 08/24/18 08:50 Dose: 650 mg Albuterol/Ipratropium (Duoneb) 3 ml NEB Q4H PRN PRN Reason: SOB &/or Wheezing Apixaban (Eliquis) 2.5 mg PO BID [facility] Last Admin: 08/24/18 08:51 Dose: 2.5 mg Aspirin (Aspirin Chewable) 81 mg PO DAILY [facility] Last Admin: 08/24/18 08:51 Dose: 81 mg Atorvastatin Calcium (Lipitor) 10 mg PO HS [facility] Last Admin: 08/23/18 20:55 Dose: 10 mg Bisacodyl (Dulcolax) 10 mg [place] Q12H PRN PRN Reason: Constipation Calcium Acetate (Phoslo) 2,001 mg PO TID-[facility] Last Admin: 08/24/18 12:22 Dose: 2,001 mg Calcium Carbonate (Tums) 500 mg PO DAILYPRN PRN PRN Reason: INDIGESTION Last Admin: 08/20/18 15:06 Dose: 500 mg Dextrose/Water (Dextrose 50%) 25 gm SLOW IVP PRN PRN PRN Reason: Hypoglycemia Epoetin Shamir (Procrit) 10,000 units IVP Q7D [facility] Last Admin: 08/23/18 13:58 Dose: 10,000 units Famotidine (Pepcid) 20 mg PO QPM [facility] Last Admin: 08/23/18 20:55 Dose: 20 mg Gabapentin (Neurontin) 300 mg PO BID [facility] Last Admin: 08/24/18 08:50 Dose: 300 mg Glucagon (Glucagon) 1 mg IM PRN PRN PRN Reason: Hypoglycemia Guaifenesin (Robitussin Sf) 15 mg PO Q4H PRN PRN Reason: Cough Guaifenesin (Mucinex) 600 mg PO Q12HR [facility] Last Admin: 08/24/18 08:51 Dose: 600 mg Heparin Sodium (Porcine) (Heparin Lock Flush 100 Units/Ml) 500 units IVF Q12HR [facility] Last Admin: 08/24/18 08:56 Dose: Not Given Heparin Sodium (Porcine) (Heparin Lock Flush 100 Units/Ml) 500 units IVF PRN PRN PRN Reason: Heparin Flush Last Admin: 08/16/18 04:33 Dose: 500 unit Dextrose/Water (D5w) 1,000 mls @ 0 mls/hr IV .Q0M PRN PRN Reason: Hypoglycemia Insulin Glargine 15 units/ (Miscellaneous Medication) 0.15 mls @ 0 mls/hr SC HS [facility] Last Admin: 08/23/18 21:03 Dose: 0.15 mls Insulin Human Regular (Humulin R) 0 units SC .MILD SLIDING SCALE PRN PRN Reason: Mild Correctional Scale Last Admin: 08/21/18 22:15 Dose: 5 unit Levetiracetam (Keppra Oral Solution) 250 mg PO BID [facility] Last Admin: 08/24/18 08:59 Dose: 250 mg Miscellaneous Information (Communication Order-Pharmacy) 0 each FS ASDIR MERVIN Nystatin (Mycostatin Powder) 0 gm TOP BID [facility] Last Admin: 08/24/18 08:52 Dose: 1 applic Ondansetron HCl (Zofran) 4 mg SLOW IVP Q6H PRN PRN Reason: Nausea/Vomiting Last Admin: 08/18/18 12:02 Dose: 4 mg Polyethylene Glycol (Miralax) 17 gm PO BID [facility] Last Admin: 08/24/18 08:56 Dose: Not Given Sertraline HCl (Zoloft) 50 mg PO DAILY [facility] Last Admin: 08/24/18 08:51 Dose: 50 mg Sodium Chloride (Flush - Normal Saline) 10 ml IVF Q12H PRN PRN Reason: Saline Flush Last Admin: 08/23/18 20:56 Dose: 10 ml Sodium Chloride (Flush - Normal Saline) 10 ml IVF PRN PRN PRN Reason: Saline Flush Last Admin: 08/22/18 00:16 Dose: 10 ml Tramadol HCl (Ultram) 50 mg PO Q6H PRN PRN Reason: Pain 4-6 Last Admin: 08/22/18 22:20 Dose: 50 mg Zinc Acetate/Diphenhydramine (Benadryl 2% Cream) 0 gm TOP BIDPRN PRN PRN Reason: SKIN Last Admin: 08/18/18 04:46 Dose: 1 applic
[2018-08-24] MEDS ORDERED: Heparin 10,000 UNITS/ 10 ML VIAL ONE (14:47)
[2018-08-24] MEDS: Atorvastatin Calcium 10 MG TAB PO SCH (20:59)
[2018-08-24] MEDS: Famotidine 20 MG TAB PO SCH (20:59)
[2018-08-24] MEDS: Insulin Glargine 15 UNITS in Pre-Filled Syringe 1 EACH SC SCH (21:00)
[2018-08-25 06:12] LABS: #Eosinphils 0.2 thou/uL (0.0-0.7); #Lymphocytes 1.2 thou/uL (1.20-3.40); #Monocytes 0.6 thou/uL (0.11-0.59); #Neutrophils 7.4 thou/uL (1.40-6.50); %Basophils 0.1 % (0.0-1.0); %Eosinophils 2.4 % (0.0-10.0); %Monocytes 6.3 % (0.0-10.0); %Neutrophils 78.1 % (42.0-75.0); Hemoglobin 8.8 g/dL (14.0-18.0); Mean Corpuscular HGB CONC 30.6 g/dL (32.0-36.0); Mean Corpuscular Hemoglobin 31.2 pg (27.0-31.0); Mean Platelet Volume 8.9 fL (7.4-10.4); Platelet Count 118 thou/uL (130-400); RBC Distribution Width 19.2 % (11.5-14.5); Red Blood Cell (RBC) Count 2.81 mill/uL (4.70-6.10); White Blood Cell (WBC) Count 9.5 thou/uL (4.8-10.8)
[2018-08-25 06:33] LABS: Anion Gap 20 mmol/L (10-20); BUN (Urea Nitrogen) 42 mg/dL (8.4-25.7); Calc. Creatinine Clearance 17 mL/min (70-130); Carbon Dioxide 21 mmol/L (22-29); Chloride 95 mmol/L (98-107); Estimated GFR-MDRD 9; Glucose 58 mg/dL (70-105); Potassium 4.1 mmol/L (3.5-5.1); Sodium 132 mmol/L (136-145)
--- NOTE | 2018-08-25 07:53 | PRG ---
DATE OF SERVICE: 08/25/2018 SUBJECTIVE: Mr. Fontana is a 58-year-old white male who has ESRD and followed up by the [facility] for his maintenance hemodialysis. I have scheduled him for his regular 4-hour hemodialysis this mor hermilo. No acute events was noted last night. Please note, this patient was admitted for new onset se izure. In the interim, he had this left AV fistula revised by Dr. Ding. He is also being evaluate d by Cardiology 2 hours due to worsening left ventricular dysfunction with last EF being at 25%. He has also had a nonsustained SVT. Patient was also diagnosed with bilateral DVTs, currently on Eliqui s. Management is essentially supportive. Please note, patient is also on LifeVest. This morning, he voices no new complaints. He denies any chest pain, shortness of breath. OBJECTIVE: VITAL SIGNS: Blood pressure is 103/59, heart rate 83, respiratory rate 20, temperature 97.9, pulse o x 100%. GENERAL: Noted to be awake, supine, comfortable, not in overt distress. HEENT: Slightly pale conjunctivae, anicteric sclerae. NECK: No neck mass, no carotid bruits, no JVD. CHEST: No deformities. LUNGS: Clear breath sounds, no wheezing, no crackles. HEART: Normal sinus rhythm. No murmur, no gallops or rubs. ABDOMEN: Globular, soft, nontender. No masses. EXTREMITIES: Trace edema. MEDICATIONS: On 08/25/2018, reviewed. LABORATORY DATA: On 08/25/2018, white count 9.5, hemoglobin 8.8, hematocrit 28.7. Sodium 132, potas sium 4.1, chloride 95, carbon dioxide 21, BUN 42, creatinine 6.38, glucose 54, calcium is 10.0. ASSESSMENT AND PLAN: 1. End-stage renal disease, stable. We will continue 3 times a week hemodialysis. Patient is sched uled for hemodialysis this morning. The plan is to do a 4-hour hemodialysis with fluid removal only as tolerated. 2. Seizure disorder - new onset on Keppra. 3. Anemia, continuing current Epogen regimen. This has been increased recently to 10,000 units subc utaneously every week. 4. Cardiomyopathy. Patient currently on a LifeVest. He will follow up with his primary cardiologis t, Dr. Blanco upon discharge. 5. Nonfunctioning AV fistula - Recently revised by Dr. Ding. Continuing to use the cuffed hemodia lysis catheter.
--- NOTE | 2018-08-25 14:45 | PDOC.PN ---
- Subjective Encounter Start Date: 08/25/18 Encounter Start Time: 14:45 Subjective: feels 'Fine'.care discussed w family at bedside - Objective Resuscitation Status: Resuscitation Status FULL:Full Resuscitation MAR Reviewed: Yes Vital Signs & Weight: Vital Signs (12 hours) Temp Pulse Resp BP Pulse Ox 08/25/18 07:26 97.3 F L 90 18 125/74 99 08/25/18 02:50 97.9 F 83 20 103/59 L 100 Weight Admit Weight 224 lb 14.4 oz Weight 217 lb 3.2 oz Most Recent Monitor Data Heart Rate from ECG 91 NIBP 110/67 NIBP BP-Mean 81 Respiration from ECG 21 SpO2 99 I&O: 08/24/18 08/25/18 08/26/18 06:59 06:59 06:59 Intake Total 930 580 Output Total 50 150 Balance 880 430 Result Diagrams: 08/25/18 05:28 08/25/18 05:28 Additional Labs: Accuchecks 08/25/18 08/24/18 08/24/18 12:10 20:27 16:45 POC Glucose 173 H 85 98 Microbiology 08/19/18 19:57 Urine Suprapubic catheter Urine Culture - Final Achromobacter denitrificans Yeast species 08/19/18 08:07 Venous blood - Right Hand Blood Culture - Final NO GROWTH IN 5 DAYS 08/19/18 07:57 Dialysis - Right Subclavian Vein Blood Culture - Final NO GROWTH IN 5 DAYS Phys Exam - Physical Examination Constitutional: NAD HEENT: PERRLA, moist MMs, sclera anicteric, oral pharynx no lesions Neck: no nodes, no JVD, supple, full ROM Respiratory: no wheezing, no rales, no rhonchi, clear to auscultation bilateral Cardiovascular: RRR, no significant murmur, no rub Gastrointestinal: soft, non-tender, no distention, positive bowel sounds Musculoskeletal: no edema, pulses present AV fistula surgical site w less bruising today Neurological: non-focal, normal sensation, moves all 4 limbs Psychiatric: normal affect, A&O x 3 Skin: no rash Dx/Plan (1) Acute systolic CHF (congestive heart failure), NYHA class 3 Code(s): I50.21 - ACUTE SYSTOLIC (CONGESTIVE) HEART FAILURE Status: Acute Comment: Based on ECHO results. worsening Cardiac Function than few months ago. HD w fluid removal as tolerated.Off of Coreg due to low BP..BP too low for SHABBIR-I /ARB (2) DVT femoral (deep venous thrombosis) with thrombophlebitis Code(s): I82.419 - ACUTE EMBOLISM AND THROMBOSIS OF UNSPECIFIED FEMORAL VEIN Status: Acute Qualifiers: Laterality: bilateral Qualified Code(s): I82.413 - Acute embolism and thrombosis of femoral vein, bilateral Comment: ? restart Eliquis. (3) AV fistula thrombosis Code(s): T82.868A - THROMBOSIS DUE TO VASCULAR PROSTH DEV/GRFT, INIT Status: Acute Comment: S/P Fistula revision 08/17 (4) Volume overload Code(s): E87.70 - FLUID OVERLOAD, UNSPECIFIED Status: Resolved (5) NSVT (nonsustained ventricular tachycardia) Code(s): I47.2 - VENTRICULAR TACHYCARDIA Status: Acute Comment: asymptomatic.SVT by cardiology eval.ECHO shows Low EF.Stress test done (6) Seizure Code(s): R56.9 - UNSPECIFIED CONVULSIONS Status: Acute Comment: stable On keppra (7) Thrombocytopenia Code(s): D69.6 - THROMBOCYTOPENIA, UNSPECIFIED Status: Acute Comment: Imrpoving.no active bleed (8) Dyslipidemia Code(s): E78.5 - HYPERLIPIDEMIA, UNSPECIFIED Status: Chronic (9) HTN (hypertension) Code(s): I10 - ESSENTIAL (PRIMARY) HYPERTENSION Status: Chronic Qualifiers: Hypertension type: essential hypertension Qualified Code(s): I10 - Essential (primary) hypertension (10) CAD (coronary artery disease) Code(s): I25.10 - ATHSCL HEART DISEASE OF [place] CORONARY ARTERY W/O ANG PCTRS Status: Chronic Qualifiers: Coronary Disease-Associated Artery/Lesion type: [place] artery [place] vs. transplanted heart: [place] heart Associated angina: without angina Qualified Code(s): I25.10 - Atherosclerotic heart disease of [place] coronary artery without angina pectoris Comment: CABG in past (11) Demand ischemia Code(s): I24.8 - OTHER FORMS OF ACUTE ISCHEMIC HEART DISEASE Status: Acute (12) ESRD (end stage renal disease) on dialysis Code(s): N18.6 - END STAGE RENAL DISEASE; Z99.2 - DEPENDENCE ON RENAL DIALYSIS Status: Chronic (13) Cellulitis, leg Code(s): L03.119 - CELLULITIS OF UNSPECIFIED PART OF LIMB Status: Suspected Comment: More likley thrombophelbitis. No evidence of sepsis.On empiric ABx (14) Cardiomyopathy Code(s): I42.9 - CARDIOMYOPATHY, UNSPECIFIED Status: Chronic Qualifiers: Cardiomyopathy type: unspecified Qualified Code(s): I42.9 - Cardiomyopathy , unspecified Comment: Lifevest Fitted. - Plan plan discussed w/ family, PT/OT, director of social work, respiratory therapy, incentive spirometry, DVT proph w/SCDs OP HD set up epnding.cont in house -: awaiting urology input for Suprapubic change as going to rehab -: cont rest of the meds as below.Hd stable. -: Life vest in place.OP f/u w cardiology Dr ziegler. -: BP too low to take BB or SHABBIR-I/ARB.cont ASA,statin * . Review of Systems - Review of Systems Constitutional: weakness, malaise. negative: fever, chills, sweats, other ENT: negative: Ear Pain, Ear Discharge, Nose Pain, Nose Discharge, Nose Congestion, Mouth Pain, Mouth Swelling, Throat Pain, Throat Swelling, Other Respiratory: negative: Cough, Dry, Shortness of Breath, Hemoptysis, SOB with Excertion, Pleuritic Pain, Sputum, Wheezing Cardiovascular: negative: chest pain, palpitations, orthopnea, paroxysmal nocturnal dyspnea, edema, light headedness, other Gastrointestinal: negative: Nausea, Vomiting, Abdominal Pain, Diarrhea, Constipation, Melena, Hematochezia, Other Genitourinary: negative: Dysuria, Frequency, Incontinence, Hematuria, Retention , Other Musculoskeletal: negative: Neck Pain, Shoulder Pain, Arm Pain, Back Pain, Hand Pain, Leg Pain, Foot Pain, Other Skin: negative: Rash, Lesions, Samuel, Bruising, Other Neurological: negative: Weakness, Numbness, Incoordination, Change in Speech, Confusion, Seizures, Other - Medications/Allergies Allergies/Adverse Reactions: Allergies Allergy/AdvReac Type Severity Reaction Status Date / Time meperidine HCl [From Demerol] Allergy Verified 04/25/18 01:04 Medications: Current Medications Acetaminophen (Tylenol) 650 mg PO Q4H PRN PRN Reason: Headache/Fever/Mild Pain (1-3) Last Admin: 08/18/18 12:01 Dose: 650 mg Acetaminophen (Tylenol) 650 mg PO TID [facility] Last Admin: 08/24/18 20:59 Dose: 650 mg Albuterol/Ipratropium (Duoneb) 3 ml NEB Q4H PRN PRN Reason: SOB &/or Wheezing Apixaban (Eliquis) 2.5 mg PO BID [facility] Last Admin: 08/24/18 21:00 Dose: 2.5 mg Aspirin (Aspirin Chewable) 81 mg PO DAILY [facility] Last Admin: 08/24/18 08:51 Dose: 81 mg Atorvastatin Calcium (Lipitor) 10 mg PO HS [facility] Last Admin: 08/24/18 20:59 Dose: 10 mg Bisacodyl (Dulcolax) [address] Q12H PRN PRN Reason: Constipation Calcium Acetate (Phoslo) 2,001 mg PO TID-[facility] Last Admin: 08/24/18 16:26 Dose: 2,001 mg Calcium Carbonate (Tums) 500 mg PO DAILYPRN PRN PRN Reason: INDIGESTION Last Admin: 08/20/18 15:06 Dose: 500 mg Dextrose/Water (Dextrose 50%) 25 gm SLOW IVP PRN PRN PRN Reason: Hypoglycemia Epoetin Shamir (Procrit) 10,000 units IVP Q7D [facility] Last Admin: 08/23/18 13:58 Dose: 10,000 units Famotidine (Pepcid) 20 mg PO QPM [facility] Last Admin: 08/24/18 20:59 Dose: 20 mg Gabapentin (Neurontin) 300 mg PO BID [facility] Last Admin: 08/24/18 20:59 Dose: 300 mg Glucagon (Glucagon) 1 mg IM PRN PRN PRN Reason: Hypoglycemia Guaifenesin (Robitussin Sf) 15 mg PO Q4H PRN PRN Reason: Cough Guaifenesin (Mucinex) 600 mg PO Q12HR [facility] Last Admin: 08/24/18 20:59 Dose: 600 mg Heparin Sodium (Porcine) (Heparin Lock Flush 100 Units/Ml) 500 units IVF Q12HR [facility] Last Admin: 08/24/18 21:00 Dose: Not Given Heparin Sodium (Porcine) (Heparin Lock Flush 100 Units/Ml) 500 units IVF PRN PRN PRN Reason: Heparin Flush Last Admin: 08/16/18 04:33 Dose: 500 unit Dextrose/Water (D5w) 1,000 mls @ 0 mls/hr IV .Q0M PRN PRN Reason: Hypoglycemia Insulin Glargine 15 units/ (Miscellaneous Medication) 0.15 mls @ 0 mls/hr SC [facility] Last Admin: 08/24/18 21:00 Dose: Not Given Insulin Human Regular (Humulin R) 0 units [place] .MILD SLIDING SCALE PRN PRN Reason: Mild Correctional Scale Last Admin: 08/21/18 22:15 Dose: 5 unit Levetiracetam (Keppra Oral Solution) 250 mg PO BID [facility] Last Admin: 08/24/18 20:58 Dose: 250 mg Miscellaneous Information (Communication Order-Pharmacy) 0 each FS ASDIR [facility] Nystatin (Mycostatin Powder) 0 gm TOP BID [facility] Last Admin: 08/24/18 21:01 Dose: 1 applic Ondansetron HCl (Zofran) 4 mg SLOW IVP Q6H PRN PRN Reason: Nausea/Vomiting Last Admin: 08/18/18 12:02 Dose: 4 mg Polyethylene Glycol (Miralax) 17 gm PO BID [facility] Last Admin: 08/24/18 21:01 Dose: Not Given Sertraline HCl (Zoloft) 50 mg PO DAILY [facility] Last Admin: 08/24/18 08:51 Dose: 50 mg Sodium Chloride (Flush - Normal Saline) 10 ml IVF Q12H PRN PRN Reason: Saline Flush Last Admin: 08/23/18 20:56 Dose: 10 ml Sodium Chloride (Flush - Normal Saline) 10 ml IVF PRN PRN PRN Reason: Saline Flush Last Admin: 08/22/18 00:16 Dose: 10 ml Tramadol HCl (Ultram) 50 mg PO Q6H PRN PRN Reason: Pain 4-6 Last Admin: 08/22/18 22:20 Dose: 50 mg Zinc Acetate/Diphenhydramine (Benadryl 2% Cream) 0 gm TOP BIDPRN PRN PRN Reason: SKIN Last Admin: 08/18/18 04:46 Dose: 1 applic
[2018-08-25 14:50] VITALS: BMI 32.1
[2018-08-25] MEDS: Acetaminophen 325 MG TAB PO SCH ×3 (15:32→22:56)
[2018-08-25] MEDS: Calcium Acetate 667 MG CAP PO SCH ×2 (15:32→15:59)
[2018-08-25] MEDS: Gabapentin 300 MG CAP PO SCH ×2 (15:32→22:57)
[2018-08-25] MEDS: Apixaban 2.5 MG TAB PO SCH ×2 (15:32→22:56)
[2018-08-25] MEDS: levETIRAcetam 500 mg/5 ml Oral Solution PO SCH ×2 (15:33→22:57)
[2018-08-25] MEDS: guaiFENesin ER 600 MG TAB PO SCH ×2 (15:33→22:57)
[2018-08-25] MEDS: Polyethylene Glycol 3350 17 GM Packet PO SCH ×2 (15:34→23:01)
[2018-08-25] MEDS: Nystatin Powder 15 GM BOT TOP SCH ×2 (16:00→22:58)
[2018-08-25] MEDS: Carvedilol 3.125 MG TAB PO SCH (16:02)
--- NOTE | 2018-08-25 18:09 | PDOC.CTH ---
Cardiology Progress Note - Subjective No new issues. - Objective Vital Signs Temp Pulse Resp BP Pulse Ox 08/25/18 15:50 97.0 F L 97 20 102/59 L 99 08/25/18 07:26 97.3 F L 90 18 125/74 99 Admit Weight 224 lb 14.4 oz Weight 217 lb 3.2 oz 08/24/18 08/25/18 08/26/18 06:59 06:59 06:59 Intake Total 930 580 Output Total 50 150 Balance 880 430 - Physical Examination General/Neuro: NAD Neck: no JVD present Lungs: CTA, unlabored respirations Heart: RRR Abdomen: NT/ND Extremities: + edema B (1+) - Telemetry Telemetry Rhythm: NSR - Labs Result Diagrams: 08/25/18 05:28 08/25/18 05:28 Troponin/CKMB CK-MB (CK-2) 6.5 ng/mL (0-6.6) 08/08/18 19:09 Troponin I 6.552 ng/mL (< 0.028) H* 08/19/18 09:07 - Assessment/Plan 1. New onset seizures. 2. Worsening LV dysfunction. EF at 25% 3. Hx of AVR and CABG x 1, likely a HYMAN to LAD as no veins harvested. 4. Non sustained SVT. 5. ESRD 6. Bilateral DVT's on Eliquis. 7. Ischemic CM 8. Seizures may be related to VT/VF? PLAN: - BP borderline low to add ACEI or BB. - Continue other medications for now. - On Eliquis for DVT treatment. - Stable for discharge from cardiac perspective. - Seizures may have been related to a VT/VF episode given his LV dysfunction. - Lifevest in place. - He will need an ischemic evaluation as an outpatient. - He will follow up with Dr. Blanco his primary [facility] in 1 month. - Will sign off. Please call with any questions.
[2018-08-25] MEDS: Ondansetron HCl/PF 4 MG/2 ML Vial SLOW IVP PRN (21:39)
[2018-08-25] MEDS: Atorvastatin Calcium 10 MG TAB PO SCH (22:56)
[2018-08-25] MEDS: Insulin Glargine 15 UNITS in Pre-Filled Syringe 1 EACH SC SCH (22:57)
[2018-08-25] MEDS: Famotidine 20 MG TAB PO SCH (22:57)
--- NOTE | 2018-08-26 01:49 | CON ---
DATE OF CONSULTATION: 08/25/2018 REASON FOR CONSULTATION: 1. Complete urethral stricture. 2. Suprapubic tube dependence. 3. Concerns for suprapubic tube infection. 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 Patient is a hemodialysis patient and was driving his car to dialysis when we passed out or became unresponsive. Patient had a previous CVA and due to this, was brought to the Emergency Dep artment by his . Patient had a dialysis fistula which has been doing and trouble recently and he had an operation on h is fistula on 08/06/2018. I was consulted to evaluate and assess this patient with regard to his suprapubic tube. The patient has a complete obliteration of his multilevel urethral stricture disease as previously documented. T he patient has received consultation regarding alternatives to suprapubic tube in [place] from Dr. Glo poole. The patient over the last 2 days, had more particular output from his suprapubic tube as well as some elevation of his white count and left shift. He has some chronic elevation of his white count a nyhow and has not been febrile. ALLERGIES: The patient has an allergy to DEMEROL. PAST MEDICAL HISTORY: History of a carditis, congestive heart failure, coronary atherosclerosis, dep ression, diabetes mellitus, end-stage renal disease, currently on hemodialysis, gastroesophageal refl ux disease, history of coronary artery stenting, hyperlipidemia, hypertension, kidney failure, pneumo natalie, seasonal allergies, chronic shortness of breath, sleep apnea, and a history of supplemental oxyg en dependency. The patient has from a urologic standpoint complete urethral obliteration secondary t o stricture disease. PAST SURGICAL HISTORY: Significant for eye surgery, suprapubic catheter insertion, dialysis fistula creation, coronary angioplasty with stenting on 11/08/2014. Port-A-Cath placement starting in 4 and an AV fistula placement as well as current dialysis catheter placement. REVIEW OF SYSTEMS: Constitutional: Negative. HEENT: Negative. Respiratory: Patient has some chr onic shortness of breath. Cardiovascular: Patient denies myocardial infarction complaints, does hav e a history of dilated heart and had pericarditis in the past. Gastrointestinal: The patient has hi story of gastroesophageal reflux disease. Genitourinary: Patient has had urethral stricture disease since childhood, which has now progressed to essentially complete urethral obliteration. He has a 2 4-English suprapubic tube in place which was last changed in my clinic on 07/22/2018. There has been a complaint of particulates in the suprapubic tube drainage. Musculoskeletal: Negative except for h istory of hematoma in the left leg. Neurologic: Positive for history of seizures and loss of consci ousness. Psychiatric: Behavioral negative. PHYSICAL EXAMINATION: VITAL SIGNS: Temperature is 97.1. Patient has been afebrile for many days, pulse is 97, respiration s 16, O2 saturation is 98% on 2 liters by nasal cannula, blood pressure is 93/54. The patient has a LifeVest today. GENERAL: He is awake, alert, and GCS 15 at my exam, is a reasonable historian. HEENT: Extraocular movements are intact. Sclerae are anicteric. Oropharynx is clear. NECK: Supple. LUNGS: Clear to auscultation bilaterally. CARDIOVASCULAR: There is a rate controlled irregular rhythm. PULMONARY: The patient is on oxygen by nasal cannula at 2 liters per minute. ABDOMEN: Soft, obese, and nontender. There is a suprapubic tube insertion site, which is slightly t o the right side of the midline, a Silastic 24 English catheter is acting as a suprapubic tube. GENITOURINARY: The patient has known urethral stricture disease and complicated suprapubic tube trac t. During the course of evaluation and assessment today, I initially irrigated the patient's bladder free of any evidence of mucus, clot or other material until it was completely cleared using approxim ately one half liter of sterile saline irrigating a total of 10 syringefuls. The patient's urine was essentially clear at this point. I deflated to 24 English Silastic catheter and replaced with a new 24-English Silastic catheter. This was placed in the correct position and irrigated freely. A new Fo rhianna catheter bag was attached and the catheter was subsequently passed using StatLock device to diane carr's right leg. NEUROLOGIC: The patient is alert and oriented to person, place and time. No gross cranial nerve def icits are present. SKIN SURVEY: The patient does have some ecchymosis, particularly noticeable on the patient's back an d shoulder areas. EXTREMITIES: There is a left forearm fistula. He has undergone recent modification. Patient has a hemodialysis catheter in place. MICROBIOLOGY EVALUATION: Patient has two organisms isolated from his dirty suprapubic tube. These i nclude Achromobacter denitrificans and yeast species. I would not ordinarily consider these to be an infectious agent in a patient with no fever. Patient gives minimal indicators that he might be ill. LABORATORY DATA: Laboratory studies in the hematologic profile showed minimal white blood cell [place] [id number] which is barely elevated. The patient chronically runs a neutrophili a, has current neutrophil of approximately 78%, which is not very elevated. There is no evidence of bands to suggest an acute infectious process. The ANC absolute neutrophil count is elevated at 7400 today. ASSESSMENT AND Plan: 1. Complete ureteral obliteration. Patient established with Dr. Watst in [place] and may follow up wi th him with regard to any surgical interventions. 2. Urinary diversion via suprapubic tube. Suprapubic tube changed at bedside today and would recomm end the patient return to clinic for SP tube exchange in approximately 6 weeks' time. He will be usi ng a 24-English Silastic catheter. Total evaluation assessment time for this patient today 70 minutes.
[2018-08-26 05:11] LABS: Anion Gap 16 mmol/L (10-20); BUN (Urea Nitrogen) 21 mg/dL (8.4-25.7); Calc. Creatinine Clearance 28 mL/min (70-130); Calcium 9.1 mg/dL (7.8-10.44); Carbon Dioxide 25 mmol/L (22-29); Chloride 97 mmol/L (98-107); Estimated GFR-MDRD 16; Glucose 127 mg/dL (70-105); Potassium 4.1 mmol/L (3.5-5.1); Sodium 134 mmol/L (136-145)
--- NOTE | 2018-08-26 09:07 | PRG ---
DATE OF SERVICE: 08/26/2018 SUBJECTIVE: Mr. Fontana is a 58-year-old white male with end-stage renal disease - on maintenance hem odialysis. He underwent dialysis yesterday without any difficulty, tolerated said treatment. He has been in the hospital for several days and his hospitalization has been marred by the hypotension and nonsustained SVT. He was also diagnosed with bilateral DVTs. Currently on Eliquis and on anticoagu lation. No new complaints today. He denies any chest pain or shortness of breath. Dr. Nikunj Walker, his urologist has also been consulted. No surgical intervention is recommended. He does have a suprapubic tube. The patient denies any chest pain or shortness of breath. OBJECTIVE: VITAL SIGNS: Blood pressure is 100/68, heart rate 86, respiratory rate 18, temperature 97.6. GENERAL: Noted to be awake, supine, comfortable, not in distress. SKIN: Adequate turgor. HEENT: He has slightly pale conjunctivae, anicteric sclerae. NECK: No neck mass, no carotid bruits, no JVD. CHEST: No deformities. LUNGS: Clear breath sounds. No wheezing, no crackles. HEART: Normal sinus rhythm. No murmur, no gallops or rubs. ABDOMEN: Globular, soft, nontender, no masses. He does have a suprapubic tube. EXTREMITIES: No edema, no deformities. Hematoma in left upper extremity from his previous surgery. MEDICATIONS: Of 08/26/2018 was reviewed. LABORATORY DATA: Of 08/25/2018, white count 9.5, hemoglobin 8.8. Sodium 134, potassium 4.1, chlorid e 97, carbon dioxide 25, BUN 21, creatinine 3.91, glucose 127, calcium 9.1. ASSESSMENT AND PLAN: 1. End-stage renal disease, stable. Tolerating current hemodialysis regimen. No changes will be ma de with his current dialysis regimen. Continue Friday, , and Friday dialysis. 2. Anemia. The patient currently on weekly Epogen. His Epogen was increased to 10,000 units subcut aneously every week recently. He voices no new complaints today. 3. Hypotension, resolved. 4. Deep venous thrombosis. Currently on Eliquis 2.5 mg tab b.i.d. 5. New onset seizure. Currently on Keppra. Agree with current management.
[2018-08-26] MEDS: Apixaban 2.5 MG TAB PO SCH ×2 (09:09→22:14)
[2018-08-26] MEDS: Carvedilol 3.125 MG TAB PO SCH (09:10)
[2018-08-26] MEDS: Calcium Acetate 667 MG CAP PO SCH ×3 (09:10→16:59)
[2018-08-26] MEDS: Gabapentin 300 MG CAP PO SCH ×2 (09:11→22:13)
[2018-08-26] MEDS: levETIRAcetam 500 mg/5 ml Oral Solution PO SCH ×2 (09:11→22:14)
[2018-08-26] MEDS: Acetaminophen 325 MG TAB PO SCH ×3 (09:11→22:13)
[2018-08-26] MEDS: guaiFENesin ER 600 MG TAB PO SCH ×2 (09:11→22:13)
[2018-08-26] MEDS: Polyethylene Glycol 3350 17 GM Packet PO SCH ×2 (09:12→22:14)
[2018-08-26] MEDS: Nystatin Powder 15 GM BOT TOP SCH ×2 (09:13→22:21)
--- NOTE | 2018-08-26 11:56 | RAD ---
CHEST ONE VIEW: HISTORY: Shortness of breath. COMPARISON: Radiograph from 08/17/2018. FINDINGS: Heart size is enlarged. Small effusions. No pneumothorax. Dialysis catheter tip in similar positio n. Heart size is enlarged. IMPRESSION: Mild fluid overload. POS: [facility]
--- NOTE | 2018-08-26 14:35 | PDOC.PN ---
- Subjective Encounter Start Date: 08/26/18 Encounter Start Time: 14:34 Subjective: feels bad.c/o SOb and weakness. -: c/o Pain in the fistula arm w swelling - Objective Resuscitation Status: Resuscitation Status FULL:Full Resuscitation MAR Reviewed: Yes Vital Signs & Weight: Vital Signs (12 hours) Temp Pulse Resp BP Pulse Ox 08/26/18 13:03 97.4 F L 89 18 109/72 99 08/26/18 08:09 98.1 F 90 20 99/66 94 L 08/26/18 08:00 94 L 08/26/18 05:00 97.6 F 86 18 100/68 Weight Admit Weight 224 lb 14.4 oz Weight 217 lb 3.2 oz Most Recent Monitor Data Heart Rate from ECG 91 NIBP 110/67 NIBP BP-Mean 81 Respiration from ECG 21 SpO2 99 I&O: 08/25/18 08/26/18 08/27/18 06:59 06:59 06:59 Intake Total 580 960 Output Total 150 650 Balance 430 310 Result Diagrams: 08/25/18 05:28 08/26/18 04:05 Additional Labs: Accuchecks 08/26/18 08/26/18 08/25/18 11:49 06:02 21:33 POC Glucose 149 H 132 H 111 H 08/25/18 08/25/18 08/25/18 16:46 07:33 06:16 POC Glucose 91 85 64 L Phys Exam - Physical Examination looks ill ,chronically.slumped in bed HEENT: PERRLA, moist MMs, sclera anicteric, oral pharynx no lesions Neck: no nodes, no JVD, supple, full ROM Respiratory: no wheezing, no rales, no rhonchi Cardiovascular: RRR, no significant murmur Gastrointestinal: soft, non-tender, no distention, positive bowel sounds Musculoskeletal: pulses present, edema present (Left arm redness less.swelling up to hand) Neurological: non-focal, normal sensation, moves all 4 limbs Psychiatric: normal affect, A&O x 3 Skin: no rash Dx/Plan (1) Acute systolic CHF (congestive heart failure), NYHA class 3 Code(s): I50.21 - ACUTE SYSTOLIC (CONGESTIVE) HEART FAILURE Status: Acute Comment: Based on ECHO results. worsening Cardiac Function than few months ago. HD w fluid removal as tolerated.Off of Coreg due to low BP..BP too low for SHABBIR-I /ARB (2) DVT femoral (deep venous thrombosis) with thrombophlebitis Code(s): I82.419 - ACUTE EMBOLISM AND THROMBOSIS OF UNSPECIFIED FEMORAL VEIN Status: Acute Qualifiers: Laterality: bilateral Qualified Code(s): I82.413 - Acute embolism and thrombosis of femoral vein, bilateral Comment: ? restart Eliquis. (3) AV fistula thrombosis Code(s): T82.868A - THROMBOSIS DUE TO VASCULAR PROSTH DEV/GRFT, INIT Status: Acute Comment: S/P Fistula revision 08/17 (4) Volume overload Code(s): E87.70 - FLUID OVERLOAD, UNSPECIFIED Status: Resolved (5) NSVT (nonsustained ventricular tachycardia) Code(s): I47.2 - VENTRICULAR TACHYCARDIA Status: Acute Comment: asymptomatic.SVT by cardiology eval.ECHO shows Low EF.Stress test done (6) Seizure Code(s): R56.9 - UNSPECIFIED CONVULSIONS Status: Acute Comment: stable On keppra (7) Thrombocytopenia Code(s): D69.6 - THROMBOCYTOPENIA, UNSPECIFIED Status: Acute Comment: Imrpoving.no active bleed (8) Dyslipidemia Code(s): E78.5 - HYPERLIPIDEMIA, UNSPECIFIED Status: Chronic (9) HTN (hypertension) Code(s): I10 - ESSENTIAL (PRIMARY) HYPERTENSION Status: Chronic Qualifiers: Hypertension type: essential hypertension Qualified Code(s): I10 - Essential (primary) hypertension (10) CAD (coronary artery disease) Code(s): I25.10 - ATHSCL HEART DISEASE OF [place] CORONARY ARTERY W/O ANG PCTRS Status: Chronic Qualifiers: Coronary Disease-Associated Artery/Lesion type: [place] artery [place] vs. transplanted heart: [place] heart Associated angina: without angina Qualified Code(s): I25.10 - Atherosclerotic heart disease of [place] coronary artery without angina pectoris Comment: CABG in past (11) Demand ischemia Code(s): I24.8 - OTHER FORMS OF ACUTE ISCHEMIC HEART DISEASE Status: Acute (12) ESRD (end stage renal disease) on dialysis Code(s): N18.6 - END STAGE RENAL DISEASE; Z99.2 - DEPENDENCE ON RENAL DIALYSIS Status: Chronic (13) Cellulitis, leg Code(s): L03.119 - CELLULITIS OF UNSPECIFIED PART OF LIMB Status: Suspected Comment: Aniyah deshpande thrombophelbitis. No evidence of sepsis.On empiric ABx (14) Cardiomyopathy Code(s): I42.9 - CARDIOMYOPATHY, UNSPECIFIED Status: Chronic Qualifiers: Cardiomyopathy type: unspecified Qualified Code(s): I42.9 - Cardiomyopathy , unspecified Comment: Lifevest Fitted. - Plan PT/OT, respiratory therapy, incentive spirometry, out of bed/ambulate, DVT proph w/SCDs Discussed w [facility] Dr Ding who graciously saw the pt again -: Fistula site looks NL post-op.Staple removal in 2 weeks -: CXr ordered and does not show any worsening.suspect deconditioning -: cont currenet care as below. on eliquis for DVT.HD for ESRD.Monitor Cr -: LifeVest in place. Will stop Coreg as BP dropped w restarting yesterday * . DC to rehab when OP HD chair set up done Review of Systems - Review of Systems Constitutional: weakness, malaise. negative: fever, chills, sweats, other ENT: negative: Ear Pain, Ear Discharge, Nose Pain, Nose Discharge, Nose Congestion, Mouth Pain, Mouth Swelling, Throat Pain, Throat Swelling, Other Respiratory: Shortness of Breath. negative: Cough, Dry, Hemoptysis, SOB with Excertion, Pleuritic Pain, Sputum, Wheezing Cardiovascular: negative: chest pain, palpitations, orthopnea, paroxysmal nocturnal dyspnea, edema, light headedness, other Gastrointestinal: negative: Nausea, Vomiting, Abdominal Pain, Diarrhea, Constipation, Melena, Hematochezia, Other Genitourinary: negative: Dysuria, Frequency, Incontinence, Hematuria, Retention , Other Musculoskeletal: negative: Neck Pain, Shoulder Pain, Arm Pain, Back Pain, Hand Pain, Leg Pain, Foot Pain, Other Neurological: negative: Weakness, Numbness, Incoordination, Change in Speech, Confusion, Seizures, Other - Medications/Allergies Allergies/Adverse Reactions: Allergies Allergy/AdvReac Type Severity Reaction Status Date / Time meperidine HCl [From Demerol] Allergy Verified 04/25/18 01:04 Medications: Current Medications Acetaminophen (Tylenol) 650 mg PO Q4H PRN PRN Reason: Headache/Fever/Mild Pain (1-3) Last Admin: 08/18/18 12:01 Dose: 650 mg Acetaminophen (Tylenol) 650 mg PO TID [facility] Last Admin: 08/26/18 09:11 Dose: Not Given Albuterol/Ipratropium (Duoneb) 3 ml NEB Q4H PRN PRN Reason: SOB &/or Wheezing Apixaban (Eliquis) 2.5 mg PO BID [facility] Last Admin: 08/26/18 09:09 Dose: 2.5 mg Aspirin (Aspirin Chewable) 81 mg PO DAILY [facility] Last Admin: 08/26/18 09:11 Dose: 81 mg Atorvastatin Calcium (Lipitor) 10 mg PO HS [facility] Last Admin: 08/25/18 22:56 Dose: 10 mg Bisacodyl (Dulcolax) 10 mg WI Q12H PRN PRN Reason: Constipation Calcium Acetate (Phoslo) 2,001 mg PO TID[facility] Last Admin: 08/26/18 12:51 Dose: 2,001 mg Calcium Carbonate (Tums) 500 mg PO DAILYPRN PRN PRN Reason: INDIGESTION Last Admin: 08/20/18 15:06 Dose: 500 mg Dextrose/Water (Dextrose 50%) 25 gm SLOW IVP PRN PRN PRN Reason: Hypoglycemia Epoetin Shamir (Procrit) 10,000 units IVP Q7D [facility] Last Admin: 08/23/18 13:58 Dose: 10,000 units Famotidine (Pepcid) 20 mg PO QPM [facility] Last Admin: 08/25/18 22:57 Dose: 20 mg Gabapentin (Neurontin) 300 mg PO BID [facility] Last Admin: 08/26/18 09:11 Dose: 300 mg Glucagon (Glucagon) 1 mg IM PRN PRN PRN Reason: Hypoglycemia Guaifenesin (Robitussin Sf) 15 mg PO Q4H PRN PRN Reason: Cough Guaifenesin (Mucinex) 600 mg PO Q12HR [facility] Last Admin: 08/26/18 09:11 Dose: 600 mg Heparin Sodium (Porcine) (Heparin Lock Flush 100 Units/Ml) 500 units IVF Q12HR [facility] Last Admin: 08/26/18 09:26 Dose: Not Given Heparin Sodium (Porcine) (Heparin Lock Flush 100 Units/Ml) 500 units IVF PRN PRN PRN Reason: Heparin Flush Last Admin: 08/16/18 04:33 Dose: 500 unit Dextrose/Water (D5w) 1,000 mls @ 0 mls/hr IV .Q0M PRN PRN Reason: Hypoglycemia Insulin Glargine 15 units/ (Miscellaneous Medication) 0.15 mls @ 0 mls/hr [facility] Last Admin: 08/25/18 22:57 Dose: Not Given Insulin Human Regular (Humulin R) 0 units SC .MILD SLIDING SCALE PRN PRN Reason: Mild Correctional Scale Last Admin: 08/21/18 22:15 Dose: 5 unit Levetiracetam (Keppra Oral Solution) 250 mg PO BID [facility] Last Admin: 08/26/18 09:11 Dose: Not Given Miscellaneous Information (Communication Order-Pharmacy) 0 each FS ASDIR [facility] Nystatin (Mycostatin Powder) 0 gm TOP BID [facility] Last Admin: 08/26/18 09:13 Dose: 1 applic Ondansetron HCl (Zofran) 4 mg SLOW IVP Q6H PRN PRN Reason: Nausea/Vomiting Last Admin: 08/25/18 21:39 Dose: 4 mg Polyethylene Glycol (Miralax) 17 gm PO BID [facility] Last Admin: 08/26/18 09:12 Dose: 17 gm Sertraline HCl (Zoloft) 50 mg PO DAILY [facility] Last Admin: 08/26/18 09:11 Dose: 50 mg Sodium Chloride (Flush - Normal Saline) 10 ml IVF Q12H PRN PRN Reason: Saline Flush Last Admin: 08/26/18 09:12 Dose: 10 ml Sodium Chloride (Flush - Normal Saline) 10 ml IVF PRN PRN PRN Reason: Saline Flush Last Admin: 08/22/18 00:16 Dose: 10 ml Tramadol HCl (Ultram) 50 mg PO Q6H PRN PRN Reason: Pain 4-6 Last Admin: 08/22/18 22:20 Dose: 50 mg Zinc Acetate/Diphenhydramine (Benadryl 2% Cream) 0 gm TOP BIDPRN PRN PRN Reason: SKIN Last Admin: 08/18/18 04:46 Dose: 1 applic
[2018-08-26] MEDS: Calcium Carbonate 500 MG ChewTAB PO PRN (15:31)
[2018-08-26] MEDS: Insulin Regular 300 UNITS/3 ML VIAL SC PRN (16:59)
--- NOTE | 2018-08-26 18:21 | PRG ---
DATE OF SERVICE: 08/26/2018 Abdulkadir Fontana is doing well today. He has some edema in his left arm. His wounds upper arm looked good. There is slight redness around the staple line midline upper arm, but no keesha infection . He has a good thrill and bruit over his new fistula, status post revision with basilic vein transp osition replace the outflow due to outflow problems. At this point, the patient is stable for transfer any time. He is on anticoagulation due to DVT legs. I will see him in the office in 2 week s for staple removal.
[2018-08-26] MEDS: Atorvastatin Calcium 10 MG TAB PO SCH (22:13)
[2018-08-26] MEDS: Famotidine 20 MG TAB PO SCH (22:13)
[2018-08-26] MEDS: Insulin Glargine 15 UNITS in Pre-Filled Syringe 1 EACH SC SCH (22:16)
--- NOTE | 2018-08-27 09:19 | PRG ---
DATE OF SERVICE: 08/27/2018 SUBJECTIVE: Mr. Fontana is a 58-year-old white male with ESRD and followed up by the [facility] fo r his maintenance hemodialysis. I am currently at the bedside supervising his dialysis. He is kathryn ating said treatment. We are awaiting for him a assisted facility transfer. No other complaints, no chest pain, shortness of breath. OBJECTIVE: VITAL SIGNS: Blood pressure 98/62, heart rate 76, respiratory rate 18, temperature 97.5, pulse ox 98 %. GENERAL: The patient is awake, alert, sitting comfortable, not in distress. SKIN: Adequate turgor. HEENT: Slightly pale conjunctivae, anicteric sclerae. NECK: No neck mass, no carotid bruits. No JVD. CHEST: No deformities. LUNGS: Clear breath sounds, no wheezing, no crackles. HEART: Normal sinus rhythm. No murmur, no gallop, no rub. ABDOMEN: Globular, soft, nontender, no masses. EXTREMITIES: No edema, no deformities. MEDICATIONS: 08/27/2018 - Reviewed. LABORATORY: 08/25/2018 - White count 9.5, hemoglobin 8.8. 08/26/2018 - Sodium 134, potassium 4.1, chloride 97, carbon dioxide 25, BUN 21, creatinine 3.91. 08/27/2018 - Glucose 148. ASSESSMENT AND PLAN: 1. End-stage renal disease, stable. Continue current Friday, , and Friday dialysis regim en. Fluid removal as tolerated by the patient 2. Anemia. The patient currently on weekly Epogen 10,000 units every day. 3. New onset seizure. Currently on Keppra - seizure free. 4. Status post deep venous thrombosis - currently on Eliquis 2.5 mg b.i.d. 5. Hypertension, minimal fluid removal with the dialysis. 6. Clotted AV fistula - status post AV fistula revision by Dr. Ding. Overall, the patient is doing well.
[2018-08-27] MEDS: Calcium Acetate 667 MG CAP PO SCH ×3 (09:54→16:36)
[2018-08-27] MEDS: Acetaminophen 325 MG TAB PO SCH ×2 (09:54→15:30)
[2018-08-27] MEDS: Gabapentin 300 MG CAP PO SCH (09:54)
[2018-08-27] MEDS: Apixaban 2.5 MG TAB PO SCH (09:54)
[2018-08-27] MEDS: Nystatin Powder 15 GM BOT TOP SCH (09:55)
[2018-08-27] MEDS: levETIRAcetam 500 mg/5 ml Oral Solution PO SCH (09:55)
[2018-08-27] MEDS: guaiFENesin ER 600 MG TAB PO SCH (09:55)
[2018-08-27] MEDS: Polyethylene Glycol 3350 17 GM Packet PO SCH (09:56)
[2018-08-27] MEDS ORDERED: diphenhydrAMINE 50 MG/ML VIAL IVP SCH (11:30)
[2018-08-27] MEDS ORDERED: Heparin 10,000 UNITS/ 10 ML VIAL ONE (15:59)
[2018-08-27] MEDS: Insulin Regular 300 UNITS/3 ML VIAL SC PRN (16:37)
[2018-08-27 18:05] VITALS: BP 104/71; TEMP 97.5
--- NOTE | 2018-08-28 02:30 | DIS ---
DATE OF ADMISSION: 08/08/2018 DATE OF DISCHARGE: 08/27/2018 DISCHARGE DISPOSITION: [facility]. CONDITION AT THE TIME OF DISCHARGE: Stable and improved. PRIMARY CARE PHYSICIAN: Jose Luis Clements M.D. PRIMARY ACOUSTICS TEACHER: Miguel Blanco M.D. DISCHARGE DIAGNOSES: 1. AV fistula thrombosis, status post revision by Dr. Ding. 2. Bilateral lower extremity deep venous thrombosis, currently started on Eliquis. 3. End-stage renal disease on hemodialysis Tuesdays, , and Saturdays. 4. Acute on chronic systolic congestive heart failure, NYHA class 3. 5. Volume overload secondary to above. 6. Nonsustained ventricular tachycardia. 7. New diagnosis of cardiomyopathy, likely ischemic, status post LifeVest placement. 8. New diagnosis of seizures, started on Keppra. 9. Thrombocytopenia likely secondary to heparin use during dialysis. 10. Dyslipidemia. 11. Hypertension. 12. History of coronary artery disease status post CABG in the past. 13. Demand ischemia. 14. Lower extremity thrombophlebitis due to deep venous thrombosis status post empiric antibiotics. DISCHARGE MEDICATIONS: Gabapentin 300 mg p.o. b.i.d., Pepcid 20 mg at bedtime, Humalog insulin slidi ng scale, Lipitor 10 mg daily, Lantus 15 units at bedtime, PhosLo three tablets p.o. t.i.d., Zoloft 5 0 mg daily, MiraLax p.r.n., tramadol p.r.n., Keppra 250 p.o. b.i.d., DuoNebs p.r.n., Procrit 10,000 u nits every 7 days, aspirin 81 mg daily, Eliquis 2.5 mg p.o. b.i.d. and Tylenol as needed. Please not e that the patient could not tolerate SHABBIR inhibitors, or ARBs or beta blockers due to low blood press ure. These were started, but were stopped because of low blood pressure. INHOUSE CONSULTATIONS: 1. Nephrology, Dr. Hargrove. 2. Cardiology, Dr. Kirkland. 3. General Surgery, Dr. Ding. 4. Neurology, Dr. Sosa and Dr. Méndez. 5. Urology, Dr. Nikunj Walker. PROCEDURES DONE IN THE HOSPITAL. 1. Changing of the suprapubic catheter by Dr. Walker on 08/25/2018. 2. Maintenance hemodialysis. 3. Revision of the AV fistula by Dr. Ding on 08/17/2018 due to thrombosis and migration of the coi l that was placed angiographically. 4. Placement of right femoral Trialysis dialysis catheter on 08/12/[address] Ding. 5. MRI of the brain upon presentation, which showed small vessel disease without evidence of acute i nfarction. 6. CT scan of the brain upon presentation, which is negative for any acute hemorrhage. 7. AV shunt angiogram which showed thrombosis with the coil migrated into the fistula. 8. Lower extremity ultrasound bilaterally which shows a nonocclusive DVT in the mid and distal femor al veins bilaterally. 9. Nuclear medicine scan rest portion only, which showed decreased radiotracer localization in the a pex, anterior wall and lateral wall of the left ventricle. 10. Multiple chest x-rays. HISTORY OF PRESENTING ILLNESS: Mr. Fontana is a 58-year-old male with past medical history of end-sta ge renal disease on hemodialysis as well as coronary artery disease, sleep apnea, dyslipidemia, conge stive heart failure and cardiomyopathy as well as diabetes who presented to the emergency room with p ossible seizures. The patient's noticed episodes of shaking and him being going very stiff with eyes rolling back into the head. He was hemodynamically stable at the time of presentation and a CT scan done in the emergency room was unremarkable. His labs were almost within normal limit except f or AST elevated to 737, ALT to 590 with alkaline phosphatase of 172. Creatinine of 8.69. Troponin 0 .042. He was admitted with a presumptive diagnosis of altered mental status due to possible seizures . Neurology was consulted and Nephrology was consulted as well. Please see admission history and ph ysical for further details. HOSPITAL COURSE: He was seen by Neurology and did not have any seizure episodes in the hospital. He underwent an MRI of the brain, which is negative for any acute abnormality. He was started on low d ose Keppra and underwent an EEG, which also did not show any seizure activity. He was stable with regard to his seizure, but he was found to have a nonfunctioning fistula. Fistula angiogram was done, which showed a migrated coil with thrombosis of the AV fistula. Because of this , General Surgery was consulted and a temporary dialysis catheter was placed in the right femoral art maria dolores. Eventually, he underwent a fistula revision with placement of a new fistula in the left arm by Dr. Ding who followed the patient along. He was seen yesterday by Dr. Ding and the inna are t o be removed in 2 weeks' time at [facility]'s office. He does have mild bruising and erythema at the sta ple site, but other than is normal according to Dr. Ding. He was continued on maintenance hemodial ysis while in the hospital. Dr. Hargrove followed along and labs were checked almost on a daily basis. The patient developed some complaints of lower extremity swelling, redness and extreme pain. So, low er extremity venous Dopplers were done, which showed bilateral femoral vein thrombosis and likely ass ociated thrombophlebitis in the ankles. He was empirically started on IV antibiotics for possible ce llulitis and IV heparin, which was later changed to Eliquis after placement of the new AV fistula. The patient also had multiple episodes of nonsustained supraventricular and ventricular tachycardia a nd Cardiology was consulted. Dr. Kirkland and Dr. Marie and Dr. Dasilva saw the patient. Echocardiog lauryn was done, which showed reduced ejection fraction of 25%-30%. His prior cardiac workup was at [facility] by Dr. Blanco who has seen him in the past. There was no history of severe cardiomyopathy, h owever. He was fitted with a LifeVest and was continued on aspirin and statin. He was started on ca rvedilol, but his blood pressure was too low to continue that with severe symptoms of hypotension. F or this reason, SHABBIR inhibitors or ARBs could not be started. He will follow up with Dr. Blanco in 3 months of time. A LifeVest battery was changed prior to discharge as it was acting. The patient had slow improvement and prolonged hospital course because of multiple issues as above. Eventually, he was up to the point where he was transitioned and approved for next level of care by a ll the specialists involved. He will be discharged to rehabilitation, at [facility] in [place] to day. I have seen and examined the patient prior to discharge while getting dialysis and he is awake, alert, oriented x3. PHYSICAL EXAMINATION: This morning: VITAL SIGNS: Temperature 98, pulse of 84, respirations 18, saturating 99% on room air, blood pressur e 96/63, in no acute distress. CHEST: Clear to auscultation bilaterally. Rate and rhythm regular. LABORATORY DATA: CBC shows WBC 9.5, hemoglobin 8.8, platelet count of 118. Serum creatinine 3.91. His urine culture showed achromobacter and yeast. He also has a suprapubic catheter and is being managed by Dr. Walker as an outpatient. Because of him being transferred to rehab and him missing the appointment for the change of the catheter, Urology w as consulted and Dr. Walker graciously saw the patient. He has changed the catheter for this patient yesterday on 08/26/2018. The patient is being discharged now. Total time spent in the discharge 38 minutes.
== END 2018-08-27 18:00 | DRG 981 ==
LOC: ERS 15:34 → 2SE 08-08 01:21 → CCU 08-19 07:42 → 2SE 08-19 15:53 → 2NO 08-21 18:22 → T4-A 08-25 20:34
PROVIDERS: ADMIT Internal Medicine; ATTEND Internal Medicine
PROC: 06HY33Z Insertion of Infusion Device into Lower Vein, Percutaneous Approach (ICD-10-PCS; 2018-08-12)
PROC: 05CF0ZZ Extirpation of Matter from Left Cephalic Vein, Open Approach (ICD-10-PCS; principal; 2018-08-17)
PROC: 057F0ZZ Dilation of Left Cephalic Vein, Open Approach (ICD-10-PCS; 2018-08-17)
PROC: 05WY07Z Revision of Autologous Tissue Substitute in Upper Vein, Open Approach (ICD-10-PCS; 2018-08-17)
PROC: 0JH60XZ Insertion of Tunneled Vascular Access Device into Chest Subcutaneous Tissue and Fascia, Open Approach (ICD-10-PCS; 2018-08-17)
PROC: 02HV33Z Insertion of Infusion Device into Superior Vena Cava, Percutaneous Approach (ICD-10-PCS; 2018-08-17)
PROC: 0T2BX0Z Change Drainage Device in Bladder, External Approach (ICD-10-PCS; 2018-08-25)
PROC: 5A1D70Z Performance of Urinary Filtration, Intermittent, Less than 6 Hours Per Day (ICD-10-PCS; 2018-08-27)
DX: G40.909 Epilepsy, unspecified, not intractable, without status epilepticus (principal); N18.6 End stage renal disease; I50.23 Acute on chronic systolic (congestive) heart failure; T82.868A Thrombosis due to vascular prosthetic devices, implants and grafts, initial encounter; I42.9 Cardiomyopathy, unspecified; I13.2 Hypertensive heart and chronic kidney disease with heart failure and with stage 5 chronic kidney disease, or end stage renal disease; I82.413 Acute embolism and thrombosis of femoral vein, bilateral; I47.2 Ventricular tachycardia; I24.8 Other forms of acute ischemic heart disease; Z79.4 Long term (current) use of insulin; K21.9 Gastro-esophageal reflux disease without esophagitis; G47.30 Sleep apnea, unspecified; I25.10 Atherosclerotic heart disease of native coronary artery without angina pectoris; E78.5 Hyperlipidemia, unspecified; Z95.5 Presence of coronary angioplasty implant and graft; E11.22 Type 2 diabetes mellitus with diabetic chronic kidney disease; Z99.2 Dependence on renal dialysis; I25.2 Old myocardial infarction; Z95.1 Presence of aortocoronary bypass graft; Z79.01 Long term (current) use of anticoagulants; Z95.2 Presence of prosthetic heart valve; E87.70 Fluid overload, unspecified; Z79.82 Long term (current) use of aspirin; N35.919 Unspecified urethral stricture, male, unspecified site; F32.9 Major depressive disorder, single episode, unspecified; D63.1 Anemia in chronic kidney disease
CPT/HCPCS: 36415; 36416; 36901; 70450; 70551; 71045; 71046; 78451; 80048; 80053; 80202; 81001; 82533; 82553; 83605; 83735; 83880; 84100; 84146; 84443; 84484; 85025; 87040; 87077; 87086; 87186; 87340; 90935; 93005; 93010; 93306; 93798; 93970; 95816; 95819; 96374; A9500; C1752; C1769; C9113; G0257; G0365; G8978-GP-CK; G8978-GP-CM; G8979-GP-CJ; G8979-GP-CL; G8987-GO-CK; G8987-GO-CL; G8988-GO-CJ; G8988-GO-CK; G8989-GO-CK; G8996-GN-CI; G8997-GN-CI; J0670; J1200; J1642; J1644; J1815; J1953; J2405; J2543; J2704; J2720; J2920; J2930; J3010; J3370; J7050; P9045; P9047; Q4081; Q9967

== ENCOUNTER 2018-08-31 03:26 | Inpatient (IN) | payer MEDICARE ==
[2018-08-31 03:56] LABS: Bilirubin Moderate (Negative); Blood, Urine Large (Negative); Clarity TURBID (Clear); Glucose, Urine (Dipstick) Negative (Negative); Leukocyte Large (Negative); Nitrite Positive (Negative); Protein, Urine (Dipstick) > or equal to 300 mg/dL (Neg-Trace); pH, Urine 7.5 (5.0-9.0)
[2018-08-31 04:03] LABS: Bacteria/HPF 4+ HPF (None Seen)
[2018-08-31 04:07] LABS: Pathc Cast-AUWi Flag 23.93 (0-2.49)
[2018-08-31 04:10] LABS: Hyaline Casts/LPF NONE SEEN LPF (0-3 Hyaline); RBC/HPF GREATER THAN 50-TNTC HPF (0-3)
[2018-08-31 04:11] LABS: Yeast-All Forms 2+ HPF (None Seen)
[2018-08-31 04:12] LABS: Other Casts/LPF None Seen LPF (0-3 Hyaline)
[2018-08-31 04:33] LABS: ALT (SGPT) 14 U/L (8-55); AST (SGOT) 18 U/L (5-34); Albumin 3.9 g/dL (3.5-5.0); Alkaline Phosphatase 75 U/L (40-150); Anion Gap 20 mmol/L (10-20); BUN (Urea Nitrogen) 38 mg/dL (8.4-25.7); Bilirubin, Total 1.2 mg/dL (0.2-1.2); CRP (Inflammatory) 5.53 mg/dL (= or < 0.5); Calc. Creatinine Clearance 0 mL/min (70-130); Calcium 9.5 mg/dL (7.8-10.44); Carbon Dioxide 23 mmol/L (22-29); Chloride 96 mmol/L (98-107); Estimated GFR-MDRD 10; Glucose 167 mg/dL (70-105); Potassium 4.2 mmol/L (3.5-5.1); Protein, Total 6.9 g/dL (6.0-8.3); Sodium 135 mmol/L (136-145)
[2018-08-31 04:38] LABS: CKMB 1.4 ng/mL (0-6.6)
[2018-08-31 04:40] LABS: Troponin I 0.354 ng/mL (< 0.028)
[2018-08-31 04:42] LABS: Hemoglobin 9.8 g/dL (14.0-18.0); Mean Corpuscular HGB CONC 29.9 g/dL (32.0-36.0); Mean Corpuscular Hemoglobin 31.7 pg (27.0-31.0); Mean Platelet Volume 9.3 fL (7.4-10.4); Platelet Count 124 thou/uL (130-400); RBC Distribution Width 18.9 % (11.5-14.5); Red Blood Cell (RBC) Count 3.08 mill/uL (4.70-6.10)
[2018-08-31] MEDS ORDERED: cefTRIAXone\\ROCEPHIN 2 GM VIAL ONE (05:03)
[2018-08-31] MEDS ORDERED: Aspirin 325 MG TAB ONE (05:07)
[2018-08-31 05:41] LABS: #Basophils 0.1 thou/uL (0.0-0.2); #Eosinphils 0.3 thou/uL (0.0-0.7); #Lymphocytes 0.7 thou/uL (1.20-3.40); #Monocytes 0.6 thou/uL (0.11-0.59); #Neutrophils 5.3 thou/uL (1.40-6.50); %Basophils 0.7 % (0.0-1.0); %Eosinophils 4.9 % (0.0-10.0); %Lymphocytes 9.8 % (21.0-51.0); %Monocytes 8.1 % (0.0-10.0); %Neutrophils 76.5 % (42.0-75.0); Anisocytosis SLIGHT = 6-15 cells (100X) (0-5/hpf); MDiff Complete? YES; Macrocytosis SLIGHT = 6-15 cells (100X) (0-5/hpf)
--- NOTE | 2018-08-31 07:48 | RAD ---
SINGLE VIEW CHEST: Date: 08/31/18 COMPARISON: 08/26/18. HISTORY: Fistula repair on 08/27/18 with tenderness and bruising in the left upper arm and chest. FINDINGS: Single view of the chest shows an enlarged, but stable cardiomediastinal silhouette. The patient is s tatus post sternotomy. The dialysis catheter is unchanged in position. Surgical inna are seen in t he left upper extremity. There may be small bilateral pleural effusions. IMPRESSION: 1. Possible small bilateral pleural effusions. 2. Cardiomegaly. POS: [facility]
[2018-08-31] MEDS ORDERED: Epoetin (ESRD) 20,000 UNITS/ML SC SCH ×2 (08:45→11:45)
[2018-08-31 09:52] VITALS: BMI 34.5
--- NOTE | 2018-08-31 09:58 | PRG ---
DATE OF SERVICE: 08/31/2018 SUBJECTIVE: Mr. Fontana is a 58-year-old white male with known history of ESRD - on maintenance hemodialysis on Friday, Friday, Friday, was admitted for an infected left AV fistula. We noted that the left AV fistula surgical site worsen over the weekend. I did see this Friday. It was fine. It is now more swollen and some discharge was noted. He has been initiated with IV antibiotics on the ER. The plan is to eventually maintain him on IV antibiotics. We were consulted for his maintenance hemodialysis. I have made arrangements for him to be dialyzed later this afternoon. No other complaints. PHYSICAL EXAMINATION: GENERAL: Noted to be awake, alert, comfortable, not in overt distress. SKIN: Adequate turgor. HEENT: Pinkish conjunctivae, anicteric sclerae. NECK: No neck mass, no carotid bruits, no JVD. LUNGS: Decreased breath sounds. HEART: Normal sinus rhythm. No murmur, no gallops or rubs. ABDOMEN: Globular, soft, nontender. No masses. Positive for suprapubic cystostomy tube. EXTREMITIES: No edema, no deformities. Left upper extremity - dressing noted on the left upper extremity. Home medications were reviewed. LABORATORY: 08/31/2018 - White count 7, hemoglobin 9.8. Sodium 135, potassium 4.2, chloride 96, carbon dioxide 23, BUN 30, creatinine 5.63, glucose 167. Troponin I 0.354, albumin 3.9. ASSESSMENT AND PLAN: 1. End-stage renal disease, we will schedule the patient for his 4 hour hemodialysis treatment today. Again, fluid removal only as tolerated by the patient. 2. Anemia. We will resume weekly Epogen. 3. Infected AV fistula/surgical site - continue IV antibiotics. If needed, we can the consult the surgeon, Dr. Ding. - will consider giving IV vancomycin at the hospital and in the outpatient setting for a total of 3 weeks. Overall I agree with current management. Addendum 4:30 PM - I am currently at bedside supervising the patient's hemodialysis - due to low bp - minimal fluid removal MTDD
[2018-08-31 10:27] LABS: Troponin I 0.322 ng/mL (< 0.028)
[2018-08-31] MEDS ORDERED: Acetaminophen 325 MG TAB PO PRN (10:50)
[2018-08-31] MEDS ORDERED: Ondansetron ODT 4 MG TAB PO PRN (10:50)
[2018-08-31] MEDS ORDERED: Ondansetron PF 4 MG/2 ML Vial IVP PRN (10:50)
[2018-08-31] MEDS ORDERED: Polyethylene Glycol 3350 17 GM Packet PO PRN (10:54)
[2018-08-31] MEDS ORDERED: traMADol HCl 50 MG TAB PO PRN (10:54)
--- NOTE | 2018-08-31 10:56 | CT ---
PRELIMINARY REPORT/[facility]/EMERGENTY AFTER-HOURS PROCEDURE CT Abdomen and Pelvis With Intravenous Contrast EXAM DATE/TIME: 08/31/2018 4:48 AM CLINICAL HISTORY: 58 years old, male; Pain; Abdominal pain; Generalized; Chest pain; Type not specified; Patient HX: Dy spnea TECHNIQUE: Axial computed tomography images of the abdomen and pelvis with intravenous contrast. Coronal reforma tted images were created and reviewed. COMPARISON: No relevant prior studies available. FINDINGS: Tubes, catheters and devices: There is a suprapubic balloon catheter in the urinary bladder. Lower thorax: The heart is enlarged. There is a small left pleural effusion. There are widespread coronary artery calcifications. ABDOMEN: Liver: Normal. No mass. Gallbladder and bile ducts: Normal. No calcified stones. No ductal dilation. Pancreas: Normal. No ductal dilation. Spleen: The spleen is enlarged measuring 14.6 x 9.4 x 14.2 cm. Adrenals: Normal. No mass. Kidneys and ureters: There is mild bilateral renal atrophy. Stomach and bowel: Normal. No obstruction. Appendix: The appendix is unremarkable. PELVIS: Bladder: Unremarkable as visualized. Reproductive: Unremarkable as visualized. ABDOMEN and PELVIS: Intraperitoneal space: Unremarkable. No free fluid or free air. No fluid collection. Bones/joints: There is a healed right rib fracture. There are degenerative changes in the spine. Soft tissues: There is diffuse subcutaneous fat edema. Vasculature: Calcifications in the campuzano of the aorta and other arteries are consistent with atherosc lerosis. No abdominal aortic aneurysm or dissection is identified. Lymph nodes: Normal. No enlarged lymph nodes. IMPRESSION: 1. Small left pleural effusion, ascites and anasarca. 2. Gallstones in the gallbladder. 3. Splenomegaly. 4. Additional findings as above. Thank you for allowing us to participate in the care of your patient. Dictated and Authenticated by: Nilay Dueñas MD 08/31/2018 6:17 AM Central Time ([place] & [place]) FINAL REPORT CT ABDOMEN AND PELVIS WITHOUT IV CONTRAST: Date: 08/31/18 FINDINGS/IMPRESSION: I agree with the preliminary report given by Jeanine. POS: [facility]
[2018-08-31] MEDS ORDERED: levETIRAcetam 100 mg/ml Oral Solution PO SCH (11:00)
[2018-08-31] MEDS ORDERED: Gabapentin 300 MG CAP PO SCH (11:00)
[2018-08-31] MEDS ORDERED: Vancomycin HCl 1 GM in Premix Bag 1 BAG IVPB SCH ×2 (11:00→11:15)
[2018-08-31] MEDS ORDERED: Dextrose 5% in Water 1,000 ML IV PRN (11:07)
[2018-08-31] MEDS ORDERED: Dextrose 50% Abboject 50 ML SYRINGE SLOW IVP PRN (11:07)
[2018-08-31] MEDS ORDERED: Vancomycin HCl 1.5 GM in Sodium Chloride 0.9% 250 ML 300 ML IVPB SCH (11:15)
[2018-08-31] MEDS ORDERED: Vancomycin HCl 1.25 GM in Sodium Chloride 0.9% 250 ML 250 ML IVPB SCH (11:15)
[2018-08-31] MEDS ORDERED: Vancomycin Sliding Scale 1 EACH FS ONE (11:15)
[2018-08-31] MEDS ORDERED: levETIRAcetam 500 mg/5 ml Oral Solution PO SCH (11:15)
[2018-08-31] MEDS ORDERED: HOLD VANCOMYCIN FOR LEVEL >20 FS SCH (11:15)
--- NOTE | 2018-08-31 11:33 | HP ---
DATE OF ADMISSION: 08/31/2018 PRIMARY CARE PHYSICIAN: Jose Luis Clements M.D. PRIMARY ASSISTANT COOK: Miguel Blanco M.D. PRIMARY ADJUNCT PSYCHOLOGY INSTRUCTOR: Romero Hargrove M.D. REASON FOR COMPLAINT: Generalized weakness with new onset left arm swelling. HISTORY OF PRESENT ILLNESS: Patient is a 58-year-old male with end-stage renal disease, on hemodialysis; congestive heart failure; who was discharged from this facility 4 days ago. He was admitted with a diagnosis of new onset seizures, congestive heart failure exacerbation as well as DVT. He was started on Eliquis. He also had episodes of hypotension due to which beta blockers were discontinued. His dialysis access was revised by Dr. Ding on the . The patient developed sudden onset of left arm swelling along with generalized weakness last night, for which he presented to the emergency room. There was also some drainage from the recent surgical site over the left arm. He also had significant pain at the same side. He felt feverish; however, did not record his temperature. No chest pain, shortness of breath, palpitations, dizziness, syncope, nausea, vomiting, diaphoresis, or focal deficit reported. In the emergency room, his initial vital signs showed temperature 97.5, respirations of 20, pulse rate of 94, blood pressure of 103/65 with O2 saturation 100% on room air. He received vancomycin, ceftriaxone, along with aspirin in the emergency room. Blood cultures were sent. PAST MEDICAL HISTORY: 1. End-stage renal disease, on hemodialysis, Friday, , and Friday. 2. Seizure disorder, started on Keppra last admission. 3. Bilateral lower extremity DVT, diagnosed last admission, currently on Eliquis. 4. Chronic systolic and diastolic heart failure, ejection fraction 25% range. 5. Coronary artery disease, status post coronary artery bypass grafting x1. 6. Ischemic cardiomyopathy. 7. History of aortic valve replacement. 8. Nonsustained supraventricular tachycardia last admission. 9. Hypotension with beta blockers. 10. Hypertension. 11. Dyslipidemia. 12. Deconditioning. 13. History of cerebrovascular accident in the past. 14. Diabetes mellitus, type 2. 15. Depression. PAST SURGICAL HISTORY: 1. Suprapubic catheter placement with recent change. 2. Eye surgeries. 3. Recent dialysis catheter placement. 4. CABG x1. 5. Aortic valve replacement. 6. Neck surgery. ALLERGIES: Patient is allergic to DEMEROL. CURRENT HOME MEDICATIONS: Family to bring accurate list of medication. He is unable to recall all of his medications. SOCIAL HISTORY: No current use of smoking, alcohol, or drug use. He currently lives at home with his . He is FULL CODE. FAMILY HISTORY: Negative for premature coronary artery disease. REVIEW OF SYSTEMS: The following complete review of systems was negative, unless otherwise mentioned in the HPI or below: Constitutional: Weight loss or gain, ability to conduct usual activities. Skin: Rash, itching. Eyes: Double vision, pain. ENT/Mouth: Nose bleeding, neck stiffness, pain, tenderness. Cardiovascular: Palpitations, dyspnea on exertion, orthopnea. Respiratory: Shortness of breath, wheezing, cough, hemoptysis, fever, or night sweats. Gastrointestinal: Poor appetite, abdominal pain, heartburn, nausea, vomiting, constipation, or diarrhea. Genitourinary: Urgency, frequency, dysuria, nocturia. Musculoskeletal: Pain, swelling. Neurologic/Psychiatric: Anxiety, depression. Allergy/Immunologic: Skin rash, bleeding tendency. PHYSICAL EXAMINATION: VITAL SIGNS: As discussed above. GENERAL: A 58-year-old male in mild distress due to left arm pain. HEENT: Head: Atraumatic, normocephalic. Sclerae are anicteric. Moist mucous membrane, no oral lesion. NECK: Supple, no JVD, no carotid bruit. LUNGS: Showed diminished air entry at bilateral bases. No rhonchi, rales, or wheezing. HEART: S1 and S2 present. Healed midline scar from previous CABG. No heaves or pulsation. ABDOMEN: Soft, nontender, bowel sounds present. EXTREMITIES: There is dressing present over the left arm dialysis access with tenderness and some erythema around the wound. Bilateral lower extremity has chronic venous stasis changes. There is a dialysis catheter noted in the right upper chest. NEUROLOGIC: Grossly nonfocal, moves all 4 extremities. PSYCHIATRIC: Alert, awake, oriented x3. SKIN: As discussed above. LYMPH NODES: No palpable lymph nodes in the neck. LABORATORY AND X-RAY FINDINGS: CBC showed WBC 7 with hemoglobin 9.8, hematocrit 32.6, platelets 124. Troponin 0.354 from 6.5 twelve days ago. CRP 5.5, BUN 38, creatinine 5.6. Urinalysis showed greater than 50 wbc's with 4+ bacteria. Chest x-ray, by my review, showed possible small bilateral pleural effusion. CT scan of the abdomen and pelvis has been done. It was negative for acute findings per ER report. Official report pending at this time. EKG, by my review, showed sinus rhythm without significant ST-T-wave changes. IMPRESSION: 1. Left arm pain, probably secondary to infected dialysis access. 2. End-stage renal disease, on hemodialysis. The patient has a dialysis catheter in the right upper chest. 3. Chronic systolic and diastolic heart failure, ejection fraction 25% range. He is not on SHABBIR inhibitor, ARB, or Aldactone due to renal failure. He is also not on beta-blockers due to hypotension with code green last admission. 4. Elevated troponins, probably secondary to demand ischemia. His troponins are improving from last admission. 5. Ischemic cardiomyopathy. 6. Coronary artery disease, status post coronary artery bypass graft x1. 7. Nonsustained supraventricular tachycardia last admission. 8. Bilateral lower extremity deep vein thrombosis, on anticoagulation. 9. Seizure disorder, started on Keppra last admission. 10. History of hypertension. 11. Dyslipidemia. 12. Physical deconditioning. 13. Pyuria with 4+ bacteria, probably secondary to suprapubic catheter. He denies any suprapubic tenderness, probably colonization. 14. DM2. PLAN: The patient will be monitored on the Telemetry Unit. He will undergo hemodialysis Friday, , and Friday. General Surgery has already evaluated the patient in the ER. We will wait for the consultation note. Empiric antibiotics will be continued. We will repeat labs in a.m. We will consult physical therapy due to extreme deconditioning. We will resume home medications once confirmed. Insulin sliding scale. Plan of care was discussed with the patient and the family at the bedside. They stated understanding. MTDD
[2018-08-31] MEDS: Calcium Acetate 667 MG CAP PO SCH ×2 (11:53→18:46)
[2018-08-31] MEDS: Cefepime 1 GM in Sodium Chloride 0.9% 100 ML IVPB SCH (11:54)
[2018-08-31] MEDS ORDERED: Calcium Acetate 667 MG CAP PO SCH (12:00)
[2018-08-31] MEDS: Apixaban 2.5 MG TAB PO SCH (20:57)
[2018-08-31] MEDS: levETIRAcetam 500 mg/5 ml Oral Solution PO SCH (20:58)
[2018-08-31] MEDS: Gabapentin 300 MG CAP PO SCH (20:59)
[2018-08-31] MEDS: Atorvastatin Calcium 10 MG TAB PO SCH (20:59)
[2018-08-31] MEDS ORDERED: Famotidine 20 MG TAB PO SCH (21:00)
[2018-08-31] MEDS ORDERED: Non-Formulary Item 1 EACH (Melatonin [Melatonin] 5 MG) PO SCH (21:00)
[2018-08-31] MEDS: Insulin Glargine 10 UNITS in Pre-Filled Syringe 1 EACH SC SCH (21:01)
[2018-08-31] MEDS: Melatonin 3 MG TAB PO SCH (23:12)
[2018-09-01] MEDS: Melatonin 3 MG TAB PO SCH ×2 (00:22→21:43)
--- NOTE | 2018-09-01 02:10 | HP ---
HISTORY OF PRESENT ILLNESS: A 58-year-old seen in consultation. Patient is status post 08/17/2018 r evision of left upper arm AV fistula with a basilic vein transposition segment. Patient was not feel ing well, presented to emergency room last night. I saw him yesterday evening in the emergency room to look at his left upper arm wound with the emergency room physician. At that time, patient's arm w as edematous, weeping fluid, but his surgical site looks good and his fistula had a good thrill and b ruit over it, noting patent basilic vein transposition fistula. There was some slight redness around the incision sites, medial arm, and anterior arm incisions antecubital area, but this was not a typi jia or such a large incision. Patient was given vancomycin. I did discuss with the emergency room annabella avila that it did not appear that the patient had any surgical problem at this time and that eleva tion of his left arm should resolve the edema seen. The inna are due to be removed in the near fu ture. I did discuss with him, given him a dose of vancomycin, which would last for a week and furthe r dosing could be determined and followup and I would be glad to see him in my office in the next few days. Patient was advised, he needs to elevate his left arm. Patient was admitted to the [facility], however. CAT scan of abdomen and pelvis obtained at 3 o'clock this morning revealed gallston es, splenomegaly. Chest x-ray was unremarkable with mild cardiomegaly. This morning, I saw the carlos ent in view of his left arm. It looked much better than yesterday just with a short period of elevat ion. It was reiterated to the patient that he should elevate his left arm above his heart, keeping a pillow over his chest, keeping his arm resting on the pillow, this would facilitate decrease swellin g. Patient's left arm findings are all typical postoperatively and there is no surgical reason for i ntervention at this time. There is no indication of a deep infection in his drainage. There is no f oreign body concerns. At this point, I will monitor the patient while in the hospital, seen him jagdish odically. He could be discharged home from a surgical standpoint any time. He could follow up in my office in the next week. I would again recommend keeping the arm elevated. I do not think, it is n ecessary to give him any more vancomycin based on the appearance of his left arm at this time. The d ose he has had just last night should last him for the next week.
[2018-09-01 05:43] LABS: #Eosinphils 0.4 thou/uL (0.0-0.7); #Lymphocytes 0.8 thou/uL (1.20-3.40); #Monocytes 0.7 thou/uL (0.11-0.59); #Neutrophils 5.6 thou/uL (1.40-6.50); %Basophils 0.1 % (0.0-1.0); %Eosinophils 4.7 % (0.0-10.0); %Lymphocytes 11.1 % (21.0-51.0); %Monocytes 9.1 % (0.0-10.0); Hemoglobin 9.6 g/dL (14.0-18.0); Mean Corpuscular HGB CONC 29.5 g/dL (32.0-36.0); Mean Corpuscular Hemoglobin 31.2 pg (27.0-31.0); Mean Platelet Volume 9.1 fL (7.4-10.4); Platelet Count 140 thou/uL (130-400); RBC Distribution Width 18.6 % (11.5-14.5); Red Blood Cell (RBC) Count 3.07 mill/uL (4.70-6.10); White Blood Cell (WBC) Count 7.5 thou/uL (4.8-10.8)
[2018-09-01 06:00] LABS: Vancomycin, Trough 12.4 ug/mL
[2018-09-01 06:01] LABS: Anion Gap 16 mmol/L (10-20); BUN (Urea Nitrogen) 23 mg/dL (8.4-25.7); Calc. Creatinine Clearance 31 mL/min (70-130); Calcium 9.5 mg/dL (7.8-10.44); Carbon Dioxide 27 mmol/L (22-29); Chloride 98 mmol/L (98-107); Estimated GFR-MDRD 16; Glucose 104 mg/dL (70-105); Potassium 3.7 mmol/L (3.5-5.1); Sodium 137 mmol/L (136-145)
[2018-09-01] MEDS: Famotidine 20 MG TAB PO SCH (08:52)
[2018-09-01] MEDS: levETIRAcetam 500 mg/5 ml Oral Solution PO SCH ×2 (08:53→21:42)
[2018-09-01] MEDS: Calcium Acetate 667 MG CAP PO SCH ×3 (08:53→18:14)
[2018-09-01] MEDS: Apixaban 2.5 MG TAB PO SCH ×2 (08:53→21:43)
[2018-09-01] MEDS: Aspirin 81 mg Enteric Coated Tablet PO SCH (08:54)
[2018-09-01] MEDS: Gabapentin 300 MG CAP PO SCH ×2 (08:54→21:43)
[2018-09-01] MEDS ORDERED: Vancomycin HCl 1 GM in Premix Bag 1 BAG IVPB SCH (09:00)
--- NOTE | 2018-09-01 09:06 | PRG ---
DATE OF SERVICE: 09/01/2018 SERVICE: Renal Medicine. SUBJECTIVE: Mr. Fontana is a 58-year-old male, who was admitted for an infected left AV fist kyleigh surgical site. He has been started on vancomycin. Dr. Ding has evaluated this cellulitis in t he left upper extremity. He underwent hemodialysis yesterday without any difficulty. He is doing we ll. No other complaints today. No chest pain or shortness of breath. He denies any fever or chills . PHYSICAL EXAMINATION: VITAL SIGNS: Blood pressure 112/74, heart rate 91, respiratory rate 20, temperature 97.5, pulse ox 1 00%. GENERAL EXAM: Awake, alert, comfortable, not in distress. SKIN: Adequate turgor. HEENT: He has pinkish conjunctivae, anicteric sclerae. NECK: No neck mass, no carotid bruits, no JVD. CHEST: No deformities. LUNGS: Clear breath sounds. No wheezing, no crackles. HEART: Normal sinus rhythm. No murmur, no gallops, no rubs. ABDOMEN: Globular, soft, nontender, no masses. EXTREMITIES: No edema, no deformities. Positive for erythema on the left upper extremity. Medications of 09/01/2018 reviewed. LABORATORY DATA: Laboratories of 09/01/2018, white count 7.5, hemoglobin 9.6. Sodium 137, potassium 3.7, chloride 98, carbon dioxide 27, BUN 23, creatinine 3.88, glucose 104, calcium 9.5. ASSESSMENT AND PLAN: 1. Anemia, continuing weekly Epogen of 7500 units subcutaneously every week. 2. Left upper extremity cellulitis - currently on IV vancomycin and cefepime. The plan is to contin ue IV vancomycin in the outpatient. I have discussed with nursing staff about continuing his vancomy mariann for the next 2-3 weeks. 3. End-stage renal disease, stable. He underwent hemodialysis without any difficulty. Continue cur rent dialysis regimen of Friday, Friday, Friday. Overall, agree with current management. Recheck base met and CBC in a.m.
[2018-09-01] MEDS ORDERED: Heparin 10,000 UNITS/ 10 ML VIAL ONE (09:16)
[2018-09-01] MEDS: Nitroglycerin 0.4 MG TAB (25 Tab Bottle) PO PRN ×2 (09:30→09:38)
[2018-09-01] MEDS: Cefepime 1 GM in Sodium Chloride 0.9% 100 ML IVPB SCH (11:15)
[2018-09-01] MEDS: Insulin Regular 300 UNITS/3 ML VIAL SC PRN (11:24)
[2018-09-01] MEDS: Amiodarone HCl 450 MG, Admixture Fee 1 EACH in Dextrose 5% in Water 250 ML IVPB SCH (11:38)
[2018-09-01 17:30] LABS: ALT (SGPT) 12 U/L (8-55); AST (SGOT) 13 U/L (5-34); Alkaline Phosphatase 75 U/L (40-150); Bilirubin, Direct 0.5 mg/dL (0.1-0.3); Magnesium 2.1 mg/dL (1.6-2.6); Protein, Total 6.9 g/dL (6.0-8.3)
--- NOTE | 2018-09-01 19:27 | OP ---
DATE OF PROCEDURE: 09/01/2018 PREOPERATIVE DIAGNOSES: End-stage renal disease, coronary artery disease status post revision left a rm fistula with basilic vein transposition with necrotic skin edges. POSTOPERATIVE DIAGNOSES: End-stage renal disease, coronary artery disease status post revision left arm fistula with basilic vein transposition with necrotic skin edges. PROCEDURE: Bedside debridement of necrotic skin edges sharply. SURGEON: Dr. Willie Ding. ANESTHESIA: None. DESCRIPTION OF PROCEDURE: The patient is at the bedside, two-thirds of his inna were removed. Th e medial upper arm and left incision prepared with alcohol and necrotic skin edges debrided sharply. Underlying tissue seemed to be healthy. There was no evidence of infection. Wound VAC will be orde red for tomorrow. The patient should follow up in my office in approximately 1-2 weeks.
--- NOTE | 2018-09-01 21:34 | PDOC.PN ---
- Subjective Encounter Start Date: 09/01/18 Encounter Start Time: 10:00 Patient seen and examined for dialysis access pain/swelling. No new complaints. No overnight events - Objective Resuscitation Status: Resuscitation Status FULL:Full Resuscitation MAR Reviewed: Yes Vital Signs & Weight: Vital Signs (12 hours) Temp Pulse Resp BP Pulse Ox 09/01/18 20:00 97.4 F L 79 19 89/52 L 99 09/01/18 15:56 97.4 F L 78 16 91/54 L 94 L 09/01/18 11:46 97.7 F 92 20 93/56 L 99 Weight Weight 233 lb 14.4 oz I&O: 08/31/18 09/01/18 09/02/18 06:59 06:59 06:59 Intake Total 677 800 Output Total 600 5 Balance 77 795 Result Diagrams: 09/01/18 05:14 09/01/18 05:14 Additional Labs: Accuchecks 09/01/18 09/01/18 09/01/18 16:48 10:50 06:08 POC Glucose 101 240 H 132 H EKG Reviewed by me: Yes (Tele NSVT) Phys Exam - Physical Examination Constitutional: NAD Respiratory: no wheezing, no rhonchi Cardiovascular: RRR, no rub Gastrointestinal: soft, non-tender, positive bowel sounds Musculoskeletal: no edema Swelling over the left arm Neurological: moves all 4 limbs Psychiatric: A&O x 3 Dx/Plan - Plan IMPRESSION: 1. Left arm pain, probably secondary to infected dialysis access. 2. NSVT 3. Chronic systolic and diastolic heart failure, ejection fraction 25% range. He is not on SHABBIR inhibitor, ARB, or Aldactone due to renal failure. He is also not on beta-blockers due to hypotension with code green last admission. 4. Elevated troponins, probably secondary to demand ischemia. His troponins are improving from last admission. 5. Ischemic cardiomyopathy. 6. Coronary artery disease, status post coronary artery bypass graft x1. 7. End-stage renal disease, on hemodialysis. 8. Bilateral lower extremity deep vein thrombosis, on anticoagulation. 9. Seizure disorder. 10. History of hypertension. 11. Dyslipidemia. 12. Physical deconditioning. 13. Pyuria with 4+ bacteria, probably secondary to suprapubic catheter. He denies any suprapubic tenderness, probably colonization. 14. DM2. PLAN: Consult Cardiology for NSVT Cont Atbx Monitor Vancomycin level Cont current meds as below Cont sliding scale Dialysis per Nephro Review of Systems - Review of Systems Respiratory: negative: Cough, Dry, Shortness of Breath, Hemoptysis, SOB with Excertion, Pleuritic Pain, Sputum, Wheezing Cardiovascular: negative: chest pain, palpitations, orthopnea, paroxysmal nocturnal dyspnea, edema, light headedness, other - Medications/Allergies Allergies/Adverse Reactions: Allergies Allergy/AdvReac Type Severity Reaction Status Date / Time meperidine HCl [From Demerol] Allergy Verified 04/25/18 01:04 Medications: Current Medications Acetaminophen (Tylenol) 650 mg PO Q4H PRN PRN Reason: Headache/Fever/Mild Pain (1-3) Apixaban (Eliquis) 2.5 mg PO BID [facility] Last Admin: 09/01/18 08:53 Dose: 2.5 mg Aspirin (Ecotrin) 81 mg PO DAILY [facility] Last Admin: 09/01/18 08:54 Dose: 81 mg Atorvastatin Calcium (Lipitor) 10 mg PO [facility] Last Admin: 08/31/18 20:59 Dose: 10 mg Calcium Acetate (Phoslo) 2,001 mg PO TID-[facility] Last Admin: 09/01/18 18:14 Dose: Not Given Dextrose/Water (Dextrose 50%) 25 gm SLOW IVP PRN PRN PRN Reason: Hypoglycemia Epoetin Shamir (Procrit) 7,500 units SC Q7D [facility] Last Admin: 08/31/18 12:04 Dose: 7,500 units Famotidine (Pepcid) 20 mg PO DAILY [facility] Last Admin: 09/01/18 08:52 Dose: 20 mg Gabapentin (Neurontin) 300 mg PO BID [facility] Last Admin: 09/01/18 08:54 Dose: 300 mg Glucagon (Glucagon) 1 mg IM PRN PRN PRN Reason: Hypoglycemia Cefepime HCl 1 gm/ Sodium (Chloride) 100 mls @ 200 mls/hr IVPB Q24H [facility] Last Admin: 09/01/18 11:15 Dose: 100 mls Insulin Glargine 10 units/ (Miscellaneous Medication) 0.1 mls @ 0 mls/hr SC [facility] Last Admin: 08/31/18 21:01 Dose: 0.1 mls Dextrose/Water (D5w) 1,000 mls @ 0 mls/hr IV .Q0M PRN PRN Reason: Hypoglycemia Vancomycin HCl 1.5 gm/ Sodium (Chloride) 300 mls @ 200 mls/hr IVPB [facility]IN Vancomycin HCl 1.25 gm/ Sodium (Chloride) 250 mls @ 166.667 mls/hr IVPB [facility] Vancomycin HCl 1 gm/ Device 200 mls @ 200 mls/hr IVPB [facility] Vancomycin HCl 750 mg/ Sodium (Chloride) 250 mls @ 250 mls/hr IVPB [facility] Amiodarone HCl 450 mg/Miscellaneous Medication 1 each/ Dextrose/Water 259 mls @ 0 mls/hr IVPB INF [facility] Last Admin: 09/01/18 11:38 Dose: 259 mls Insulin Human Regular (Humulin R) 0 units SC .MILD SLIDING SCALE PRN PRN Reason: Mild Correctional Scale Last Admin: 09/01/18 11:24 Dose: 3 unit Levetiracetam (Keppra Oral Solution) 250 mg PO BID [facility] Last Admin: 09/01/18 08:53 Dose: 250 mg Melatonin (Melatonin) 4.5 mg PO [facility] Last Admin: 09/01/18 00:22 Dose: 4.5 mg Miscellaneous Medication (Pharmacy To Dose) 1 each IVPB ASDIR [facility] Nitroglycerin (Nitrostat) 0.4 mg PO Q5MIN PRN PRN Reason: Chest Pain Last Admin: 09/01/18 09:38 Dose: 0.4 mg Hold Vancomycin For (Level >20) 0 each FS .AT DIALYSIS [facility] Ondansetron HCl (Zofran Odt) 4 mg PO Q6H PRN PRN Reason: Nausea/Vomiting Ondansetron HCl (Zofran) 4 mg IVP Q6H PRN PRN Reason: Nausea/Vomiting Polyethylene Glycol (Miralax) 17 gm PO BID PRN PRN Reason: Constipation Sertraline HCl (Zoloft) 50 mg PO DAILY [facility] Last Admin: 09/01/18 08:54 Dose: 50 mg Sodium Chloride (Flush - Normal Saline) 10 ml IVF PRN PRN PRN Reason: Saline Flush Sodium Chloride (Flush - Normal Saline) 10 ml IVF PRN PRN PRN Reason: Saline Flush Tramadol HCl (Ultram) 50 mg PO Q6H PRN PRN Reason: Pain 4-6 Last Admin: 09/01/18 09:02 Dose: 50 mg
[2018-09-01] MEDS: Insulin Glargine 10 UNITS in Pre-Filled Syringe 1 EACH SC SCH (21:42)
[2018-09-01] MEDS: Atorvastatin Calcium 10 MG TAB PO SCH (21:43)
[2018-09-02] MEDS: Amiodarone HCl 450 MG, Admixture Fee 1 EACH in Dextrose 5% in Water 250 ML IVPB SCH ×2 (01:06→18:09)
[2018-09-02 05:14] LABS: #Eosinphils 0.5 thou/uL (0.0-0.7); #Monocytes 0.8 thou/uL (0.11-0.59); #Neutrophils 5.1 thou/uL (1.40-6.50); %Basophils 0.2 % (0.0-1.0); %Eosinophils 6.3 % (0.0-10.0); %Monocytes 10.5 % (0.0-10.0); %Neutrophils 70.1 % (42.0-75.0); Hemoglobin 9.8 g/dL (14.0-18.0); Mean Corpuscular Hemoglobin 31.4 pg (27.0-31.0); Mean Platelet Volume 9.5 fL (7.4-10.4); Platelet Count 129 thou/uL (130-400); RBC Distribution Width 18.4 % (11.5-14.5); Red Blood Cell (RBC) Count 3.12 mill/uL (4.70-6.10); White Blood Cell (WBC) Count 7.3 thou/uL (4.8-10.8)
[2018-09-02 05:19] LABS: Anion Gap 19 mmol/L (10-20); BUN (Urea Nitrogen) 36 mg/dL (8.4-25.7); Calc. Creatinine Clearance 25 mL/min (70-130); Calcium 9.1 mg/dL (7.8-10.44); Carbon Dioxide 22 mmol/L (22-29); Chloride 100 mmol/L (98-107); Estimated GFR-MDRD 12; Glucose 93 mg/dL (70-105); Magnesium 2.4 mg/dL (1.6-2.6); Potassium 4.5 mmol/L (3.5-5.1); Sodium 136 mmol/L (136-145)
[2018-09-02 07:30] LABS: Vancomycin, Random 19.8 ug/mL (See Comment)
--- NOTE | 2018-09-02 07:46 | PRG ---
DATE OF SERVICE: 09/02/2018 SERVICE: Renal Medicine. SUBJECTIVE: Mr. Fontana is a 58-year-old white male with known history of ESRD, followed by the Renal Service for his maintenance hemodialysis, and he was admitted for a left upper extremity cellulitis. A bedside debridement of necrotic skin edges was done by Dr. Ding. He continues to be on IV vanc omycin. Yesterday, he developed some chest pain. It was decided to keep the patient in, and he had also some arrhythmia and has been started on IV amiodarone. This morning, he is feeling better. He was a bit hypoglycemic this morning. No other complaints. No shortness of breath. The patient has been scheduled for hemodialysis today. PHYSICAL EXAMINATION: VITAL SIGNS: Blood pressure 99/60, heart rate 80, respiratory rate 18, temperature 97.6, pulse oxime try 100%. GENERAL EXAM: Awake, alert, comfortable, not in overt distress. SKIN: Adequate turgor. HEENT: He has a pinkish conjunctivae, anicteric sclerae. NECK: No neck mass, no carotid bruits, no JVD. CHEST: No deformities. LUNGS: Clear breath sounds. No wheezing, no crackles. HEART: Normal sinus rhythm. No murmur, no gallops, no rubs. ABDOMEN: Globular, soft, nontender. No masses. EXTREMITIES: No edema, no deformities. Positive for left upper extremity dressing. Medications of 09/02/2018 were reviewed. LABORATORY DATA: Laboratories of 09/02/2018, white count 7.3, hemoglobin 9.8. Sodium 136, potassium 4.5, chloride 100, carbon dioxide 22, BUN 36, creatinine 4.81, glucose 93, calcium 9.1, magnesium 2. 4. ASSESSMENT AND PLAN: 1. Left upper extremity cellulitis - on empiric IV antibiotics. Currently, on cefepime and vancomyc in. Surgery is following. 2. End-stage renal disease, stable. We will continue current Friday, Friday, Friday hemodialysis . Due to the low blood pressure, my plan is to minimize fluid removal today. 3. Chronic anemia - on weekly Epogen of 7500 units subcutaneously every week. Overall, agree with [place] [facility] management.
--- NOTE | 2018-09-02 07:48 | CON ---
PLEASE MAKE SURE ALL INFORMATION IS INCLUDED IN DICTATION DICTATION WAS DISTOR [facility] DATE OF CONSULTATION: 09/01/2018 REASON FOR CONSULTATION: nonsustained supraventricular tachycardia. PRIMARY FREIGHT HUSTLER: Miguel Blanco M.D. HISTORY OF PRESENT ILLNESS: Mr. Fontana is a pleasant 58-year-old white gentleman who comes to the [facility] for not feeling well. He was recently admitted and was found to have a new onset cardiomyopat hy, EF had reduced to about 20%-25%. He was hypertensive during the time and was . not f eeling well. He had a fistula placed on his left arm and had a lot of swelling and what appeared to be an infection on the site, so he decided to come in. He received a dose of vancomycin and was admi tted. After for his left arm and apparently there is nonsustained VT on telemetry monito ring. He did not have his . In talking with him, he denies any ASSESSMENT: 1. Nonsustained ventricular tachycardia. 2. Dilated cardiomyopathy, EF of 20%-25%. 3. End-stage renal disease on hemodialysis. 4. Anasarca. 5. Status post HYMAN to the LAD. 6. Status post bioprosthetic aortic valve replacement. 7. Bilateral deep venous thromboses, on chronic anticoagulation with Eliquis. PLAN: 1. We will start amiodarone drip as he is having a lot of nonsustained ventricular tachycardia. I h ave recommended that we do a heart catheterization on him during this admission. He tells me that he wants me to discuss it with Dr. Blanco. We will try to get hold of them later today and decide. 2. Continue other medications for now. 3. I do not think he is a candidate for stress test any more as his rhythm is unstable. 4. We will follow. PLEASE CHECK DICTATION WAS VERY DISTORTED
[2018-09-02] MEDS: Calcium Acetate 667 MG CAP PO SCH ×3 (08:20→18:10)
[2018-09-02] MEDS: Famotidine 20 MG TAB PO SCH (10:41)
[2018-09-02] MEDS: levETIRAcetam 500 mg/5 ml Oral Solution PO SCH ×2 (10:41→21:52)
[2018-09-02] MEDS: Gabapentin 300 MG CAP PO SCH ×2 (10:42→21:52)
--- NOTE | 2018-09-02 11:26 | RAD ---
TWO VIEWS LEFT SHOULDER: Comparison: None. History: Fall with left shoulder pain. FINDINGS: Three views of the left shoulder shows no evidence of acute fracture or dislocation. Surgical clips a re seen in the left arm. IMPRESSION: No evidence of acute osseous abnormality. POS: [facility]
--- NOTE | 2018-09-02 12:17 | CT ---
CT BRAIN WITHOUT CONTRAST: Date: 09/02/18 HISTORY: Fall. Head injury. FINDINGS: Comparison made with exam of 08/07/18. 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 Changes of chronic small vessel ischemic dise ase are again seen. The ventricular size is stable and the basilar cisterns are patent. No evidence o f acute infarct, hemorrhage, midline shift, or abnormal extra-axial fluid collections are seen. The b ronal calvarium is intact. Opacification of the left posterior ethmoid air cells and the left sphenoid sinus are again seen. IMPRESSION: No CT evidence of acute intracranial process. POS: [facility]
--- NOTE | 2018-09-02 12:26 | CT ---
CT CERVICAL SPINE WITH CORONAL AND SAGITTAL REFORMATIONS: HISTORY: Fall. Neck pain. COMPARISON: 06/16/2018 FINDINGS: Postop changes of anterior spinal fusion with plate and screws and intradiskal prostheses are again s een in good position and alignment at the C3, C4, C5, and C6 levels. No acute fracture or subluxatio n is seen. No facet malalignment is noted. POS: [facility]
[2018-09-02] MEDS: Cefepime 1 GM in Sodium Chloride 0.9% 100 ML IVPB SCH (12:46)
[2018-09-02] MEDS: Insulin Regular 300 UNITS/3 ML VIAL SC PRN (12:46)
[2018-09-02] MEDS: Apixaban 2.5 MG TAB PO SCH ×2 (13:03→21:54)
[2018-09-02] MEDS: Aspirin 81 mg Enteric Coated Tablet PO SCH (13:03)
--- NOTE | 2018-09-02 13:48 | PDOC.PN ---
- Subjective Encounter Start Date: 09/02/18 Encounter Start Time: 10:00 Patient seen and examined for LUE pain. Mech fall in bathroom with head injury - No visible injuries except some brusing over left shoulder. No CP/SOB/focal deficits. No overnight events - Objective Resuscitation Status: Resuscitation Status FULL:Full Resuscitation MAR Reviewed: Yes Vital Signs & Weight: Vital Signs (12 hours) Temp Pulse Resp BP Pulse Ox 09/02/18 12:00 97.9 F 85 20 107/64 96 09/02/18 08:23 97 09/02/18 08:00 97.4 F L 82 20 118/69 97 09/02/18 04:00 97.6 F 80 18 99/60 100 Weight Admit Weight 233 lb 14.4 oz Weight 233 lb 14.4 oz I&O: 09/01/18 09/02/18 09/03/18 06:59 06:59 06:59 Intake Total 677 900 Output Total 600 5 Balance 77 895 Result Diagrams: 09/02/18 04:50 09/02/18 04:50 Additional Labs: Accuchecks 09/02/18 09/02/18 09/01/18 11:04 05:58 20:18 POC Glucose 173 H 85 132 H 09/01/18 09/01/18 16:48 10:50 POC Glucose 101 240 H EKG Reviewed by me: Yes (Tele SR) Phys Exam - Physical Examination Constitutional: NAD Respiratory: no wheezing, no rhonchi Cardiovascular: RRR, no rub Gastrointestinal: soft, non-tender, positive bowel sounds Musculoskeletal: no edema Neurological: non-focal, normal sensation, moves all 4 limbs Psychiatric: normal affect, A&O x 3 Dx/Plan - Plan 1. Left arm pain, probably secondary to infected dialysis access. 2. NSVT 3. Chronic systolic and diastolic heart failure, ejection fraction 25% range. (not on SHABBIR inhibitor, ARB, or Aldactone due to renal failure/ also not on beta- blockers due to hypotension.) 4. Elevated troponins, probably secondary to demand ischemia. His troponins are improving from last admission. 5. Mech fall 6. Coronary artery disease, status post coronary artery bypass graft x1. 7. End-stage renal disease, on hemodialysis. 8. Bilateral lower extremity deep vein thrombosis, on anticoagulation. 9. Seizure disorder. 10. History of hypertension. 11. Dyslipidemia. 12. Physical deconditioning. 13. Pyuria with 4+ bacteria, probably secondary to suprapubic catheter. ? colonization. 14. DM2/Ischemic cardiomyopathy. PLAN: CT brain and C spine Left shoulder XR to r/o fracture Cont Atbx - Monitor Vancomycin level Amiodarone per Cardiology Cont current meds as below Cont sliding scale - Hold Lantus Dialysis per Nephro Review of Systems - Review of Systems Respiratory: negative: Cough, Dry, Shortness of Breath, Hemoptysis, SOB with Excertion, Pleuritic Pain, Sputum, Wheezing Cardiovascular: negative: chest pain, palpitations, orthopnea, paroxysmal nocturnal dyspnea, edema, light headedness, other - Medications/Allergies Allergies/Adverse Reactions: Allergies Allergy/AdvReac Type Severity Reaction Status Date / Time meperidine HCl [From Demerol] Allergy Verified 04/25/18 01:04 Medications: Current Medications Acetaminophen (Tylenol) 650 mg PO Q4H PRN PRN Reason: Headache/Fever/Mild Pain (1-3) Apixaban (Eliquis) 2.5 mg PO BID [facility] Last Admin: 09/02/18 13:03 Dose: Not Given Aspirin (Ecotrin) 81 mg PO DAILY [facility] Last Admin: 09/02/18 13:03 Dose: Not Given Atorvastatin Calcium (Lipitor) 10 mg PO HS [facility] Last Admin: 09/01/18 21:43 Dose: 10 mg Calcium Acetate (Phoslo) 2,001 mg PO TID-WM [facility] Last Admin: 09/02/18 12:46 Dose: 2,001 mg Dextrose/Water (Dextrose 50%) 25 gm SLOW IVP PRN PRN PRN Reason: Hypoglycemia Epoetin Shamir (Procrit) 7,500 units SC Q7D [facility] Last Admin: 08/31/18 12:04 Dose: 7,500 units Famotidine (Pepcid) 20 mg PO DAILY [facility] Last Admin: 09/02/18 10:41 Dose: 20 mg Gabapentin (Neurontin) 300 mg PO BID [facility] Last Admin: 09/02/18 10:42 Dose: 300 mg Glucagon (Glucagon) 1 mg IM PRN PRN PRN Reason: Hypoglycemia Cefepime HCl 1 gm/ Sodium (Chloride) 100 mls @ 200 mls/hr IVPB Q24H [facility] Last Admin: 09/02/18 12:46 Dose: 100 mls Dextrose/Water (D5w) 1,000 mls @ 0 mls/hr IV .Q0M PRN PRN Reason: Hypoglycemia Vancomycin HCl 1.5 gm/ Sodium (Chloride) 300 mls @ 200 mls/hr IVPB [facility] Vancomycin HCl 1.25 gm/ Sodium (Chloride) 250 mls @ 166.667 mls/hr IVPB [facility] Vancomycin HCl 1 gm/ Device 200 mls @ 200 mls/hr IVPB [facility] Vancomycin HCl 750 mg/ Sodium (Chloride) 250 mls @ 250 mls/hr IVPB [facility] Amiodarone HCl 450 mg/Miscellaneous Medication 1 each/ Dextrose/Water 259 mls @ 0 mls/hr IVPB INF [facility] Last Admin: 09/02/18 01:06 Dose: 259 mls Insulin Human Regular (Humulin R) 0 units SC .MILD SLIDING SCALE PRN PRN Reason: Mild Correctional Scale Last Admin: 09/02/18 12:46 Dose: 2 unit Levetiracetam (Keppra Oral Solution) 250 mg PO BID [facility] Last Admin: 09/02/18 10:41 Dose: 250 mg Melatonin (Melatonin) 4.5 mg PO HS [facility] Last Admin: 09/01/18 21:43 Dose: Not Given Miscellaneous Medication (Pharmacy To Dose) 1 each IVPB ASDIR [facility] Nitroglycerin (Nitrostat) 0.4 mg PO Q5MIN PRN PRN Reason: Chest Pain Last Admin: 09/01/18 09:38 Dose: 0.4 mg Hold Vancomycin For (Level >20) 0 each FS .AT DIALYSIS [facility] Ondansetron HCl (Zofran Odt) 4 mg PO Q6H PRN PRN Reason: Nausea/Vomiting Ondansetron HCl (Zofran) 4 mg IVP Q6H PRN PRN Reason: Nausea/Vomiting Polyethylene Glycol (Miralax) 17 gm PO BID PRN PRN Reason: Constipation Sertraline HCl (Zoloft) 50 mg PO DAILY [facility] Last Admin: 09/02/18 10:41 Dose: 50 mg Sodium Chloride (Flush - Normal Saline) 10 ml IVF PRN PRN PRN Reason: Saline Flush Sodium Chloride (Flush - Normal Saline) 10 ml IVF PRN PRN PRN Reason: Saline Flush Tramadol HCl (Ultram) 50 mg PO Q6H PRN PRN Reason: Pain 4-6 Last Admin: 09/01/18 09:02 Dose: 50 mg
[2018-09-02] MEDS: Vancomycin HCl 750 MG in Sodium Chloride 0.9% 250 ML 250 ML IVPB SCH (15:37)
[2018-09-02] MEDS: Atorvastatin Calcium 10 MG TAB PO SCH (21:52)
--- NOTE | 2018-09-02 21:56 | PDOC.CTH ---
Cardiology Progress Note - Subjective He will get a wound vac on his arm incision. No chest pain, tightness, pressure , SOB. He has had many more PVC's but no more non sustained VT. Wearing lifevest. - Objective Vital Signs Temp Pulse Resp BP Pulse Ox 09/02/18 20:54 98.0 F 80 17 99/56 L 99 09/02/18 12:00 97.9 F 85 20 107/64 96 Admit Weight 233 lb 14.4 oz Weight 233 lb 14.4 oz 09/01/18 09/02/18 09/03/18 06:59 06:59 06:59 Intake Total 677 900 545 Output Total 600 5 Balance 77 895 545 - Physical Examination General/Neuro: alert & oriented x3, NAD Neck: no JVD present Lungs: unlabored respirations Heart: RRR Abdomen: NT/ND Extremities: + edema B (1+) - Telemetry Telemetry Rhythm: NSR, PVC's - Labs Result Diagrams: 09/02/18 04:50 09/02/18 04:50 Troponin/CKMB CK-MB (CK-2) 1.4 ng/mL (0-6.6) 08/31/18 04:05 Troponin I 0.322 ng/mL (< 0.028) H* 08/31/18 09:38 - Assessment/Plan 1. Non sustained VT 2. Dilated CM EF at 20-25% on last evaluation. 3. S/P AVR, bioprosthetic 4. S/P HYMAN to LAD 5. ESRD 6. Wound infection on left arm fistula PLAN: - Abx per primary team. - Continue amiodarone gtt. - Plan to switch to PO tomorrow if no unstable rhythm seen. - Will need [facility] once infection improved as it would be prohibitive to insert a stent with an active blood borne infection. - Will follow.
[2018-09-02] MEDS: Melatonin 3 MG TAB PO SCH (23:43)
--- NOTE | 2018-09-03 09:07 | PRG ---
DATE OF SERVICE: 09/03/2018 SUBJECTIVE: Mr. Fontana is a 58-year-old white male with known history of ESRD and currently on maint enance hemodialysis. He underwent hemodialysis yesterday. I shortened the treatment due to frequent PVCs with this patient and low blood pressure. This morning, he is feeling asymptomatic. He has an amiodarone drip as well as a LifeVest. No complaints of chest pain or shortness of breath. PHYSICAL EXAMINATION: VITAL SIGNS: Blood pressure is 114/61, heart rate 84, respiratory rate 20, temperature 97.7, pulse o x 98%. GENERAL EXAM: Awake, alert, comfortable, not in distress SKIN: Adequate turgor. HEENT: Pinkish conjunctivae, anicteric sclerae. NECK: No neck mass, no carotid bruits, no JVD. CHEST: No deformities. LUNGS: Decreased breath sounds. HEART: Normal sinus rhythm. No murmur, no gallops, no rubs. ABDOMEN: Globular, soft, nontender, no masses. EXTREMITIES: No edema, no deformities. Positive for left upper extremity dressing. Medications of 09/03/2018 reviewed. LABORATORY DATA: Laboratories of 09/02/2018, white count 7.3, hemoglobin 9.8. Sodium 136, potassium 4.5, chloride 100, carbon dioxide 22, BUN 36, creatinine 4.81, magnesium 2.4. 09/03/2018, glucose 1 11. ASSESSMENT AND PLAN: 1. End-stage renal disease, stable. Continuing current hemodialysis regimen. Shortened treatment y esterday due to hemodynamic instability. Currently, patient is feeling much better. Resume back his regular dialysis on Friday, Friday, and Friday. 2. On weekly Epogen. P.r.n. blood transfusion. 3. Premature ventricular contractions - Cardiology is following. Currently on LifeVest. 4. Infected left upper extremity - status post revision of arteriovenous fistula. Continue cefepime . Surgery is following.
[2018-09-03] MEDS ORDERED: Polyethylene Glycol 3350 17 GM Packet PO SCH (09:30)
[2018-09-03] MEDS ORDERED: Bisacodyl 10 MG SUPP PR PRN (09:30)
[2018-09-03] MEDS ORDERED: Senokot S 8.6-50 MG TAB PO SCH (09:30)
[2018-09-03] MEDS: Gabapentin 300 MG CAP PO SCH ×2 (09:45→20:40)
[2018-09-03] MEDS: Calcium Acetate 667 MG CAP PO SCH ×4 (09:45→18:28)
[2018-09-03] MEDS: Famotidine 20 MG TAB PO SCH (09:45)
[2018-09-03] MEDS: levETIRAcetam 500 mg/5 ml Oral Solution PO SCH ×2 (09:46→20:40)
[2018-09-03] MEDS: Aspirin 81 mg Enteric Coated Tablet PO SCH (09:46)
[2018-09-03] MEDS: Apixaban 2.5 MG TAB PO SCH ×2 (09:47→20:40)
[2018-09-03] MEDS ORDERED: Calcium Carbonate 500 MG ChewTAB PO PRN (11:06)
[2018-09-03] MEDS: Cefepime 1 GM in Sodium Chloride 0.9% 100 ML IVPB SCH (14:40)
--- NOTE | 2018-09-03 15:53 | PDOC.CTH ---
Cardiology Progress Note - Subjective No new issues. - Objective Vital Signs Temp Pulse Pulse Pulse Resp BP BP 09/03/18 15:25 97.6 F 81 18 09/03/18 12:34 98.0 F 20 09/03/18 11:04 91 89 129/84 129/60 09/03/18 07:59 97.7 F 84 20 09/03/18 04:00 98.2 F 85 18 BP Pulse Ox Pulse Ox Pulse Ox 09/03/18 15:25 129/62 100 09/03/18 12:34 98 09/03/18 11:04 95 99 09/03/18 07:59 114/61 98 09/03/18 04:00 86/53 L 91 L Admit Weight 233 lb 14.4 oz Weight 233 lb 14.4 oz 09/02/18 09/03/18 09/04/18 06:59 06:59 06:59 Intake Total 900 645 Output Total 5 Balance 895 645 - Physical Examination General/Neuro: alert & oriented x3, NAD Neck: no JVD present Lungs: CTA, unlabored respirations Heart: RRR Abdomen: NT/ND Extremities: + edema B (1+) - Telemetry Telemetry Rhythm: NSR - Labs Result Diagrams: 09/02/18 04:50 09/02/18 04:50 Troponin/CKMB CK-MB (CK-2) 1.4 ng/mL (0-6.6) 08/31/18 04:05 Troponin I 0.322 ng/mL (< 0.028) H* 08/31/18 09:38 - Assessment/Plan 1. Non sustained VT 2. Dilated CM EF at 20-25% on last evaluation. 3. S/P AVR, bioprosthetic 4. S/P HYMAN to LAD 5. ESRD PLAN: - Abx per primary team. - Will switch amio to PO. - Will need [facility] once infection improved as it would be prohibitive to insert a stent with an active blood borne infection. - Will follow.
[2018-09-03] MEDS: Insulin Regular 300 UNITS/3 ML VIAL SC PRN ×2 (17:33→20:43)
--- NOTE | 2018-09-03 18:13 | PDOC.PN ---
- Subjective Encounter Start Date: 09/03/18 Encounter Start Time: 09:30 Patient seen and examined for NSVT/dialysis access malfunction. No new complaints. No overnight events - Objective Resuscitation Status: Resuscitation Status FULL:Full Resuscitation MAR Reviewed: Yes Vital Signs & Weight: Vital Signs (12 hours) Temp Pulse Pulse Pulse Resp BP BP 09/03/18 15:25 97.6 F 81 18 09/03/18 12:34 98.0 F 20 09/03/18 11:04 91 89 129/84 129/60 09/03/18 07:59 97.7 F 84 20 BP Pulse Ox Pulse Ox Pulse Ox 09/03/18 15:25 129/62 100 09/03/18 12:34 98 09/03/18 11:04 95 99 09/03/18 07:59 114/61 98 Weight Admit Weight 233 lb 14.4 oz Weight 233 lb 14.4 oz I&O: 09/02/18 09/03/18 09/04/18 06:59 06:59 06:59 Intake Total 900 645 600 Output Total 5 Balance 895 645 600 Result Diagrams: 09/02/18 04:50 09/02/18 04:50 Additional Labs: Accuchecks 09/03/18 09/03/18 09/03/18 16:22 11:02 05:11 POC Glucose 189 H 174 H 111 H 09/02/18 09/02/18 20:54 18:08 POC Glucose 96 98 EKG Reviewed by me: Yes (Tele SR) Phys Exam - Physical Examination Constitutional: NAD Respiratory: no wheezing, no rhonchi Cardiovascular: RRR, no rub Gastrointestinal: soft, non-tender, positive bowel sounds Musculoskeletal: no edema Neurological: moves all 4 limbs Dx/Plan - Plan 1. Left arm pain, probably secondary to ?infected dialysis access - on Vanc/ Cefepime 2. NSVT - on Amiodarone loading 3. Chronic systolic and diastolic heart failure, ejection fraction 25% range. (not on SHABBIR inhibitor, ARB, or Aldactone due to renal failure/ also not on beta- blockers due to hypotension.) 4. Elevated troponins, probably secondary to demand ischemia. His troponins are improving from last admission. 5. [facility] fall on 09/02 - imaging negative 6. Coronary artery disease, status post coronary artery bypass graft x1. 7. End-stage renal disease, on hemodialysis. 8. Bilateral lower extremity deep vein thrombosis, on anticoagulation. 9. Seizure disorder. 10. History of hypertension. 11. Dyslipidemia. 12. Physical deconditioning. 13. Pyuria with 4+ bacteria, probably secondary to suprapubic catheter. ? colonization. 14. DM2/Ischemic cardiomyopathy. PLAN: Cont Atbx - Monitor Vancomycin level Cont Amiodarone loading Cont current meds as below Cont sliding scale Treat constipation Dialysis per Nephro Review of Systems - Review of Systems Cardiovascular: negative: chest pain, palpitations, orthopnea, paroxysmal nocturnal dyspnea, edema, light headedness, other Gastrointestinal: Constipation. negative: Nausea, Vomiting, Abdominal Pain, Diarrhea, Melena, Hematochezia, Other Musculoskeletal: negative: Neck Pain, Shoulder Pain, Arm Pain, Back Pain, Hand Pain, Leg Pain, Foot Pain, Other Neurological: negative: Weakness, Numbness, Incoordination, Change in Speech, Confusion, Seizures, Other - Medications/Allergies Allergies/Adverse Reactions: Allergies Allergy/AdvReac Type Severity Reaction Status Date / Time meperidine HCl [From Demerol] Allergy Verified 04/25/18 01:04 Medications: Current Medications Acetaminophen (Tylenol) 650 mg PO Q4H PRN PRN Reason: Headache/Fever/Mild Pain (1-3) Amiodarone HCl (Cordarone) 400 mg PO BID COUNTS INCLUDE 234 BEDS AT THE [facility] Apixaban (Eliquis) 2.5 mg PO BID COUNTS INCLUDE 234 BEDS AT THE [facility] Last Admin: 09/03/18 09:47 Dose: 2.5 mg Aspirin (Ecotrin) 81 mg PO DAILY COUNTS INCLUDE 234 BEDS AT THE [facility] Last Admin: 09/03/18 09:46 Dose: 81 mg Atorvastatin Calcium (Lipitor) 10 mg PO HS COUNTS INCLUDE 234 BEDS AT THE [facility] Last Admin: 09/02/18 21:52 Dose: 10 mg Bisacodyl (Dulcolax) 10 mg KS DAILYPRN PRN PRN Reason: Constipation Calcium Acetate (Phoslo) 2,001 mg PO TID-[facility] Last Admin: 09/03/18 11:35 Dose: Not Given Calcium Carbonate (Tums) 1,000 mg PO Q4H PRN PRN Reason: Heartburn or Indigestion Dextrose/Water (Dextrose 50%) 25 gm SLOW IVP PRN PRN PRN Reason: Hypoglycemia Epoetin Shamir (Procrit) 7,500 units SC Q7D COUNTS INCLUDE 234 BEDS AT THE [facility] Last Admin: 08/31/18 12:04 Dose: 7,500 units Gabapentin (Neurontin) 300 mg PO BID COUNTS INCLUDE 234 BEDS AT THE [facility] Last Admin: 09/03/18 09:45 Dose: 300 mg Glucagon (Glucagon) 1 mg IM PRN PRN PRN Reason: Hypoglycemia Cefepime HCl 1 gm/ Sodium (Chloride) 100 mls @ 200 mls/hr IVPB Q24H COUNTS INCLUDE 234 BEDS AT THE [facility] Last Admin: 09/03/18 14:40 Dose: 100 mls Dextrose/Water (D5w) 1,000 mls @ 0 mls/hr IV .Q0M PRN PRN Reason: Hypoglycemia Vancomycin HCl 1.5 gm/ Sodium (Chloride) 300 mls @ 200 mls/hr IVPB [place]CALL COUNTS INCLUDE 234 BEDS AT THE [facility] Vancomycin HCl 1.25 gm/ Sodium (Chloride) 250 mls @ 166.667 mls/hr IVPB [place]CALL COUNTS INCLUDE 234 BEDS AT THE [facility] Vancomycin HCl 1 gm/ Device 200 mls @ 200 mls/hr IVPB [place] COUNTS INCLUDE 234 BEDS AT [facility] Vancomycin HCl 750 mg/ Sodium (Chloride) 250 mls @ 250 mls/hr IVPB [place] COUNTS INCLUDE 234 BEDS AT THE [facility] Last Admin: 09/02/18 15:37 Dose: 250 mls Insulin Human Regular (Humulin R) 0 units SC .MILD SLIDING SCALE PRN PRN Reason: Mild Correctional Scale Last Admin: 09/03/18 17:33 Dose: 2 unit Levetiracetam (Keppra Oral Solution) 250 mg PO BID COUNTS INCLUDE 234 BEDS AT THE [facility] Last Admin: 09/03/18 09:46 Dose: 250 mg Melatonin (Melatonin) 4.5 mg PO [facility] Last Admin: 09/02/18 23:43 Dose: Not Given Miscellaneous Medication (Pharmacy To Dose) 1 each IVPB ASDIR COUNTS INCLUDE 234 BEDS AT THE [facility] Nitroglycerin (Nitrostat) 0.4 mg PO Q5MIN PRN PRN Reason: Chest Pain Last Admin: 09/01/18 09:38 Dose: 0.4 mg Hold Vancomycin For (Level >20) 0 each FS .AT DIALYSIS COUNTS INCLUDE 234 BEDS AT THE [facility] Ondansetron HCl (Zofran Odt) 4 mg PO Q6H PRN PRN Reason: Nausea/Vomiting Ondansetron HCl (Zofran) 4 mg IVP Q6H PRN PRN Reason: Nausea/Vomiting Pantoprazole Sodium (Protonix) 40 mg PO DAILY COUNTS INCLUDE 234 BEDS AT THE [facility] Last Admin: 09/03/18 11:33 Dose: 40 mg Polyethylene Glycol (Miralax) 17 gm PO DAILY COUNTS INCLUDE 234 BEDS AT THE [facility] Senna/Docusate Sodium (Senokot S) 2 tab PO BID COUNTS INCLUDE 234 BEDS AT THE [facility] Sertraline HCl (Zoloft) 50 mg PO DAILY COUNTS INCLUDE 234 BEDS AT THE [facility] Last Admin: 09/03/18 09:45 Dose: 50 mg Sodium Chloride (Flush - Normal Saline) 10 ml IVF PRN PRN PRN Reason: Saline Flush Tramadol HCl (Ultram) 50 mg PO Q6H PRN PRN Reason: Pain 4-6 Last Admin: 09/01/18 09:02 Dose: 50 mg
[2018-09-03] MEDS: Amiodarone 200 MG TAB PO SCH (20:40)
[2018-09-03] MEDS: Atorvastatin Calcium 10 MG TAB PO SCH (20:40)
[2018-09-03] MEDS: Melatonin 3 MG TAB PO SCH (20:41)
[2018-09-03] MEDS: Senokot S 8.6-50 MG TAB PO SCH (20:42)
[2018-09-04 05:45] LABS: #Basophils 0.1 thou/uL (0.0-0.2); #Eosinphils 0.3 thou/uL (0.0-0.7); #Monocytes 0.7 thou/uL (0.11-0.59); #Neutrophils 4.6 thou/uL (1.40-6.50); %Basophils 1.3 % (0.0-1.0); %Eosinophils 4.5 % (0.0-10.0); %Lymphocytes 14.6 % (21.0-51.0); %Monocytes 10.9 % (0.0-10.0); %Neutrophils 68.7 % (42.0-75.0); Mean Corpuscular Hemoglobin 31.7 pg (27.0-31.0); Mean Platelet Volume 9.3 fL (7.4-10.4); Platelet Count 130 thou/uL (130-400); RBC Distribution Width 18.5 % (11.5-14.5); Red Blood Cell (RBC) Count 3.16 mill/uL (4.70-6.10); White Blood Cell (WBC) Count 6.7 thou/uL (4.8-10.8)
[2018-09-04 05:50] LABS: Anion Gap 17 mmol/L (10-20); BUN (Urea Nitrogen) 36 mg/dL (8.4-25.7); Calc. Creatinine Clearance 23 mL/min (70-130); Calcium 9.2 mg/dL (7.8-10.44); Carbon Dioxide 21 mmol/L (22-29); Chloride 95 mmol/L (98-107); Estimated GFR-MDRD 11; Glucose 89 mg/dL (70-105); Magnesium 2.1 mg/dL (1.6-2.6); Potassium 3.9 mmol/L (3.5-5.1); Sodium 129 mmol/L (136-145)
[2018-09-04] MEDS: Calcium Acetate 667 MG CAP PO SCH ×2 (08:08→12:33)
[2018-09-04 08:39] LABS: Vancomycin, Random 16.5 ug/mL (See Comment)
[2018-09-04] MEDS ORDERED: Polyethylene Glycol 3350 17 GM Packet PO SCH (09:00)
--- NOTE | 2018-09-04 09:11 | PRG ---
DATE OF SERVICE: 09/04/2018 SERVICE: Renal Medicine. SUBJECTIVE: Mr. Fontana is a 58-year-old white male with end-stage renal disease and currently underg oing hemodialysis. He is tolerating said treatment. Attempting 2.5 liter fluid removal with this pa tient. The patient voices no new complaints. He does currently have a wound VAC on the left upper e xtremity. Denies any chest pain or shortness of breath. OBJECTIVE: VITAL SIGNS: Blood pressure 120/59, heart rate 79, respiratory rate 18, temperature 98.1, pulse ox 1 00%. GENERAL: The patient is awake, alert, comfortable, not in distress. SKIN: Adequate turgor. HEENT: He has pinkish conjunctivae, anicteric sclerae. NECK: No neck mass, no carotid bruits, no JVD. CHEST: No deformities. LUNGS: Clear breath sounds. No wheezing, no crackles. HEART: Normal sinus rhythm. No murmur, no gallops or rubs. ABDOMEN: Globular, soft, nontender. EXTREMITIES: No edema. Positive for left upper extremity dressing. MEDICATIONS: Of 09/04/2018 was reviewed. LABORATORY DATA: Of 09/04/2018, white count 6.7, hemoglobin 10. Sodium 129, potassium 3.9, chloride 95, carbon dioxide 21, BUN 36, creatinine 5.19, glucose 89, calcium 9.2, magnesium 2.1. ASSESSMENT AND PLAN: 1. End-stage renal disease - tolerating current hemodialysis regimen. No heparin used. Fluid remov al of about 2.5 liters as tolerated. 2. Chronic anemia. Continuing weekly Epogen. 3. Status post left upper extremity fistula revision - stable. Surgery is following. Currently, on empiric IV antibiotics.
[2018-09-04] MEDS ORDERED: Heparin 1,000 UNITS/ML VIAL ONE (11:11)
[2018-09-04 11:58] VITALS: BP 117/70; TEMP 97.5
[2018-09-04] MEDS: Vancomycin HCl 750 MG in Sodium Chloride 0.9% 250 ML 250 ML IVPB SCH (12:33)
[2018-09-04] MEDS: levETIRAcetam 500 mg/5 ml Oral Solution PO SCH (13:11)
[2018-09-04] MEDS: Apixaban 2.5 MG TAB PO SCH (13:11)
[2018-09-04] MEDS: Aspirin 81 mg Enteric Coated Tablet PO SCH (13:11)
[2018-09-04] MEDS: Senokot S 8.6-50 MG TAB PO SCH (13:12)
[2018-09-04] MEDS: Amiodarone 200 MG TAB PO SCH (13:12)
[2018-09-04] MEDS: Gabapentin 300 MG CAP PO SCH (13:12)
--- NOTE | 2018-09-04 13:31 | PRG ---
DATE OF SERVICE: 09/04/2018 Abdulkadir Fontana is seen today. He is doing well. He is afebrile. His left upper arm wound VAC is re moved. I debrided some necrotic fatty tissue from the open segment of the wound. Otherwise, there i s no active infection. The patient's wound left arm is a problem typical of transposition fistula fo r dialysis due to wound healing problems due to obesity, cirrhosis, end-stage renal disease. There i s no need for further antibiotics regarding his left arm wound. The mild redness has resolved and ma inly due 2 inna, which will be removed. The patient should continue wound VAC care of the left ar m and should follow up with me in 2-3 weeks. I will see him as needed this hospitalization.
--- NOTE | 2018-09-04 13:32 | PDOC.CTH ---
Cardiology Progress Note - Subjective No new issues. - Objective Vital Signs Temp Pulse Resp BP Pulse Ox 09/04/18 11:57 97.5 F L 86 16 117/70 100 09/04/18 05:28 100 09/04/18 04:00 98.1 F 79 18 120/59 L 100 Admit Weight 233 lb 14.4 oz Weight 230 lb 13.184 oz 09/03/18 09/04/18 09/05/18 06:59 06:59 06:59 Intake Total 645 840 Output Total 15 Balance 645 825 - Physical Examination General/Neuro: alert & oriented x3, NAD Neck: no JVD present Lungs: unlabored respirations Heart: RRR Abdomen: NT/ND Extremities: + edema B (trace) - Telemetry Telemetry Rhythm: NSR - Labs Result Diagrams: 09/04/18 05:18 09/04/18 05:18 Troponin/CKMB CK-MB (CK-2) 1.4 ng/mL (0-6.6) 08/31/18 04:05 Troponin I 0.322 ng/mL (< 0.028) H* 08/31/18 09:38 - Assessment/Plan 1. Non sustained VT 2. Dilated CM EF at 20-25% on last evaluation. 3. S/P AVR, bioprosthetic 4. S/P HYMAN to LAD 5. ESRD PLAN: - Abx per primary team. - Amio PO load. 400 mg PO BID for 8 days then 200 mg daily maintenance. - Will need LHC once infection improved as it would be prohibitive to insert a stent with an active blood borne infection. - May discharge to Rehab at any point from cardiac perspective.
[2018-09-04] MEDS ORDERED: Cefepime 1 GM in Sodium Chloride 0.9% 100 ML IVPB SCH (15:00)
--- NOTE | 2018-09-04 15:30 | DIS ---
DATE OF DISCHARGE: 09/04/2018 DISCHARGE DISPOSITION: To [facility] facility. ALLERGIES: Patient is allergic to DEMEROL. The patient was seen and examined on the day of discharge, denies any new complaints, no chest pain, shortness of breath, palpitations reported. FOLLOWUP: 1. Follow up with primary care physician Dr. Renee in 1 week. 2. Follow up with Dr. Hargrove as well as Dr. Ding after a week. 3. Continue wound care. DISCHARGE MEDICATIONS: 1. Amiodarone 400 mg twice a day for 1 week, then 200 mg daily. 2. Omnicef 300 mg daily for 7 days. 3. Vancomycin with dialysis for one week. All other home medications were left unchanged. BRIEF HOSPITAL COURSE: Patient is a 58-year-old male with end-stage renal disease on hemodialysis wh o presented to the emergency room on 08/31/2018 with generalized weakness and worsening left arm swel ling. Please refer to the history and physical for further details. The patient was admitted to the hospital with a diagnosis of suspected infected dialysis access. The patient was seen by General Surgery, Dr. Ding. A bedside debridement was done by Dr. Ding. He was placed on vancomycin and cefepime that has been changed to vancomycin as well as Omnicef per Neph rology recommendation. He also developed nonsustained ventricular tachycardia requiring amiodarone d rip. Amiodarone drip has been changed to oral loading per Cardiology recommendation. He received wo und care during this hospital stay. He has been cleared by consultants for discharge. FINAL DIAGNOSES: 1. Left arm pain secondary to infected dialysis access. 2. Nonsustained ventricular tachycardia, on amiodarone loading. 3. Chronic systolic and diastolic heart failure, ejection fraction 25% range. Please note the patie nt is not on SHABBIR inhibitor, ARB or Aldactone due to renal failure. Patient also developed hypotensio n on beta-blockers. 4. Elevated troponin secondary to demand ischemia. 5. Mechanical fall on 09/02/2018. His CT scan of the brain, cervical spine CT, and left shoulder x- rays were negative. 6. Coronary artery disease, status post coronary artery bypass graft x1. 7. End-stage renal disease on hemodialysis. 8. Bilateral lower extremity deep venous thrombosis on chronic anticoagulation. 9. Seizure disorder. 10. Hypertension. 11. Dyslipidemia. 12. Physical deconditioning. 13. Diabetes mellitus type 2. 14. Ischemic cardiomyopathy. 15. Pyuria with 4+ bacteria, probably secondary to colonization of suprapubic catheter. Plan of care was discussed with the patient in detail. He stated understanding. Total time coordinating the discharge of this patient was 40 minutes.
--- NOTE | 2018-09-05 23:31 | EKG ---
Test Reason : ER INDICATION Blood Pressure : / mmHG Vent. Rate : 091 BPM Atrial Rate : 091 BPM P-R Int : 148 ms QRS Dur : 128 ms QT Int : 414 ms P-R-T Axes : 070 -24 103 degrees QTc Int : 509 ms Normal sinus rhythm Possible Left atrial enlargement Non-specific intra-ventricular conduction block Cannot rule out Anterior infarct , age undetermined Abnormal ECG Confirmed by MONY CULP [id number]), senior editor DILCIA HEADLEY ([id number]) on 09/05/2018 11:31:07 PM Referred By: Confirmed By:MONY CULP
== END 2018-09-04 16:23 | DRG 314 ==
LOC: ERS 03:26 → OBSVTOIN 07:22 → 2SE 07:22
PROVIDERS: ADMIT Internal Medicine; ATTEND Internal Medicine
PROC: 5A1D70Z Performance of Urinary Filtration, Intermittent, Less than 6 Hours Per Day (ICD-10-PCS; 2018-08-31)
PROC: 0HBCXZZ Excision of Left Upper Arm Skin, External Approach (ICD-10-PCS; principal; 2018-09-01)
PROC: 5A1D70Z Performance of Urinary Filtration, Intermittent, Less than 6 Hours Per Day (ICD-10-PCS; 2018-09-02)
PROC: 5A1D70Z Performance of Urinary Filtration, Intermittent, Less than 6 Hours Per Day (ICD-10-PCS; 2018-09-04)
DX: T82.7XXA Infection and inflammatory reaction due to other cardiac and vascular devices, implants and grafts, initial encounter (principal); N18.6 End stage renal disease; T83.511A Infection and inflammatory reaction due to indwelling urethral catheter, initial encounter; I50.42 Chronic combined systolic (congestive) and diastolic (congestive) heart failure; I13.2 Hypertensive heart and chronic kidney disease with heart failure and with stage 5 chronic kidney disease, or end stage renal disease; I24.8 Other forms of acute ischemic heart disease; I82.403 Acute embolism and thrombosis of unspecified deep veins of lower extremity, bilateral; I47.2 Ventricular tachycardia; N39.0 Urinary tract infection, site not specified; I42.0 Dilated cardiomyopathy; L03.114 Cellulitis of left upper limb; Z99.2 Dependence on renal dialysis; G40.909 Epilepsy, unspecified, not intractable, without status epilepticus; I25.10 Atherosclerotic heart disease of native coronary artery without angina pectoris; I25.5 Ischemic cardiomyopathy; E78.5 Hyperlipidemia, unspecified; F32.9 Major depressive disorder, single episode, unspecified; E11.22 Type 2 diabetes mellitus with diabetic chronic kidney disease; S40.012A Contusion of left shoulder, initial encounter; W19.XXXA Unspecified fall, initial encounter; Y92.231 Patient bathroom in hospital as the place of occurrence of the external cause; I49.3 Ventricular premature depolarization; Z79.01 Long term (current) use of anticoagulants; Z86.73 Personal history of transient ischemic attack (TIA), and cerebral infarction without residual deficits; Z95.2 Presence of prosthetic heart valve; Z95.1 Presence of aortocoronary bypass graft
CPT/HCPCS: 36415; 36416; 70450; 71045; 72125; 74177; 80048; 80053; 80076; 80202; 81003; 81015; 82553; 83735; 84443; 84484; 85025; 85652; 86140; 87040; 87086; 90471; 90686; 90935; 93005; 94760; 96365; 96367; G0008; G0257; G8978-GP-CL; G8979-GP-CJ; J0282; J0692; J0696; J1644; J1815; J3370; J7050; J7070; Q4081

== ENCOUNTER 2018-10-13 12:01 | Emergency (ER) | payer MEDICARE ==
[2018-10-13] MEDS ORDERED: HYDROcodone/Acetaminophen 5/325 mg Tablet ONE (12:13)
[2018-10-13 12:29] LABS: Bilirubin Moderate (Negative); Blood, Urine Large (Negative); Glucose, Urine (Dipstick) Negative (Negative); Leukocyte Moderate (Negative); Nitrite Positive (Negative); Protein, Urine (Dipstick) > or equal to 300 mg/dL (Neg-Trace); Urobilinogen 0.2 mg/dL (0.2-1.0)
[2018-10-13 12:33] LABS: Clarity Turbid (Clear)
[2018-10-13 12:40] LABS: Bacteria/HPF 4+ HPF (None Seen); Crystals/HPF 2+ TRIPLE PHOS HPF (Negative); Hyaline Casts/LPF 0-3 HYALINE CAST LPF (0-3 Hyaline); Yeast-All Forms 3+ HPF (None Seen)
[2018-10-13 13:31] LABS: #Eosinphils 0.2 thou/uL (0.0-0.7); #Lymphocytes 0.7 thou/uL (1.20-3.40); #Monocytes 0.5 thou/uL (0.11-0.59); #Neutrophils 4.5 thou/uL (1.40-6.50); %Basophils 0.4 % (0.0-1.0); %Eosinophils 3.5 % (0.0-10.0); %Lymphocytes 12.1 % (21.0-51.0); %Monocytes 8.2 % (0.0-10.0); %Neutrophils 75.8 % (42.0-75.0); Hemoglobin 9.7 g/dL (14.0-18.0); Mean Corpuscular HGB CONC 30.3 g/dL (32.0-36.0); Mean Corpuscular Hemoglobin 31.6 pg (27.0-31.0); Mean Platelet Volume 8.5 fL (7.4-10.4); Platelet Count 109 thou/uL (130-400); RBC Distribution Width 16.3 % (11.5-14.5); Red Blood Cell (RBC) Count 3.07 mill/uL (4.70-6.10)
[2018-10-13 13:35] LABS: INR-International Normal Ratio 1.3; PTT 32.7 SEC (22.9-36.1); Prothrombin Time 16.1 SEC (12.0-14.7)
[2018-10-13 13:42] LABS: ALT (SGPT) 8 U/L (8-55); AST (SGOT) 15 U/L (5-34); Albumin 3.8 g/dL (3.5-5.0); Alkaline Phosphatase 101 U/L (40-150); Anion Gap 17 mmol/L (10-20); BUN (Urea Nitrogen) 30 mg/dL (8.4-25.7); Bilirubin, Total 1.1 mg/dL (0.2-1.2); Calc. Creatinine Clearance 0 mL/min (70-130); Calcium 9.6 mg/dL (7.8-10.44); Carbon Dioxide 31 mmol/L (22-29); Chloride 98 mmol/L (98-107); Estimated GFR-MDRD 13; Globulin 3.5 g/dL (2.4-3.5); Glucose 133 mg/dL (70-105); Potassium 4.1 mmol/L (3.5-5.1); Protein, Total 7.3 g/dL (6.0-8.3); Sodium 142 mmol/L (136-145)
[2018-10-13 14:04] LABS: CKMB 1.8 ng/mL (0-6.6)
--- NOTE | 2018-10-13 14:42 | ULT ---
LEFT UPPER EXTREMITY VENOUS ULTRASOUND WITH DOPPLER: Date; 10/13/18 HISTORY: Left arm swelling. Patient has history of fistula. COMPARISON: None. CORRELATION: Bilateral upper extremity venous ultrasound for access mapping. TECHNIQUE: Jensen scale, color flow, Doppler imaging, and spectral waveform analysis performed of the left upper e xtremity venous system. FINDINGS: There is patency and compressibility of the internal jugular vein. The subclavian vein and axillary v ein are patent. There is a stable thrombus in the upper extremity cephalic vein. Adjacent nonspecific vein is also patent. There is edema at the level of the upper extremity. The visualized basilic vein, brachial vein, radial vein, and ulnar vein are patent. Note, the basilic vein could not be appreciated in the upper extremity. IMPRESSION: 1. Chronic thrombus in the upper extremity cephalic vein. 2. No evidence of occlusion in the visualized upper extremity venous system. 3. Soft tissue edema. POS: [facility]
[2018-10-13] MEDS ORDERED: Sulfameth/Trimethoprim DS 800-160mg TAB ONE (16:00)
[2018-10-13] MEDS ORDERED: Cephalexin 250 MG CAP ONE (16:00)
== END 2018-10-13 16:03 | disposition home or self-care (01) ==
LOC: ERS 12:01
DX: S80.212A Abrasion, left knee, initial encounter (principal); L03.113 Cellulitis of right upper limb; N39.0 Urinary tract infection, site not specified; E11.319 Type 2 diabetes mellitus with unspecified diabetic retinopathy without macular edema; E78.5 Hyperlipidemia, unspecified; E11.22 Type 2 diabetes mellitus with diabetic chronic kidney disease; K21.9 Gastro-esophageal reflux disease without esophagitis; I13.2 Hypertensive heart and chronic kidney disease with heart failure and with stage 5 chronic kidney disease, or end stage renal disease; I50.9 Heart failure, unspecified; N18.6 End stage renal disease; Z86.73 Personal history of transient ischemic attack (TIA), and cerebral infarction without residual deficits; W22.8XXA Striking against or struck by other objects, initial encounter
CPT/HCPCS: 36415; 51705; 80053; 81003; 81015; 82553; 83605; 84484; 85025; 85610; 85730; 87040; 87070; 87077; 87086; 87186; 87205; 96365; J3370